=== PATIENT | male | born 1955 | race Caucasian/White ===

== ENCOUNTER 2022-03-09 16:23 | Observation (INO) | payer MEDICARE ==
[2022-03-09 16:31] VITALS: RESP 18
[2022-03-09 16:56] LABS: Basophils # (A) 0.1 k/uL (0-0.2); Basophils % (A) 1 %; Eosinophils # (A) 0.2 k/uL (0-0.7); Eosinophils % (A) 1 %; HCT 47.2 % (39.0-53.0); HGB 15.7 gm/dL (13.0-17.5); Lymphocytes # (A) 1.5 k/uL (1.0-4.8); Lymphocytes % (A) 14 %; MCH 31.9 pg (25.0-35.0); MCHC 33.3 g/dL (31.0-37.0); MCV 95.9 fL (80.0-100.0); Mean Platelet Volume 8.4; Monocytes # (A) 0.6 k/uL (0-1.0); Monocytes % (A) 6 %; Neutrophils # (A) 8.2 k/uL (1.3-7.7); Neutrophils % (A) 77 %; Platelet Count 316 k/uL (150-450); RBC 4.92 m/uL (4.30-5.90); RDW 12.6 % (11.5-15.5); WBC 10.8 k/uL (3.8-10.6)
[2022-03-09] MEDS ORDERED: methylPREDNISolone SOD SUCCI 125 MG/2 ML VIAL IV STA (17:00)
[2022-03-09] MEDS ORDERED: ALBUTEROL NEBULIZED 2.5 MG/3 ML INHALATION PRN (17:00)
[2022-03-09] MEDS ORDERED: IPRATROPIUM-ALBUTEROL 3 ML NEB INHALATION STA (17:00)
[2022-03-09] MEDS ORDERED: SODIUM CHLORIDE 0.9% 500 ML 500 ML IV ONE ×2 (17:04→17:42)
--- NOTE | 2022-03-09 17:06 | ED ---
General Adult HPI - General Chief complaint: Chest Pain Stated complaint: SOB/Chest Pressure Time Seen by Provider: 03/09/22 16:50 Source: patient, RN notes reviewed, old records reviewed Mode of arrival: ambulatory Limitations: no limitations - History of Present Illness Initial comments: 66 yo male presenting for evaluation of lightheadedness, dyspnea, and chest tightness. Prior to arrival the patient had then bending over, he felt some chest discomfort in associated lightheadedness. He became diaphoretic. This was with bending over and shortly after standing. He does have a history of CAD. He is a current smoker. His pain is currently resolved. He had previous stenting. He also reports some cough and increased dyspnea over the past se veral days. No vomiting. No abdominal pain. - Related Data Home Medications Medication Instructions Recorded Confirmed Levothyroxine Sodium [Synthroid] 200 mcg PO DAILY 03/09/15 03/09/22 lisinopriL [Zestril] 2.5 mg PO DAILY 03/09/15 03/09/22 Fenofibrate 160 mg PO HS 03/09/22 03/09/22 carvediloL [Coreg] 6.25 mg PO BID 03/09/22 03/09/22 metFORMIN HCL [Glucophage] 1,000 mg PO BID 03/09/22 03/09/22 Previous Rx's Medication Instructions Recorded Aspirin 325 mg PO DAILY #30 tab 03/10/15 Atorvastatin [Lipitor] 80 mg PO HS #30 tab 03/10/15 Allergies Allergy/AdvReac Type Severity Reaction Status Date / Time glipizide AdvReac Blurry Verified 03/09/22 18:01 vision Review of Systems ROS Statement: Those systems with pertinent positive or pertinent negative responses have been documented in the HPI. ROS Other: All systems not noted in ROS Statement are negative. Past Medical History Past Medical History: Diabetes Mellitus, Hyperlipidemia, Hypertension, Myocardial Infarction (VT), Osteoarthritis (OA), Thyroid Disorder Additional Past Medical History / Comment(s): STEMI THIS ADMISSION 03/08/15 History of Any Multi-Drug Resistant Organisms: None Reported Past Surgical History: Heart Catheterization With Stent, Tonsillectomy Additional Past Surgical History / Comment(s): 2 stents to LAD on 03/08/15. 1 stent to LAD for reocclusion on 11/25/15. Past Anesthesia/Blood Transfusion Reactions: No Reported Reaction Date of Last Stent Placement:: 11/25/15 Past Psychological History: No Psychological Hx Reported Smoking Status: Current every day smoker Past Alcohol Use History: None Reported Past Drug Use History: None Reported - Past Family History Father Family Medical History: CVA/TIA Mother History Unknown: Yes General Exam Limitations: no limitations General appearance: alert, in no apparent distress Head exam: Present: atraumatic, normocephalic Eye exam: Present: normal appearance, PERRL ENT exam: Present: mucous membranes dry Neck exam: Present: normal inspection. Absent: tenderness, meningismus Respiratory exam: Present: wheezes, decreased breath sounds. Absent: respiratory distress Cardiovascular Exam: Present: regular rate, normal rhythm GI/Abdominal exam: Present: soft. Absent: distended, tenderness, guarding Extremities exam: Present: normal inspection, normal capillary refill Neurological exam: Present: alert, oriented X3, CN II-XII intact. Absent: motor sensory deficit Psychiatric exam: Present: normal affect, normal mood Skin exam: Present: warm, dry, intact. Absent: cyanosis, diaphoretic Course Vital Signs 03/09/22 03/09/22 03/09/22 16:26 17:17 18:05 Temperature 98.6 F Pulse Rate 98 82 75 Respiratory 18 18 18 Rate Blood Pressure 160/104 137/93 149/88 O2 Sat by Pulse 96 97 97 Oximetry EKG Findings - EKG Comments: EKG Findings:: EKG: Sinus tachycardia with no ST segment elevation, rate of 101, WA interval 179, QRS duration 77, QTC 364 Medical Decision Making - Medical Decision Making 66-year-old male with an episode of near-syncope, chest pain. History of CAD. Patient without chest. The time my evaluation. His chest x-ray is clear. His laboratory testing reveals normal CBC, he has negative initial troponin. His blood sugar is significantly elevated at 580 with pseudohyponatremia 128. He was treated with IV insulin and IV fluids. I did discuss case with Dr. Merrill [facility] who does recommend the patient be a full admit. I did discuss the case with Dr. Sandra who will admit. - Lab Data Result diagrams: 03/09/22 16:37 03/09/22 16:37 Lab Results 03/09/22 03/09/22 03/09/22 Range/Units 16:37 16:37 16:37 WBC 10.8 H (3.8-10.6) k/uL RBC 4.92 (4.30-5.90) m/uL Hgb 15.7 (13.0-17.5) gm/dL Hct 47.2 (39.0-53.0) % MCV 95.9 (80.0-100.0) fL MCH 31.9 (25.0-35.0) pg MCHC 33.3 (31.0-37.0) g/dL RDW 12.6 (11.5-15.5) % Plt Count 316 (150-450) k/uL MPV 8.4 Neutrophils % 77 % Lymphocytes % 14 % Monocytes % 6 % Eosinophils % 1 % Basophils % 1 % Neutrophils # 8.2 H (1.3-7.7) k/uL Lymphocytes # 1.5 (1.0-4.8) k/uL Monocytes # 0.6 (0-1.0) k/uL Eosinophils # 0.2 (0-0.7) k/uL Basophils # 0.1 (0-0.2) k/uL PT 10.2 (9.0-12.0) sec INR 0.9 (<1.2) APTT 24.2 (22.0-30.0) sec Sodium 128 L (137-145) mmol/L Potassium 4.3 (3.5-5.1) mmol/L Chloride 98 (98-107) mmol/L Carbon Dioxide 18 L (22-30) mmol/L Anion Gap 12 mmol/L BUN 16 (9-20) mg/dL Creatinine 0.89 (0.66-1.25) mg/dL Est GFR (CKD-EPI)AfAm >90 (>60 ml/min/1.73 sqM) Est GFR (CKD-EPI)NonAf 89 (>60 ml/min/1.73 sqM) Glucose 580 H* (74-99) mg/dL Calcium 9.0 (8.4-10.2) mg/dL Magnesium 1.9 (1.6-2.3) mg/dL Total Bilirubin 0.8 (0.2-1.3) mg/dL AST 22 (17-59) U/L ALT 13 (4-49) U/L Alkaline Phosphatase 98 (38-126) U/L Troponin I (0.000-0.034) ng/mL Total Protein 7.4 (6.3-8.2) g/dL Albumin 4.5 (3.5-5.0) g/dL 03/09/22 Range/Units 16:37 WBC (3.8-10.6) k/uL RBC (4.30-5.90) m/uL Hgb (13.0-17.5) gm/dL Hct (39.0-53.0) % MCV (80.0-100.0) fL MCH (25.0-35.0) pg MCHC (31.0-37.0) g/dL RDW (11.5-15.5) % Plt Count (150-450) k/uL MPV Neutrophils % % Lymphocytes % % Monocytes % % Eosinophils % % Basophils % % Neutrophils # (1.3-7.7) k/uL Lymphocytes # (1.0-4.8) k/uL Monocytes # (0-1.0) k/uL Eosinophils # (0-0.7) k/uL Basophils # (0-0.2) k/uL PT (9.0-12.0) sec INR (<1.2) APTT (22.0-30.0) sec Sodium (137-145) mmol/L Potassium (3.5-5.1) mmol/L Chloride (98-107) mmol/L Carbon Dioxide (22-30) mmol/L Anion Gap mmol/L BUN (9-20) mg/dL Creatinine (0.66-1.25) mg/dL Est GFR (CKD-EPI)AfAm (>60 ml/min/1.73 sqM) Est GFR (CKD-EPI)NonAf (>60 ml/min/1.73 sqM) Glucose (74-99) mg/dL Calcium (8.4-10.2) mg/dL Magnesium (1.6-2.3) mg/dL Total Bilirubin (0.2-1.3) mg/dL AST (17-59) U/L ALT (4-49) U/L Alkaline Phosphatase (38-126) U/L Troponin I <0.012 (0.000-0.034) ng/mL Total Protein (6.3-8.2) g/dL Albumin (3.5-5.0) g/dL Disposition Clinical Impression: Chest pain, CAD (coronary artery disease), Hyperglycemia, Near syncope Disposition: ADMITTED IP TO THIS HOSP Condition: Stable Is patient prescribed a controlled substance at d/c from ED?: No Referrals: Ruby Richardson DO [Primary Care Provider] - 1-2 days Time of Disposition: 18:16
[2022-03-09 17:08] LABS: ALT 13 U/L (4-49); AST 22 U/L (17-59); African American GFR (CKD) >90 (>60 ml/min/1.73 sqM); Albumin 4.5 g/dL (3.5-5.0); Alkaline Phosphatase 98 U/L (38-126); Anion Gap 12 mmol/L; Blood Urea Nitrogen 16 mg/dL (9-20); Carbon Dioxide 18 mmol/L (22-30); Chloride 98 mmol/L (98-107); Glucose 580 mg/dL (74-99); Magnesium 1.9 mg/dL (1.6-2.3); Non-African American GFR(CKD) 89 (>60 ml/min/1.73 sqM); Potassium 4.3 mmol/L (3.5-5.1); Sodium 128 mmol/L (137-145); Total Bilirubin 0.8 mg/dL (0.2-1.3); Total Protein 7.4 g/dL (6.3-8.2)
[2022-03-09 17:11] LABS: INR 0.9 (<1.2); Partial Thromboplastin Time 24.2 sec (22.0-30.0); Prothrombin Time 10.2 sec (9.0-12.0)
[2022-03-09] MEDS ORDERED: INSULIN REGULAR 100 UNIT/ML VIAL (IV) IV ONE (17:42)
[2022-03-09] MEDS: SODIUM CHLORIDE 0.9% 1,000 ML IV SCH (18:05)
--- NOTE | 2022-03-09 18:07 | XR ---
EXAMINATION TYPE: XR chest 2V DATE OF EXAM: 03/09/2022 5:38 PM COMPARISON: Chest radiographs from 11/23/2015 TECHNIQUE: XR chest 2V Frontal and lateral views of the chest. CLINICAL INDICATION:Male, 66 years old with history of pain; FINDINGS: Lungs/Pleura: There is no evidence of pleural effusion, focal consolidation, or pneumothorax. Pulmonary vascularity: Unremarkable. Heart/mediastinum: Cardiomediastinal silhouette is unremarkable. Musculoskeletal: No acute osseous pathology. IMPRESSION: No acute cardiopulmonary disease/process.
[2022-03-09] MEDS ORDERED: ACETAMINOPHEN TAB 325 MG TAB PO PRN (18:12)
[2022-03-09] MEDS ORDERED: NALOXONE 0.4 MG/ML 1 ML VIAL IV PRN (18:12)
[2022-03-09 18:56] LABS: Glucose,Whole Blood 377 mg/dL (75-99)
[2022-03-09 23:05] LABS: Glucose,Whole Blood 332 mg/dL (75-99)
[2022-03-10 07:17] LABS: Glucose,Whole Blood 298 mg/dL (75-99)
[2022-03-10 08:06] VITALS: BP 134/72; PULSE 65; TEMP 98.6
[2022-03-10] MEDS ORDERED: REGADENOSON 0.4 MG/5 ML SYRINGE IV PRN (08:08)
[2022-03-10] MEDS ORDERED: CAFFEINE CITRATE 60 MG/3 ML VIAL IV PRN (08:08)
[2022-03-10] MEDS ORDERED: AMINOPHYLLINE 500 MG/20 ML VIAL IV PRN (08:08)
[2022-03-10 08:51] LABS: Basophils # (A) 0.01 X 10*3/uL (0.00-0.10); Basophils % (A) 0.1 %; Eosinophils # (A) 0 X 10*3/uL (0.04-0.35); Eosinophils % (A) 0 %; HCT 41.3 % (39.6-50.0); Immature Grans, Automated 0.5 %; Lymphocytes # (A) 0.93 X 10*3/uL (0.90-5.00); Lymphocytes % (A) 8.1 %; MCH 31.5 pg (27.0-32.0); MCHC 33.9 g/dL (32.0-37.0); MCV 92.8 fL (80.0-97.0); Monocytes # (A) 0.36 X 10*3/uL (0.20-1.00); Monocytes % (A) 3.1 %; NRBC Per 100 WBC 0 /100 WBCS (0.0-0.0); Neutrophils # (A) 10.08 X 10*3/uL (1.80-7.70); Neutrophils % (A) 88.2 %; Platelet Count 287 X 10*3/uL (140-440); RBC 4.45 X 10*6/uL (4.40-5.60); RDW 13.1 % (11.5-14.5); WBC 11.44 X 10*3/uL (4.50-10.00)
[2022-03-10 09:04] LABS: African American GFR (CKD) 102.8 (60.0-200.0); Albumin 4.2 g/dL (3.8-4.9); Albumin/Globulin Ratio 1.75 (1.60-3.17); BUN/Creat Ratio 18.89 Ratio (12.00-20.00); Calcium 8.7 mg/dL (8.7-10.3); Globulin 2.4 g/dL (1.6-3.3); Non-African American GFR(CKD) 88.7 (60.0-200.0); Potassium 4.3 mmol/L (3.5-5.5); Total Bilirubin 0.3 mg/dL (0.30-1.20); Total Protein 6.6 g/dL (6.2-8.2)
[2022-03-10] MEDS ORDERED: LEVOTHYROXINE 100 MCG TAB PO SCH (09:30)
[2022-03-10] MEDS ORDERED: metFORMIN 500 MG TAB PO SCH (09:30)
[2022-03-10] MEDS ORDERED: carvediloL 6.25 MG TAB PO SCH (09:30)
[2022-03-10 09:57] LABS: Glucose,Whole Blood 281 mg/dL (75-99)
[2022-03-10] MEDS: INSULIN ASPART (NovoLOG) 100 UNIT/ML VIAL SQ SCH ×2 (10:07→13:14)
--- NOTE | 2022-03-10 10:10 | P.CRDCN ---
History of Present Illness History of present illness: HISTORY OF PRESENTING ILLNESS This is a pleasant 66-year-old male past medical history significant for coronary artery disease status post PCI to the proximal LAD in 2014 in setting of STEMI and PCI proximal LAD 2016 in setting of NSTEMI, type 2 diabetes, dyslipidemia, hypertension, hypothyroidism, chronic nicotine dependence. he currently does not follow with a journeyman lineman, last seen by Dr. Hamm in 2015, he did follow up once with a journeyman lineman in [place] in 2019. We have been asked to see in consultation for chest pain. Patient presents emergency department with symptoms of chest discomfort that began yesterday. He states he was working out in the garage, he stood up, had symptoms of lightheadedness, diaphoresis and chest discomfort in the center of his chest. He also had associated lightheadedness and mild shortness of breath. His chest pain was nonexertional, nonradiating. He denies any palpitations, loss of consciousness or syncope. His symptoms have now resolved. no specific alleviating or aggravating factors. On admission patient also found to be hyperglycemic with blood sugar 580. Patient denies any recent cardiac workup. DIAGNOSTICS EKG reveals sinus tachycardia, heart rate 101, T wave inversion in lead V2, T wave flattening in lead aVL, nonspecific abnormalities. No acute ischemia noted. Prior EKG with similar findings. Last Cardiac Catheterization 2015 revealedmild disease in the RCA, short left main but normal, left circumflex angiographically normal. The proximal LAD seems to have mild disease and gives rise to diagonal branch, mid LAD is stented with a critical in-stent restenosis. patient underwent PCI to LAD Telemetry tracings indicate sinus mechanism Chest xray no acute cardiopulmonary process Laboratory reviewed, troponin negative 3, WBC 10.8, hemoglobin 15.7, platelets 316, sodium 136, potassium 4.3, BUN 16, serum creat 0.8 Current home medications includecarvedilol 6.25 mg twice a day, Synthroid, aspirin, lisinopril 2.5 mg daily, atorvastatin 80 mg nightly, metformin Most recent echocardiogram 06/2015 in the office revealed an EF of 55%, no significant wall motion abnormalities. REVIEW OF SYSTEMS At the time of my exam: CONSTITUTIONAL: Denies fever or chills. CARDIOVASCULAR: Denies chest pain, shortness of breath, orthopnea, PND or palpitations. RESPIRATORY: Denies cough. GASTROINTESTINAL: Denies abdominal pain, diarrhea, constipation, nausea or vomiting. MUSCULOSKELETAL: Denies myalgias. NEUROLOGIC: Denies numbness, tingling, headache or weakness. ENDOCRINE: Denies fatigue, weight change, polydipsia or polyurina. GENITOURINARY: Denies burning, hematuria or urgency with micturation. HEMATOLOGIC: Denies history of anemia or bleeding. PHYSICAL EXAMINATION Blood pressure 134/72, heart 65, afebrile, saturation 97% on room air CONSTITUTIONAL: No apparent distress. HEENT: Head is normocephalic. Pupils are equal, round. Sclerae anicteric. Mucous membranes of the mouth are moist. No JVD. No carotid bruit. CHEST EXAMINATION: Lungs are clear to auscultation. No chest wall tenderness is noted on palpation or with deep breathing. HEART EXAMINATION: Regular rate and rhythm. S1, S2 heard. No murmurs, gallops or rub. ABDOMEN: Soft, nontender. Positive bowel sounds. EXTREMITIES: 2+ peripheral pulses, no lower extremity edema and no calf tenderness. SKIN: warm, dry NEUROLOGIC EXAMINATION: Patient is awake, alert and oriented x3. ASSESSMENT chest pain, atypical, acute coronary syndrome has ruled out hyperglycemia Coronary artery disease status post PCI to the proximal LAD in 2014 in setting of STEMI and PCI proximal LAD 2016 in setting of NSTEMI Type 2 diabetes Dyslipidemia Hypertension Hypothyroidism Chronic nicotine dependence PLAN An acute coronary event has been ruled out with no EKG evidence of ischemia and negative cardiac enzymes. Obtain 2D echocardiogram and doppler study to assess cardiac structure and function. Perform Lexiscan stress test to assess for stress induced cardiac ischemia. If abnormal will consider coronary angiography. Continue aspirin, statin, carvedilol Increase lisinopril to 5mg daily Smoking cessation discussed and highly recommended. If Stress test is negative, ok to discharge from a cardiology perspective. Recommend close follow up outpatient. Thank you kindly for this consultation. Nurse practitioner note has been reviewed by physician. Signing provider agrees with the documented findings, assessment, and plan of care. Past Medical History Past Medical History: Diabetes Mellitus, Hyperlipidemia, Hypertension, Myocardial Infarction (CT), Osteoarthritis (OA), Thyroid Disorder Additional Past Medical History / Comment(s): STEMI THIS ADMISSION 03/08/15 Last Myocardial Infarction Date:: 2015 History of Any Multi-Drug Resistant Organisms: None Reported Past Surgical History: Heart Catheterization With Stent, Tonsillectomy Additional Past Surgical History / Comment(s): 2 stents to LAD on 03/08/15. 1 stent to LAD for reocclusion on 11/25/15. Past Anesthesia/Blood Transfusion Reactions: No Reported Reaction Date of Last Stent Placement:: 11/25/15 Past Psychological History: No Psychological Hx Reported Smoking Status: Current every day smoker Past Alcohol Use History: None Reported Past Drug Use History: None Reported - Past Family History Father Family Medical History: CVA/TIA Mother History Unknown: Yes Medications and Allergies Home Medications Medication Instructions Recorded Confirmed Type Levothyroxine Sodium [Synthroid] 200 mcg PO DAILY 03/09/15 03/09/22 History lisinopriL [Zestril] 2.5 mg PO DAILY 03/09/15 03/09/22 History Aspirin 325 mg PO DAILY #30 tab 03/10/15 03/09/22 Rx Atorvastatin [Lipitor] 80 mg PO HS #30 tab 03/10/15 03/09/22 Rx Fenofibrate 160 mg PO HS 03/09/22 03/09/22 History carvediloL [Coreg] 6.25 mg PO BID 03/09/22 03/09/22 History metFORMIN HCL [Glucophage] 1,000 mg PO BID 03/09/22 03/09/22 History Allergies Allergy/AdvReac Type Severity Reaction Status Date / Time glipizide AdvReac Blurry Verified 03/09/22 18:01 vision Physical Exam Vitals: Vital Signs Temp Pulse Pulse Resp BP BP Pulse Ox 03/10/22 07:13 98.6 F 65 18 134/72 97 03/10/22 00:30 98.1 F 84 18 154/94 98 03/09/22 22:53 78 18 158/92 98 03/09/22 19:03 79 18 115/60 96 03/09/22 18:21 66 03/09/22 18:15 66 03/09/22 18:05 75 18 149/88 97 03/09/22 17:17 82 18 137/93 97 03/09/22 16:26 98.6 F 98 18 160/104 96 Intake and Output 03/09/22 03/10/22 03/10/22 22:59 06:59 14:59 Other: Voiding Method Toilet # Voids 1 Weight 79.379 kg Results 03/10/22 06:56 03/10/22 06:56 Cardiac Enzymes 03/09/22 03/09/22 03/09/22 Range/Units 16:37 16:37 20:58 AST 22 (17-59) U/L Troponin I <0.012 <0.012 (0.000-0.034) ng/mL 03/10/22 Range/Units 00:47 AST (17-59) U/L Troponin I <0.012 (0.000-0.034) ng/mL Coagulation 03/09/22 Range/Units 16:37 PT 10.2 (9.0-12.0) sec APTT 24.2 (22.0-30.0) sec CBC 03/09/22 Range/Units 16:37 WBC 10.8 H (3.8-10.6) k/uL RBC 4.92 (4.30-5.90) m/uL Hgb 15.7 (13.0-17.5) gm/dL Hct 47.2 (39.0-53.0) % Plt Count 316 (150-450) k/uL Comprehensive Metabolic Panel 03/09/22 Range/Units 16:37 Sodium 128 L (137-145) mmol/L Potassium 4.3 (3.5-5.1) mmol/L Chloride 98 (98-107) mmol/L Carbon Dioxide 18 L (22-30) mmol/L BUN 16 (9-20) mg/dL Creatinine 0.89 (0.66-1.25) mg/dL Glucose 580 H* (74-99) mg/dL Calcium 9.0 (8.4-10.2) mg/dL AST 22 (17-59) U/L ALT 13 (4-49) U/L Alkaline Phosphatase 98 (38-126) U/L Total Protein 7.4 (6.3-8.2) g/dL Albumin 4.5 (3.5-5.0) g/dL Current Medications Generic Name Dose Route Start Last Admin Trade Name Freq PRN Reason Stop Dose Admin Acetaminophen 650 mg 03/09/22 18:12 Acetaminophen Tab 325 Mg Tab PO Q6HR PRN Mild Pain or Fever > 100.5 Albuterol Sulfate 2.5 mg 03/09/22 17:00 Albuterol Nebulized 2.5 Mg/3 Ml INHALATION RT-Q2H PRN Shortness Of Breath Or Wheezing Sodium Chloride 1,000 mls @ 75 mls/hr 03/09/22 17:45 03/09/22 18:05 Saline 0.9% IV 75 mls/hr .[id number] HENRI Administration Naloxone HCl 0.2 mg 03/09/22 18:12 Naloxone 0.4 Mg/Ml 1 Ml Vial IV Q2M PRN Opioid Reversal Intake and Output 03/09/22 03/10/22 03/10/22 22:59 06:59 14:59 Other: Voiding Method Toilet # Voids 1 Weight 79.379 kg 03/09/22 16:37 03/09/22 16:37
[2022-03-10] MEDS ORDERED: ASPIRIN 81 MG PO SCH (10:15)
[2022-03-10] MEDS ORDERED: lisinopriL 5 MG TAB PO SCH (10:15)
[2022-03-10 12:12] LABS: Glucose,Whole Blood 271 mg/dL (75-99)
--- NOTE | 2022-03-10 12:52 | NM ---
EXAMINATION TYPE: NM stress lexiscan cardiolite DATE OF EXAM: 03/10/2022 COMPARISON: NONE HISTORY: Chest TECHNIQUE: After the intravenous administration of 9.7 mCi Tc 99m Sestamibi - Cardiolite resting SPE CT images acquired 110 minutes post injection. The patient received 0.4mg Lexiscan, 25.4 mCi Tc 99m Sestamibi - Stress images obtained [address] injection FINDINGS: Review of stress and rest SPECT images demonstrates large areas of reduced uptake which appear matche d involving stress and rest images involving the anterior wall, septum, inferior wall and apex all gayle ggestive of remote infarct. Corresponding wall motion defect. Ejection fraction of 48% no definite st ress-induced reversibility seen. IMPRESSION: Large area of fixed defect involving the myocardium as discussed above suggestive of areas of remote infarction. No scintigraphic evidence for reversible ischemia.
[2022-03-10] MEDS: SODIUM CHLORIDE 0.9% 1,000 ML IV SCH (13:34)
--- NOTE | 2022-03-10 13:39 | P.HPIM ---
History of Present Illness H&P Date: 03/10/22 Chief Complaint: Chest discomfort This is a pleasant 66-year-old patient who follows Dr. Ruby guerrero. Chronic stable medical conditions include diabetes, hypertension, hyperlipidemia, osteoporosis, hypothyroid. Patient has known CAD with 2 stents to LAD and 2015 and one stent to LAD and for reocclusion in 2016. Patient is a smoker. Patient was working in the garage yesterday and when he got up he felt dizzy short of breath and some palpitations, chest discomfort. No radiation. Symptoms lasted for good 30 minutes. Finally decided to come in. Troponin was negative. 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 Had a negative cardiac stress test over 2 years ago. This morning no chest pain. Review of systems: GEN.: Tired EYES: None HEENT: None NECK: None RESPIRATORY: Occasionally short of breath with activity CARDIOVASCULAR: As above GASTROINTESTINAL: None GENITOURINARY: None MUSCULOSKELETAL: Some joint pains LYMPHATICS: None HEMATOLOGICAL: None PSYCHIATRY: None NEUROLOGICAL: None Past medical history to include: Diabetes, hypertension, hyperlipidemia, osteomyelitis, hypothyroid. CAD with stent in 1999 1515. Social history: Smokes a pack a day for many years. 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 . Family history: Stroke Physical examination: VITAL SIGNS: 98.6, 65, 18, 1:30/72, 97% room air GENERAL: BMI 26.6, declining but awake comfortable. EYES: Pupils equal. Conjunctiva normal. HEENT: External appearance of nose and ears normal, oral cavity grossly normal. NECK: JVD not raised; masses not palpable. HEART: First and second heart sounds are normal; no edema. LUNGS: Respiratory rate normal; decreased breath sounds. ABDOMEN: Soft, nontender, liver spleen not palpable, no masses palpable. PSYCH: Alert and oriented x3; mood and affect normal. MUSCULOSKELETAL:No Clubbing/cyanosis;muscles-grossly intact. Evidence of OA NEUROLOGICAL: Cranial nerves grossly intact; no facial asymmetry, power and sensation grossly intact. LYMPHATICS: No lymph nodes palpable in the axilla and neck INVESTIGATIONS, reviewed in the clinical context: EKG tracing personally reviewed by me-sinus rhythm. Nonspecific findings Chest x-ray film personally reviewed by me-no infiltrates White count 11.4 hemoglobin 14 platelets 287 potassium 4.3 creatinine 0.9 blood glucose 314 Troponin I less than 0.012 Assessment and plan: -Possible unstable angina in a patient with known CAD who continues to smoke Initial troponin negative. With the stress testing. -CAD with 3 stents to LAD in . Coreg 6.25 twice a day, aspirin -Diabetes mellitus type 2, on oral hypoglycemic Metformin thousand milligrams twice a day. Follow Accu-Cheks -Hyperlipidemia Lipitor 80 mg daily at bedtime -Essential hypertension Zestril 2.5 mg a day Coreg 6.25 mg twice a day -Hypothyroid Synthroid 200 g daily Serial cardiac enzymes. Resume home medications. Cardiology consulted. Pending nuclear Stress test. Care was discussed with the patient. Questions answered. Past Medical History Past Medical History: Diabetes Mellitus, Hyperlipidemia, Hypertension, Myocardia l Infarction ([place]), Osteoarthritis (OA), Thyroid Disorder Additional Past Medical History / Comment(s): STEMI THIS ADMISSION 03/08/15 Last Myocardial Infarction Date:: 2015 History of Any Multi-Drug Resistant Organisms: None Reported Past Surgical History: Heart Catheterization With Stent, Tonsillectomy Additional Past Surgical History / Comment(s): 2 stents to LAD on 03/08/15. 1 stent to LAD for reocclusion on 11/25/15. Past Anesthesia/Blood Transfusion Reactions: No Reported Reaction Date of Last Stent Placement:: 11/25/15 Past Psychological History: No Psychological Hx Reported Smoking Status: Current every day smoker Past Alcohol Use History: None Reported Past Drug Use History: None Reported - Past Family History Father Family Medical History: CVA/TIA Mother History Unknown: Yes Medications and Allergies Home Medications Medication Instructions Recorded Confirmed Type Levothyroxine Sodium [Synthroid] 200 mcg PO DAILY 03/09/15 03/09/22 History lisinopriL [Zestril] 2.5 mg PO DAILY 03/09/15 03/09/22 History Atorvastatin [Lipitor] 80 mg PO HS #30 tab 03/10/15 03/09/22 Rx Fenofibrate 160 mg PO HS 03/09/22 03/09/22 History carvediloL [Coreg] 6.25 mg PO BID 03/09/22 03/09/22 History metFORMIN HCL [Glucophage] 1,000 mg PO BID 03/09/22 03/09/22 History Albuterol Inhaler [Ventolin Hfa 1 puff INHALATION RT-QID PRN #8 gm 03/10/22 Rx Inhaler] Aspirin 81 mg PO DAILY 03/10/22 Rx Allergies Allergy/AdvReac Type Severity Reaction Status Date / Time glipizide AdvReac Blurry Verified 03/09/22 18:01 vision Physical Exam Vitals: Vital Signs Temp Pulse Pulse Resp BP BP Pulse Ox 03/10/22 07:13 98.6 F 65 18 134/72 97 03/10/22 00:30 98.1 F 84 18 154/94 98 03/09/22 22:53 78 18 158/92 98 03/09/22 19:03 79 18 115/60 96 03/09/22 18:21 66 03/09/22 18:15 66 03/09/22 18:05 75 18 149/88 97 03/09/22 17:17 82 18 137/93 97 03/09/22 16:26 98.6 F 98 18 160/104 96 Intake and Output 03/09/22 03/10/22 03/10/22 22:59 06:59 14:59 Other: Voiding Method Toilet # Voids 1 Weight 79.379 kg Results CBC & Chem 7: 03/10/22 06:56 03/10/22 06:56 Labs: Abnormal Lab Results - Last 24 Hours (Table) 03/09/22 03/09/22 03/09/22 Range/Units 16:37 16:37 18:54 WBC 10.8 H (3.8-10.6) k/uL Immature Gran # (0.00-0.04) X 10*3/uL Neutrophils # 8.2 H (1.3-7.7) k/uL Eosinophils # (0.04-0.35) X 10*3/uL Sodium 128 L (137-145) mmol/L Carbon Dioxide 18 L (22-30) mmol/L Glucose 580 H* (74-99) mg/dL POC Glucose (mg/dL) 377 H (75-99) mg/dL AST (14-35) U/L 03/09/22 03/10/22 03/10/22 Range/Units 22:59 06:56 06:56 WBC 11.44 H (3.8-10.6) k/uL Immature Gran # 0.06 H (0.00-0.04) X 10*3/uL Neutrophils # 10.08 H (1.3-7.7) k/uL Eosinophils # 0 L (0.04-0.35) X 10*3/uL Sodium (137-145) mmol/L Carbon Dioxide (22-30) mmol/L Glucose 314 H (74-99) mg/dL POC Glucose (mg/dL) 332 H (75-99) mg/dL AST 13 L (14-35) U/L 03/10/22 Range/Units 07:16 WBC (3.8-10.6) k/uL Immature Gran # (0.00-0.04) X 10*3/uL Neutrophils # (1.3-7.7) k/uL Eosinophils # (0.04-0.35) X 10*3/uL Sodium (137-145) mmol/L Carbon Dioxide (22-30) mmol/L Glucose (74-99) mg/dL POC Glucose (mg/dL) 298 H (75-99) mg/dL AST (14-35) U/L
--- NOTE | 2022-03-10 16:34 | P.DS ---
Providers Date of admission: 03/10/22 09:17 Expected date of discharge: 03/10/22 Attending physician: Vu Sandra Consults: 03/09/22 18:12 Consult Physician Routine Consulting Provider: Audelia Hernandez Consult Reason/Comments: CP Do you want consulting provider notified?: Yes Primary care physician: Ruby Guerrero [facility] Course: Chief Complaint: Chest discomfort This is a pleasant 66-year-old patient who follows Dr. Ruby guerrero. Chronic stable medical conditions include diabetes, hypertension, hyperlipidemia, osteoporosis, hypothyroid. Patient has known CAD with 2 stents to LAD and 2015 and one stent to LAD and for reocclusion in 2016. Patient is a smoker. Patient was working in the garage yesterday and when he got up he felt dizzy short of breath and some palpitations, chest discomfort. No radiation. Symptoms lasted for good 30 minutes. Finally decided to come in. Troponin was negative. Patient last saw his complaint analyst before the pandemic. Had a negative cardiac stress test over 2 years ago. This morning no chest pain. Patient is self underwent a Lexiscan nuclear stress test. Large fixed defect. Cleared by cardiology to go home. Patient declined nicotine patch. He'll follow-up with his complaint analyst. Past medical history to include: Diabetes, hypertension, hyperlipidemia, osteomyelitis, hypothyroid. CAD with s tent in 1999 1515. Social history: Smokes a pack a day for many years. 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 . Family history: Stroke Physical examination: VITAL SIGNS: 98.6, 65, 18, 134/72, 97% room air GENERAL: Comfortable EYES: Pupils equal. Conjunctiva normal. HEENT: External appearance of nose and ears normal, oral cavity grossly normal. NECK: JVD not raised; masses not palpable. HEART: First and second heart sounds are normal; no edema. LUNGS: Respiratory rate normal; decreased breath sounds. ABDOMEN: Soft, nontender, liver spleen not palpable, no masses palpable. PSYCH: Alert and oriented x3; mood and affect normal. MUSCULOSKELETAL:No Clubbing/cyanosis;muscles-grossly intact. Evidence of OA INVESTIGATIONS, reviewed in the clinical context: Lexiscan stress test: Large fixed defect. EKG tracing personally reviewed by me-sinus rhythm. Nonspecific findings Chest x-ray film personally reviewed by me-no infiltrates White count 11.4 hemoglobin 14 platelets 287 potassium 4.3 creatinine 0.9 blood glucose 314 Troponin I less than 0.012 Assessment and plan: -Possible angina in a patient with known CAD who continues to smoke Initial troponin negative. Nuclear stress test showed a fixed defect. -CAD with 3 stents to LAD in . Coreg 6.25 twice a day, aspirin -Diabetes mellitus type 2, on oral hypoglycemic Metformin thousand milligrams twice a day. Follow Accu-Cheks -Hyperlipidemia Lipitor 80 mg daily at bedtime -Essential hypertension Zestril 2.5 mg a day Coreg 6.25 mg twice a day -Hypothyroid Synthroid 200 g daily Disposition: Home Plan - Discharge Summary New Discharge Prescriptions: New Aspirin 81 mg PO DAILY Albuterol Inhaler [Ventolin Hfa Inhaler] 1 puff INHALATION RT-QID PRN #8 gm PRN Reason: Wheezing Continue Levothyroxine Sodium [Synthroid] 200 mcg PO DAILY lisinopriL [Zestril] 2.5 mg PO DAILY Atorvastatin [Lipitor] 80 mg PO HS #30 tab Fenofibrate 160 mg PO HS carvediloL [Coreg] 6.25 mg PO BID metFORMIN HCL [Glucophage] 1,000 mg PO BID Discontinued Aspirin 325 mg PO DAILY #30 tab Discharge Medication List Levothyroxine Sodium [Synthroid] 200 mcg PO DAILY 03/09/15 [History] lisinopriL [Zestril] 2.5 mg PO DAILY 03/09/15 [History] Atorvastatin [Lipitor] 80 mg PO HS #30 tab 03/10/15 [Rx] Fenofibrate 160 mg PO HS 03/09/22 [History] carvediloL [Coreg] 6.25 mg PO BID 03/09/22 [History] metFORMIN HCL [Glucophage] 1,000 mg PO BID 03/09/22 [History] Albuterol Inhaler [Ventolin Hfa Inhaler] 1 puff INHALATION RT-QID PRN #8 gm 03/10/22 [Rx] Aspirin 81 mg PO DAILY 03/10/22 [Rx] Follow up Appointment(s)/Referral(s): Gold Hamm MD [STAFF PHYSICIAN] - 03/22/22 4:15 pm Ruby Guerrero DO [Primary Care Provider] - 1-2 days Patient Instructions/Handouts: Chest Pain (DC), Syncope (DC), Diabetic Hyper glycemia (DC) Discharge Disposition: HOME SELF-CARE
--- NOTE | 2022-03-10 17:54 | CA ---
Transthoracic Echo Report Name: Wilbert Boswell Age: 66 Gender: M : 1955 Exam Date: 03/10/2022 12:36 Exam Location: [place] [facility] Ht (in): 68 Wt (lb): 175 Ordering Physician: Yamel Lomeli Attending/Referring Phys: Fire Extinguisher Charger Carlota Hayden RDCS Procedure CPT: Indications: LV function Cardiac Hx: Technical Quality: Fair Contrast 1: Total Dose (mL): Contrast 2: Total Dose (mL): MEASUREMENTS (Male / Female) Normal Values 2D ECHO LV Diastolic Diameter PLAX 4.3 cm 4.2 - 5.9 / 3.9 - 5.3 cm LV Systolic Diameter PLAX 2.7 cm IVS Diastolic Thickness 1.3 cm 0.6 - 1.0 / 0.6 - 0.9 cm LVPW Diastolic Thickness 1.1 cm 0.6 - 1.0 / 0.6 - 0.9 cm LV Relative Wall Thickness 0.6 RV Internal Dim ED PLAX 3.4 cm LA Volume 54.0 cm??? 18 - 58 / 22 - 52 cm??? M-MODE Aortic Root Diameter MM 2.9 cm LA Systolic Diameter MM 3.8 cm LA Ao Ratio MM 1.3 AV Cusp Separation MM 2.1 cm DOPPLER AV Peak Velocity 122.5 cm/s AV Peak Gradient 6.0 mmHg AI Peak Velocity 395.5 cm/s AI Peak Gradient 62.6 mmHg AI Pressure Half Time 713.2 ms LVOT Peak Velocity 88.8 cm/s LVOT Peak Gradient 3.2 mmHg MV Area PHT 2.7 cm??? Mitral E Point Velocity 62.1 cm/s Mitral A Point Velocity 65.1 cm/s Mitral E to A Ratio 1.0 MV Deceleration Time 284.7 ms MV E' Velocity 6.5 cm/s Mitral E to MV E' Ratio 9.6 TR Peak Velocity 187.0 cm/s TR Peak Gradient 14.0 mmHg Right Ventricular Systolic Press 19.0 mmHg FINDINGS Left Ventricle Left ventricular cavity size normal. Mildly increased left ventricular wall thickness. Apical septal hypokinesis, Inferior apical wall hypokinesis. Left ventricular ejection fraction is estimated at 45 %. Right Ventricle Mild right ventricular dilatation. Right ventricular systolic pressure within normal limits. Right Atrium Normal right atrial size. Left Atrium Normal left atrial size. No evidence for an atrial septal defect. Mitral Valve Structurally normal mitral valve. Mild mitral regurgitation. Aortic Valve Trileaflet aortic valve. Trace to mild aortic regurgitation. Tricuspid Valve Structurally normal tricuspid valve. Mild tricuspid regurgitation. Pulmonic Valve Trace pulmonic regurgitation. Pericardium No pericardial effusion. Aorta Normal size aortic root and proximal ascending aorta. CONCLUSIONS Mildly impaired LV function with EF around 45% Please see above for further details Previewed by: Dr. Gold Hamm MD (Electronically Signed) Final Date: 10 Mar 2022 17:53
--- NOTE | 2022-03-10 18:16 | CA ---
Lexiscan Nuclear Stress Test Report Name: Wilbert Boswell Exam Date: 03/10/2022 11:00 Exam Location: [place] Stress Ht (in): 68 Wt (lb): 175 BSA: 1.93 Ordering Phys: Yamel Lomeli Referring Phys: JORGE,, Technologist: GUILLERMO,, Age: 66 Gender: M : 1955 Procedure CPT: Indications: Reflex order-Stress test ICD-10 Codes: Patient History: ROXANNE, DM, CHOLERTEROL, PRVIOUS DE, STENTS, SMOKER Medications: SEE LIST Meds past 24 hrs: Pretest Chest Pain: STRESS TEST Lexiscan Protocol Exercise Duration (min:sec): 01:[address] Depressions (mm): Angina Score: Chong Score: Resting HR (bpm): 62 Peak HR (bpm): 100 Resting BP (mmHg): 147 / 89 Peak BP (mmHg): 130 / 73 MPHR: 154 Target HR: 131 % MPHR: 65 METS: 1.0 Total Dose: Peak Dose: Atropine: Double Product: 96105 BP Response: Stress Termination: Completion of Infusion Stress Symptoms: NO SYMPTOMS Stress Summary: ECG ANALYSIS Resting ECG: Stress ECG: CONCLUSIONS Nondiagnostic. Echocardiogram stress testing response to Lexiscan Please follow up on the Cardiolite portion Dr. Gold Hamm MD (Electronically Signed) Final Date: 10 Mar 2022 18:16
[2022-03-10] MEDS ORDERED: FENOFIBRATE 160 MG TAB PO SCH (21:00)
[2022-03-10] MEDS ORDERED: ATORVASTATIN 80 MG TAB PO SCH (21:00)
== END 2022-03-10 15:25 | disposition home or self-care (01) ==
LOC: EC 16:23 → 6NMEDSUR 18:12 → INTOOBSV 03-10 09:17 → OBSVTOIN 03-10 09:17 → UNDODISIN 03-10 15:25
PROVIDERS: ADMIT Hospitalist; ATTEND Hospitalist
DX: R07.89 Other chest pain (principal); E11.65 Type 2 diabetes mellitus with hyperglycemia; I25.10 Atherosclerotic heart disease of native coronary artery without angina pectoris; R55 Syncope and collapse; R00.2 Palpitations; R61 Generalized hyperhidrosis; R42 Dizziness and giddiness; I08.3 Combined rheumatic disorders of mitral, aortic and tricuspid valves; M81.0 Age-related osteoporosis without current pathological fracture; I10 Essential (primary) hypertension; I25.2 Old myocardial infarction; E03.9 Hypothyroidism, unspecified; E78.5 Hyperlipidemia, unspecified; M19.90 Unspecified osteoarthritis, unspecified site; F17.210 Nicotine dependence, cigarettes, uncomplicated; Z71.6 Tobacco abuse counseling; Z79.82 Long term (current) use of aspirin; Z79.84 Long term (current) use of oral hypoglycemic drugs; Z79.890 Hormone replacement therapy; Z79.899 Other long term (current) drug therapy; Z88.8 Allergy status to other drugs, medicaments and biological substances; Z95.5 Presence of coronary angioplasty implant and graft; Z98.890 Other specified postprocedural states; Z82.3 Family history of stroke
CPT/HCPCS: 96361; 96374; 99285; 36415; 94640; 93005; 93017; 93306; 80053 ×2; 83735; 84484 ×2; 85025 ×2; 85610; 85730; 71046; 78452; G0378 ×2; A9500; J2930; J2785; 96375

== ENCOUNTER 2023-01-06 22:15 | Emergency (ER) | payer MEDICARE ==
[2023-01-06 22:31] VITALS: TEMP 98.8
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
[2023-01-06 23:16] LABS: Basophils # (A) 0.1 k/uL (0-0.2); Basophils % (A) 0 %; Eosinophils # (A) 0.1 k/uL (0-0.7); Eosinophils % (A) 1 %; HCT 48.4 % (39.0-53.0); HGB 16.4 gm/dL (13.0-17.5); Lymphocytes # (A) 1.5 k/uL (1.0-4.8); Lymphocytes % (A) 12 %; MCH 31.2 pg (25.0-35.0); MCHC 33.9 g/dL (31.0-37.0); MCV 91.9 fL (80.0-100.0); Mean Platelet Volume 8.2; Monocytes # (A) 0.6 k/uL (0-1.0); Monocytes % (A) 5 %; Neutrophils # (A) 9.8 k/uL (1.3-7.7); Neutrophils % (A) 80 %; Platelet Count 313 k/uL (150-450); RBC 5.27 m/uL (4.30-5.90); RDW 12.7 % (11.5-15.5); WBC 12.2 k/uL (3.8-10.6)
[2023-01-06 23:28] LABS: African American GFR (CKD) >90 (>60 ml/min/1.73 sqM); Anion Gap 10 mmol/L; Blood Urea Nitrogen 15 mg/dL (9-20); Calcium 9.3 mg/dL (8.4-10.2); Carbon Dioxide 20 mmol/L (22-30); Chloride 103 mmol/L (98-107); Glucose 270 mg/dL (74-99); Non-African American GFR(CKD) >90 (>60 ml/min/1.73 sqM); Potassium 4.2 mmol/L (3.5-5.1); Sodium 133 mmol/L (137-145)
[2023-01-07] MEDS ORDERED: INSULIN ASPART (NovoLOG) 100 UNIT/ML VIAL SQ ONE (00:09)
[2023-01-07] MEDS ORDERED: HYDROcodone/APAP 5-325MG 1 EACH TAB PO STA (00:13)
[2023-01-07] MEDS ORDERED: ALPRAZolam 0.25 MG TAB PO STA (00:13)
[2023-01-07 00:41] LABS: Glucose,Whole Blood 171 mg/dL (70-110)
[2023-01-07 01:00] VITALS: BP 151/95; PULSE 97; RESP 16
== END 2023-01-07 00:50 | disposition home or self-care (01) ==
LOC: EC 22:15
DX: F41.9 Anxiety disorder, unspecified (principal); E11.9 Type 2 diabetes mellitus without complications; I10 Essential (primary) hypertension; I25.2 Old myocardial infarction; M19.90 Unspecified osteoarthritis, unspecified site; E07.9 Disorder of thyroid, unspecified; F17.200 Nicotine dependence, unspecified, uncomplicated; Z88.8 Allergy status to other drugs, medicaments and biological substances; Z79.890 Hormone replacement therapy; Z79.899 Other long term (current) drug therapy
CPT/HCPCS: 36415; 80048; 85025; 93005; 99284

== ENCOUNTER 2023-01-27 18:26 | Inpatient (IN) | payer MEDICARE ==
[2023-01-27 19:40] LABS: Basophils # (A) 0.1 k/uL (0-0.2); Basophils % (A) 0 %; Eosinophils # (A) 0.1 k/uL (0-0.7); Eosinophils % (A) 1 %; HCT 47.4 % (39.0-53.0); HGB 16.8 gm/dL (13.0-17.5); Lymphocytes # (A) 1.6 k/uL (1.0-4.8); Lymphocytes % (A) 15 %; MCH 31.8 pg (25.0-35.0); MCHC 35.4 g/dL (31.0-37.0); MCV 89.9 fL (80.0-100.0); Mean Platelet Volume 9.7; Monocytes # (A) 0.5 k/uL (0-1.0); Monocytes % (A) 5 %; Neutrophils # (A) 8.2 k/uL (1.3-7.7); Neutrophils % (A) 77 %; Platelet Count 369 k/uL (150-450); RBC 5.27 m/uL (4.30-5.90); RDW 13.3 % (11.5-15.5); WBC 10.6 k/uL (3.8-10.6)
--- NOTE | 2023-01-27 19:53 | ED ---
General Adult HPI - General Chief complaint: Dizziness Stated complaint: Jaw Pain,Dizziness Time Seen by Provider: 01/27/23 18:47 Source: patient Mode of arrival: ambulatory Limitations: no limitations - History of Present Illness Initial comments: This patient is 67-year-old man presenting with a number of symptoms and have come and gone over the past 3 or so days. Patient had at times noticed some blurry vision with his left eye. The patient states the most concerning symptom was that yesterday he was having difficulty using his right arm. He states he attempted to reach a remote control but was not able to grasp it. He states that he fumbled with it and that it seemed his right hand wasn't following commands. The symptoms have all resolved. The patient states he feels back at his baseline now. There was no headache. -: days(s) Location: eyes, right, upper extremity Severity scale (1-10): 0 Consistency: intermittent, now resolved Improves with: none Worsens with: none Associated Symptoms: denies other symptoms Treatments Prior to Arrival: none - Related Data Home Medications Medication Instructions Recorded Confirmed Levothyroxine Sodium [Synthroid] 200 mcg PO W/LUNCH 03/09/15 01/27/23 Aspirin EC [Ecotrin] 325 mg PO PC-SUPPER 01/27/23 01/27/23 Dapagliflozin Propanediol [Farxiga] 10 mg PO PC-SUPPER 01/27/23 01/27/23 Diclofenac Sodium [Voltaren] 75 mg PO BID 01/27/23 01/27/23 Levothyroxine Sodium [Synthroid] 25 mcg PO W/LUNCH 01/27/23 01/27/23 Semaglutide [Ozempic] 0.25 mg SQ PATRICK 01/27/23 01/27/23 lisinopriL [Zestril] 40 mg PO PC-SUPPER 01/27/23 01/27/23 metFORMIN HCL [Glucophage] 500 mg PO PC-SUPPER 01/27/23 01/27/23 Previous Rx's Medication Instructions Recorded Albuterol Inhaler [Ventolin Hfa 1 puff INHALATION RT-QID PRN #8 gm 03/10/22 Inhaler] Atorvastatin [Lipitor] 80 mg PO DAILY #90 tab 01/30/23 Clopidogrel [Plavix] 75 mg PO DAILY #30 tab 01/30/23 Allergies Allergy/AdvReac Type Severity Reaction Status Date / Time glipizide AdvReac Blurry Verified 01/29/23 14:01 vision Review of Systems ROS Statement: Those systems with pertinent positive or pertinent negative responses have been documented in the HPI. ROS Other: All systems not noted in ROS Statement are negative. Constitutional: Denies: fever, chills, weakness Eyes: Reports: as per HPI, vision change. Denies: eye pain Respiratory: Denies: cough, dyspnea Cardiovascular: Denies: chest pain, palpitations, edema, syncope Gastrointestinal: Denies: abdominal pain, nausea, vomiting, melena, hematochezia Genitourinary: Denies: dysuria, hematuria Musculoskeletal: Denies: back pain Skin: Denies: rash Neurological: Denies: headache, weakness, numbness, paresthesias, confusion, vertigo Past Medical History Past Medical History: Diabetes Mellitus, Hyperlipidemia, Hypertension, Myocard ial Infarction (VT), Osteoarthritis (OA), Thyroid Disorder Additional Past Medical History / Comment(s): STEMI THIS ADMISSION 03/08/15 Last Myocardial Infarction Date:: 2015 History of Any Multi-Drug Resistant Organisms: None Reported Past Surgical History: Heart Catheterization With Stent, Tonsillectomy Additional Past Surgical History / Comment(s): 2 stents to LAD on 03/08/15. 1 stent to LAD for reocclusion on 11/25/15. Past Anesthesia/Blood Transfusion Reactions: No Reported Reaction Date of Last Stent Placement:: 11/25/15 Past Psychological History: No Psychological Hx Reported Smoking Status: Current every day smoker Past Alcohol Use History: None Reported Past Drug Use History: None Reported - Past Family History Father Family Medical History: CVA/TIA Mother History Unknown: Yes General Exam Limitations: no limitations General appearance: alert, in no apparent distress Head exam: Present: atraumatic, normocephalic Eye exam: Present: normal appearance, PERRL, EOMI. Absent: scleral icterus, conjunctival injection, nystagmus ENT exam: Present: normal oropharynx Neck exam: Present: normal inspection, full ROM Respiratory exam: Present: normal lung sounds bilaterally. Absent: respiratory distress, wheezes, rales, rhonchi, stridor Cardiovascular Exam: Present: regular rate, normal rhythm, normal heart sounds. Absent: systolic murmur, diastolic murmur, rubs, gallop GI/Abdominal exam: Present: soft. Absent: distended, tenderness, guarding, rebound, rigid, mass Extremities exam: Present: normal inspection, normal capillary refill. Absent: pedal edema, calf tenderness Back exam: Present: normal inspection. Absent: CVA tenderness (R), CVA tenderness (L) Neurological exam: Present: alert, oriented X3, CN II-XII intact. Absent: motor sensory deficit Skin exam: Present: warm, dry, intact, normal color. Absent: rash Course Vital Signs 01/27/23 01/27/23 18:32 22:12 Temperature 98.6 F Pulse Rate 105 H 67 Respiratory 20 16 Rate Blood Pressure 144/83 118/79 O2 Sat by Pulse 99 94 L Oximetry EKG Findings - EKG Comments: EKG Findings:: Possible old anteroseptal VT, based on Q waves in V2 through V5 - EKG Results: EKG: interpreted by BOB, sinus rhythm (Rate 82 bpm) - Blocks, Hewitt, Hypertrophy, ST Abn: AV and intraventricular conduction: left anterior fascicular block Medical Decision Making - Medical Decision Making This patient is 67-year-old man presenting with waxing and waning neurologic symptoms going back approximately 3 days. Patient states that baseline currently. The workup does reveal what appears to be critical stenosis patient left internal carotid artery. Patient's case discussed with admitting group, also discussed with vascular surgery and they request carotid duplex Dopplers be added. Patient will be admitted for further evaluation and treatment. The patient had chest x-ray which I interpreted as not showing any acute infiltrate, pneumothorax, or congestive heart failure. Was pt. sent in by a medical professional or institution (, PA, MECHANIC HELPER, urgent c are, hospital, or long term...) When possible be specific @ -[No] Did you speak to anyone other than the patient for history (EMS, parent, family, police, friend...)? What history was obtained from this source @ -[No] Did you review nursing and triage notes (agree or disagree)? Why? @ -[I reviewed and agree with nursing and triage notes] Were old charts reviewed (outside hosp., previous admission, EMS record, old EKG, old radiological studies, urgent care reports/EKG's, long term records)? Report findings @ -[old charts were reviewed] Differential Diagnosis (chest pain, altered mental status, abdominal pain women, abdominal pain men, vaginal bleeding, weakness, fever, dyspnea, syncope, headache, dizziness, GI bleed, back pain, seizure, CVA, palpatations, mental health, musculoskeletal)? @ -[Differential CVA Ischemic stroke, hemorrhagic stroke, brain tumor, atypical migraine, Wernicke's encephalopathy, seizure, multiple sclerosis, meningitis, encephalitis, hypoglycemia, Guillain-Calles, electrolytes disturbance, myasthenia gravis.... This is not meant to be an all-inclusive list EKG interpreted by me (3pts min.). @ -[As above] X-rays interpreted by me (1pt min.). @ -[As above] CT interpreted by me (1pt min.). @ -[None done] U/S interpreted by me (1pt. min.). @ -[None done] What testing was considered but not performed or refused? (CT, X-rays, U/S, labs)? Why? @ -[None] What meds were considered but not given or refused? Why? @ -[None] Did you discuss the management of the patient with other professionals (professionals i.e. , PA, MECHANIC HELPER, lab, RT, psych nurse, social work nurse, gasoline power shovel operator, teacher, ict help desk officer, egg caser)? Give summary @ -Case is discussed with admitting physician and with vascular surgery on- call, . Was smoking cessation discussed for >3mins.? @ -[Yes patient is counseled to stop smoking Was critical care preformed (if so, how long)? @ -[Yes, 30 minutes Were there social determinants of health that impacted care today? How? (Homelessness, low income, unemployed, alcoholism, drug addiction, transportation, low edu. Level, literacy, decrease access to med. care, penitentiary, rehab)? @ -[No] Was there de-escalation of care discussed even if they declined (Discuss DNR or withdrawal of care, Hospice)? DNR status @ -[No] What co-morbidities impacted this encounter? (DM, HTN, Smoking, COPD, CAD, Cancer, CVA, ARF, Chemo, Hep., AIDS, mental health diagnosis, sleep apnea, morbid obesity)? @ -[None] Was patient admitted / discharged? Hospital course, mention meds given and route, prescriptions, significant lab abnormalities, going to OR and other pertinent info. @ -[Patient is admitted to have vascular surgical consultation, neurology consultation, and further treatment for his condition Undiagnosed new problem with uncertain prognosis? @ -[No] Drug Therapy requiring intensive monitoring for toxicity (Heparin, Nitro, I nsulin, Cardizem)? @ -[No] Were any procedures done? @ -[No] Diagnosis/symptom? @ -[1. Acute TIA 2. Critical stenosis of internal carotid artery Acute, or Chronic, or Acute on Chronic? @ -[default] Uncomplicated (without systemic symptoms) or Complicated (systemic symptoms)? @ -[Conjugated Side effects of treatment? @ -[No] Exacerbation, Progression, or Severe Exacerbation? @ -[No] Poses a threat to life or bodily function? How? (Chest pain, USA, VT, pneumonia, PE, COPD, DKA, ARF, appy, cholecystitis, CVA, Diverticulitis, Homicidal, Suicidal, threat to staff... and all critical care pts) @ -[Yes, there is risk of complete occlusion resulting in stroke or - Lab Data Result diagrams: 01/30/23 02:20 01/30/23 02:20 Lab Results 01/27/23 01/27/23 01/27/23 Range/Units 19:25 19:25 19:25 WBC 10.6 (3.8-10.6) k/uL RBC 5.27 (4.30-5.90) m/uL Hgb 16.8 (13.0-17.5) gm/dL Hct 47.4 (39.0-53.0) % MCV 89.9 (80.0-100.0) fL MCH 31.8 (25.0-35.0) pg MCHC 35.4 (31.0-37.0) g/dL RDW 13.3 (11.5-15.5) % Plt Count 369 (150-450) k/uL MPV 9.7 Neutrophils % 77 % Lymphocytes % 15 % Monocytes % 5 % Eosinophils % 1 % Basophils % 0 % Neutrophils # 8.2 H (1.3-7.7) k/uL Lymphocytes # 1.6 (1.0-4.8) k/uL Monocytes # 0.5 (0-1.0) k/uL Eosinophils # 0.1 (0-0.7) k/uL Basophils # 0.1 (0-0.2) k/uL PT 9.7 (9.0-12.0) sec INR 0.9 (<1.2) APTT 24.4 (22.0-30.0) sec Sodium 135 L (137-145) mmol/L Potassium 5.0 (3.5-5.1) mmol/L Chloride 100 (98-107) mmol/L Carbon Dioxide 19 L (22-30) mmol/L Anion Gap 16 mmol/L BUN 31 H (9-20) mg/dL Creatinine 1.19 (0.66-1.25) mg/dL Est GFR (CKD-EPI)AfAm 73 (>60 ml/min/1.73 sqM) Est GFR (CKD-EPI)NonAf 63 (>60 ml/min/1.73 sqM) Glucose 257 H (74-99) mg/dL Estimated Ave Glu mg/dL Hemoglobin A1c (0.0-6.0) % Calcium 9.5 (8.4-10.2) mg/dL Total Bilirubin 0.6 (0.2-1.3) mg/dL AST 25 (17-59) U/L ALT 18 (4-49) U/L Alkaline Phosphatase 83 (38-126) U/L Creatine Kinase (55-170) U/L Troponin I (0.000-0.034) ng/mL Total Protein 7.4 (6.3-8.2) g/dL Albumin 4.4 (3.5-5.0) g/dL Urine Color Urine Appearance (Clear) Urine pH (5.0-8.0) Ur Specific [place] (1.001-1.035) Urine Protein (Negative) Urine Glucose (UA) (Negative) Urine Ketones (Negative) Urine Blood (Negative) Urine Nitrite (Negative) Urine Bilirubin (Negative) Urine Urobilinogen (<2.0) mg/dL Ur Leukocyte Esterase (Negative) 01/27/23 01/27/23 01/27/23 Range/Units 19:25 19:25 19:25 WBC (3.8-10.6) k/uL RBC (4.30-5.90) m/uL Hgb (13.0-17.5) gm/dL Hct (39.0-53.0) % MCV (80.0-100.0) fL MCH (25.0-35.0) pg MCHC (31.0-37.0) g/dL RDW (11.5-15.5) % Plt Count (150-450) k/uL MPV Neutrophils % % Lymphocytes % % Monocytes % % Eosinophils % % Basophils % % Neutrophils # (1.3-7.7) k/uL Lymphocytes # (1.0-4.8) k/uL Monocytes # (0-1.0) k/uL Eosinophils # (0-0.7) k/uL Basophils # (0-0.2) k/uL PT (9.0-12.0) sec INR (<1.2) APTT (22.0-30.0) sec Sodium (137-145) mmol/L Potassium (3.5-5.1) mmol/L Chloride (98-107) mmol/L Carbon Dioxide (22-30) mmol/L Anion Gap mmol/L BUN (9-20) mg/dL Creatinine (0.66-1.25) mg/dL Est GFR (CKD-EPI)AfAm (>60 ml/min/1.73 sqM) Est GFR (CKD-EPI)NonAf (>60 ml/min/1.73 sqM) Glucose (74-99) mg/dL Estimated Ave Glu mg/dL 234 Hemoglobin A1c 9.8 H (0.0-6.0) % Calcium (8.4-10.2) mg/dL Total Bilirubin (0.2-1.3) mg/dL AST (17-59) U/L ALT (4-49) U/L Alkaline Phosphatase (38-126) U/L Creatine Kinase 51 L (55-170) U/L Troponin I <0.012 (0.000-0.034) ng/mL Total Protein (6.3-8.2) g/dL Albumin (3.5-5.0) g/dL Urine Color Urine Appearance (Clear) Urine pH (5.0-8.0) Ur Specific [place] (1.001-1.035) Urine Protein (Negative) Urine Glucose (UA) (Negative) Urine Ketones (Negative) Urine Blood (Negative) Urine Nitrite (Negative) Urine Bilirubin (Negative) Urine Urobilinogen (<2.0) mg/dL Ur Leukocyte Esterase (Negative) 01/27/23 Range/Units 20:48 WBC (3.8-10.6) k/uL RBC (4.30-5.90) m/uL Hgb (13.0-17.5) gm/dL Hct (39.0-53.0) % MCV (80.0-100.0) fL MCH (25.0-35.0) pg MCHC (31.0-37.0) g/dL RDW (11.5-15.5) % Plt Count (150-450) k/uL MPV Neutrophils % % Lymphocytes % % Monocytes % % Eosinophils % % Basophils % % Neutrophils # (1.3-7.7) k/uL Lymphocytes # (1.0-4.8) k/uL Monocytes # (0-1.0) k/uL Eosinophils # (0-0.7) k/uL Basophils # (0-0.2) k/uL PT (9.0-12.0) sec INR (<1.2) APTT (22.0-30.0) sec Sodium (137-145) mmol/L Potassium (3.5-5.1) mmol/L Chloride (98-107) mmol/L Carbon Dioxide (22-30) mmol/L Anion Gap mmol/L BUN (9-20) mg/dL Creatinine (0.66-1.25) mg/dL Est GFR (CKD-EPI)AfAm (>60 ml/min/1.73 sqM) Est GFR (CKD-EPI)NonAf (>60 ml/min/1.73 sqM) Glucose (74-99) mg/dL Estimated Ave Glu mg/dL Hemoglobin A1c (0.0-6.0) % Calcium (8.4-10.2) mg/dL Total Bilirubin (0.2-1.3) mg/dL AST (17-59) U/L ALT (4-49) U/L Alkaline Phosphatase (38-126) U/L Creatine Kinase (55-170) U/L Troponin I (0.000-0.034) ng/mL Total Protein (6.3-8.2) g/dL Albumin (3.5-5.0) g/dL Urine Color Light Yellow Urine Appearance Clear (Clear) Urine pH 6.0 (5.0-8.0) Ur Specific [place] 1.035 (1.001-1.035) Urine Protein Negative (Negative) Urine Glucose (UA) 4+ H (Negative) Urine Ketones Negative (Negative) Urine Blood Negative (Negative) Urine Nitrite Negative (Negative) Urine Bilirubin Negative (Negative) Urine Urobilinogen <2.0 (<2.0) mg/dL Ur Leukocyte Esterase Negative (Negative) Critical Care Time Critical Care Time: Yes (30 minutes) Disposition Clinical Impression: TIA (transient ischemic attack), Hyperglycemia, Carotid stenosis, left Disposition: ADMITTED IP TO THIS HOSP Condition: Fair Is patient prescribed a controlled substance at d/c from ED?: No
--- NOTE | 2023-01-27 20:07 | XR ---
EXAMINATION TYPE: XR chest 2V DATE OF EXAM: 01/27/2023 COMPARISON: 03/09/2022 TECHNIQUE: PA and lateral views submitted. HISTORY: Altered mental status FINDINGS: The lungs are clear and there is no pneumothorax, pleural effusion, or focal pneumonia. Heart size normal and no overt failure. Osseous structures demonstrate hypertrophic and degenerative changes of the spine. Hyperinflation the lungs correlate for COPD. IMPRESSION: 1. No acute process. COPD.
[2023-01-27 20:08] LABS: Albumin 4.4 g/dL (3.5-5.0); Calcium 9.5 mg/dL (8.4-10.2); Total Bilirubin 0.6 mg/dL (0.2-1.3); Total Protein 7.4 g/dL (6.3-8.2)
[2023-01-27 20:30] LABS: INR 0.9 (<1.2); Partial Thromboplastin Time 24.4 sec (22.0-30.0); Prothrombin Time 9.7 sec (9.0-12.0)
--- NOTE | 2023-01-27 20:46 | CT ---
EXAMINATION TYPE: CT brain wo con for TPA DATE OF EXAM: 01/27/2023 COMPARISON: None HISTORY: ams, dizziness CT DLP: 1236.2 mGycm Automated exposure control for dose reduction was used. FINDINGS: Mild to moderate generalized degenerative change with no evidence of acute hemorrhage or mass effect. No midline shift shift. Low density within the left basal ganglia compatible with remote infarct. Orbits are symmetric. Calvarium is intact. Sinuses are clear. Changes of chronic left mastoiditis. Cr aniocervical junction maintained. Sella turcica has a normal appearance. IMPRESSION: NO ACUTE HEMORRHAGE OR MASS EFFECT.
--- NOTE | 2023-01-27 20:58 | CT ---
EXAMINATION TYPE: CT angio head neck DATE OF EXAM: 01/27/2023 HISTORY: ams, dizziness COMPARISON: 01/27/2023 CT DLP: 501 mGycm. Automated Exposure Control for Dose Reduction was Utilized. TECHNIQUE: CTA scan of the head and neck is performed with IV Contrast, patient injected with 65cc m L of Isovue 370, axial images are obtained, coronal and sagittal reformatted images are reviewed. 3D reconstructed images are created on an independent workstation and reviewed. FINDINGS: Diffuse emphysematous changes involving the lung apices. The right carotid bifurcation demonstrates mild atherosclerotic plaque with no significant stenosis. The left carotid bifurcation demonstrates a critical stenosis or psoriasis segmental occlusion. This should be correlated clinically. Left vertebral artery dominance. The common origin of the left common carotid and brachiocephalic art eries. Intracranially there appears to be any significant asymmetric appearance of the carotid arteries with a diminutive caliber of the carotid artery within the cavernous segment of the ICA which appears malik rowed. Bilateral MCA segments appear to be patent. LAURA appear to be patent. Vertebral artery is basilar syst em is patent but diminutive in size which can be associated with vertebral basilar insufficiency. Dim inutive bilateral posterior cerebral arteries are grossly patent. With the right DIRECTOR OF [employer]MENTAL SERVICES originating from the anterior circulation. No sizable aneurysm or vascular malformation. IMPRESSION: 1. Short segmental critical stenosis or occlusion of the proximal left ICA correlate clinically. 2. There is a diminutive caliber of the cavernous segment of the left ICA which does demonstrate cont rast enhancement but is noticeably reduced in caliber relative to the right. 3. No diagnostic evidence of anterior, posterior or middle cerebral artery occlusion or aneurysm. 4. Diminutive basilar artery can be associated with vertebrobasilar insufficiency. NASCET criteria was used in interpretation of this exam?
[2023-01-27] MEDS ORDERED: NALOXONE 0.4 MG/ML 1 ML VIAL IV PRN (21:15)
[2023-01-27] MEDS: SODIUM CHLORIDE 0.9% 1,000 ML IV SCH (21:26)
[2023-01-27 21:48] LABS: Appearance,Urine Clear (Clear); Bilirubin,Urine Negative (Negative); Blood,Urine Negative (Negative); Color,Urine Light Yellow; Glucose,Urine (UA) 4+ (Negative); Ketones,Urine Negative (Negative); Leukocyte Esterase,Urine Negative (Negative); Nitrite,Urine Negative (Negative); Protein,Urine Negative (Negative); Specific Gravity,Urine 1.035 (1.001-1.035); Urobilinogen,Urine <2.0 mg/dL (<2.0)
[2023-01-27] MEDS ORDERED: DEXTROSE 50% SYRINGE 50 ML IVP PRN ×2 (22:09)
[2023-01-27] MEDS ORDERED: INSULIN REGULAR 100 UNIT/ML VIAL (IV) SQ STA (22:10)
[2023-01-27] MEDS ORDERED: ALBUTEROL NEBULIZED 2.5 MG/3 ML INHALATION PRN (22:11)
--- NOTE | 2023-01-27 22:18 | US ---
EXAMINATION TYPE: US carotid duplex BILAT DATE OF EXAM: 01/27/2023 COMPARISON: NONE CLINICAL HISTORY: carotid stenosis. TIA, left carotid stenosis TECHNIQUE: Carotid duplex ultrasound examination. Indirect Doppler criteria was utilized. FINDINGS: EXAM MEASUREMENTS: RIGHT: Peak Systolic Velocity (PSV) cm/sec ----- Right CCA: 102 ----- Right ICA: 122 ----- Right ECA: 104 ICA/CCA ratio: 1.2 RIGHT: End Diastole cm/sec ----- Right CCA: 30.0 ----- Right ICA: 45.4 ----- Right ECA: 14.7 LEFT: Peak Systolic Velocity (PSV) cm/sec ----- Left CCA: 66.8 ----- Left ICA: 512 ----- Left ECA: 94.8 ICA/CCA ratio: 7.7 LEFT: End Diastole cm/sec ----- Left CCA: 12.3 ----- Left ICA: 246 ----- Left ECA: 17.5 VERTEBRALS (direction of flow): Right Vertebral: Antegrade Left Vertebral: Antegrade Is severe plaque in the left. Rhythm: Normal LABORATORY COORDINATOR NOTES: Severe plaque left bifurcation. Elevated velocities left ICA IMPRESSION: Severe left-sided plaque with findings suggestive of a severe right-sided and 70% stenosis proximal l eft ICA. Report called to the patient's nurse at 10:10 PM 01/27/2023 Criteria for Assigning % of Stenosis / Diameter reduction (Estimation based on the indirect measurements of the internal carotid artery velocities (ICA PSV). 1. Normal (no stenosis)=ICA PSV < 125 cm/s: ratio < 2.0: ICA EDV<40 cm/s. 2. Less than 50% stenosis=ICA PSV < 125 cm/s: ratio < 2.0: ICA EDV<40 cm/s. 3. 50 to 69% stenosis=ICA PSV of 125 to 230 cm/s: ration 2.0 ? 4.0: ICA EDV 40-100 cm/s. 4. Greater than 70% stenosis to near occlusion= ICA PSV > 230 cm/s: ratio > 4.0: ICA EDV > 100 cm/s. 5. Near occlusion= ICA PSV velocities may be low or undetectable: variable ratio and ICA EDV. 6. Total occlusion=unable to detect flow.
[2023-01-28 06:14] LABS: Glucose,Whole Blood 122 mg/dL (70-110)
[2023-01-28] MEDS: INSULIN ASPART (NovoLOG) 100 UNIT/ML VIAL SQ SCH ×4 (06:19→20:37)
[2023-01-28] MEDS: LEVOTHYROXINE 100 MCG TAB PO SCH (06:21)
[2023-01-28] MEDS: LEVOTHYROXINE 25 MCG TAB PO SCH (06:21)
[2023-01-28] MEDS ORDERED: NON FORMULARY DRUG (Semaglutide [Ozempic] 0.25 MG/0.2 ML Each) SQ SCH (09:00)
[2023-01-28] MEDS ORDERED: ACETAMINOPHEN TAB 325 MG TAB PO PRN (09:30)
--- NOTE | 2023-01-28 10:34 | P.GSCN ---
History of Present Illness Consult date: 01/28/23 Reason for Consult: carotid stenosis, CVA History of present illness: 67-year-old man presented to the ER secondary to blurry vision, moments of blackness on and off for the last 3 days. He has never had issues like this prior and also noticed right hand and arm weakness. He states he attempted to reach a remote control but was not able to grasp it. He states that he fumbled with it and that it seemed his right hand wasn't following commands. The symptoms have all resolved and he feels back to normal. He denies any headaches, speech issues, fevers, chills, chest pain or shortness of breath. Review of Systems All systems: negative (what is mentioned in the PMH or HPI) Past Medical History Past Medical History: Diabetes Mellitus, Hyperlipidemia, Hypertension, Myocardial Infarction (PR), Osteoarthritis (OA), Thyroid Disorder Additional Past Medical History / Comment(s): STEMI THIS ADMISSION 03/08/15 Last Myocardial Infarction Date:: 2015 History of Any Multi-Drug Resistant Organisms: None Reported Past Surgical History: Heart Catheterization With Stent, Tonsillectomy Additional Past Surgical History / Comment(s): 2 stents to LAD on 03/08/15. 1 stent to LAD for reocclusion on 11/25/15. Past Anesthesia/Blood Transfusion Reactions: No Reported Reaction Date of Last Stent Placement:: 11/25/15 Past Psychological History: No Psychological Hx Reported Smoking Status: Current every day smoker Past Alcohol Use History: None Reported Past Drug Use History: None Reported - Past Family History Father Family Medical History: CVA/TIA Mother History Unknown: Yes Medications and Allergies Home Medications Medication Instructions Recorded Confirmed Type Levothyroxine Sodium [Synthroid] 200 mcg PO W/LUNCH 03/09/15 01/27/23 History Albuterol Inhaler [Ventolin Hfa 1 puff INHALATION RT-QID PRN #8 gm 03/10/22 01/27/23 Rx Inhaler] Aspirin EC [Ecotrin] 325 mg PO PC-SUPPER 01/27/23 01/27/23 History Dapagliflozin Propanediol [Farxiga] 10 mg PO PC-SUPPER 01/27/23 01/27/23 History Diclofenac Sodium [Voltaren] 75 mg PO BID 01/27/23 01/27/23 History Levothyroxine Sodium [Synthroid] 25 mcg PO W/LUNCH 01/27/23 01/27/23 History Naproxen [Naprosyn] 500 mg PO BID 01/27/23 01/27/23 History Semaglutide [Ozempic] 0.25 mg SQ PATRICK 01/27/23 01/27/23 History lisinopriL [Zestril] 40 mg PO PC-SUPPER 01/27/23 01/27/23 History metFORMIN HCL [Glucophage] 500 mg PO PC-SUPPER 01/27/23 01/27/23 History Allergies Allergy/AdvReac Type Severity Reaction Status Date / Time glipizide AdvReac Blurry Verified 01/27/23 21:21 vision Surgical - Exam Vital Signs Temp Pulse Resp BP Pulse Ox 98.6 F 105 H 20 144/83 99 01/27/23 18:32 01/27/23 18:32 01/27/23 18:32 01/27/23 18:32 01/27/23 18:32 palpable DP and PT pulses bilaterally palpable radial pulse bilaterally - General well developed, well nourished, no distress - Eyes PERRL, normal ocular movement - ENT normal pinna, normal nares - Neck no masses, no no bruits, trachea midline - Respiratory normal expansion - Cardiovascular Rhythm: regular - Abdomen Abdomen: soft, non tender - Integumentary no rash, no growths - Neurologic tongue midline no facial droop strength equal bilaterally normal coordination, normal sensation - Psychiatric oriented to time, oriented to person, oriented to place, speech is normal Results - Labs 01/27/23 19:25 01/27/23 19:25 Abnormal Lab Results - Last 24 Hours (Table) 01/27/23 01/27/23 01/27/23 Range/Units 19:25 19:25 19:25 Neutrophils # 8.2 H (1.3-7.7) k/uL Sodium 135 L (137-145) mmol/L Carbon Dioxide 19 L (22-30) mmol/L BUN 31 H (9-20) mg/dL Glucose 257 H (74-99) mg/dL POC Glucose (mg/dL) (70-110) mg/dL Creatine Kinase 51 L (55-170) U/L Urine Glucose (UA) (Negative) 01/27/23 01/28/23 Range/Units 20:48 06:13 Neutrophils # (1.3-7.7) k/uL Sodium (137-145) mmol/L Carbon Dioxide (22-30) mmol/L BUN (9-20) mg/dL Glucose (74-99) mg/dL POC Glucose (mg/dL) 122 H (70-110) mg/dL Creatine Kinase (55-170) U/L Urine Glucose (UA) 4+ H (Negative) Diabetes panel 01/27/23 Range/Units 19:25 Sodium 135 L (137-145) mmol/L Potassium 5.0 (3.5-5.1) mmol/L Chloride 100 (98-107) mmol/L Carbon Dioxide 19 L (22-30) mmol/L BUN 31 H (9-20) mg/dL Creatinine 1.19 (0.66-1.25) mg/dL Glucose 257 H (74-99) mg/dL Calcium 9.5 (8.4-10.2) mg/dL AST 25 (17-59) U/L ALT 18 (4-49) U/L Alkaline Phosphatase 83 (38-126) U/L Total Protein 7.4 (6.3-8.2) g/dL Albumin 4.4 (3.5-5.0) g/dL Calcium panel 01/27/23 Range/Units 19:25 Calcium 9.5 (8.4-10.2) mg/dL Albumin 4.4 (3.5-5.0) g/dL Pituitary panel 01/27/23 Range/Units 19:25 Sodium 135 L (137-145) mmol/L Potassium 5.0 (3.5-5.1) mmol/L Chloride 100 (98-107) mmol/L Carbon Dioxide 19 L (22-30) mmol/L BUN 31 H (9-20) mg/dL Creatinine 1.19 (0.66-1.25) mg/dL Glucose 257 H (74-99) mg/dL Calcium 9.5 (8.4-10.2) mg/dL Adrenal panel 01/27/23 Range/Units 19:25 Sodium 135 L (137-145) mmol/L Potassium 5.0 (3.5-5.1) mmol/L Chloride 100 (98-107) mmol/L Carbon Dioxide 19 L (22-30) mmol/L BUN 31 H (9-20) mg/dL Creatinine 1.19 (0.66-1.25) mg/dL Glucose 257 H (74-99) mg/dL Calcium 9.5 (8.4-10.2) mg/dL Total Bilirubin 0.6 (0.2-1.3) mg/dL AST 25 (17-59) U/L ALT 18 (4-49) U/L Alkaline Phosphatase 83 (38-126) U/L Total Protein 7.4 (6.3-8.2) g/dL Albumin 4.4 (3.5-5.0) g/dL - Imaging Additional studies: CT brain and neck reviewed- severe left ICA stenosis with subtotal occlusion noted. Carotid Doppler- severe left ICA stenosis Assessment and Plan Assessment: Symptomatic left internal carotid artery stenosis Left TIA with eye blindness and right upper extremity weakness Tobacco abuse Plan: Reviewed CTA and carotid Doppler independently which demonstrates severe occlusive disease of the left ICA. Due to his symptoms of recurrent vision changes and right sided weakness he will require surgical intervention during this hospitalization. Discussed with the patient options and recommend carotid endarterectomy and not stenting due to the severity of calcific disease. Neurology is consulted and we are awaiting recommendations. He will need medical clearance and hopefully we will schedule his left CEA either tomorrow or Sunday. Thank you for the consultation.
[2023-01-28 11:37] LABS: Glucose,Whole Blood 193 mg/dL (70-110)
[2023-01-28] MEDS: CLOPIDOGREL 75 MG TAB PO SCH (11:42)
[2023-01-28] MEDS: SODIUM CHLORIDE 0.9% 1,000 ML IV SCH (11:43)
--- NOTE | 2023-01-28 13:45 | P.HPIM ---
History of Present Illness H&P Date: 01/28/23 Chief Complaint: Vision impairment left eye paresthesia * 67-year-old gentleman with past medical history significant for diabetes mellitus, history of coronary artery disease presented to the emergency department with left eye blurred vision and right upper extremity numbness. Patient states his symptom onset was 72 hours prior to presentation. Patient also complained of right hand and arm weakness. Patient said he was trying to reach his remote control but was not able to grasp and fumbled * Her time of presentation in ER patient had a CT brain and CT angios head and neck obtained * CT head was negative for acute CVA however CTA NECK did show significant carotid stenosis with critical stenosis of proximal left ICA * Workup initiated in ER included a CBC which was essentially normal, comprehensive metabolic panel was obtained which showed A1c of 9.8 sodium of 135 creatinine within normal limits * denied associated fever, chills, chest pain, nausea, vomiting, diarrhea Review of Systems REVIEW OF SYSTEMS: Positive for paresthesia, vision impairment, right upper extremity weakness CONSTITUTIONAL: No fever, no malaise, no fatigue. HEENT: No recent visual problems or hearing problems. Denied any sore throat. CARDIOVASCULAR: No chest pain, orthopnea, PND, no palpitations, no syncope. PULMONARY: No shortness of breath, no cough, no hemoptysis. GASTROINTESTINAL: No diarrhea, no nausea, no vomiting, no abdominal pain. NEUROLOGICAL: No headaches, no weakness, no numbness. HEMATOLOGICAL: Denies any bleeding or petechiae. GENITOURINARY: Denies any burning micturition, frequency, or urgency. MUSCULOSKELETAL/RHEUMATOLOGICAL: Denies any joint pain, swelling, or any muscle pain. ENDOCRINE: Denies any polyuria or polydipsia. The rest of the 14-point review of systems is negative. Past Medical History Past Medical History: Diabetes Mellitus, Hyperlipidemia, Hypertension, Myocardial Infarction (CA), Osteoarthritis (OA), Thyroid Disorder Additional Past Medical History / Comment(s): STEMI THIS ADMISSION 03/08/15 Last Myocardial Infarction Date:: 2015 History of Any Multi-Drug Resistant Organisms: None Reported Past Surgical History: Heart Catheterization With Stent, Tonsillectomy Additional Past Surgical History / Comment(s): 2 stents to LAD on 03/08/15. 1 stent to LAD for reocclusion on 11/25/15. Past Anesthesia/Blood Transfusion Reactions: No Reported Reaction Date of Last Stent Placement:: 11/25/15 Past Psychological History: No Psychological Hx Reported Smoking Status: Current every day smoker Past Alcohol Use History: None Reported Past Drug Use History: None Reported - Past Family History Father Family Medical History: CVA/TIA Mother History Unknown: Yes Medications and Allergies Home Medications Medication Instructions Recorded Confirmed Type Levothyroxine Sodium [Synthroid] 200 mcg PO W/LUNCH 03/09/15 01/27/23 History Albuterol Inhaler [Ventolin Hfa 1 puff INHALATION RT-QID PRN #8 gm 03/10/22 01/27/23 Rx Inhaler] Aspirin EC [Ecotrin] 325 mg PO PC-SUPPER 01/27/23 01/27/23 History Dapagliflozin Propanediol [Farxiga] 10 mg PO PC-SUPPER 01/27/23 01/27/23 History Diclofenac Sodium [Voltaren] 75 mg PO BID 01/27/23 01/27/23 History Levothyroxine Sodium [Synthroid] 25 mcg PO W/LUNCH 01/27/23 01/27/23 History Naproxen [Naprosyn] 500 mg PO BID 01/27/23 01/27/23 History Semaglutide [Ozempic] 0.25 mg SQ PATRICK 01/27/23 01/27/23 History lisinopriL [Zestril] 40 mg PO PC-SUPPER 01/27/23 01/27/23 History metFORMIN HCL [Glucophage] 500 mg PO PC-SUPPER 01/27/23 01/27/23 History Allergies Allergy/AdvReac Type Severity Reaction Status Date / Time glipizide AdvReac Blurry Verified 01/27/23 21:21 vision Physical Exam Vitals: Vital Signs Temp Pulse Pulse Resp BP BP Pulse Ox 01/28/23 11:46 97.8 F 74 16 121/77 97 01/28/23 08:46 60 01/28/23 08:37 97 01/28/23 08:35 54 L 01/28/23 08:19 61 18 121/89 98 01/28/23 03:43 98.2 F 102 H 18 121/71 99 01/27/23 23:41 97.9 F 82 17 119/69 98 01/27/23 22:49 98.1 F 98 17 114/72 98 01/27/23 22:12 67 16 118/79 94 L 01/27/23 18:32 98.6 F 105 H 20 144/83 99 Intake and Output 01/27/23 01/28/23 01/28/23 22:59 06:59 14:59 Intake Total 240 Balance 240 Intake: Oral 240 Other: Voiding Method Toilet Toilet Weight 73.936 kg PHYSICAL EXAMINATION: GENERAL: The patient is alert and oriented x3, not in any acute distress. Well developed, well nourished. HEENT: Pupils are round and equally reacting to light. EOMI. No scleral icterus. No conjunctival pallor. Normocephalic, atraumatic. No pharyngeal erythema. No thyromegaly. CARDIOVASCULAR: S1 and S2 present. No murmurs, rubs, or gallops. PULMONARY: Chest is clear to auscultation, no wheezing or crackles. ABDOMEN: Soft, nontender, nondistended, normoactive bowel sounds. No palpable organomegaly. MUSCULOSKELETAL: No joint swelling or deformity. EXTREMITIES: No cyanosis, clubbing, or pedal edema. NEUROLOGICAL: Patient alert and oriented 4, cranial nerves intact no deficit in motor strength is 5 out of 5 bilateral upper and lower extremity SKIN: No rashes. Results CBC & Chem 7: 01/27/23 19:25 01/27/23 19:25 Labs: Abnormal Lab Results - Last 24 Hours (Table) 01/27/23 01/27/23 01/27/23 Range/Units 19:25 19:25 19:25 Neutrophils # 8.2 H (1.3-7.7) k/uL Sodium 135 L (137-145) mmol/L Carbon Dioxide 19 L (22-30) mmol/L BUN 31 H (9-20) mg/dL Glucose 257 H (74-99) mg/dL POC Glucose (mg/dL) (70-110) mg/dL Hemoglobin A1c (0.0-6.0) % Creatine Kinase 51 L (55-170) U/L Urine Glucose (UA) (Negative) 01/27/23 01/27/23 01/28/23 Range/Units 19:25 20:48 06:13 Neutrophils # (1.3-7.7) k/uL Sodium (137-145) mmol/L Carbon Dioxide (22-30) mmol/L BUN (9-20) mg/dL Glucose (74-99) mg/dL POC Glucose (mg/dL) 122 H (70-110) mg/dL Hemoglobin A1c 9.8 H (0.0-6.0) % Creatine Kinase (55-170) U/L Urine Glucose (UA) 4+ H (Negative) 01/28/23 Range/Units 11:35 Neutrophils # (1.3-7.7) k/uL Sodium (137-145) mmol/L Carbon Dioxide (22-30) mmol/L BUN (9-20) mg/dL Glucose (74-99) mg/dL POC Glucose (mg/dL) 193 H (70-110) mg/dL Hemoglobin A1c (0.0-6.0) % Creatine Kinase (55-170) U/L Urine Glucose (UA) (Negative) Thrombosis Risk Factor Assmnt - Choose All That Apply Any of the Below Risk Factors Present?: No Other Risk Factors: Yes Each Risk Factor Represents 2 Points: Age 61-74 years Other congenital or acquired thrombophilia - If yes, enter type in comment: No Thrombosis Risk Factor Assessment Total Risk Factor Score: 2 Thrombosis Risk Factor Assessment Level: Low Risk Assessment and Plan Assessment: Assessment and plan * Left eye vision impairment right arm paresthesias rule out CVA * Left internal carotid artery stenosis severe * Diabetes mellitus type 2 with poor control * CORONARY artery disease history of PCI * Hypothyroidism * Consultation obtained from vascular surgery, neurology * Continue patient on aspirin, Plavix, Lipitor * CT head CT angios head and neck reviewed * MRI brain ordered * Physical therapy, occupational therapy, she therapy evaluation * Continue patient on Synthyroid * For diabetes mellitus continue correctional insulin and metformin, Ozempic on hold * Continue neuro checks every 4 hours * SCD for DVT prophylaxis * CODE STATUS is full code Time with Patient: Greater than 30
[2023-01-28 16:18] LABS: Glucose,Whole Blood 188 mg/dL (70-110)
[2023-01-28] MEDS: metFORMIN 500 MG TAB PO SCH (16:35)
[2023-01-28] MEDS: ASPIRIN 325 MG TAB PO SCH (16:35)
[2023-01-28] MEDS: DAPAGLIFLOZIN PROPANEDIOL 10 MG TABLET PO SCH (16:35)
[2023-01-28] MEDS: lisinopriL 20 MG TAB PO SCH (16:35)
[2023-01-28] MEDS: ATORVASTATIN 40 MG TAB PO SCH (16:35)
[2023-01-28 20:08] LABS: Glucose,Whole Blood 173 mg/dL (70-110)
[2023-01-28] MEDS ORDERED: CLOPIDOGREL 75 MG TAB PO STA (20:13)
--- NOTE | 2023-01-28 20:21 | P.CNNES ---
History of Present Illness Consult date: 01/28/23 Requesting physician: Ton Ferraro Reason for Consult: TIA/or CVA History of Present Illness: Patient is a 67-year-old right-handed male with history of hypertension, diabetes, tobacco use came to the hospital yesterday at 6:26 PM for recurrent TIAs. Patient states that his symptoms started on Sunday for 03/10/2023, with his left eye kept on going blurred vision, off and on. On or Sunday he had an episode in which she had difficulty grabbing things with his right hand. It took 3 attempts to grab remote control. The symptoms lasted for about 10-15 minutes. There was no slurred speech, facial droop, problem with the leg weakness, balance or difficulty speaking. He did notice some left temporal headache little bit and numbness of the left facial region. Due to the symptoms he came to the hospital. Vital signs arrival blood pressure 144/83, pulse rate 105, temperature 98.6. Blood test shows normal CBC, PT/PTT, sodium 135 potassium 5.0, BUN 31, creatinine 1.19. Hemoglobin A1c 9.8. Hepatic panel is normal, CK normal 51, troponin negative, UA negative. CT head showed no acute hemorrhage or mass effect. CTA of head and neck reveals short segmental critical stenosis or occlusion of the proximal left ICA, correlate clinically. There is a diminutive caliber of the cavernous segment of the left ICA which does demonstrate contrast enhancement but does not noticeably reduced in caliber related to the right. Diminutive basilar artery can be associated with vertebrobasilar insufficiency. No diagnostic evidence of anterior, posterior or middle cerebral artery occlusion or aneurysm. Chest x- ray revealed no acute process, COPD. EKG shows sinus rhythm. Patient has been started on aspirin 325 mg, Lipitor 40 mg and Plavix 75 mg daily. Patient has history of diabetes since 1991, which is not well controlled. He has hypertension. He has smoked 1 pack per day since age 18. He drinks beer occasionally. Home medications include aspirin 81 mg, Ozempic, Farxiga, metformin, less Doppler 40 mg, levothyroxine and albuterol. At present he has no symptoms. He says that about an hour ago he had transient blurred vision. The symptoms are coming and going. Review of Systems Weight loss from diabetes medication Constitutional: Reports weight loss, Denies chills, Denies fever Eyes: left blurred vision (Intermittent), denies pain, denies loss of peripheral vision, denies loss of vision Ears: bilateral: decreased hearing, deny: earache Ears, nose, mouth and throat: Denies headache, Denies sore throat Cardiovascular: Denies chest pain, Denies shortness of breath Respiratory: Reports cough, Reports cough with sputum, Denies excessive sputum Gastrointestinal: Denies abdominal pain, Denies diarrhea, Denies nausea, Denies vomiting Musculoskeletal: Reports low back pain, Denies myalgias Integumentary: Denies pruritus, Denies rash Neurological: Reports as per HPI Psychiatric: Denies anxiety, Denies depression Endocrine: Denies fatigue, Denies weight change Past Medical History Past Medical History: Diabetes Mellitus, Hyperlipidemia, Hypertension, Myocardial Infarction ([place]), Osteoarthritis (OA), Thyroid Disorder Additional Past Medical History / Comment(s): STEMI THIS ADMISSION 03/08/15 Last Myocardial Infarction Date:: 2015 History of Any Multi-Drug Resistant Organisms: None Reported Past Surgical History: Heart Catheterization With Stent, Tonsillectomy Additional Past Surgical History / Comment(s): 2 stents to LAD on 03/08/15. 1 stent to LAD for reocclusion on 11/25/15. Past Anesthesia/Blood Transfusion Reactions: No Reported Reaction Date of Last Stent Placement:: 11/25/15 Past Psychological History: No Psychological Hx Reported Smoking Status: Current every day smoker Past Alcohol Use History: None Reported Past Drug Use History: None Reported - Past Family History Father Family Medical History: CVA/TIA Mother History Unknown: Yes Medications and Allergies Home Medications Medication Instructions Recorded Confirmed Type Levothyroxine Sodium [Synthroid] 200 mcg PO W/LUNCH 03/09/15 01/27/23 History Albuterol Inhaler [Ventolin Hfa 1 puff INHALATION RT-QID PRN #8 gm 03/10/22 01/27/23 Rx Inhaler] Aspirin EC [Ecotrin] 325 mg PO PC-SUPPER 01/27/23 01/27/23 History Dapagliflozin Propanediol [Farxiga] 10 mg PO PC-SUPPER 01/27/23 01/27/23 History Diclofenac Sodium [Voltaren] 75 mg PO BID 01/27/23 01/27/23 History Levothyroxine Sodium [Synthroid] 25 mcg PO W/LUNCH 01/27/23 01/27/23 History Naproxen [Naprosyn] 500 mg PO BID 01/27/23 01/27/23 History Semaglutide [Ozempic] 0.25 mg SQ PATRICK 01/27/23 01/27/23 History lisinopriL [Zestril] 40 mg PO PC-SUPPER 01/27/23 01/27/23 History metFORMIN HCL [Glucophage] 500 mg PO PC-SUPPER 01/27/23 01/27/23 History Allergies Allergy/AdvReac Type Severity Reaction Status Date / Time glipizide AdvReac Blurry Verified 01/27/23 21:21 vision Physical Examination - Vital Signs Vital Signs: Vital Signs Temp Pulse Pulse Resp BP BP Pulse Ox 01/28/23 16:00 98.5 F 78 16 135/78 97 01/28/23 11:46 97.8 F 74 16 121/77 97 01/28/23 08:46 60 01/28/23 08:37 97 01/28/23 08:35 54 L 01/28/23 08:19 61 18 121/89 98 01/28/23 03:43 98.2 F 102 H 18 121/71 99 01/27/23 23:41 97.9 F 82 17 119/69 98 01/27/23 22:49 98.1 F 98 17 114/72 98 01/27/23 22:12 67 16 118/79 94 L 01/27/23 18:32 98.6 F 105 H 20 144/83 99 Intake and Output 01/28/23 01/28/23 01/28/23 06:59 14:59 22:59 Intake Total 780 Balance 780 Intake: Oral 780 Other: Voiding Method Toilet Toilet # Voids 2 Patient is an elderly male, in no acute distress. Patient is alert awake oriented to time place and person. Speech and language functions are normal. Patient can name and repeat very well. No aphasia or dysarthria. Attention, concentration and fund of knowledge is adequate. On cranial nerve examination, pupils are equal, round and reacting to light, visual garcia are full on confrontation, with no neglect on double simultaneous stimulation. Detailed testing of left eye was also normal. Extraocular muscles are intact with no nystagmus. Face is symmetric, tongue protrudes to the midline. Palatal elevation and sensation normal, hearing is decreased moderately for finger rubbing and shoulder shrug normal, facial sensation normal. On muscle strength testing, there is mild right pronation, but no clear drift and the strength is normal in arms and legs distally and proximally. Deep tendon reflexes are (right/left) biceps 1/trace, brachioradialis 1+/trace, knee-/1, plantars are downgoing bilaterally. Sensory to touch is equal with no neglect on double simultaneous stimulation. Cerebellar function showed no ataxia for [id number] testing. No dysdiadochokinesia. No ataxia for [id number] testing on either side. Tone and bulk of muscles normal. Gait deferred.. On general examination, there is no carotid bruit or murmur, S1-S2 audible. Chest is clear on consultation. Abdomen is soft nontender. No organomegaly, bowel sounds present. Peripheral pulses are present. No edema. Results - Laboratory Findings CBC and BMP: 01/27/23 19:25 01/27/23 19:25 Abnormal Lab Findings: Abnormal Labs 01/27/23 01/27/23 01/27/23 19:25 19:25 19:25 Neutrophils # 8.2 H Sodium 135 L Carbon Dioxide 19 L BUN 31 H Glucose 257 H POC Glucose (mg/dL) Hemoglobin A1c Creatine Kinase 51 L Urine Glucose (UA) 01/27/23 01/27/23 01/28/23 19:25 20:48 06:13 Neutrophils # Sodium Carbon Dioxide BUN Glucose POC Glucose (mg/dL) 122 H Hemoglobin A1c 9.8 H Creatine Kinase Urine Glucose (UA) 4+ H 01/28/23 01/28/23 11:35 16:16 Neutrophils # Sodium Carbon Dioxide BUN Glucose POC Glucose (mg/dL) 193 H 188 H Hemoglobin A1c Creatine Kinase Urine Glucose (UA) Assessment and Plan Assessment: * Recurrent TIA with blurred vision of the left eye, and one episode of right hand weakness that lasted for 10-15 minutes. Likely due to symptomatic left ICA stenosis. * Bilateral ICA stenosis, left worse (symptomatic) with short segment critical stenosis or occlusion of the proximal left ICA. * Hypertension * Hyperlipidemia * Diabetes * Tobacco use Plan: * MRI of the brain without contrast, evaluate for acute CVA * 2-D echo with bubble study to rule out PFO * CTA head and neck showed: short segmental critical stenosis or occlusion of the proximal left ICA, correlate clinically. There is a diminutive caliber of the cavernous segment of the left ICA which does demonstrate contrast enhancement but does not noticeably reduced in caliber related to the right. Diminutive basilar artery can be associated with vertebrobasilar insufficiency. No diagnostic evidence of anterior, posterior or middle cerebral artery occlusion or aneurysm. * Carotid Doppler, revealed severe left-sided block with findings suggestive of severe right sided and 70% stenosis proximal left ICA. Antegrade flow in both vertebral arteries. * Vascular surgery on board. Agree with revascularization surgery (CEA) in this admission. * Patient is having recurrent blurred vision left eye. Patient has severe stenosis left ICA. Patient has received Plavix 75 mg daily. Because of ongoing recurrent symptoms, we will give loading dose of Plavix 225 mg 1 dose. Maintain on DAP. Patient was taking aspirin 325 mg daily at home prior to arrival. * Fasting a.m. lipid panel * Hemoglobin A1c 9.8. Recommend optimize control of diabetes to target A1c < 7.0 * Permissive hypertension for next 24-48 hours * Pepcid for gastric ulcer prophylaxis. * Close neuro checks as per protocol. * Telemetry monitoring rule out any arrhythmia * DVT prophylaxis: Heparin 5000 units subcu every 12 hours * Recommend complete tobacco cessation. * Dr. Russell Cruz will resume neurology service in the morning. Thank you for the consult.
[2023-01-28] MEDS: HEPARIN SODIUM,PORCINE/PF 5,000 UNIT/0.5 ML SYRINGE SQ SCH (20:36)
[2023-01-28] MEDS: FAMOTIDINE 20 MG TAB PO SCH (20:37)
[2023-01-29] MEDS: SODIUM CHLORIDE 0.9% 1,000 ML IV SCH ×2 (04:58→13:27)
[2023-01-29 05:47] LABS: Glucose,Whole Blood 128 mg/dL (70-110)
[2023-01-29] MEDS: INSULIN ASPART (NovoLOG) 100 UNIT/ML VIAL SQ SCH ×4 (06:01→23:57)
[2023-01-29] MEDS: LEVOTHYROXINE 25 MCG TAB PO SCH (06:17)
[2023-01-29] MEDS: LEVOTHYROXINE 100 MCG TAB PO SCH (06:17)
[2023-01-29 07:06] LABS: HCT 43.5 % (39.0-53.0); HGB 14.9 gm/dL (13.0-17.5); MCH 31.5 pg (25.0-35.0); MCHC 34.4 g/dL (31.0-37.0); MCV 91.6 fL (80.0-100.0); Mean Platelet Volume 8.2; Platelet Count 299 k/uL (150-450); RBC 4.75 m/uL (4.30-5.90); RDW 13.3 % (11.5-15.5); WBC 7.8 k/uL (3.8-10.6)
[2023-01-29 07:32] LABS: Calcium 8.7 mg/dL (8.4-10.2); Potassium 5.2 mmol/L (3.5-5.1)
[2023-01-29] MEDS: CLOPIDOGREL 75 MG TAB PO SCH (07:53)
[2023-01-29] MEDS: FAMOTIDINE 20 MG TAB PO SCH ×2 (07:53→22:44)
[2023-01-29] MEDS: HEPARIN SODIUM,PORCINE/PF 5,000 UNIT/0.5 ML SYRINGE SQ SCH ×2 (07:53→23:56)
[2023-01-29] MEDS: ATORVASTATIN 40 MG TAB PO SCH (07:53)
[2023-01-29 11:22] LABS: Chol/HDL Ratio 11.41 Ratio
[2023-01-29 11:32] LABS: Glucose,Whole Blood 259 mg/dL (70-110)
--- NOTE | 2023-01-29 11:34 | P.PN ---
Subjective Progress Note Date: 01/29/23 Principal diagnosis: TIA, left ICA stenosis Patient is seen and examined today as a follow-up for TIA with high-grade left ICA stenosis. Patient is to undergo echocardiogram and MRI this morning. He denies any new focal deficits. States that he gets intermittent blurred vision of the left eye. No further right sided weakness. Objective - Vital Signs Vital signs: Vital Signs Temp 97.6 F 01/29/23 08:00 Pulse 63 01/29/23 08:00 Resp 18 01/29/23 08:00 BP 114/63 01/29/23 08:00 Pulse Ox 94 L 01/29/23 08:30 FiO2 Intake & Output 01/28/23 01/29/23 01/29/23 18:59 06:59 18:59 Intake Total 1020 600 Output Total 400 Balance 1020 -400 600 Intake: Oral 1020 600 Output: Urine 400 Other: Voiding Method Toilet Toilet Toilet # Voids 2 1 - Exam General appearance: The patient is alert, oriented, appears in no acute distress. HET: Head is normocephalic and atraumatic. Pupils are equal and reactive. Neck: Supple. Heart: Regular. Lungs: Equal expansion, normal respiratory effort. Abdomen: Soft, nontender, nondistended. Extremities: Normal skin color and turgor. Neurological: No focal deficits. Speech is fluent, tongue protrudes midline. Bilateral upper and lower extremity strength and tone normal. - Labs CBC & Chem 7: 01/29/23 06:32 01/29/23 14:18 Labs: Abnormal Lab Results - Last 24 Hours (Table) 01/28/23 01/28/23 01/28/23 Range/Units 11:35 16:16 20:07 Potassium (3.5-5.1) mmol/L Chloride (98-107) mmol/L Glucose (74-99) mg/dL POC Glucose (mg/dL) 193 H 188 H 173 H (70-110) mg/dL Triglycerides (0.00-149.00) mg/dL Cholesterol (0.00-200.00) mg/dL HDL Cholesterol (40.00-60.00) mg/dL 01/29/23 01/29/23 Range/Units 05:45 06:32 Potassium 5.2 H (3.5-5.1) mmol/L Chloride 109 H (98-107) mmol/L Glucose 112 H (74-99) mg/dL POC Glucose (mg/dL) 128 H (70-110) mg/dL Triglycerides 612.00 H (0.00-149.00) mg/dL Cholesterol 308.00 H (0.00-200.00) mg/dL HDL Cholesterol 27.00 L (40.00-60.00) mg/dL Assessment and Plan Assessment: 1. Symptomatic left internal carotid artery stenosis 2. Left TIA with IV minus and right upper extremity weakness 3. Tobacco abuse Plan: CTA and carotid Doppler independently reviewed demonstrating severe occlusive disease of the left ICA Recommend surgical intervention during this hospitalization, tentative plan for left carotid endarterectomy this afternoon if cleared by neurology Plan discussed with Dr. Cruz, MRI with acute ischemic stroke. Neurology cleared patient for vascular surgery to proceed with left carotid endarterectomy. Thank you for this consultation, we will continue to follow. The impression and plan of care has been dictated as directed. I performed a history and examination of this patient, discussed the same with the dictator. I agree with the dictator's note ,documented as a scribe. Any additional findings or plans will be noted.
--- NOTE | 2023-01-29 12:35 | P.PN ---
Subjective Progress Note Date: 01/29/23 I am seeing the patient for the first time during this admission. Please refer to Dr. Kingsley's note for further details. According to patient he presented that because of right upper extremity weakness and he said he had difficulty lifting the remote control as well as he felt some vision issues on the left eye and some numbness over the left face. He states that he is on aspirin at home. He does smoke a pack to a pack and a quarter daily. Denies any illicit drug use. He feels his symptoms has improved compared to initial presentation. Objective - Vital Signs Vital signs: Vital Signs Temp 97.6 F 01/29/23 08:00 Pulse 63 01/29/23 08:00 Resp 18 01/29/23 08:00 BP 114/63 01/29/23 08:00 Pulse Ox 94 L 01/29/23 08:30 FiO2 Intake & Output 01/28/23 01/29/23 01/29/23 18:59 06:59 18:59 Intake Total 1020 600 Output Total 400 Balance 1020 -400 600 Intake: Oral 1020 600 Output: Urine 400 Other: Voiding Method Toilet Toilet Toilet # Voids 2 1 - Exam GENERAL: The patient is lying in bed and is not in acute distress. NEUROLOGICAL: Higher mental function: The patient is awake, alert, oriented to self, place and time. Patient is following commands. No aphasia and no neglect. Cranial nerves: The pupils are round, equal and reactive to light. Visual garcia are full to confrontation throughout. Extraocular movement is intact no nystagmus is noted. Facial sensation is normal to touch throughout. The facial strength is normal throughout. Tongue is midline and moved [id number] without any difficulty. No dysarthria is noted. Shoulder shrug is normal bilaterally. Motor: The strength is 5 over 5 throughout. Normal tone and bulk. Cerebellum: Normal finger to nose bilaterally. Sensation: Sensation is normal to touch throughout. SOME OF THE WORK-UP DURING THIS HOSPITAL VISIT CONSISTED OF: Lipid panel: TG 612, cholest 308, LDL 178 HbA1C: 9.8 CTA head and neck showed: short segmental critical stenosis or occlusion of the proximal left ICA, correlate clinically. There is a diminutive caliber of the cavernous segment of the left ICA which does demonstrate contrast enhancement but does not noticeably reduced in caliber related to the right. Diminutive basilar artery can be associated with vertebrobasilar insufficiency. No diagnostic evidence of anterior, posterior or middle cerebral artery occlusion or aneurysm. Carotid Doppler, revealed severe left-sided block with findings suggestive of severe right sided and 70% stenosis proximal left ICA. Antegrade flow in both vertebral arteries. - Labs CBC & Chem 7: 01/29/23 06:32 01/29/23 06:32 Labs: Abnormal Lab Results - Last 24 Hours (Table) 01/28/23 01/28/23 01/29/23 Range/Units 16:16 20:07 05:45 Potassium (3.5-5.1) mmol/L Chloride (98-107) mmol/L Glucose (74-99) mg/dL POC Glucose (mg/dL) 188 H 173 H 128 H (70-110) mg/dL Triglycerides (0.00-149.00) mg/dL Cholesterol (0.00-200.00) mg/dL LDL Cholesterol Direct (0.00-129.00) mg/dL HDL Cholesterol (40.00-60.00) mg/dL 01/29/23 01/29/23 Range/Units 06:32 11:31 Potassium 5.2 H (3.5-5.1) mmol/L Chloride 109 H (98-107) mmol/L Glucose 112 H (74-99) mg/dL POC Glucose (mg/dL) 259 H (70-110) mg/dL Triglycerides 612.00 H (0.00-149.00) mg/dL Cholesterol 308.00 H (0.00-200.00) mg/dL LDL Cholesterol Direct 178.00 H (0.00-129.00) mg/dL HDL Cholesterol 27.00 L (40.00-60.00) mg/dL Assessment and Plan Assessment: * Recurrent TIA with blurred vision of the left eye, and one episode of right hand weakness that lasted for 10-15 minutes. Likely due to symptomatic left ICA stenosis. * Bilateral ICA stenosis, left worse (symptomatic) with short segment critical stenosis or occlusion of the proximal left ICA. * Hypertension * Hyperlipidemia * Diabetes * Tobacco use Plan: * MRI of the brain without contrast is pending. * 2-D echo with bubble study to rule out PFO * Vascular surgery on board. Agree with revascularization surgery (CEA) in this admission. I spoke with vascular team and in agreement of pursuing intervention and likely will be done today. * Patient was taking aspirin 325 mg daily which is continue and Plavix 75mg daily (new). Lipitor 40mg is started during this admission and I went up to 80mg daily which help stablize plaque. * Recommend optimize control of diabetes to target A1c < 7.0 * Permissive hypertension for next 24 hours * Pepcid for gastric ulcer prophylaxis. * Close neuro checks as per protocol. * Telemetry monitoring rule out any arrhythmia * DVT prophylaxis: Heparin 5000 units subcu every 12 hours * Recommend complete tobacco cessation. Counseled for 3 minutes. The plan is discussed with patient and his nurse. Time with Patient: Less than 30
[2023-01-29 13:25] VITALS: BMI 24.0
[2023-01-29] MEDS ORDERED: LACTATED RINGERS 1,000 ML IV ONE ×2 (14:13→19:05)
[2023-01-29 14:15] LABS: Glucose,Whole Blood 165 mg/dL (70-110)
--- NOTE | 2023-01-29 14:20 | MR ---
EXAMINATION TYPE: MR brain wo con DATE OF EXAM: 01/29/2023 COMPARISON: 01/27/2023 CT HISTORY: Neuro deficit CONTRAST: Performed utilizing 0 mL intravenous Gadavist gadolinium contrast. TECHNIQUE: Multiplanar, multiecho imaging on a 3.0 Irma magnet is performed through the brain. Stud y is performed within 24 hours of arrival to the hospital. The craniovertebral junction is normal. The pituitary is normal. Diffusion-weighted imaging is performed. There is a punctate hyperintensity within the mid left cent rum semiovale. Series 303 image 184. There is a punctate hyperintensity within the periventricular wh ite matter adjacent to the occipital horn left lateral ventricle. Series 303 image 152. There may be a punctate hyperintensity within the left occipital lobe. Series 303 image 128. Findings could be com patible with acute ischemic changes. On inversion recovery weighted sequences appear to be hyperintensities within the areas of suspected acute ischemic change. Some additional milder uptake is within periventricular white matter diffusely . Ventricles and sulci are appropriate for the patient age. Note is made of fluid within the left mastoid air cells. Correlate for left mastoiditis. IMPRESSIONS: 1. 2-3 small areas of hyperintensity on diffusion can be compatible small focal acute ischemic areas. Consider other etiologies including acute multiple sclerosis plaques, vasculitis or migraine headach es.
--- NOTE | 2023-01-29 14:46 | CA ---
Transthoracic Echo Report Name: Wilbert Boswell Age: 67 Gender: M : 1955 Exam Date: 01/29/2023 10:06 Exam Location: [facility] Echo Ht (in): 69 Wt (lb): 164 Ordering Physician: Yunier Kingsley MD Attending/Referring Phys: Data Collection Interviewer Bakari Aly RDCS Procedure CPT: Indications: recurrent TIA Cardiac Hx: COPD Technical Quality: Fair Contrast 1: Agitated Saline Total Dose (mL): Contrast 2: Total Dose (mL): MEASUREMENTS (Male / Female) Normal Values 2D ECHO LV Diastolic Diameter PLAX 4.6 cm 4.2 - 5.9 / 3.9 - 5.3 cm LV Systolic Diameter PLAX 3.4 cm LV Fractional Shortening PLAX 25.3 % IVS Diastolic Thickness 1.2 cm 0.6 - 1.0 / 0.6 - 0.9 cm IVS Systolic Thickness 1.7 cm LVPW Diastolic Thickness 0.9 cm 0.6 - 1.0 / 0.6 - 0.9 cm LVPW Systolic Thickness 1.4 cm LV Relative Wall Thickness 0.5 RV Internal Dim ED PLAX 3.5 cm LVOT Diameter 2.0 cm LA Systolic Diameter LX 3.4 cm 3.0 - 4.0 / 2.7 - 3.8 cm LV Diastolic Volume MOD BP 118.9 cm??? 67 - 155 / 56 - 104 cm??? LV Systolic Volume MOD BP 70.4 cm??? 22 - 58 / 19 - 49 cm??? LV Ejection Fraction MOD BP 40.8 % >= 55 % LV Stroke Volume MOD BP 48.6 cm??? LV Diastolic Volume MOD 4C 120.1 cm??? LV Systolic Volume MOD 4C 69.9 cm??? LV Ejection Fraction MOD 4C 41.8 % LV Stroke Volume MOD 4C 50.2 cm??? LV Diastolic Length 4C 8.5 cm LV Systolic Length 4C 7.7 cm LV Diastolic Volume MOD 2C 116.7 cm??? LV Systolic Volume MOD 2C 71.4 cm??? LV Ejection Fraction MOD 2C 38.8 % LV Stroke Volume MOD 2C 45.3 cm??? LV Diastolic Length 2C 8.6 cm LV Systolic Length 2C 7.6 cm Ascending Aorta Diameter 2.7 cm M-MODE Aortic Root Diameter MM 3.7 cm LA Systolic Diameter MM 2.5 cm LA Ao Ratio MM 0.7 MV E Point Septal Separation 1.3 cm AV Cusp Separation MM 2.2 cm DOPPLER AV Peak Velocity 100.1 cm/s AV Peak Gradient 4.0 mmHg AI Peak Velocity 400.3 cm/s AI Peak Gradient 64.1 mmHg AI Deceleration Stark 176.9 cm/s??? AI Pressure Half Time 656.1 ms MV Peak Velocity 93.9 cm/s MV Peak Gradient 3.5 mmHg MV Mean Velocity 52.5 cm/s MV Mean Gradient 1.3 mmHg MV Velocity Time Integral 29.1 cm MR Peak Velocity 437.6 cm/s MR Peak Gradient 76.6 mmHg MR Mean Velocity 367.7 cm/s MR Mean Gradient 57.9 mmHg MR Velocity Time Integral 149.3 cm Mitral E Point Velocity 79.6 cm/s Mitral A Point Velocity 16.2 cm/s Mitral E to A Ratio 4.9 MV Deceleration Time 233.1 ms MV E' Velocity 9.7 cm/s Mitral E to MV E' Ratio 8.2 TR Peak Velocity 164.6 cm/s TR Peak Gradient 10.8 mmHg Right Ventricular Systolic Press 18.8 mmHg FINDINGS Left Ventricle Left ventricular ejection fraction is estimated at 45-50 %. Borderline left ventricular hypertrophy. Grade 2 diastolic dysfunction. Normal systolic function. Right Ventricle Mild right ventricular dilatation. RVSP- 19 mm Hg. Right Atrium Normal right atrial size. Left Atrium Borderline atrila dilation Mitral Valve Mitral valve thickened. [id number]-[id number] mitral regurgitation. Aortic Valve Trileaflet aortic valve. Acke-wl-lqjrydvc aortic regurgitation. Tricuspid Valve Mild tricuspid regurgitation. Pulmonic Valve Pulmonic valve not well visualized. Pericardium Normal pericardium. No pericardial effusion. Aorta Mild aortic dilatation at the level of the sinuses of valsalva (root). CONCLUSIONS Mildly reduced left ventricular systolic function distal septal and apical hypokinesis Left ventricle ejection fraction 45-50% Previewed by: Dr. Matteo Sellers MD (Electronically Signed) Final Date: 29 January 2023 14:46
[2023-01-29] MEDS ORDERED: ONDANSETRON 4 MG/2 ML VIAL ONE (14:49)
[2023-01-29] MEDS ORDERED: DEXAMETHASONE SOD PHOSPHATE 4 MG/ML 1 ML VIAL IVP ONE (14:56)
[2023-01-29] MEDS ORDERED: ONDANSETRON 4 MG/2 ML VIAL IVP ONE (14:56)
[2023-01-29] MEDS ORDERED: MIDAZOLAM 2 MG/2 ML VIAL IVP ONE (15:31)
--- NOTE | 2023-01-29 16:26 | P.ANPRN ---
Procedure Note - Anesthesia - Nerve Block Performed Left Superficial Cervical Plexus Block Single Time Out Performed: Yes Date of Procedure: 01/29/23 Procedure Start Time: 15:47 Procedure Stop Time: 15:54 Location of Patient: PreOp Indication: Acute Post-Operative Pain, Requested by Surgeon Sedation Type: Sedate with meaningful contact maintained Preparation: Sterile Prep Position: Sitting Catheter: None Needle Types: Facet Needle Gauge: 21 Ultrasound used to visualize needle placement: Yes Ultrasound used to observe medication spread: Yes Injectate: 0.5% Ropivacaine (see comment for volume) (30 ml + decadron 4 mg) Blood Aspirated: No Pain Paresthesia on Injection Noted: No Resistance on Injection: Normal Image Stored and Saved: Yes Events: Uneventful and Well Tolerated - Invasive Line Right Arterial Line Time Out Performed: Yes Date of Procedure: 01/29/23 Time of Procedure: 15:31 Location of Patient: PreOp Preparation: Sterile Prep, Sterile Dressing Arterial Line Location: Radial Ultrasound Used: Yes Purpose - Visualization and Identification of Vasculature: Yes Needle Guage: 20 Image Stored and Saved: Yes Narrative: Seldinger technique under u/s guidance
[2023-01-29] MEDS ORDERED: HYDROmorphone (PF) 1 MG/ML ONE (18:17)
[2023-01-29] MEDS ORDERED: GLYCOPYRROLATE 0.2 MG/ML 2 ML VIAL ONE (18:17)
[2023-01-29] MEDS ORDERED: NEOSTIGMINE 1 MG/ML 10 ML VIAL ONE (18:17)
[2023-01-29] MEDS ORDERED: PROPOFOL 10 MG/ML 20 ML VIAL IV ONE (18:17)
[2023-01-29] MEDS ORDERED: fentaNYL (PF) 50 MCG/ML 2 ML AMP ONE (18:17)
[2023-01-29] MEDS ORDERED: SUCCINYLCHOLINE CHLORIDE 200 MG/10 ML VIAL IV ONE (18:17)
[2023-01-29] MEDS ORDERED: ROCURONIUM 10 MG/ML (5 ML VIAL) IV ONE (18:17)
[2023-01-29] MEDS ORDERED: LIDOCAINE 2% INJ 20 MG/ML (2 ML VIAL) ONE (18:17)
[2023-01-29] MEDS ORDERED: PHENYLEPHRINE-0.9% NACL SYG 1,000 MCG/10 ML SYRINGE ONE (18:17)
[2023-01-29] MEDS ORDERED: MIDAZOLAM 2 MG/2 ML VIAL ONE (18:17)
[2023-01-29] MEDS ORDERED: HEPARIN SODIUM,PORCINE 10,000 UNIT/ML 1 ML VIAL ONE (18:17)
[2023-01-29] MEDS ORDERED: LIDOCAINE 1% INJ 10MG/ML (20 ML MDV) SQ ONE (18:54)
[2023-01-29] MEDS ORDERED: HEPARIN SODIUM (1,000 UNIT/ML) 2,000 UNIT in SODIUM CHLORIDE 0.9% 1,000 ML IRRIGATION ONE (19:03)
[2023-01-29] MEDS ORDERED: ceFAZolin 2,000 MG in SODIUM CHLORIDE 0.9% 1,000 ML IRRIGATION ONE (19:04)
[2023-01-29] MEDS ORDERED: THROMBIN (BOVINE) 5,000 UNIT VIAL TOPICAL ONE (19:12)
[2023-01-29] MEDS ORDERED: GELATIN SPONGE,ABSORB (LARGE) 1 EACH SPONGE TOPICAL ONE (19:13)
--- NOTE | 2023-01-29 20:27 | PN ---
PROGRESS NOTE DATE OF SERVICE: 01/29/2023 CHIEF COMPLAINT: TIA. HISTORY OF PRESENT ILLNESS: This gentleman is doing well. He is not having any trouble with the vision now. He may be going for carotid endarterectomy today. PHYSICAL EXAMINATION: CHEST: Clear. CARDIAC: Normal. ABDOMEN: Soft, nontender. IMPRESSION: Left carotid occlusive disease with TIA. PLAN: Possible surgery today. MMODL / IJN: [id number] /
[2023-01-29] MEDS ORDERED: MAG HYDROX/AL HYDROX/SIMETH 30 ML CUP PO PRN (21:05)
[2023-01-29] MEDS ORDERED: BENZOCAINE/MENTHOL LOZENG 1 EACH LOZENGE MUCOUS MEM PRN (21:05)
[2023-01-29] MEDS ORDERED: TRIMETHOBENZAMIDE 100 MG/ML 2 ML VIAL IM PRN (21:05)
[2023-01-29] MEDS ORDERED: MORPHINE SULFATE 4 MG/ML SYRINGE IV PRN (21:05)
--- NOTE | 2023-01-29 21:05 | P.OP ---
Description of Procedure: Date of Procedure: 01/29/2023 Preoperative Diagnosis: Symptomatic left Internal carotid artery stenosis greater than 90%, crescendo TIAs Postoperative Diagnosis: Same Procedure(s) Performed: Left carotid endarterectomy with patch angioplasty Anesthesia: KEN Surgeon: Ton Schultz Estimated Blood Loss (ml): 50 IV Fluids, Urine Output: See anesthesia record Pathology: Left carotid plaque Condition: stable Disposition: PACU Indications for Procedure: 67-year-old gentleman presented to the hospital secondary to left-sided blindness and right-sided weakness over the last 4 days. He has had multiple episodes of vision changes and on Sunday developed right upper extremity weakness that resolved. He underwent CTA and carotid Doppler which demonstrated severe left internal carotid artery stenosis greater than 90%. After discussion with the patient and clearance from medicine and neurology he presents to the operating room for left carotid endarterectomy and patch angioplasty. Description of Procedure: After written informed consent was obtained the patient all risks benefits and competitions were described the patient is brought to the operative suite and laid in a supine position. The area of the neck was prepped and draped in usual sterile fashion after appropriate anesthetic was performed per the anesthesiolo gist. A timeout was performed in normal fashion antibiotics were administered prior to incision. An oblique incision was then created just anterior to the sternocleidomastoid musculature with a 10 blade scalpel and dissection was carried down to the carotid sheath. The carotid sheath was then entered after facial vein was located and suture ligated in normal fashion. The common carotid, internal carotid, external carotid and superior thyroid arteries were located and dissected free in a meticulous fashion circumferentially and controlled with vessel loops. Attention was then placed to locating the vagus nerve as well as hypoglossal nerve which were both spared. Once controlled patient was administered heparin and followed with ACTs for appropriate heparinization. Once ACT was above 200 the proximal and distal aspects of the dissection were then controlled with vascular clamps. Arteriotomy was then created with 11 blade scalpel and extended with Quiñonez Akers scissors. Cerebral oximetry was utilized and after clamp was placed there was no change in the cerebral oximetry and therefore no shunt was required and endarterectomy was then performed with a Woden and elevator. The plaque was then feathered at the distal aspect and the internal carotid artery and removed. The area was copiously irrigated with heparinized saline and all free debris was removed. A 7-0 Prolene suture was then placed to tack the distal aspect of the dissection at the internal carotid artery. A 0.8 x 8 cm bovine pericardial patch was then chosen and patch angioplasty was performed with 6-0 Prolene suture in a running fashion. Prior to last sutures being placed the inflow was released flushing any free debris out of the patch. This was reclamped and the internal carotid artery was released revealing good brisk flow and was once again reclamped. The external carotid and superior thyroid artery were then released followed by the common carotid artery to allow any free debris to be flushed into the external system. Final sutures were placed and secured. Internal carotid artery control was then released. Good pulsatile flow was noted through the patch and a Doppler was utilized demonstrating good brisk flow into the internal, external carotid arteries without any signs of obstruction. Hemostasis was then assured with Gelfoam and thrombin. A 10-Mexican GUILLERMO drain was then placed in normal fashion and secured with 3-0 nylon suture. The incision was then closed in a multilayer fashion after hemostasis was assured. The skin was then cleansed and dressings were placed. Patient tolerated the procedure well and was following commands and moving all extremities. Patient was then sent to PACU for recovery.
[2023-01-29] MEDS ORDERED: SODIUM CHLORIDE 0.9% 1,000 ML IV SCH (21:15)
[2023-01-29 21:46] LABS: Glucose,Whole Blood 251 mg/dL (70-110)
[2023-01-29] MEDS ORDERED: INSULIN ASPART (NovoLOG) 100 UNIT/ML VIAL SQ ONE (21:50)
[2023-01-29] MEDS: DAPAGLIFLOZIN PROPANEDIOL 10 MG TABLET PO SCH (22:41)
[2023-01-29] MEDS: metFORMIN 500 MG TAB PO SCH (22:41)
[2023-01-29] MEDS: ASPIRIN 325 MG TAB PO SCH (22:41)
[2023-01-29] MEDS: lisinopriL 20 MG TAB PO SCH (22:41)
[2023-01-29 23:17] LABS: Basophils % (A) 0 %; Eosinophils # (A) 0.2 k/uL (0-0.7); Eosinophils % (A) 1 %; HCT 43.1 % (39.0-53.0); HGB 14.4 gm/dL (13.0-17.5); Lymphocytes # (A) 0.5 k/uL (1.0-4.8); Lymphocytes % (A) 3 %; MCH 31.1 pg (25.0-35.0); MCHC 33.3 g/dL (31.0-37.0); MCV 93.2 fL (80.0-100.0); Mean Platelet Volume 8.2; Monocytes # (A) 0.2 k/uL (0-1.0); Monocytes % (A) 1 %; Neutrophils % (A) 95 %; Platelet Count 320 k/uL (150-450); RBC 4.62 m/uL (4.30-5.90); RDW 12.8 % (11.5-15.5); WBC 17.9 k/uL (3.8-10.6)
[2023-01-29 23:28] LABS: African American GFR (CKD) >90 (>60 ml/min/1.73 sqM); Anion Gap 11 mmol/L; Blood Urea Nitrogen 20 mg/dL (9-20); Calcium 8.5 mg/dL (8.4-10.2); Carbon Dioxide 18 mmol/L (22-30); Chloride 108 mmol/L (98-107); Glucose 278 mg/dL (74-99); Non-African American GFR(CKD) 81 (>60 ml/min/1.73 sqM); Potassium 5.1 mmol/L (3.5-5.1); Sodium 137 mmol/L (137-145)
[2023-01-30 02:36] LABS: Basophils % (A) 0 %; Eosinophils # (A) 0.1 k/uL (0-0.7); Eosinophils % (A) 1 %; HCT 42.6 % (39.0-53.0); HGB 14.3 gm/dL (13.0-17.5); Lymphocytes # (A) 0.5 k/uL (1.0-4.8); Lymphocytes % (A) 4 %; MCH 30.9 pg (25.0-35.0); MCHC 33.5 g/dL (31.0-37.0); MCV 92.1 fL (80.0-100.0); Mean Platelet Volume 8.1; Monocytes # (A) 0.4 k/uL (0-1.0); Monocytes % (A) 2 %; Neutrophils % (A) 93 %; Platelet Count 297 k/uL (150-450); RBC 4.62 m/uL (4.30-5.90); RDW 12.6 % (11.5-15.5)
[2023-01-30 02:53] LABS: ALT 18 U/L (4-49); AST 26 U/L (17-59); African American GFR (CKD) >90 (>60 ml/min/1.73 sqM); Albumin 3.7 g/dL (3.5-5.0); Alkaline Phosphatase 67 U/L (38-126); Anion Gap 5 mmol/L; Blood Urea Nitrogen 21 mg/dL (9-20); Calcium 8.7 mg/dL (8.4-10.2); Carbon Dioxide 20 mmol/L (22-30); Chloride 111 mmol/L (98-107); Glucose 201 mg/dL (74-99); Non-African American GFR(CKD) 86 (>60 ml/min/1.73 sqM); Potassium 5.2 mmol/L (3.5-5.1); Sodium 136 mmol/L (137-145); Total Bilirubin 0.4 mg/dL (0.2-1.3); Total Protein 6.3 g/dL (6.3-8.2)
[2023-01-30] MEDS: SODIUM CHLORIDE 0.9% 1,000 ML IV SCH (03:39)
[2023-01-30 05:58] LABS: Glucose,Whole Blood 163 mg/dL (70-110)
[2023-01-30] MEDS: LEVOTHYROXINE 100 MCG TAB PO SCH (06:32)
[2023-01-30] MEDS: LEVOTHYROXINE 25 MCG TAB PO SCH (06:32)
[2023-01-30] MEDS: INSULIN ASPART (NovoLOG) 100 UNIT/ML VIAL SQ SCH ×2 (06:33→13:14)
[2023-01-30] MEDS: CLOPIDOGREL 75 MG TAB PO SCH (08:13)
[2023-01-30] MEDS: FAMOTIDINE 20 MG TAB PO SCH (08:13)
[2023-01-30] MEDS: HEPARIN SODIUM,PORCINE/PF 5,000 UNIT/0.5 ML SYRINGE SQ SCH (08:14)
[2023-01-30] MEDS ORDERED: ATORVASTATIN 80 MG TAB PO SCH (09:00)
--- NOTE | 2023-01-30 09:39 | P.PN ---
Subjective Progress Note Date: 01/30/23 Principal diagnosis: TIA, left ICA stenosis Patient seen and examined today as a follow-up. He is postop day #1 for left carotid endarterectomy with patch angioplasty. Patient has a GUILLERMO drain in place. He denies any pain. Downing catheter still in place, he has not been up and ambulating yet. He was transferred from ICU to [facility]. He denies any focal deficits. Objective - Vital Signs Vital signs: Vital Signs Temp 96.6 F L 01/30/23 07:49 Pulse 60 01/30/23 07:49 Resp 16 01/30/23 07:49 BP 111/61 01/30/23 07:49 Pulse Ox 92 L 01/30/23 08:21 FiO2 Intake & Output 01/29/23 01/30/23 01/30/23 18:59 06:59 18:59 Intake Total 1650 1252 240 Output Total 300 2595 Balance 1350 -1343 240 Weight 73.936 kg Intake: IV 1050 1252 Sodium Chloride 0.9% 1, 300 000 ml @ 75 mls/hr IV . [id number] [facility] Rx#:[id number] ceFAZolin 2 gm In Sodium 50 Chloride 0.9% 50 ml @ 100 mls/hr IVPB Q8HR [facility] Rx# :[id number] Oral 600 240 Output: Drainage 20 Left Anterior Neck 20 Urine 300 2525 Estimated Blood Loss 50 Other: Voiding Method Toilet Indwelling Catheter # Voids 1 ABP, PAP, CO, CI - Last Documented Arterial Blood Pressure 92/68 - Exam General appearance: The patient is alert, oriented, appears in no acute distress. HET: Head is normocephalic and atraumatic. Pupils are equal and reactive. Neck: Supple. Left side of neck with dressing clean dry and intact, GUILLERMO drain with approximately 10 mL of serosanguineous drainage. No swelling, bruising, or hematoma noted. Heart: Regular. Lungs: Equal expansion, normal respiratory effort. Abdomen: Soft, nontender, nondistended. Extremities: Normal skin color and turgor. Neurological: No focal deficits. Speech is fluent, tongue protrudes midline. Bilateral upper and lower extremity strength and tone normal. - Labs CBC & Chem 7: 01/30/23 02:20 01/30/23 02:20 Labs: Abnormal Lab Results - Last 24 Hours (Table) 01/29/23 01/29/23 01/29/23 Range/Units 06:32 11:31 14:13 WBC (3.8-10.6) k/uL Neutrophils # (1.3-7.7) k/uL Lymphocytes # (1.0-4.8) k/uL APTT (22.0-30.0) sec Sodium (137-145) mmol/L Potassium 5.2 H (3.5-5.1) mmol/L Chloride 109 H (98-107) mmol/L Carbon Dioxide (22-30) mmol/L BUN (9-20) mg/dL Glucose 112 H (74-99) mg/dL POC Glucose (mg/dL) 259 H 165 H (70-110) mg/dL Triglycerides 612.00 H (0.00-149.00) mg/dL Cholesterol 308.00 H (0.00-200.00) mg/dL LDL Cholesterol Direct 178.00 H (0.00-129.00) mg/dL HDL Cholesterol 27.00 L (40.00-60.00) mg/dL 01/29/23 01/29/23 01/29/23 Range/Units 21:45 22:58 22:58 WBC 17.9 H (3.8-10.6) k/uL Neutrophils # 17.0 H (1.3-7.7) k/uL Lymphocytes # 0.5 L (1.0-4.8) k/uL APTT (22.0-30.0) sec Sodium (137-145) mmol/L Potassium (3.5-5.1) mmol/L Chloride 108 H (98-107) mmol/L Carbon Dioxide 18 L (22-30) mmol/L BUN (9-20) mg/dL Glucose 278 H (74-99) mg/dL POC Glucose (mg/dL) 251 H (70-110) mg/dL Triglycerides (0.00-149.00) mg/dL Cholesterol (0.00-200.00) mg/dL LDL Cholesterol Direct (0.00-129.00) mg/dL HDL Cholesterol (40.00-60.00) mg/dL 01/30/23 01/30/23 01/30/23 Range/Units 02:20 02:20 02:20 WBC 15.0 H (3.8-10.6) k/uL Neutrophils # 14.0 H (1.3-7.7) k/uL Lymphocytes # 0.5 L (1.0-4.8) k/uL APTT 18.2 L (22.0-30.0) sec Sodium 136 L (137-145) mmol/L Potassium 5.2 H (3.5-5.1) mmol/L Chloride 111 H (98-107) mmol/L Carbon Dioxide 20 L (22-30) mmol/L BUN 21 H (9-20) mg/dL Glucose 201 H (74-99) mg/dL POC Glucose (mg/dL) (70-110) mg/dL Triglycerides (0.00-149.00) mg/dL Cholesterol (0.00-200.00) mg/dL LDL Cholesterol Direct (0.00-129.00) mg/dL HDL Cholesterol (40.00-60.00) mg/dL 01/30/23 Range/Units 05:57 WBC (3.8-10.6) k/uL Neutrophils # (1.3-7.7) k/uL Lymphocytes # (1.0-4.8) k/uL APTT (22.0-30.0) sec Sodium (137-145) mmol/L Potassium (3.5-5.1) mmol/L Chloride (98-107) mmol/L Carbon Dioxide (22-30) mmol/L BUN (9-20) mg/dL Glucose (74-99) mg/dL POC Glucose (mg/dL) 163 H (70-110) mg/dL Triglycerides (0.00-149.00) mg/dL Cholesterol (0.00-200.00) mg/dL LDL Cholesterol Direct (0.00-129.00) mg/dL HDL Cholesterol (40.00-60.00) mg/dL Assessment and Plan Assessment: 1. Symptomatic left internal carotid artery stenosis status post left carotid endarterectomy with patch angioplasty 2. Left TIA with IV minus and right upper extremity weakness 3. Tobacco abuse Plan: 1. Discontinue Downing catheter 2. Encourage ambulation 3. Continue aspirin, Plavix, and statin 4. Smoking cessation 5. GUILLERMO drain discontinued 6. If patient is able to void, he is cleared from vascular surgery for discharge 7. Continue with recommendations from neurology Thank you for this consultation. The impression and plan of care has been dictated as directed. I performed a history and examination of this patient, discussed the same with the dictator. I agree with the dictator's note ,documented as a scribe. Any additional findings or plans will be noted.
[2023-01-30 11:31] LABS: Glucose,Whole Blood 193 mg/dL (70-110)
[2023-01-30 11:32] VITALS: TEMP 97.9
[2023-01-30 13:14] VITALS: BP 119/69; PULSE 64; RESP 18
--- NOTE | 2023-01-30 13:24 | P.PN ---
Subjective Progress Note Date: 01/30/23 The patient is seen at bedside and he feels drastically better today compared to initial presentation. Yesterday the patient had left carotid endaretectomy. Again denies of any focal deficits. Objective - Vital Signs Vital signs: Vital Signs Temp 97.9 F 01/30/23 11:29 Pulse 64 01/30/23 12:00 Resp 18 01/30/23 12:00 BP 119/69 01/30/23 12:00 Pulse Ox 95 01/30/23 12:00 FiO2 Intake & Output 01/29/23 01/30/23 01/30/23 18:59 06:59 18:59 Intake Total 1650 1252 240 Output Total 300 2595 727 Balance 1350 -1343 -487 Weight 73.936 kg Intake: IV 1050 1252 Sodium Chloride 0.9% 1, 300 000 ml @ 75 mls/hr IV . [id number] HENRI Rx#:[id number] ceFAZolin 2 gm In Sodium 50 Chloride 0.9% 50 ml @ 100 mls/hr IVPB Q8HR HENRI Rx# :[id number] Oral 600 240 Output: Drainage 20 2 Left Anterior Neck 20 2 Urine 300 2525 725 Estimated Blood Loss 50 Other: Voiding Method Toilet Indwelling Catheter Indwelling Catheter # Voids 1 1 ABP, PAP, CO, CI - Last Documented Arterial Blood Pressure 92/68 - Exam GENERAL: The patient is lying in bed and is not in acute distress. HENT: Scar over the left neck (post-surgical). NEUROLOGICAL: Higher mental function: The patient is awake, alert, oriented to self, place and time. Patient is following commands. No aphasia and no neglect. Cranial nerves: The pupils are round, equal and reactive to light. Visual garcia are full to confrontation throughout. Extraocular movement is intact no nystagmus is noted. Facial sensation is normal to touch throughout. The facial strength is normal throughout. Tongue is midline and moved [id number] wi thout any difficulty. No dysarthria is noted. Shoulder shrug is normal bilaterally. Motor: The strength is 5 over 5 throughout. Normal tone and bulk. Cerebellum: Normal finger to nose bilaterally. Sensation: Sensation is normal to touch throughout. SOME OF THE WORK-UP DURING THIS HOSPITAL VISIT CONSISTED OF: Lipid panel: TG 612, cholest 308, LDL 178 HbA1C: 9.8 CTA head and neck showed: short segmental critical stenosis or occlusion of the proximal left ICA, correlate clinically. There is a diminutive caliber of the cavernous segment of the left ICA which does demonstrate contrast enhancement but does not noticeably reduced in caliber related to the right. Diminutive basilar artery can be associated with vertebrobasilar insufficiency. No diagnostic evidence of anterior, posterior or middle cerebral artery occlusion or aneurysm. Carotid Doppler, revealed severe left-sided block with findings suggestive of severe right sided and 70% stenosis proximal left ICA. Antegrade flow in both vertebral arteries. - Labs CBC & Chem 7: 01/30/23 02:20 01/30/23 02:20 Labs: Abnormal Lab Results - Last 24 Hours (Table) 01/29/23 01/29/23 01/29/23 Range/Units 14:13 21:45 22:58 WBC 17.9 H (3.8-10.6) k/uL Neutrophils # 17.0 H (1.3-7.7) k/uL Lymphocytes # 0.5 L (1.0-4.8) k/uL APTT (22.0-30.0) sec Sodium (137-145) mmol/L Potassium (3.5-5.1) mmol/L Chloride (98-107) mmol/L Carbon Dioxide (22-30) mmol/L BUN (9-20) mg/dL Glucose (74-99) mg/dL POC Glucose (mg/dL) 165 H 251 H (70-110) mg/dL 01/29/23 01/30/23 01/30/23 Range/Units 22:58 02:20 02:20 WBC 15.0 H (3.8-10.6) k/uL Neutrophils # 14.0 H (1.3-7.7) k/uL Lymphocytes # 0.5 L (1.0-4.8) k/uL APTT 18.2 L (22.0-30.0) sec Sodium (137-145) mmol/L Potassium (3.5-5.1) mmol/L Chloride 108 H (98-107) mmol/L Carbon Dioxide 18 L (22-30) mmol/L BUN (9-20) mg/dL Glucose 278 H (74-99) mg/dL POC Glucose (mg/dL) (70-110) mg/dL 01/30/23 01/30/23 01/30/23 Range/Units 02:20 05:57 11:30 WBC (3.8-10.6) k/uL Neutrophils # (1.3-7.7) k/uL Lymphocytes # (1.0-4.8) k/uL APTT (22.0-30.0) sec Sodium 136 L (137-145) mmol/L Potassium 5.2 H (3.5-5.1) mmol/L Chloride 111 H (98-107) mmol/L Carbon Dioxide 20 L (22-30) mmol/L BUN 21 H (9-20) mg/dL Glucose 201 H (74-99) mg/dL POC Glucose (mg/dL) 163 H 193 H (70-110) mg/dL Assessment and Plan Assessment: * Recurrent TIA with blurred vision of the left eye, and one episode of right hand weakness that lasted for 10-15 minutes. Likely due to symptomatic left ICA stenosis. * Bilateral ICA stenosis, left worse (symptomatic) with short segment critical stenosis or occlusion of the proximal left ICA s/p left carotid endaretectomy POD#1 * Hypertension * Hyperlipidemia * Diabetes * Tobacco use Plan: * MRI of the brain without contrast: 2-3 small areas of hyper intensity on diffusion can be compatible small focal acute ischemic area. Consider other etiologies including acute multiple sclerosis, vascular or migraine headache. I personally reviewed the MRI and I feel it's due to the stroke * 2-D echo with bubble study to rule out PFO: It is reported as mild reduced left ventricular systolic function distal septal and apical hypokinesis. Ejection fraction of 45-50%. Borderline atrial dilation. * Vascular surgery on board. * Patient was taking aspirin 325 mg daily which is continue and Plavix 75mg daily (new). Patient to be on dual antiplatelets for 21 days and after 21 days then discontinue aspirin from a neurologic perspective but continue Plavix indefinitely. Lipitor 40mg is started during this admission and I went up to 80mg daily which help stablize plaque. Down the line patient can get repeated image of the neck and if he has no further plaque or significant stenosis can go down to Lipitor 40 mg daily. Recommend repeat image within 2 months. * Recommend optimize control of diabetes to target A1c < 7.0 * Pepcid for gastric ulcer prophylaxis. * Close neuro checks as per protocol. * Telemetry monitoring rule out any arrhythmia * DVT prophylaxis: Heparin 5000 units subcu every 12 hours * Recommend complete tobacco cessation. Counseled for 3 minutes. * Recommend the patient to follow-up with neurology team as an outpatient within 1-2 weeks. The plan is discussed with patient. There is no further neurological workup. Time with Patient: Less than 30
--- NOTE | 2023-01-30 22:56 | DS ---
DISCHARGE SUMMARY CHIEF COMPLAINT: Left-sided TIA. HISTORY OF PRESENT ILLNESS AND PHYSICAL EXAMINATION: Details of this man's history and physical can be found in the initial workup. LABORATORY STUDIES: While he was in the hospital, he had laboratory studies, details of which can be found in the laboratory section of his chart. COURSE IN THE HOSPITAL: After admission, he was placed on bedrest, started on intravenous fluids, and seen by Vascular Surgery. He was found to have a tight narrowing in the left carotid. He was prepared for surgery and taken to the operating room for left carotid endarterectomy, from which he recovered very nicely. He had no followup problems with pain, neurologic deficits, change in vision, etc. He was doing well. It was felt that he could be discharged on the , and he will go home on his usual activity, diet, and medication as well as his followup medications and Vascular Surgery. He will be seen in several days. Toward the end of his hospitalization, his blood sugars were quite high, and these may have to be addressed. FINAL DIAGNOSES: 1. Left-sided transient ischemic attack. 2. Left-sided carotid occlusive disease. 3. Atherosclerotic cardiovascular disease. 4. Hypertension. 5. Chronic obstructive pulmonary disease. 6. Type 2 diabetes. OPERATIONS: Left carotid endarterectomy. CONSULTATIONS: 1. Vascular Surgery. 2. Neurology. CONDITION: He is improved. MMODL / IJN: [id number] /
== END 2023-01-30 15:37 | disposition home or self-care (01) | DRG 27 ==
LOC: EC 18:26 → 3SCARD 21:15 → 2SICU 01-29 14:24 → 3SCARD 01-30 03:39
PROVIDERS: ADMIT Hospitalist; ATTEND Family Medicine
PROC: 03UL3KZ Supplement Left Internal Carotid Artery with Nonautologous Tissue Substitute, Percutaneous Approach (ICD-10-PCS; 2023-01-29)
PROC: 3E0T3BZ Introduction of Anesthetic Agent into Peripheral Nerves and Plexi, Percutaneous Approach (ICD-10-PCS; 2023-01-29)
PROC: 03CL3ZZ Extirpation of Matter from Left Internal Carotid Artery, Percutaneous Approach (ICD-10-PCS; principal; 2023-01-29 13:45)
DX: I65.23 Occlusion and stenosis of bilateral carotid arteries (principal); E03.9 Hypothyroidism, unspecified; I10 Essential (primary) hypertension; J44.9 Chronic obstructive pulmonary disease, unspecified; E11.65 Type 2 diabetes mellitus with hyperglycemia; E78.5 Hyperlipidemia, unspecified; F17.210 Nicotine dependence, cigarettes, uncomplicated; I25.10 Atherosclerotic heart disease of native coronary artery without angina pectoris; I44.4 Left anterior fascicular block; H53.8 Other visual disturbances; R20.2 Paresthesia of skin; H54.62 Unqualified visual loss, left eye, normal vision right eye; R53.1 Weakness; Z28.311 Partially vaccinated for COVID-19; I25.2 Old myocardial infarction; Z95.5 Presence of coronary angioplasty implant and graft; Z88.8 Allergy status to other drugs, medicaments and biological substances; Z79.84 Long term (current) use of oral hypoglycemic drugs; Z79.85 Long-term (current) use of injectable non-insulin antidiabetic drugs; Z79.890 Hormone replacement therapy; Z79.1 Long term (current) use of non-steroidal anti-inflammatories (NSAID); Z79.82 Long term (current) use of aspirin; Z82.3 Family history of stroke
CPT/HCPCS: 36415; 70450; 70496; 70498; 70551; 71046; 80048; 80053; 80061; 81003; 82550; 83036; 83721; 84132; 84484; 85025; 85027; 85610; 85730; 86850; 86900; 86901; 88304; 88311; 93005; 93306; 93880; 94640; 94760; 96360; 99291

== ENCOUNTER 2023-02-12 13:18 | Emergency (ER) | payer MEDICARE ==
[2023-02-12 13:27] VITALS: TEMP 97.6
[2023-02-12 13:53] LABS: Glucose,Whole Blood 346 mg/dL (70-110)
[2023-02-12 13:53] LABS: Glucose,Whole Blood 344 mg/dL (70-110)
[2023-02-12] MEDS ORDERED: SODIUM CHLORIDE 0.9% 1,000 ML IV STA (13:56)
--- NOTE | 2023-02-12 14:00 | ED ---
Neuro HPI - General Chief Complaint: Neuro Symptoms/Deficit Stated Complaint: stroke symptoms had a stroke week ago Time Seen by Provider: 02/12/23 13:29 Source: patient, RN notes reviewed Mode of arrival: wheelchair Limitations: no limitations - History of Present Illness Is the patient presenting with stroke symptoms?: Yes -: minutes(s) Initial Comments: This is a 67-year-old male recent CVA. Recent hospital admission for CVA seen by neurology. Patient has no recent brain surgery, no recent blood thinners. Patient presents for left-sided weakness not feeling well severe dizziness difficulty to walk and ataxia. A she was very scared during history of present illness, shaking mumbling and slurring his speech, looks very anxious admits to anxiety Location: speech, left face History of same: Yes Place: home Severity: moderate Quality: weak, tingling Improves With: none Worsens With: none Context: sudden onset Associated Symptoms: confusion, nausea/vomiting, other (Ataxia) Treatments Prior to Arrival: none - Related Data Home Medications: Home Medications Medication Instructions Recorded Confirmed Levothyroxine Sodium [Synthroid] 200 mcg PO W/LUNCH 03/09/15 01/27/23 Aspirin EC [Ecotrin] 325 mg PO PC-SUPPER 01/27/23 01/27/23 Dapagliflozin Propanediol [Farxiga] 10 mg PO PC-SUPPER 01/27/23 01/27/23 Diclofenac Sodium [Voltaren] 75 mg PO BID 01/27/23 01/27/23 Levothyroxine Sodium [Synthroid] 25 mcg PO W/LUNCH 01/27/23 01/27/23 Semaglutide [Ozempic] 0.25 mg SQ PATRICK 01/27/23 01/27/23 lisinopriL [Zestril] 40 mg PO PC-SUPPER 01/27/23 01/27/23 metFORMIN HCL [Glucophage] 500 mg PO PC-SUPPER 01/27/23 01/27/23 Previous Rx's Medication Instructions Recorded Albuterol Inhaler [Ventolin Hfa 1 puff INHALATION RT-QID PRN #8 gm 03/10/22 Inhaler] Atorvastatin [Lipitor] 80 mg PO DAILY #90 tab 01/30/23 Clopidogrel [Plavix] 75 mg PO DAILY #30 tab 01/30/23 Allergies/Adverse Reactions: Allergies Allergy/AdvReac Type Severity Reaction Status Date / Time glipizide AdvReac Blurry Verified 02/12/23 13:27 vision Review of Systems ROS Statement: Those systems with pertinent positive or pertinent negative responses have been documented in the HPI. ROS Other: All systems not noted in ROS Statement are negative. General Exam Limitations: no limitations General appearance: alert, in no apparent distress Head exam: Present: atraumatic, normocephalic, normal inspection Eye exam: Present: normal appearance, PERRL, EOMI. Absent: scleral icterus, conjunctival injection, periorbital swelling ENT exam: Present: normal exam, mucous membranes moist Neck exam: Present: normal inspection. Absent: tenderness, meningismus, lymphadenopathy Respiratory exam: Present: normal lung sounds bilaterally. Absent: respiratory distress, wheezes, rales, rhonchi, stridor Cardiovascular Exam: Present: regular rate, normal rhythm, normal heart sounds. Absent: systolic murmur, diastolic murmur, rubs, gallop, clicks GI/Abdominal exam: Present: soft, normal bowel sounds. Absent: distended, tenderness, guarding, rebound, rigid Extremities exam: Present: normal inspection, full ROM, normal capillary refill. Absent: tenderness, pedal edema, joint swelling, calf tenderness Back exam: Present: normal inspection Neurological exam: Present: alert, oriented X3, CN II-XII intact Psychiatric exam: Present: normal affect, normal mood Skin exam: Present: warm, dry, intact, normal color. Absent: rash Stroke [facility] - Lab Data Result diagrams: 02/12/23 14:01 02/12/23 14:01 Lab Results 02/12/23 02/12/23 02/12/23 Range/Units 13:36 13:44 14:01 WBC 11.2 H (3.8-10.6) k/uL RBC 4.99 (4.30-5.90) m/uL Hgb 15.7 (13.0-17.5) gm/dL Hct 47.1 (39.0-53.0) % MCV 94.4 (80.0-100.0) fL MCH 31.5 (25.0-35.0) pg MCHC 33.4 (31.0-37.0) g/dL RDW 12.8 (11.5-15.5) % Plt Count 352 (150-450) k/uL MPV 8.3 Neutrophils % 81 % Lymphocytes % 12 % Monocytes % 5 % Eosinophils % 1 % Basophils % 0 % Neutrophils # 9.1 H (1.3-7.7) k/uL Lymphocytes # 1.3 (1.0-4.8) k/uL Monocytes # 0.5 (0-1.0) k/uL Eosinophils # 0.2 (0-0.7) k/uL Basophils # 0.0 (0-0.2) k/uL PT (9.0-12.0) sec INR (<1.2) APTT (22.0-30.0) sec Sodium (137-145) mmol/L Potassium (3.5-5.1) mmol/L Chloride (98-107) mmol/L Carbon Dioxide (22-30) mmol/L Anion Gap mmol/L BUN (9-20) mg/dL Creatinine (0.66-1.25) mg/dL Est GFR (CKD-EPI)AfAm (>60 ml/min/1.73 sqM) Est GFR (CKD-EPI)NonAf (>60 ml/min/1.73 sqM) Glucose (74-99) mg/dL POC Glucose (mg/dL) 346 H 344 H (70-110) mg/dL POC Glu [employer] Michelle Franklin Kara Plasma Lactic Acid Leif (0.7-2.0) mmol/L Calcium (8.4-10.2) mg/dL Phosphorus (2.5-4.5) mg/dL Magnesium (1.6-2.3) mg/dL Total Bilirubin (0.2-1.3) mg/dL AST (17-59) U/L ALT (4-49) U/L Alkaline Phosphatase (38-126) U/L Troponin I (0.000-0.034) ng/mL Total Protein (6.3-8.2) g/dL Albumin (3.5-5.0) g/dL 02/12/23 02/12/23 02/12/23 Range/Units 14:01 14:01 14:01 WBC (3.8-10.6) k/uL RBC (4.30-5.90) m/uL Hgb (13.0-17.5) gm/dL Hct (39.0-53.0) % MCV (80.0-100.0) fL MCH (25.0-35.0) pg MCHC (31.0-37.0) g/dL RDW (11.5-15.5) % Plt Count (150-450) k/uL MPV Neutrophils % % Lymphocytes % % Monocytes % % Eosinophils % % Basophils % % Neutrophils # (1.3-7.7) k/uL Lymphocytes # (1.0-4.8) k/uL Monocytes # (0-1.0) k/uL Eosinophils # (0-0.7) k/uL Basophils # (0-0.2) k/uL PT 9.5 (9.0-12.0) sec INR 0.9 (<1.2) APTT 23.7 (22.0-30.0) sec Sodium 136 L (137-145) mmol/L Potassium 5.7 H (3.5-5.1) mmol/L Chloride 102 (98-107) mmol/L Carbon Dioxide 20 L (22-30) mmol/L Anion Gap 14 mmol/L BUN 29 H (9-20) mg/dL Creatinine 1.18 (0.66-1.25) mg/dL Est GFR (CKD-EPI)AfAm 73 (>60 ml/min/1.73 sqM) Est GFR (CKD-EPI)NonAf 64 (>60 ml/min/1.73 sqM) Glucose 339 H (74-99) mg/dL POC Glucose (mg/dL) (70-110) mg/dL POC Glu Pre Sales Architect ID Plasma Lactic Acid Leif 1.6 (0.7-2.0) mmol/L Calcium 9.6 (8.4-10.2) mg/dL Phosphorus 4.0 (2.5-4.5) mg/dL Magnesium 2.4 H (1.6-2.3) mg/dL Total Bilirubin 0.8 (0.2-1.3) mg/dL AST 20 (17-59) U/L ALT 14 (4-49) U/L Alkaline Phosphatase 128 H (38-126) U/L Troponin I (0.000-0.034) ng/mL Total Protein 7.6 (6.3-8.2) g/dL Albumin 4.5 (3.5-5.0) g/dL 02/12/23 Range/Units 14:01 WBC (3.8-10.6) k/uL RBC (4.30-5.90) m/uL Hgb (13.0-17.5) gm/dL Hct (39.0-53.0) % MCV (80.0-100.0) fL MCH (25.0-35.0) pg MCHC (31.0-37.0) g/dL RDW (11.5-15.5) % Plt Count (150-450) k/uL MPV Neutrophils % % Lymphocytes % % Monocytes % % Eosinophils % % Basophils % % Neutrophils # (1.3-7.7) k/uL Lymphocytes # (1.0-4.8) k/uL Monocytes # (0-1.0) k/uL Eosinophils # (0-0.7) k/uL Basophils # (0-0.2) k/uL PT (9.0-12.0) sec INR (<1.2) APTT (22.0-30.0) sec Sodium (137-145) mmol/L Potassium (3.5-5.1) mmol/L Chloride (98-107) mmol/L Carbon Dioxide (22-30) mmol/L Anion Gap mmol/L BUN (9-20) mg/dL Creatinine (0.66-1.25) mg/dL Est GFR (CKD-EPI)AfAm (>60 ml/min/1.73 sqM) Est GFR (CKD-EPI)NonAf (>60 ml/min/1.73 sqM) Glucose (74-99) mg/dL POC Glucose (mg/dL) (70-110) mg/dL POC Glu Pre Sales Architect ID Plasma Lactic Acid Leif (0.7-2.0) mmol/L Calcium (8.4-10.2) mg/dL Phosphorus (2.5-4.5) mg/dL Magnesium (1.6-2.3) mg/dL Total Bilirubin (0.2-1.3) mg/dL AST (17-59) U/L ALT (4-49) U/L Alkaline Phosphatase (38-126) U/L Troponin I <0.012 (0.000-0.034) ng/mL Total Protein (6.3-8.2) g/dL Albumin (3.5-5.0) g/dL - NIH Stroke Scale 1a. Level of Consciousness: (1) not alert, arousable 1b. LOC Questions: (0) answers correctly 1c. LOC Commands: (0) performs tasks correctly 2. Best Gaze: (0) normal 3. Visual: (0) no visual loss 4. Facial Palsy: (1) minor paralysis 5a. Motor Arm Left: (0) no drift 5b. Motor Arm Right: (0) no drift 6a. Motor Leg Left: (0) no drift 6b. Motor Leg Right: (0) no drift 7. Limb Ataxia: (1) present 1 limb 9. Best Language: (1) mild/moderate aphasia 10. Dysarthria: (1) mild/moderate dysarthria - Thrombolytic Inclusion/Exclusion Thrombolytic Inclusion Criteria: Symptom Onset < 4.5 h - Core Measures Measure Exclusions: not indicated (Patient does have CT positive for brain bleed) - Medical Decision Making 67 male DF for positive subarachnoid hemorrhage will be transferred for inpatient neuro intervention evaluation, neuro ICU - Radiology Data Radiology results: report reviewed (CT brain CT had neck do show critical stenosis left eye subarachnoid hemorrhage frontal), image reviewed - EKG Data -: EKG Interpreted by Me Past Medical History Past Medical History: Diabetes Mellitus, Hyperlipidemia, Hypertension, Myocardial Infarction ([place]), Osteoarthritis (OA), Thyroid Disorder Additional Past Medical History / Comment(s): STEMI THIS ADMISSION 03/08/15 Last Myocardial Infarction Date:: 2015 History of Any Multi-Drug Resistant Organisms: None Reported Past Surgical History: Heart Catheterization With Stent, Tonsillectomy Additional Past Surgical History / Comment(s): 2 stents to LAD on 03/08/15. 1 stent to LAD for reocclusion on 11/25/15. Past Anesthesia/Blood Transfusion Reactions: No Reported Reaction Date of Last Stent Placement:: 11/25/15 Past Psychological History: No Psychological Hx Reported Smoking Status: Current every day smoker Past Alcohol Use History: None Reported Past Drug Use History: None Reported - Past Family History Father Family Medical History: CVA/TIA Mother History Unknown: Yes Course Vital Signs 02/12/23 02/12/23 02/12/23 13:25 13:50 14:00 Temperature 97.6 F Pulse Rate 86 73 75 Respiratory 18 18 Rate Blood Pressure 125/86 126/84 O2 Sat by Pulse 97 97 97 Oximetry 02/12/23 02/12/23 02/12/23 14:15 14:30 14:45 Temperature Pulse Rate 65 64 61 Respiratory 18 18 18 Rate Blood Pressure 123/78 127/77 119/71 O2 Sat by Pulse 95 96 98 Oximetry 02/12/23 02/12/23 02/12/23 15:00 15:15 15:30 Temperature Pulse Rate 66 61 58 L Respiratory 18 18 18 Rate Blood Pressure 146/90 141/124 152/118 O2 Sat by Pulse 99 99 99 Oximetry 02/12/23 02/12/23 15:45 16:00 Temperature Pulse Rate 58 L 60 Respiratory 18 18 Rate Blood Pressure 140/85 151/85 O2 Sat by Pulse 99 98 Oximetry - Reevaluation(s) Reevaluation #1: 02/12/23 16:08 Medical records reviewed 02/12/23 16:08 Code stroke was paged on initial patient evaluation patient arrival patient did walk in the emergency department Reevaluation #2: 02/12/23 16:08 Patient has no change in symptoms here in the ER Reevaluation #3: 02/12/23 16:09 Spoke with patient regarding findings here in the emergency room questions are answered Patient does agree to transfer to outside facility Reevaluation #4: 02/12/23 16:11 Was pt. sent in by a medical professional or institution? @ -no Did you speak to anyone other than the patient for history? @ -brianna Did you review nursing and triage notes? @ garee] Were old charts reviewed? @ -prior inpatient hospitilization Differential Diagnosis? @ -neuro deficit, ams EKG interpreted by me (3pts min.)? @ -yes X-rays interpreted by me (1pt min.)? @ -no CT interpreted by me (1pt min.)? @ -no U/S interpreted by me (1pt. min.)? @ -no What testing was considered but not performed? (CT, X-rays, U/S, labs)? Why? @ -MRI What meds were considered but not given? Why? @ -no Did you discuss the management of the patient with other professionals? @ -oncall Interventional Neurology Did you reconcile home meds? @ -no Was smoking cessation discussed for >3mins.? @ -yes Was critical care preformed (if so, how long)? @ -yes Were there social determinants of health that impacted care today? How? (Homelessness, low income, unemployed, alcoholism, drug addiction, tra nsportation, low edu. Level, literacy, decrease access to med. care, fdc, rehab)? @ -no Was there de-escalation of care discussed even if they declined? (Discuss DNR or withdrawal of care, Hospice)? @ -no What co-morbidities impacted this encounter? (DM, HTN, Smoking, COPD, CAD, Cancer, CVA, Hep., AIDS, mental health diagnosis, sleep apnea, morbid obesity)? @ -DM, HTN, Smoking Was patient admitted / discharged? @ -transfer Undiagnosed new problem with uncertain prognosis? @ -no Drug Therapy requiring intensive monitoring for toxicity (Heparin, Nitro, Insulin, Cardizem)? @ -no Were any procedures done? @ -no Diagnosis/symptom? @ -diagnosis Acute, or Chronic, or Acute on Chronic? @ -chronic Uncomplicated (without systemic symptoms) or Complicated (systemic symptoms)? @ -complicated Side effects of treatment? @ -none Exacerbation, Progression, or Severe Exacerbation] @ -severe Poses a threat to life or bodily function? @ -yes Reevaluation #5: 02/12/23 16:19 Differential Altered Mental Status: Hypoglycemia, DKA, hypercapnia, ETOH, overdose, CO poisoning, trauma, myxedema coma, HTN encephalopathy, infection, encephalitis, psychosis, intercranial hemorrhage, hepatic encephalopathy, meningitis, CVA, this is not meant to be an all-inclusive list - Consultations Consultation #1: [place] with transferring emergency department, [facility] to do except transfer Consultation #2: Again spoke with on-call neuro intervention needed U recommended transfer for inpatient neurology ICU Critical Care Time Critical Care Time: Yes Total Critical Care Time: 31 Disposition Clinical Impression: Cerebrovascular accident (CVA), Subarachnoid hemorrhage Disposition: OTHER INSTITUTION NOT DEFINED Condition: Fair Is patient prescribed a controlled substance at d/c from ED?: No Referrals: Gio Colon MD [Primary Care Provider] - 1-2 days Time of Disposition: 14:30 - Out of Hospital Transfer - Req. Specs Out of Hospital Transfer - Requested Specifics: Other Emergency Center ([facility])
[2023-02-12 14:09] LABS: Basophils % (A) 0 %; Eosinophils # (A) 0.2 k/uL (0-0.7); Eosinophils % (A) 1 %; HCT 47.1 % (39.0-53.0); HGB 15.7 gm/dL (13.0-17.5); Lymphocytes # (A) 1.3 k/uL (1.0-4.8); Lymphocytes % (A) 12 %; MCH 31.5 pg (25.0-35.0); MCHC 33.4 g/dL (31.0-37.0); MCV 94.4 fL (80.0-100.0); Mean Platelet Volume 8.3; Monocytes # (A) 0.5 k/uL (0-1.0); Monocytes % (A) 5 %; Neutrophils # (A) 9.1 k/uL (1.3-7.7); Neutrophils % (A) 81 %; Platelet Count 352 k/uL (150-450); RBC 4.99 m/uL (4.30-5.90); RDW 12.8 % (11.5-15.5); WBC 11.2 k/uL (3.8-10.6)
[2023-02-12 14:16] LABS: INR 0.9 (<1.2); Partial Thromboplastin Time 23.7 sec (22.0-30.0); Prothrombin Time 9.5 sec (9.0-12.0)
--- NOTE | 2023-02-12 14:27 | CT ---
EXAMINATION TYPE: CT brain wo con CT DLP: 1103.6 mGycm, Automated exposure control for dose reduction was used. DATE OF EXAM: 02/12/2023 2:15 PM COMPARISON: 01/27/2023, MRI 01/29/2023 CLINICAL INDICATION:Male, 67 years old with history of weakness, CODE STROKE TECHNIQUE: Brain: Axial CT images of the brain were obtained with coronal and sagittal reformats created and rev iewed. Contrast used: None. Oral contrast used: None. FINDINGS: Brain: Extra-axial spaces: There is high density curvilinear probable blood products within the left frontal lobe. Not present on prior on 01/27/2023. Ventricular system: Within normal limits Cerebral parenchyma: No acute intraparenchymal hemorrhage or mass effect. The diaz-white junction is well differentiated. Cerebellum: Unremarkable. Mass effect: No evidence of midline shift. Intracranial vasculature: unremarkable Soft tissues: Normal. Calvarium/osseous structures: No depressed skull fracture. Paranasal sinuses and mastoid air cells: Mild scattered paranasal sinus disease. Visualized orbits: Orbital contents are intact. IMPRESSION: Subarachnoid hemorrhage within the left frontal lobe. New from 01/29/2023 and 01/27/2023. Findings communicated to Dr. Caesar Jarquin DO on 02/12/2023 2:[address] Dany Lerner.
[2023-02-12 14:29] LABS: Albumin 4.5 g/dL (3.5-5.0); Calcium 9.6 mg/dL (8.4-10.2); Magnesium 2.4 mg/dL (1.6-2.3); Potassium 5.7 mmol/L (3.5-5.1); Total Bilirubin 0.8 mg/dL (0.2-1.3); Total Protein 7.6 g/dL (6.3-8.2)
--- NOTE | 2023-02-12 14:49 | CT ---
EXAMINATION TYPE: CT angio head neck CT DLP: 452.9 mGycm, Automated exposure control for dose reduction was used. DATE OF EXAM: 02/12/2023 2:30 PM COMPARISON: CT head same day.. CLINICAL INDICATION:Male, 67 years old with history of, confusion, unsteady gait, Lt sided weakness TECHNIQUE: Axially acquired helical CT angiogram of the head and neck was obtained with contrast. Axi al images are supplemented with 3D reconstructions which [facility] NASCET criteria used. Contrast used:65 mL of Isovue 370 with IV Contrast, Oral contrast used: None. FINDINGS: CTA HEAD: Acute left subarachnoid hemorrhage remains present. No evidence of mass effect, or midline shift. The ventricles, sulci, and cisterns are unremarkable. The visualized portions of the internal carotid arteries, middle cerebral arteries, anterior cerebral arteries, and posterior cerebral arteries are patent. The basilar and vertebral arteries are patent. Dominant left vertebral artery. CTA NECK: Right Carotid System: The common carotid artery and external carotid artery are patent. The carotid bifurcation demonstrate s no evidence of hemodynamically significant stenosis. The remaining portions of the internal carotid artery demonstrate normal size without significant narrowing. Left Carotid System: The common carotid artery and external carotid artery are patent. The carotid bifurcation demonstrate s no evidence of hemodynamically significant stenosis. The internal carotid demonstrates soft plaque within the petrous portion/cavernous portion with at least 50% stenosis. This is similar prior. Vertebral arteries are patent without evidence hemodynamically significant stenosis. There is a three-vessel aortic arch. The origins of the great vessels are patent. No evidence of hemo dynamically significant stenosis. Upper thorax: Paraseptal and centrilobular emphysema changes seen within the lung apices. Right upper lung calcified granuloma IMPRESSION: 1. Left internal carotid petrous portion noncalcified plaque with at least 50% stenosis. This is sim ilar to prior on 01/27/2023. 2. No evidence of dissection of the cervical internal carotid arteries or vertebral arteries or any evidence of significant stenosis at the carotid bifurcations. 3. No evidence of intracranial high-grade stenosis or intracranial aneurysm. 4. Moderate emphysema changes.
[2023-02-12 16:37] VITALS: BP 144/84; PULSE 59; RESP 16
== END 2023-02-12 18:01 | disposition other institution (70) ==
LOC: EC 13:18
DX: I63.9 Cerebral infarction, unspecified (principal); I60.9 Nontraumatic subarachnoid hemorrhage, unspecified; E11.9 Type 2 diabetes mellitus without complications; E78.5 Hyperlipidemia, unspecified; I10 Essential (primary) hypertension; I25.2 Old myocardial infarction; M19.90 Unspecified osteoarthritis, unspecified site; E07.9 Disorder of thyroid, unspecified; F17.200 Nicotine dependence, unspecified, uncomplicated; Z88.8 Allergy status to other drugs, medicaments and biological substances; Z79.890 Hormone replacement therapy; Z79.84 Long term (current) use of oral hypoglycemic drugs; Z79.82 Long term (current) use of aspirin; Z79.899 Other long term (current) drug therapy
CPT/HCPCS: 36415; 93005; 80053; 83605; 83735; 84100; 84484; 85025; 85610; 85730; 70496; 70450; 70498; 99291; 96360; Q9967

== ENCOUNTER 2023-02-27 01:08 | Emergency (ER) | payer MEDICARE ==
[2023-02-27 01:15] VITALS: TEMP 97.6
--- NOTE | 2023-02-27 01:44 | ED ---
General Adult HPI - General Chief complaint: Urogenital Stated complaint: Blood in Urine Time Seen by Provider: 02/27/23 01:27 Source: patient Limitations: no limitations - History of Present Illness Initial comments: 67-year-old male with past medical history significant for diabetes, hypertension, hyper lipedema and nicotine dependence presents to the emergency department with painless hematuria that started approximately midnight. Patient reports that he passed 2 large clots in his urine. He denies any fever, chills, chest pain, palpitations, shortness of breath, flank pain, dysuria or melena, hematochezia. Denies anticoagulant use. Denies trauma or injury. Denies ever having this before. He reports that he does smoke tobacco. - Related Data Home Medications Medication Instructions Recorded Confirmed Levothyroxine Sodium [Synthroid] 200 mcg PO AC-SUPPER 03/09/15 03/06/23 Aspirin EC [Ecotrin] 325 mg PO PC-SUPPER 01/27/23 03/06/23 Dapagliflozin Propanediol [Farxiga] 10 mg PO PC-SUPPER 01/27/23 03/06/23 Semaglutide [Ozempic] 0.5 mg SQ MO 01/27/23 03/06/23 lisinopriL [Zestril] 40 mg PO PC-SUPPER 01/27/23 03/06/23 metFORMIN HCL [Glucophage] 500 mg PO PC-SUPPER 01/27/23 03/06/23 Atorvastatin [Lipitor] 80 mg PO PC-SUPPER 03/06/23 03/06/23 Naproxen [Naprosyn] 500 mg PO BID 03/06/23 03/06/23 carvediloL [Coreg] 6.25 mg PO DAILY 03/06/23 03/06/23 Previous Rx's Medication Instructions Recorded Albuterol Inhaler [Ventolin Hfa 1 puff INHALATION RT-QID PRN #8 gm 03/10/22 Inhaler] Allergies Allergy/AdvReac Type Severity Reaction Status Date / Time glipizide AdvReac Blurry Verified 03/06/23 17:23 vision Review of Systems ROS Statement: Those systems with pertinent positive or pertinent negative responses have been documented in the HPI. ROS Other: All systems not noted in ROS Statement are negative. Past Medical History Past Medical History: Diabetes Mellitus, Hyperlipidemia, Hypertension, Myocardial Infarction (VT), Osteoarthritis (OA), Thyroid Disorder Additional Past Medical History / Comment(s): STEMI THIS ADMISSION 03/08/15 Last Myocardial Infarction Date:: 2015 History of Any Multi-Drug Resistant Organisms: None Reported Past Surgical History: Heart Catheterization With Stent, Tonsillectomy Additional Past Surgical History / Comment(s): 2 stents to LAD on 03/08/15. 1 stent to LAD for reocclusion on 11/25/15. Past Anesthesia/Blood Transfusion Reactions: No Reported Reaction Date of Last Stent Placement:: 11/25/15 Past Psychological History: No Psychological Hx Reported Smoking Status: Current every day smoker Past Alcohol Use History: None Reported Past Drug Use History: None Reported - Past Family History Father Family Medical History: CVA/TIA Mother History Unknown: Yes General Exam - General Exam Comments Initial Comments: General: Alert, in no acute distress Head: atraumatic normocephalic. Eyes PERRL, EOMI intact, mucous membranes moist Respiratory: Lungs clear to auscultation bilaterally Cardiovascular: Heart rate regular rate and rhythm Abdominal: Soft without guarding or rebound Extremities: Normal inspection with full range of motion and normal capillary refill Neuroogic: alert and oriented 3, CN II-XII intact, able to ambulate with steady gait Skin: warm dry and intact with normal color Limitations: no limitations Course Vital Signs 02/27/23 02/27/23 01:10 03:38 Temperature 97.6 F Pulse Rate 79 70 Respiratory 18 16 Rate Blood Pressure 143/92 125/86 O2 Sat by Pulse 98 Oximetry Medical Decision Making - Medical Decision Making Was pt. sent in by a medical professional or institution (IJEOMA Lara, TELECOMMUNICATION ENGINEER, urgent care, hospital, or intermediate...) When possible be specific @ -[No] Did you speak to anyone other than the patient for history (EMS, parent, family, police, friend...)? What history was obtained from this source @ -[No] Did you review nursing and triage notes (agree or disagree)? Why? @ -[I reviewed and agree with nursing and triage notes] Were old charts reviewed (outside hosp., previous admission, EMS record, old EKG , old radiological studies, urgent care reports/EKG's, intermediate records)? Report findings @ -[No old charts were reviewed] Differential Diagnosis (chest pain, altered mental status, abdominal pain women, abdominal pain men, vaginal bleeding, weakness, fever, dyspnea, syncope, headache, dizziness, GI bleed, back pain, seizure, CVA, palpatations, mental hea lth, musculoskeletal)? @ -[not applicable] EKG interpreted by me (3pts min.). @ -[As above] X-rays interpreted by me (1pt min.). @ -[None done] CT interpreted by me (1pt min.). @ -[None done] U/S interpreted by me (1pt. min.). @ -[None done] What testing was considered but not performed or refused? (CT, X-rays, U/S, labs)? Why? @ -[None] What meds were considered but not given or refused? Why? @ -[None] Did you discuss the management of the patient with other professionals (professionals i.e. , PA, TELECOMMUNICATION ENGINEER, lab, RT, psych nurse, director social service, environmental studies program director, teacher, commissioned defence force officer, registered nurse hh case manager)? Give summary @ -[No] Was smoking cessation discussed for >3mins.? @ -[No] Was critical care preformed (if so, how long)? @ -[No] Were there social determinants of health that impacted care today? How? (Homelessness, low income, unemployed, alcoholism, drug addiction, transportation, low edu. Level, literacy, decrease access to med. care, custodial, rehab)? @ -[No] Was there de-escalation of care discussed even if they declined (Discuss DNR or withdrawal of care, Hospice)? DNR status @ -[No] What co-morbidities impacted this encounter? (DM, HTN, Smoking, COPD, CAD, Cancer, CVA, ARF, Chemo, Hep., AIDS, mental health diagnosis, sleep apnea, morbid obesity)? @ -[None] Was patient admitted / discharged? Hospital course, mention meds given and route, prescriptions, significant lab abnormalities, going to OR and other pertinent info. @ - -Discharged. This is a 67-year-old male who presents to the emergency department with painless hematuria, Patient had a thorough history and physical exam performed while in the ED. Physical exam reveals heart rate regular rate and rhythm, lungs clear to auscultation bilaterally abdomen is soft and nontender.. Patient had lab work and imaging performed on the ED which revealed: The urinalysis reveals large amount of blood with greater than 182 RBCs. I discussed the results in detail with the patient verbalized understanding and all questions were addressed. He was encouraged to follow up with his PCP in 1-2 days. Return precautions were discussed at length. Patient discharged in stable condition. Case discussed with Dr. Ferraro Horace who agrees with plan of care Undiagnosed new problem with uncertain prognosis? @ -[No] Drug Therapy requiring intensive monitoring for toxicity (Heparin, Nitro, Insulin, Cardizem)? @ -[No] Were any procedures done? @ -[No] Diagnosis/symptom? @ -[default] Acute, or Chronic, or Acute on Chronic? @ -Acute Uncomplicated (without systemic symptoms) or Complicated (systemic symptoms)? @ -Uncomplicated Side effects of treatment? @ -[No] Exacerbation, Progression, or Severe Exacerbation? @ -[No] Poses a threat to life or bodily function? How? (Chest pain, USA, VT, pneumonia, PE, COPD, DKA, ARF, appy, cholecystitis, CVA, Diverticulitis, Homicidal, Suicidal, threat to staff... and all critical care pts) @ -Likelihood - Lab Data Lab Results 02/27/23 Range/Units 01:35 Urine Color Light Yellow Urine Appearance Clear (Clear) Urine pH 6.0 (5.0-8.0) Ur Specific [place] 1.027 (1.001-1.035) Urine Protein Negative (Negative) Urine Glucose (UA) 4+ H (Negative) Urine Ketones Negative (Negative) Urine Blood Large H (Negative) Urine Nitrite Negative (Negative) Urine Bilirubin Negative (Negative) Urine Urobilinogen <2.0 (<2.0) mg/dL Ur Leukocyte Esterase Negative (Negative) Urine RBC >182 H (0-5) /hpf Urine WBC 5 (0-5) /hpf Urine Mucus Rare H (None) /hpf Disposition Clinical Impression: Hematuria Disposition: HOME SELF-CARE Condition: Stable Instructions (If sedation given, give patient instructions): Hematuria (ED) Additional Instructions: These follow-up with urologist sometimes this week Is patient prescribed a controlled substance at d/c from ED?: No Referrals: Gio Colon MD [Primary Care Provider] - 1-2 days Virgil Kumar MD [STAFF PHYSICIAN] - 1-2 days Time of Disposition: 02:15
[2023-02-27 03:26] LABS: Appearance,Urine Clear (Clear); Bilirubin,Urine Negative (Negative); Blood,Urine Large (Negative); Color,Urine Light Yellow; Glucose,Urine (UA) 4+ (Negative); Ketones,Urine Negative (Negative); Leukocyte Esterase,Urine Negative (Negative); Mucus,Urine Rare /hpf; Nitrite,Urine Negative (Negative); Protein,Urine Negative (Negative); RBC,Urine >182 /hpf (0-5); Specific Gravity,Urine 1.027 (1.001-1.035); Urobilinogen,Urine <2.0 mg/dL (<2.0); WBC,Urine 5 /hpf (0-5)
[2023-02-27 03:39] VITALS: BP 125/86; PULSE 70; RESP 16
== END 2023-02-27 03:39 | disposition home or self-care (01) ==
LOC: EC 01:08
DX: R31.9 Hematuria, unspecified (principal); E11.9 Type 2 diabetes mellitus without complications; E78.5 Hyperlipidemia, unspecified; I10 Essential (primary) hypertension; I25.2 Old myocardial infarction; M19.90 Unspecified osteoarthritis, unspecified site; E07.9 Disorder of thyroid, unspecified; F17.200 Nicotine dependence, unspecified, uncomplicated; Z88.8 Allergy status to other drugs, medicaments and biological substances; Z79.890 Hormone replacement therapy; Z79.84 Long term (current) use of oral hypoglycemic drugs; Z79.82 Long term (current) use of aspirin; Z79.899 Other long term (current) drug therapy
CPT/HCPCS: 81001; 99283

== ENCOUNTER → 2023-03-05 | Outpatient (CLI) | payer MEDICARE | END | disposition home or self-care (01) | LOC: RADCTMAIN 13:44 | PROVIDERS: ATTEND Surgery | DX: G45.9 Transient cerebral ischemic attack, unspecified (principal) | CPT/HCPCS: 82565; 84520 ==

== ENCOUNTER 2023-03-06 15:42 | Emergency (ER) | payer MEDICARE ==
[2023-03-06 15:54] VITALS: RESP 18
--- NOTE | 2023-03-06 16:12 | ED ---
Weakness HPI - General Chief complaint: Weakness Stated complaint: Weakness, Hypotension Time Seen by Provider: 03/06/23 15:46 Source: EMS Mode of arrival: EMS Limitations: no limitations - History of Present Illness Initial comments: This patient is a 72-year-old man who is here for a number symptoms that are been going on for probably 3-4 hours. Patient states she was doing some things around the home today and he noticed that he was feeling lightheaded and generally weak. He states that he took his blood pressure at home and it was low, he states that it was in the 90s over 70s, contrary to the triage note which states that the blood pressure was 70. He was not having chest pain or dyspnea. No diaphoresis, nausea or vomiting. Patient does relate that 2 nights ago he had some diarrhea but that seemed to resolve. I denies feeling like he is having a stroke. There was no focal element to the weakness. MD Complaint: generalized weakness -: hour(s) Location: generalized Quality: constant Improves with: rest Worsens with: exertion - Related Data Home Medications Medication Instructions Recorded Confirmed Levothyroxine Sodium [Synthroid] 200 mcg PO AC-SUPPER 03/09/15 03/06/23 Aspirin EC [Ecotrin] 325 mg PO PC-SUPPER 01/27/23 03/06/23 Dapagliflozin Propanediol [Farxiga] 10 mg PO PC-SUPPER 01/27/23 03/06/23 Semaglutide [Ozempic] 0.5 mg SQ MO 01/27/23 03/06/23 lisinopriL [Zestril] 40 mg PO PC-SUPPER 01/27/23 03/06/23 metFORMIN HCL [Glucophage] 500 mg PO PC-SUPPER 01/27/23 03/06/23 Atorvastatin [Lipitor] 80 mg PO PC-SUPPER 03/06/23 03/06/23 Naproxen [Naprosyn] 500 mg PO BID 03/06/23 03/06/23 carvediloL [Coreg] 6.25 mg PO DAILY 03/06/23 03/06/23 Previous Rx's Medication Instructions Recorded Albuterol Inhaler [Ventolin Hfa 1 puff INHALATION RT-QID PRN #8 gm 03/10/22 Inhaler] Allergies Allergy/AdvReac Type Severity Reaction Status Date / Time glipizide AdvReac Blurry Verified 03/06/23 17:23 vision Review of Systems ROS Statement: Those systems with pertinent positive or pertinent negative responses have been documented in the HPI. ROS Other: All systems not noted in ROS Statement are negative. Constitutional: Reports: weakness. Denies: fever, chills Eyes: Denies: vision change Respiratory: Denies: cough, dyspnea, wheezes Cardiovascular: Reports: as per HPI, syncope (Near-syncopal symptoms). Denies: chest pain, palpitations, dyspnea on exertion, orthopnea, edema Gastrointestinal: Reports: as per HPI, diarrhea. Denies: abdominal pain, n ausea, vomiting Genitourinary: Reports: frequency. Denies: dysuria, hematuria Musculoskeletal: Denies: back pain Skin: Denies: rash Neurological: Denies: headache, weakness, numbness, confusion Past Medical History Past Medical History: CVA/TIA, Diabetes Mellitus, Hyperlipidemia, Hypertension, Myocardial Infarction ([place]), Osteoarthritis (OA), Thyroid Disorder Additional Past Medical History / Comment(s): STEMI THIS ADMISSION 03/08/15 Last Myocardial Infarction Date:: 2015 History of Any Multi-Drug Resistant Organisms: None Reported Past Surgical History: Heart Catheterization With Stent, Tonsillectomy Additional Past Surgical History / Comment(s): 2 stents to LAD on 03/08/15. 1 stent to LAD for reocclusion on 11/25/15. Past Anesthesia/Blood Transfusion Reactions: No Reported Reaction Date of Last Stent Placement:: 11/25/15 Past Psychological History: No Psychological Hx Reported Smoking Status: Current every day smoker Past Alcohol Use History: None Reported Past Drug Use History: None Reported - Past Family History Father Family Medical History: CVA/TIA Mother History Unknown: Yes General Exam Limitations: no limitations General appearance: alert, in no apparent distress Head exam: Present: atraumatic, normocephalic Eye exam: Present: normal appearance. Absent: scleral icterus, conjunctival injection Neck exam: Present: normal inspection Respiratory exam: Present: normal lung sounds bilaterally. Absent: respiratory distress, wheezes, rales, rhonchi, stridor, accessory muscle use Cardiovascular Exam: Present: regular rate, normal rhythm, normal heart sounds. Absent: systolic murmur, diastolic murmur, rubs, gallop GI/Abdominal exam: Present: soft. Absent: distended, tenderness, guarding, rebound, rigid, mass Extremities exam: Present: normal inspection, normal capillary refill. Absent: pedal edema, calf tenderness Back exam: Present: normal inspection. Absent: CVA tenderness (R), CVA tenderness (L) Neurological exam: Present: alert, oriented X3, CN II-XII intact. Absent: motor sensory deficit Skin exam: Present: warm, dry, intact, normal color. Absent: rash Course Vital Signs 03/06/23 03/06/23 15:48 18:40 Pulse Rate 50 L 63 Respiratory 18 18 Rate Blood Pressure 128/93 117/75 O2 Sat by Pulse 98 96 Oximetry EKG Findings - EKG Results: EKG: interpreted by BOB, sinus rhythm (Rate 60 bpm), normal ST/T - Blocks, [place], Hypertrophy, ST Abn: AV and intraventricular conduction: left anterior fascicular block Medical Decision Making - Medical Decision Making Patient is 67-year-old man here for evaluation of a constellation of symptoms and found to have some degree of dehydration as well as hyperglycemia. The patient is feeling better following treatment and would like to go home. We discussed appropriate further care and follow-up as well as return parameters. The patient had chest x-ray which I interpreted as being negative for acute infiltrate, congestive heart failure, pneumothorax. Was pt. sent in by a medical professional or institution (IJEOMA Lara, WAGE AND SALARY ADMINISTRATOR, urgent care, hospital, or usp...) When possible be specific @ -[No] Did you speak to anyone other than the patient for history (EMS, parent, family, police, friend...)? What history was obtained from this source @ -[No] Did you review nursing and triage notes (agree or disagree)? Why? @ -[I reviewed and agree with nursing and triage notes] Were old charts reviewed (outside hosp., previous admission, EMS record, old EKG, old radiological studies, urgent care reports/EKG's, usp records)? Report findings @ -[No old charts were reviewed] Differential Diagnosis (chest pain, altered mental status, abdominal pain women, abdominal pain men, vaginal bleeding, weakness, fever, dyspnea, syncope, headache, dizziness, GI bleed, back pain, seizure, CVA, palpatations, mental health, musculoskeletal)? @ -[Differential Weakness: Hypoglycemia, shock, sepsis, hyponatremia, anemia, infection, DE, ETOH, adverse medicine reaction, overdose, stroke, this is not meant to be an all-inclusive list. EKG interpreted by me (3pts min.). @ -[As above] X-rays interpreted by me (1pt min.). @ -[As above CT interpreted by me (1pt min.). @ -[None done] U/S interpreted by me (1pt. min.). @ -[None done] What testing was considered but not performed or refused? (CT, X-rays, U/S, labs)? Why? @ -[None] What meds were considered but not given or refused? Why? @ -[None] Did you discuss the management of the patient with other professionals (professionals i.e. , PA, WAGE AND SALARY ADMINISTRATOR, lab, RT, psych nurse, social media marketing manager, associate financial representative, teacher, animal control officer, immigration case manager)? Give summary @ -[No] Was smoking cessation discussed for >3mins.? @ -[No] Was critical care preformed (if so, how long)? @ -[No] Were there social determinants of health that impacted care today? How? (Homelessness, low income, unemployed, alcoholism, drug addiction, transportation, low edu. Level, literacy, decrease access to med. care, correction, rehab)? @ -[No] Was there de-escalation of care discussed even if they declined (Discuss DNR or withdrawal of care, Hospice)? DNR status @ -[No] What co-morbidities impacted this encounter? (DM, HTN, Smoking, COPD, CAD, Cancer, CVA, ARF, Chemo, Hep., AIDS, mental health diagnosis, sleep apnea, morbid obesity)? @ -[None] Was patient admitted / discharged? Hospital course, mention meds given and route, prescriptions, significant lab abnormalities, going to OR and other pertinent info. @ -[hospital course] Undiagnosed new problem with uncertain prognosis? @ -[No] Drug Therapy requiring intensive monitoring for toxicity (Heparin, Nitro, Insulin, Cardizem)? @ -[No] Were any procedures done? @ -[No] Diagnosis/symptom? @ -[Acute dehydration Hyperglycemia Acute, or Chronic, or Acute on Chronic? @ -[Acute Uncomplicated (without systemic symptoms) or Complicated (systemic symptoms)? @ -[Uncomplicated Side effects of treatment? @ -[No] Exacerbation, Progression, or Severe Exacerbation? @ -[No] Poses a threat to life or bodily function? How? (Chest pain, USA, DE, pneumonia, PE, COPD, DKA, ARF, appy, cholecystitis, CVA, Diverticulitis, Homicidal, Suicidal, threat to staff... and all critical care pts) @ -[No] - Lab Data Result diagrams: 03/06/23 16:45 03/06/23 16:45 Lab Results 03/06/23 03/06/23 03/06/23 Range/Units 16:45 16:45 16:45 WBC 10.3 (3.8-10.6) k/uL RBC 4.61 (4.30-5.90) m/uL Hgb 14.4 (13.0-17.5) gm/dL Hct 42.8 (39.0-53.0) % MCV 92.9 (80.0-100.0) fL MCH 31.2 (25.0-35.0) pg MCHC 33.6 (31.0-37.0) g/dL RDW 13.0 (11.5-15.5) % Plt Count 325 (150-450) k/uL MPV 8.5 Neutrophils % 72 % Lymphocytes % 18 % Monocytes % 6 % Eosinophils % 2 % Basophils % 1 % Neutrophils # 7.4 (1.3-7.7) k/uL Lymphocytes # 1.9 (1.0-4.8) k/uL Monocytes # 0.6 (0-1.0) k/uL Eosinophils # 0.2 (0-0.7) k/uL Basophils # 0.1 (0-0.2) k/uL PT 9.6 (9.0-12.0) sec INR 0.9 (<1.2) APTT 23.1 (22.0-30.0) sec Sodium (137-145) mmol/L Potassium (3.5-5.1) mmol/L Chloride (98-107) mmol/L Carbon Dioxide (22-30) mmol/L Anion Gap mmol/L BUN (9-20) mg/dL Creatinine (0.66-1.25) mg/dL Est GFR (CKD-EPI)AfAm (>60 ml/min/1.73 sqM) Est GFR (CKD-EPI)NonAf (>60 ml/min/1.73 sqM) Glucose (74-99) mg/dL Calcium (8.4-10.2) mg/dL Magnesium (1.6-2.3) mg/dL Total Bilirubin (0.2-1.3) mg/dL AST (17-59) U/L ALT (4-49) U/L Alkaline Phosphatase (38-126) U/L Troponin I (0.000-0.034) ng/mL Total Protein (6.3-8.2) g/dL Albumin (3.5-5.0) g/dL Urine Color Light Yellow Urine Appearance Clear (Clear) Urine pH 5.0 (5.0-8.0) Ur Specific [place] 1.025 (1.001-1.035) Urine Protein Negative (Negative) Urine Glucose (UA) 4+ H (Negative) Urine Ketones Negative (Negative) Urine Blood Negative (Negative) Urine Nitrite Negative (Negative) Urine Bilirubin Negative (Negative) Urine Urobilinogen <2.0 (<2.0) mg/dL Ur Leukocyte Esterase Negative (Negative) Serum Alcohol mg/dL 03/06/23 03/06/23 Range/Units 16:45 16:45 WBC (3.8-10.6) k/uL RBC (4.30-5.90) m/uL Hgb (13.0-17.5) gm/dL Hct (39.0-53.0) % MCV (80.0-100.0) fL MCH (25.0-35.0) pg MCHC (31.0-37.0) g/dL RDW (11.5-15.5) % Plt Count (150-450) k/uL MPV Neutrophils % % Lymphocytes % % Monocytes % % Eosinophils % % Basophils % % Neutrophils # (1.3-7.7) k/uL Lymphocytes # (1.0-4.8) k/uL Monocytes # (0-1.0) k/uL Eosinophils # (0-0.7) k/uL Basophils # (0-0.2) k/uL PT (9.0-12.0) sec INR (<1.2) APTT (22.0-30.0) sec Sodium 137 (137-145) mmol/L Potassium 5.0 (3.5-5.1) mmol/L Chloride 105 (98-107) mmol/L Carbon Dioxide 19 L (22-30) mmol/L Anion Gap 13 mmol/L BUN 34 H (9-20) mg/dL Creatinine 1.50 H (0.66-1.25) mg/dL Est GFR (CKD-EPI)AfAm 55 (>60 ml/min/1.73 sqM) Est GFR (CKD-EPI)NonAf 48 (>60 ml/min/1.73 sqM) Glucose 221 H (74-99) mg/dL Calcium 8.9 (8.4-10.2) mg/dL Magnesium 2.5 H (1.6-2.3) mg/dL Total Bilirubin 0.4 (0.2-1.3) mg/dL AST 20 (17-59) U/L ALT 14 (4-49) U/L Alkaline Phosphatase 95 (38-126) U/L Troponin I <0.012 (0.000-0.034) ng/mL Total Protein 6.9 (6.3-8.2) g/dL Albumin 4.1 (3.5-5.0) g/dL Urine Color Urine Appearance (Clear) Urine pH (5.0-8.0) Ur Specific [place] (1.001-1.035) Urine Protein (Negative) Urine Glucose (UA) (Negative) Urine Ketones (Negative) Urine Blood (Negative) Urine Nitrite (Negative) Urine Bilirubin (Negative) Urine Urobilinogen (<2.0) mg/dL Ur Leukocyte Esterase (Negative) Serum Alcohol <10 mg/dL Disposition Clinical Impression: Hyperglycemia, Dehydration Disposition: HOME SELF-CARE Condition: Good Instructions (If sedation given, give patient instructions): Dehydration (ED), Diabetic Hyperglycemia (ED) Is patient prescribed a controlled substance at d/c from ED?: No Referrals: Gio Colon MD [Primary Care Provider] - 1-2 days
[2023-03-06] MEDS ORDERED: SODIUM CHLORIDE 0.9% 500 ML 500 ML IV STA (16:23)
--- NOTE | 2023-03-06 16:47 | XR ---
EXAMINATION TYPE: XR chest 2V DATE OF EXAM: 03/06/2023 COMPARISON: Chest x-ray January 27, 2023 HISTORY: Syncope and weakness. TECHNIQUE: Frontal and lateral views of the chest are obtained. FINDINGS: There is no suspicious focal air space opacity, pleural effusion, or pneumothorax seen. T he cardiac silhouette size is stable and within normal limits. The osseous structures are intact. IMPRESSION: No acute cardiopulmonary process. No significant change from prior.
[2023-03-06 17:13] LABS: Basophils # (A) 0.1 k/uL (0-0.2); Basophils % (A) 1 %; Eosinophils # (A) 0.2 k/uL (0-0.7); Eosinophils % (A) 2 %; HCT 42.8 % (39.0-53.0); HGB 14.4 gm/dL (13.0-17.5); Lymphocytes # (A) 1.9 k/uL (1.0-4.8); Lymphocytes % (A) 18 %; MCH 31.2 pg (25.0-35.0); MCHC 33.6 g/dL (31.0-37.0); MCV 92.9 fL (80.0-100.0); Mean Platelet Volume 8.5; Monocytes # (A) 0.6 k/uL (0-1.0); Monocytes % (A) 6 %; Neutrophils # (A) 7.4 k/uL (1.3-7.7); Neutrophils % (A) 72 %; Platelet Count 325 k/uL (150-450); RBC 4.61 m/uL (4.30-5.90); WBC 10.3 k/uL (3.8-10.6)
[2023-03-06 17:21] LABS: INR 0.9 (<1.2); Partial Thromboplastin Time 23.1 sec (22.0-30.0); Prothrombin Time 9.6 sec (9.0-12.0)
[2023-03-06 17:25] LABS: ALT 14 U/L (4-49); AST 20 U/L (17-59); African American GFR (CKD) 55 (>60 ml/min/1.73 sqM); Albumin 4.1 g/dL (3.5-5.0); Alcohol <10 mg/dL; Alkaline Phosphatase 95 U/L (38-126); Anion Gap 13 mmol/L; Blood Urea Nitrogen 34 mg/dL (9-20); Calcium 8.9 mg/dL (8.4-10.2); Carbon Dioxide 19 mmol/L (22-30); Chloride 105 mmol/L (98-107); Glucose 221 mg/dL (74-99); Magnesium 2.5 mg/dL (1.6-2.3); Non-African American GFR(CKD) 48 (>60 ml/min/1.73 sqM); Sodium 137 mmol/L (137-145); Total Bilirubin 0.4 mg/dL (0.2-1.3); Total Protein 6.9 g/dL (6.3-8.2)
[2023-03-06 17:51] LABS: Appearance,Urine Clear (Clear); Bilirubin,Urine Negative (Negative); Blood,Urine Negative (Negative); Color,Urine Light Yellow; Glucose,Urine (UA) 4+ (Negative); Ketones,Urine Negative (Negative); Leukocyte Esterase,Urine Negative (Negative); Nitrite,Urine Negative (Negative); Protein,Urine Negative (Negative); Specific Gravity,Urine 1.025 (1.001-1.035); Urobilinogen,Urine <2.0 mg/dL (<2.0)
[2023-03-06] MEDS ORDERED: INSULIN REGULAR 100 UNIT/ML VIAL (IV) IV STA (18:04)
[2023-03-06] MEDS ORDERED: SODIUM CHLORIDE 0.9% 1,000 ML IV ONE (18:04)
[2023-03-06 19:09] VITALS: BP 117/75; PULSE 63
== END 2023-03-06 19:34 | disposition home or self-care (01) ==
LOC: EC 15:42
DX: E11.65 Type 2 diabetes mellitus with hyperglycemia (principal); E86.0 Dehydration; E78.5 Hyperlipidemia, unspecified; I10 Essential (primary) hypertension; I25.2 Old myocardial infarction; M19.90 Unspecified osteoarthritis, unspecified site; E07.9 Disorder of thyroid, unspecified; Z86.73 Personal history of transient ischemic attack (TIA), and cerebral infarction without residual deficits; F17.200 Nicotine dependence, unspecified, uncomplicated; Z88.8 Allergy status to other drugs, medicaments and biological substances; Z79.890 Hormone replacement therapy; Z79.82 Long term (current) use of aspirin; Z79.84 Long term (current) use of oral hypoglycemic drugs; Z79.899 Other long term (current) drug therapy
CPT/HCPCS: 51798; 36415; 93005; 80053; 83735; 84484; 85025; 85610; 85730; 81003; 71046; 99285; 96360; G0480; 80320

== ENCOUNTER → 2023-03-14 | Outpatient (CLI) | payer MEDICARE ==
[~2023-03-14] MED LIST: SODIUM CHLORIDE 0.9% 1,000 ML IV ONE; SODIUM CHLORIDE 0.9% 500 ML 500 ML in EMPTY BAG 1 BAG IV PRN
[2023-03-14 14:00] VITALS: BP 129/82; PULSE 54; RESP 16; TEMP 97.5
--- NOTE | 2023-03-15 08:08 | CT ---
EXAMINATION TYPE: CT brain wo/w con DATE OF EXAM: 03/14/2023 COMPARISON: 02/12/2023 HISTORY: hx of [address] DLP: 2128.70mGycm CONTRAST: CT scan of the head is performed without and with IV Contrast, patient injected with 90 mL of Isovue 300. Unenhanced followed by contrast enhanced CT of the brain is submitted for evaluation. The ventricles are midline. There is no evidence for intracranial hemorrhage or extra-axial collection. No mass e ffects are identified. Visualized bony calvarium is intact. Previously noted small subarachnoid hem orrhage left frontal lesion has resolved. Contrast is administered and no enhancing lesions are detec jennifer. No pathologic enhancement is identified. If symptoms persist consider MRI. IMPRESSION: Previously noted small subarachnoid hemorrhage left frontal lesion has resolved.
== END ==
LOC: PROCWHC3 12:17
PROVIDERS: ATTEND Surgery
DX: G45.9 Transient cerebral ischemic attack, unspecified (principal)
CPT/HCPCS: 82565; 84520; 70470; 96360; 36415; Q9967

== ENCOUNTER 2023-05-18 16:02 | Observation (INO) | payer MEDICARE ==
[2023-05-18] MEDS ORDERED: SODIUM CHLORIDE 0.9% 500 ML 500 ML IV STA (16:36)
--- NOTE | 2023-05-18 16:55 | ED ---
Neuro HPI - General Chief Complaint: Neuro Symptoms/Deficit Stated Complaint: R arm weakness and confusion Time Seen by Provider: 05/18/23 16:09 Source: patient Mode of arrival: ambulatory Limitations: no limitations - History of Present Illness Is the patient presenting with stroke symptoms?: No Last Known Well Date: 05/18/23 Last Known Well Time: 14:00 -: hour(s) Initial Comments: Wilbert is a 67-year-old gentleman who presents the ER today for evaluation of an episode of right arm numbness tingling and weakness with associated tunnel vision. Patient reports he has a history of TIA and stroke in the past. He subsequently had a carotid endarterectomy and a week later experienced a spontaneous subarachnoid hemorrhage. 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 He also felt like his vision was becoming tunnel vision and mild been slightly blurred. He states he had a focus very carefully to drive home. He got home and then decided to come to the ER however symptoms resolved prior to arrival. He reports the symptoms lasted for approximately 1 hour prior to resolution. - Related Data Home Medications: Home Medications Medication Instructions Recorded Confirmed Levothyroxine Sodium [Synthroid] 200 mcg PO PC-SUPPER 03/09/15 05/18/23 Aspirin EC [Ecotrin] 325 mg PO PC-SUPPER 01/27/23 05/18/23 Dapagliflozin Propanediol [Farxiga] 10 mg PO PC-SUPPER 01/27/23 05/18/23 Semaglutide [Ozempic] 0.5 mg SQ PATRICK 01/27/23 05/18/23 lisinopriL [Zestril] 40 mg PO PC-SUPPER 01/27/23 05/18/23 metFORMIN HCL [Glucophage] 500 mg PO PC-SUPPER 01/27/23 05/18/23 Atorvastatin [Lipitor] 80 mg PO PC-SUPPER 03/06/23 05/18/23 Naproxen [Naprosyn] 500 mg PO PC-BID 03/06/23 05/18/23 carvediloL [Coreg] 6.25 mg PO PC-SUPPER 03/06/23 05/18/23 Clopidogrel [Plavix] 75 mg PO PC-SUPPER 05/18/23 05/18/23 Previous Rx's Medication Instructions Recorded Albuterol Inhaler [Ventolin Hfa 1 puff INHALATION RT-QID PRN #8 gm 03/10/22 Inhaler] Allergies/Adverse Reactions: Allergies Allergy/AdvReac Type Severity Reaction Status Date / Time glipizide AdvReac Blurry Verified 05/18/23 18:58 vision Review of Systems ROS Statement: Those systems with pertinent positive or pertinent negative responses have been documented in the HPI. ROS Other: All systems not noted in ROS Statement are negative. General Exam Limitations: no limitations Stroke MDM - Lab Data Result diagrams: 05/18/23 16:48 05/18/23 16:48 Lab Results 05/18/23 05/18/23 05/18/23 Range/Units 16:48 16:48 16:48 WBC 10.1 (3.8-10.6) k/uL RBC 4.57 (4.30-5.90) m/uL Hgb 14.4 (13.0-17.5) gm/dL Hct 42.8 (39.0-53.0) % MCV 93.6 (80.0-100.0) fL MCH 31.5 (25.0-35.0) pg MCHC 33.6 (31.0-37.0) g/dL RDW 13.2 (11.5-15.5) % Plt Count 287 (150-450) k/uL MPV 8.6 Neutrophils % 73 % Lymphocytes % 18 % Monocytes % 6 % Eosinophils % 2 % Basophils % 1 % Neutrophils # 7.4 (1.3-7.7) k/uL Lymphocytes # 1.8 (1.0-4.8) k/uL Monocytes # 0.6 (0-1.0) k/uL Eosinophils # 0.2 (0-0.7) k/uL Basophils # 0.1 (0-0.2) k/uL PT 9.9 (9.0-12.0) sec INR 0.9 (<1.2) APTT 23.7 (22.0-30.0) sec Sodium 137 (137-145) mmol/L Potassium 4.6 (3.5-5.1) mmol/L Chloride 105 (98-107) mmol/L Carbon Dioxide 20 L (22-30) mmol/L Anion Gap 12 mmol/L BUN 33 H (9-20) mg/dL Creatinine 1.27 H (0.66-1.25) mg/dL Est GFR (CKD-EPI)AfAm 67 (>60 ml/min/1.73 sqM) Est GFR (CKD-EPI)NonAf 58 (>60 ml/min/1.73 sqM) Glucose 256 H (74-99) mg/dL Calcium 9.3 (8.4-10.2) mg/dL Total Bilirubin 0.7 (0.2-1.3) mg/dL AST 21 (17-59) U/L ALT 14 (4-49) U/L Alkaline Phosphatase 93 (38-126) U/L Creatine Kinase 56 (55-170) U/L Troponin I (0.000-0.034) ng/mL Total Protein 7.2 (6.3-8.2) g/dL Albumin 4.2 (3.5-5.0) g/dL 05/18/23 Range/Units 16:48 WBC (3.8-10.6) k/uL RBC (4.30-5.90) m/uL Hgb (13.0-17.5) gm/dL Hct (39.0-53.0) % MCV (80.0-100.0) fL MCH (25.0-35.0) pg MCHC (31.0-37.0) g/dL RDW (11.5-15.5) % Plt Count (150-450) k/uL MPV Neutrophils % % Lymphocytes % % Monocytes % % Eosinophils % % Basophils % % Neutrophils # (1.3-7.7) k/uL Lymphocytes # (1.0-4.8) k/uL Monocytes # (0-1.0) k/uL Eosinophils # (0-0.7) k/uL Basophils # (0-0.2) k/uL PT (9.0-12.0) sec INR (<1.2) APTT (22.0-30.0) sec Sodium (137-145) mmol/L Potassium (3.5-5.1) mmol/L Chloride (98-107) mmol/L Carbon Dioxide (22-30) mmol/L Anion Gap mmol/L BUN (9-20) mg/dL Creatinine (0.66-1.25) mg/dL Est GFR (CKD-EPI)AfAm (>60 ml/min/1.73 sqM) Est GFR (CKD-EPI)NonAf (>60 ml/min/1.73 sqM) Glucose (74-99) mg/dL Calcium (8.4-10.2) mg/dL Total Bilirubin (0.2-1.3) mg/dL AST (17-59) U/L ALT (4-49) U/L Alkaline Phosphatase (38-126) U/L Creatine Kinase (55-170) U/L Troponin I <0.012 (0.000-0.034) ng/mL Total Protein (6.3-8.2) g/dL Albumin (3.5-5.0) g/dL - NIH Stroke Scale 1a. Level of Consciousness: (0) alert 1b. LOC Questions: (0) answers correctly 1c. LOC Commands: (0) performs tasks correctly 2. Best Gaze: (0) normal 3. Visual: (0) no visual loss 4. Facial Palsy: (0) normal symmetrical movement 5a. Motor Arm Left: (0) no drift 5b. Motor Arm Right: (0) no drift 6a. Motor Leg Left: (0) no drift 6b. Motor Leg Right: (0) no drift 7. Limb Ataxia: (0) absent 8. Sensory: (0) normal 9. Best Language: (0) no aphasia 10. Dysarthria: (0) normal 11. Extinction/Inattention: (0) no abnormality - Thrombolytic Inclusion/Exclusion Thrombolytic Contraindications: NIH 0 - Medical Decision Making Patient was seen and evaluated, he had a 1 hour episode of weakness in the right arm and vision changes, resolved now - no code stroke due to resolution of symptoms Labs and head CT ordered Labs at baseline, Head CT with no acute findings - no bleed Results discussed with Neurologist Dr Kingsley who recommend admit, continue medical management Patient agreeable to admission, [facility] Hospitalist group aware Was pt. sent in by a medical professional or institution (, PA, BONUS CLERK, urgent care, hospital, or intermediate...) When possible be specific @ -[No] Did you speak to anyone other than the patient for history (EMS, parent, family, police, friend...)? What history was obtained from this source @ -[No] Did you review nursing and triage notes (agree or disagree)? Why? @ -[I reviewed and agree with nursing and triage notes] Were old charts reviewed (outside hosp., previous admission, EMS record, old EKG, old radiological studies, urgent care reports/EKG's, intermediate records)? Report findings @ -Previous admissions, previous head CTs were reviewed Differential Diagnosis (chest pain, altered mental status, abdominal pain women, abdominal pain men, vaginal bleeding, weakness, fever, dyspnea, syncope, headache, dizziness, GI bleed, back pain, seizure, CVA, palpatations, mental hea lth, musculoskeletal)? @ Differential Headache: Migraine, tension, cluster, carbon monoxide, central venous thrombosis, pension karma temporal arteritis, acute closure glaucoma, intercranial hemorrhage, mastoiditis, sinusitis, head injury, this is not meant to be an all-inclusive list. EKG interpreted by me (3pts min.). @ -EKG interpreted by me, EKG was obtained as per the stroke workup EKG obtained at 1645 rate is 75 rhythm is sinus with PVC, no acute ST elevations or depressions diffuse Q waves are noted no evidence of acute ischemia or infarction. X-rays interpreted by me (1pt min.). @ -[None done] CT interpreted by me (1pt min.). @ -No obvious mass or bleed U/S interpreted by me (1pt. min.). @ -[None done] What testing was considered but not performed or refused? (CT, X-rays, U/S, labs)? Why? @ -MRI can be completed and patient What meds were considered but not given or refused? Why? @ -[None] Did you discuss the management of the patient with other professionals (professionals i.e. DrRashad, PA, BONUS CLERK, lab, RT, psych nurse, social media marketing analyst, heater installer, teacher, investment officer, bilingual case manager)? Give summary @ -Discussed with neurologist Was smoking cessation discussed for >3mins.? @ -YES Was critical care preformed (if so, how long)? @ -[No] Were there social determinants of health that impacted care today? How? (Homelessness, low income, unemployed, alcoholism, drug addiction, transportation, low edu. Level, literacy, decrease access to med. care, senior care, rehab)? @ -[No] Was there de-escalation of care discussed even if they declined (Discuss DNR or withdrawal of care, Hospice)? DNR status @ -[No] What co-morbidities impacted this encounter? (DM, HTN, Smoking, COPD, CAD, Cancer, CVA, ARF, Chemo, Hep., AIDS, mental health diagnosis, sleep apnea, morbid obesity)? @ -Smoking, CVA Was patient admitted / discharged? Hospital course, mention meds given and route, prescriptions, significant lab abnormalities, going to OR and other pertinent info. @ -Admit Undiagnosed new problem with uncertain prognosis? @ -[No] Drug Therapy requiring intensive monitoring for toxicity (Heparin, Nitro, Insulin, Cardizem)? @ -[No] Were any procedures done? @ -[No] Diagnosis/symptom? @ -TIA Acute, or Chronic, or Acute on Chronic? @ -Acute Uncomplicated (without systemic symptoms) or Complicated (systemic symptoms)? @ -[default] Side effects of treatment? @ -[No] Exacerbation, Progression, or Severe Exacerbation? @ -[No] Poses a threat to life or bodily function? How? (Chest pain, [place], [place], pneumonia, PE, COPD, DKA, ARF, appy, cholecystitis, CVA, Diverticulitis, Homicidal, Suicidal, threat to staff... and all critical care pts) @ -Yes Past Medical History Past Medical History: CVA/TIA, Diabetes Mellitus, Hyperlipidemia, Hypertension, Myocardial Infarction ([place]), Osteoarthritis (OA), Thyroid Disorder Additional Past Medical History / Comment(s): STEMI THIS ADMISSION 03/08/15 Last Myocardial Infarction Date:: 2015 History of Any Multi-Drug Resistant Organisms: None Reported Past Surgical History: Heart Catheterization With Stent, Tonsillectomy Additional Past Surgical History / Comment(s): 2 stents to LAD on 03/08/15. 1 stent to LAD for reocclusion on 11/25/15. Past Anesthesia/Blood Transfusion Reactions: No Reported Reaction Date of Last Stent Placement:: 11/25/15 Past Psychological History: No Psychological Hx Reported Smoking Status: Current every day smoker Past Alcohol Use History: None Reported Past Drug Use History: None Reported - Past Family History Father Family Medical History: CVA/TIA Mother History Unknown: Yes Course Vital Signs 05/18/23 05/18/23 16:05 18:14 Temperature 98 F Pulse Rate 88 64 Respiratory 20 18 Rate Blood Pressure 148/85 112/68 O2 Sat by Pulse 99 98 Oximetry Disposition Clinical Impression: TIA (transient ischemic attack) Disposition: ADMITTED IP TO THIS HOSP Condition: Serious Is patient prescribed a controlled substance at d/c from ED?: No
[2023-05-18 16:59] LABS: Basophils # (A) 0.1 k/uL (0-0.2); Basophils % (A) 1 %; Eosinophils # (A) 0.2 k/uL (0-0.7); Eosinophils % (A) 2 %; HCT 42.8 % (39.0-53.0); HGB 14.4 gm/dL (13.0-17.5); Lymphocytes # (A) 1.8 k/uL (1.0-4.8); Lymphocytes % (A) 18 %; MCH 31.5 pg (25.0-35.0); MCHC 33.6 g/dL (31.0-37.0); MCV 93.6 fL (80.0-100.0); Mean Platelet Volume 8.6; Monocytes # (A) 0.6 k/uL (0-1.0); Monocytes % (A) 6 %; Neutrophils # (A) 7.4 k/uL (1.3-7.7); Neutrophils % (A) 73 %; Platelet Count 287 k/uL (150-450); RBC 4.57 m/uL (4.30-5.90); RDW 13.2 % (11.5-15.5); WBC 10.1 k/uL (3.8-10.6)
[2023-05-18 17:07] LABS: INR 0.9 (<1.2); Prothrombin Time 9.9 sec (9.0-12.0)
[2023-05-18 17:08] LABS: Partial Thromboplastin Time 23.7 sec (22.0-30.0)
[2023-05-18 17:09] LABS: ALT 14 U/L (4-49); AST 21 U/L (17-59); African American GFR (CKD) 67 (>60 ml/min/1.73 sqM); Albumin 4.2 g/dL (3.5-5.0); Alkaline Phosphatase 93 U/L (38-126); Anion Gap 12 mmol/L; Blood Urea Nitrogen 33 mg/dL (9-20); Calcium 9.3 mg/dL (8.4-10.2); Carbon Dioxide 20 mmol/L (22-30); Chloride 105 mmol/L (98-107); Creatine Kinase 56 U/L (55-170); Glucose 256 mg/dL (74-99); Non-African American GFR(CKD) 58 (>60 ml/min/1.73 sqM); Potassium 4.6 mmol/L (3.5-5.1); Sodium 137 mmol/L (137-145); Total Bilirubin 0.7 mg/dL (0.2-1.3); Total Protein 7.2 g/dL (6.3-8.2)
--- NOTE | 2023-05-18 17:15 | XR ---
EXAMINATION TYPE: XR chest 2V DATE OF EXAM: 05/18/2023 5:03 PM COMPARISON: Chest radiographs from 03/06/2023 TECHNIQUE: XR chest 2V Frontal and lateral views of the chest. CLINICAL INDICATION:Male, 67 years old with history of altered mental status; FINDINGS: Lungs/Pleura: There is flattening of the diaphragm with increased lucency of the lungs. No evidence o f pneumothorax, pleural effusion or focal consolidation. Pulmonary vascularity: Unremarkable. Heart/mediastinum: Cardiomediastinal silhouette is unremarkable. Musculoskeletal: No acute osseous pathology. IMPRESSION: 1. No acute cardiopulmonary disease process. 2. COPD changes.
--- NOTE | 2023-05-18 17:18 | CT ---
EXAMINATION TYPE: CT brain wo con CT DLP: 1139.4 mGycm, Automated exposure control for dose reduction was used. DATE OF EXAM: 05/18/2023 5:05 PM COMPARISON: 03/14/2023. CLINICAL INDICATION:Male, 67 years old with history of Neuro deficit, acute, stroke suspected, Rt beavers d weakness. Hx stroke. TECHNIQUE: Brain: Axial CT images of the brain were obtained with coronal and sagittal reformats created and rev iewed. Contrast used: None. Oral contrast used: None. FINDINGS: Brain: Extra-axial spaces: No abnormal extra-axial fluid collections. Ventricular system: Dilatation in proportion to cerebral atrophy. Cerebral parenchyma: Femoral left basal ganglia lacunar injury. Similar to 03/14/2023. Cerebral atroph y. No acute intraparenchymal hemorrhage or mass effect. The diaz-white junction is well differentiat ed. Scattered hypoattenuating areas are seen within the white matter. Cerebellum: Unremarkable. Mass effect: No evidence of midline shift. Intracranial vasculature: Atherosclerotic calcifications of the intracranial vessels. Soft tissues: Normal. Calvarium/osseous structures: No depressed skull fracture. Paranasal sinuses and mastoid air cells: Mild scattered paranasal sinus disease. Visualized orbits: Orbital contents are intact. IMPRESSION: 1. No acute intracranial process. 2. Nonspecific white matter changes, likely secondary to chronic small vessel ischemic disease.
[2023-05-18] MEDS ORDERED: ASPIRIN 325 MG TAB PO STA (18:25)
[2023-05-18] MEDS ORDERED: ALBUTEROL NEBULIZED 2.5 MG/3 ML INHALATION PRN (20:06)
[2023-05-18] MEDS ORDERED: DEXTROSE 50% SYRINGE 50 ML IVP PRN ×2 (20:07)
[2023-05-18] MEDS ORDERED: DAPAGLIFLOZIN PROPANEDIOL 10 MG TABLET PO SCH (20:15)
[2023-05-18] MEDS ORDERED: LEVOTHYROXINE 100 MCG TAB PO SCH (20:15)
[2023-05-18] MEDS ORDERED: carvediloL 6.25 MG TAB PO SCH (20:15)
[2023-05-18] MEDS ORDERED: ATORVASTATIN 80 MG TAB PO SCH (20:15)
[2023-05-18] MEDS ORDERED: CLOPIDOGREL 75 MG TAB PO SCH (20:15)
[2023-05-18 20:38] LABS: Glucose,Whole Blood 237 mg/dL (70-110)
[2023-05-18] MEDS: INSULIN ASPART (NovoLOG) 100 UNIT/ML VIAL SQ SCH (20:55)
--- NOTE | 2023-05-18 22:26 | CT ---
EXAMINATION TYPE: CT angio head neck CT DLP: 342.7 mGycm, Automated exposure control for dose reduction was used. DATE OF EXAM: 05/18/2023 9:47 PM COMPARISON: CT brain 05/10/2023. CLINICAL INDICATION:Male, 67 years old with history of CVA left; PHH, h/o left side TIA TECHNIQUE: Axially acquired helical CT angiogram of the head and neck was obtained with contrast. Axi al images are supplemented with 3D reconstructions which were post-processed at an independent workst [facility]count [facility]. NASCET criteria used. Contrast used:65 mL of Isovue 370 with IV Contrast, Oral contrast used: None. FINDINGS: CTA HEAD: No evidence of acute intracranial hemorrhage, mass effect, or midline shift. The ventricles, sulci, a nd cisterns are unremarkable. The visualized portions of the internal carotid arteries, middle cerebral arteries, anterior cerebral arteries, and posterior cerebral arteries are patent. The petrous portion of the left internal carot id artery demonstrate greater than 75% stenosis series 9 image 20 just as it leaves the petrous porti on. There is at least 50% stenosis on the right lung the distal petrous portion of the internal carot id artery. The basilar and vertebral arteries are patent. CTA NECK: Right Carotid System: The common carotid artery and external carotid artery are patent. The carotid bifurcation demonstrate s no evidence of hemodynamically significant stenosis. The remaining portions of the internal carotid artery demonstrate normal size without significant narrowing. Left Carotid System: The common carotid artery and external carotid artery are patent. The carotid bifurcation demonstrate s no evidence of hemodynamically significant stenosis. The remaining portions of the internal carotid artery demonstrate normal size without significant narrowing. Vertebral arteries are patent without evidence hemodynamically significant stenosis. There is a three-vessel aortic arch. The origins of the great vessels are patent. No evidence of hemo dynamically significant stenosis. Upper thorax: Paraseptal emphysema changes along with centrilobular emphysema changes are seen throug hout the lung apices IMPRESSION: 1. Greater than 75% stenosis of the left internal carotid artery distal petrous portion. There is na rrowing to a lesser degree on the right of at least 50%. 2. No evidence of dissection of the cervical internal carotid arteries or vertebral arteries or any evidence of significant stenosis at the carotid bifurcations. 3. No evidence of intracranial aneurysm. 4. Moderate emphysema changes of the lungs.
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
[2023-05-19 06:00] LABS: Glucose,Whole Blood 165 mg/dL (70-110)
[2023-05-19] MEDS: INSULIN ASPART (NovoLOG) 100 UNIT/ML VIAL SQ SCH ×2 (06:34→12:19)
[2023-05-19] MEDS ORDERED: ASPIRIN 325 MG TAB PO SCH (09:00)
[2023-05-19] MEDS ORDERED: TICAGRELOR 90 MG TAB PO SCH (10:00)
[2023-05-19 10:18] LABS: Blood Urea Nitrogen 28.7 mg/dL (9.0-27.0); Calcium 8.9 mg/dL (8.7-10.3); Carbon Dioxide 22.5 mmol/L (21.6-31.8); Chloride 107 mmol/L (96-109); Chol/HDL Ratio 5.92 Ratio; Glucose 146 mg/dL (70-110); LDL Cholesterol,Calculated 86.1 mg/dL (0.0-131.0); Potassium 5.2 mmol/L (3.5-5.5); Sodium 139 mmol/L (135-145)
[2023-05-19 12:01] LABS: Glucose,Whole Blood 267 mg/dL (70-110)
--- NOTE | 2023-05-19 12:58 | PN ---
PROGRESS NOTE DATE OF SERVICE: 05/19/2023 SUBJECTIVE: This is a 67-year-old gentleman admitted with weakness in the right upper extremity and TIA. He is being evaluated by Neurology. MRI has been ordered. No chest pain. No palpitations. No fever. PHYSICAL EXAMINATION: VITAL SIGNS: Pulse is 79, blood pressure 97/60, respirations 15. HEENT: Conjunctivae normal. CARDIOVASCULAR: S1, S2. ABDOMEN: Soft. NERVOUS SYSTEM: No focal deficit. LABORATORY DATA: Labs are reviewed. Triglycerides 251. Brain CT angio noted 75% stenosis of the left ICA. ASSESSMENT: 1. Acute transient ischemic attack with right-sided weakness. 2. Left internal carotid artery stenosis, 75%. 3. Diabetes mellitus, type 2. 4. Multiple medical issues. RECOMMENDATIONS AND DISCUSSION: This is a 67-year-old gentleman, who presented with multiple complex medical issues. We will monitor the patient closely. Recommend Neurology consultation, possible MRI. I would also recommend a Vascular consultation. Prognosis guarded. Further recommendations to follow. See orders for details. MMODL / IJN: [id number] /
--- NOTE | 2023-05-19 13:59 | P.CNNES ---
History of Present Illness Consult date: 05/19/23 Reason for Consult: TIA History of Present Illness: The patient is a 67-year-old male who is seen in neurologic consultation on May 19, 2023, via teleneurology. History is obtained from the patient as well as the chart. The patient reports that he had sudden onset of right arm weakness, occurring yesterday. He says the weakness started at 3:30 PM. He is reports that he has had 2 previous strokes, both of them affecting his right side. The patient states that the weakness involved his right arm but not his leg. There are no symptoms in his face. The patient had no difficulty with speech or swallowing. He did report a "tunnel" vision of source. The patient denies headache and left sided symptoms. The patient says that his right arm weakness began at 3:30 PM and resolved that about 8 PM. The patient has reportedly had a left carotid endarterectomy. He denies missing any of his doses of aspirin or Plavix. Past Medical History Past Medical History: CVA/TIA, Diabetes Mellitus, Hyperlipidemia, Hypertension, Myocardial Infarction ([place]), Osteoarthritis (OA), Thyroid Disorder Additional Past Medical History / Comment(s): STEMI 03/08/15 Last Myocardial Infarction Date:: 2015 History of Any Multi-Drug Resistant Organisms: None Reported Past Surgical History: Heart Catheterization With Stent, Tonsillectomy Additional Past Surgical History / Comment(s): 2 stents to LAD on 03/08/15. 1 stent to LAD for reocclusion on 11/25/15. Past Anesthesia/Blood Transfusion Reactions: No Reported Reaction Date of Last Stent Placement:: 11/25/15 Past Psychological History: No Psychological Hx Reported Smoking Status: Current every day smoker Past Alcohol Use History: Rare Past Drug Use History: None Reported - Past Family History Father Family Medical History: CVA/TIA Mother History Unknown: Yes Medications and Allergies Home Medications Medication Instructions Recorded Confirmed Type Levothyroxine Sodium [Synthroid] 200 mcg PO PC-SUPPER 03/09/15 05/18/23 History Albuterol Inhaler [Ventolin Hfa 1 puff INHALATION RT-QID PRN #8 gm 03/10/22 05/18/23 Rx Inhaler] Aspirin EC [Ecotrin] 325 mg PO PC-SUPPER 01/27/23 05/18/23 History Dapagliflozin Propanediol [Farxiga] 10 mg PO PC-SUPPER 01/27/23 05/18/23 History Semaglutide [Ozempic] 0.5 mg SQ PATRICK 01/27/23 05/18/23 History lisinopriL [Zestril] 40 mg PO PC-SUPPER 01/27/23 05/18/23 History metFORMIN HCL [Glucophage] 500 mg PO PC-SUPPER 01/27/23 05/18/23 History Atorvastatin [Lipitor] 80 mg PO PC-SUPPER 03/06/23 05/18/23 History Naproxen [Naprosyn] 500 mg PO PC-BID 03/06/23 05/18/23 History carvediloL [Coreg] 6.25 mg PO PC-SUPPER 03/06/23 05/18/23 History Clopidogrel [Plavix] 75 mg PO PC-SUPPER 05/18/23 05/18/23 History Allergies Allergy/AdvReac Type Severity Reaction Status Date / Time glipizide AdvReac Blurry Verified 05/18/23 18:58 vision Physical Examination - Vital Signs Vital Signs: Vital Signs Temp Pulse Pulse Resp BP BP Pulse Ox 05/19/23 07:32 68 05/19/23 07:22 66 97 05/19/23 07:00 97.6 F 79 15 97/62 98 05/19/23 02:15 98.2 F 80 13 94/58 97 05/18/23 21:05 98.1 F 53 L 16 145/76 98 05/18/23 19:36 131/71 05/18/23 19:32 64 18 97 05/18/23 18:14 64 18 112/68 98 05/18/23 16:05 98 F 88 20 148/85 99 Intake and Output 05/18/23 05/19/23 05/19/23 22:59 06:59 14:59 Intake Total 118 Balance 118 Intake: Oral 118 Other: Voiding Method Toilet # Voids 1 Weight 77.111 kg Gen.: The patient is reclining in the bed. He is well-nourished, well-developed and in no acute distress. HEENT: Head is atraumatic, normocephalic. Fundus not visualized. There is no scleral icterus. Mucous membranes are moist. Neck: Supple with a left carotid bruit Heart: Regular rate and rhythm Lungs: Essentially clear to auscultation Extremities: Without edema Neurological examination Mental status: The patient is awake, alert and oriented 3. His speech is clear. There is no dysarthria or aphasia Cranial nerves: Pupils are equal at 3 mm and reactive. Visual garcia are full to confrontation. Extraocular movements are intact. There is no nystagmus. Facial sensation is intact. Visual facial asymmetry. Hearing is grossly inta ct. Uvula and palate are midline. Shoulder shrug is symmetric. Tongue protrudes midline. Motor: Strength is 5/5 throughout. Coordination: Finger to nose, rapid alternating movements and [id number] testing is intact. Sensation: Intact to to light touch throughout. There is no extinction with do uble simultaneous stimulation. Deep tendon reflexes: 2+/4+ throughout. Plantar responses are flexor bilaterally. Gait: Not assessed Results - Laboratory Findings CBC and BMP: 05/18/23 16:48 05/19/23 05:16 Abnormal Lab Findings: Abnormal Labs 05/18/23 05/18/23 05/19/23 16:48 20:37 05:16 Carbon Dioxide 20 L BUN 33 H Creatinine 1.27 H Est GFR (CKD-EPI) BUN/Creatinine Ratio Glucose 256 H POC Glucose (mg/dL) 237 H Hemoglobin A1c 9.0 H Triglycerides VLDL Cholesterol, Calc HDL Cholesterol 05/19/23 05/19/23 05/19/23 05:16 05:59 11:59 Carbon Dioxide BUN 28.7 H Creatinine Est GFR (CKD-EPI) 55 L BUN/Creatinine Ratio 20.50 H Glucose 146 H POC Glucose (mg/dL) 165 H 267 H Hemoglobin A1c Triglycerides 251.00 H VLDL Cholesterol, Calc 50.20 H HDL Cholesterol 27.70 L Assessment and Plan Assessment: 1. Transient ischemic attack involving the left middle cerebral artery territory. 2. Left ICA stenosis at 70% 3. History of stroke on aspirin and Plavix 4. History of hypertension 5. History of hyperlipidemia Plan: 1. MRI of the brain has been ordered 2. Because this TIA occurred while the patient was taking aspirin and Plavix, we will consider him a Plavix failure. Plavix will be discontinued and the patient will be started on Brlinta. Aspirin dosing will be lowered to 81 mg 3. The patient does not require 2-D echocardiogram at this time, his most recent one was done in January of this year 4. Continue high-dose statin 5. Stroke orders including lipid panel, hemoglobin A1c, TSH, PT, OT and speech therapy evaluations Thank you for allowing us to participate in the care of this patient Time with Patient: Greater than 30 (59 minutes were spent in caring for this pa tient today including, obtaining a history, examining the patient, reviewing imaging, chart documentation, labs, placing orders and creating this note)
[2023-05-19 14:49] VITALS: BMI 24.3
[2023-05-19 15:14] VITALS: BP 95/56; PULSE 67; RESP 16; TEMP 97.9
[2023-05-20] MEDS ORDERED: ASPIRIN 81 MG PO SCH (09:00)
[2023-05-20] MEDS ORDERED: PATIENT'S OWN (Semaglutide [Ozempic] 0.25 MG/0.2 ML Each) SQ SCH (09:00)
--- NOTE | 2023-05-24 20:43 | DS ---
DISCHARGE SUMMARY CHIEF COMPLAINT: Chest pain. HISTORY OF PRESENT ILLNESS AND PHYSICAL EXAMINATION: Details of this man's history and physical can be found in the initial workup. LABORATORY STUDIES: While he was in the hospital, he had laboratory studies, details of which can be found in the laboratory section of his chart. COURSE IN THE HOSPITAL: After admission, he was placed on bedrest, started on intravenous fluids, then had serial EKGs and enzymes. After he was fully evaluated, it was felt that he can be discharged and that he will go home on , and will be followed up as an outpatient. FINAL DIAGNOSIS: Chest pain, noncardiac. OPERATIONS: None. CONSULTATIONS: None. CONDITION: Improved. MMODL / IJN: [id number] /
== END 2023-05-19 15:47 | disposition left against medical advice (07) ==
LOC: EC 16:02 → 6NMEDSUR 18:25
PROVIDERS: ADMIT Hospitalist; ATTEND Hospitalist
DX: I65.22 Occlusion and stenosis of left carotid artery (principal); E11.9 Type 2 diabetes mellitus without complications; I10 Essential (primary) hypertension; E78.5 Hyperlipidemia, unspecified; E07.9 Disorder of thyroid, unspecified; H53.489 Generalized contraction of visual field, unspecified eye; I25.2 Old myocardial infarction; M19.90 Unspecified osteoarthritis, unspecified site; F17.200 Nicotine dependence, unspecified, uncomplicated; J43.9 Emphysema, unspecified; Z53.29 Procedure and treatment not carried out because of patient's decision for other reasons; Z71.6 Tobacco abuse counseling; Z79.82 Long term (current) use of aspirin; Z79.84 Long term (current) use of oral hypoglycemic drugs; Z79.02 Long term (current) use of antithrombotics/antiplatelets; Z79.1 Long term (current) use of non-steroidal anti-inflammatories (NSAID); Z79.890 Hormone replacement therapy; Z79.899 Other long term (current) drug therapy; Z88.8 Allergy status to other drugs, medicaments and biological substances; Z86.73 Personal history of transient ischemic attack (TIA), and cerebral infarction without residual deficits; Z95.5 Presence of coronary angioplasty implant and graft; Z98.890 Other specified postprocedural states; Z82.3 Family history of stroke
CPT/HCPCS: 99285; 36415; 94640; 94760; 93005; 97161; 80061; 80053; 80048; 82550; 84484; 85025; 85610; 85730; 83036; 71046; 70496; 70450; 70498; G0378 ×2; Q9967

== ENCOUNTER → 2023-08-14 | Outpatient (CLI) | payer MEDICARE ==
[2023-08-14 11:38] LABS: African American GFR (CKD) 73 (>60 ml/min/1.73 sqM); Blood Urea Nitrogen 35 mg/dL (9-20); Non-African American GFR(CKD) 63 (>60 ml/min/1.73 sqM)
--- NOTE | 2023-08-14 13:51 | CT ---
EXAMINATION TYPE: CT angio head neck CT DLP: 1380.60 mGycm, Automated exposure control for dose reduction was used. DATE OF EXAM: 08/14/2023 12:20 PM COMPARISON: 05/18/2023 CLINICAL INDICATION:Male, 67 years old with history of Z86.73 PRSNL HX OF TIA (TIA), AND CEREB INFRC W/O; PHH, stenosis of left carotid artery hx of multiple strokes TECHNIQUE: Axially acquired helical CT angiogram of the head and neck was obtained with contrast. Axi al images are supplemented with 3D reconstructions [facility] NASCET criteria used. Contrast used:65 mL of Isovue 370 with IV Contrast, Oral contrast used: None. FINDINGS: CTA HEAD: No evidence of acute intracranial hemorrhage, mass effect, or midline shift. The ventricles, sulci, a nd cisterns are unremarkable. The visualized portions of the internal carotid arteries, middle cerebral arteries, anterior cerebral arteries, and posterior cerebral arteries are patent. Similar findings. The petrous portion of the l eft internal carotid artery demonstrate greater than 75% stenosis just as it leaves the petrous porti on. There is at least 50% stenosis on the right lung the distal petrous portion of the internal carot id artery. The basilar and vertebral arteries are patent. CTA NECK: Right Carotid System: The common carotid artery and external carotid artery are patent. The carotid bifurcation demonstrate s no evidence of hemodynamically significant stenosis. The remaining portions of the internal carotid artery demonstrate normal size without significant narrowing. Left Carotid System: The common carotid artery and external carotid artery are patent. The carotid bifurcation demonstrate s no evidence of hemodynamically significant stenosis. The remaining portions of the internal carotid artery demonstrate normal size without significant narrowing. Vertebral arteries are patent without evidence hemodynamically significant stenosis. There is a three-vessel aortic arch. The origins of the great vessels are patent. No evidence of hemo dynamically significant stenosis. Upper thorax: Paraseptal emphysema changes along with centrilobular emphysema changes are seen throug hout the lung apices IMPRESSION: 1. Similar greater than 75% stenosis of the left internal carotid artery distal petrous portion. The re is narrowing to a lesser degree on the right of at least 50%. 2. No evidence of dissection of the cervical internal carotid arteries or vertebral arteries or any evidence of significant stenosis at the carotid bifurcations. 3. No evidence of intracranial aneurysm. 4. Moderate emphysema changes of the lungs.
== END | disposition home or self-care (01) ==
LOC: RADCTMAIN 10:45
PROVIDERS: ATTEND Psychiatry & Neurology Neurology
DX: I63.9 Cerebral infarction, unspecified (principal); J43.2 Centrilobular emphysema; I65.22 Occlusion and stenosis of left carotid artery; Z86.73 Personal history of transient ischemic attack (TIA), and cerebral infarction without residual deficits
CPT/HCPCS: 82565; 84520; 70496; 70498; 36415; Q9967

== ENCOUNTER 2023-09-07 00:01 | Emergency (ER) | payer MEDICARE ==
[2023-09-07 00:16] VITALS: RESP 18; TEMP 98
[2023-09-07] MEDS ORDERED: HYDROmorphone 1 MG/ML 1 ML SYRINGE IVP STA (00:39)
--- NOTE | 2023-09-07 00:41 | ED ---
General Adult HPI - General Chief complaint: Urogenital Stated complaint: Post op complications Time Seen by Provider: 09/07/23 00:20 Source: patient Mode of arrival: wheelchair Limitations: no limitations - History of Present Illness Initial comments: 67-year-old male with a history significant for transurethral resection of bladder tumor performed on 09/06/[address] Kumar presenting to the ED with dark red blood in his Downing bag and lower abdominal pain that intermittently becomes worse in nature. Patient states he is concerned as he was was told it was normal to have blood-tinged urine however notes that the urine in his bag is dark red. Associated nausea. Denies fever or chills. No chest pain or shortness of breath. - Related Data Home Medications Medication Instructions Recorded Confirmed Levothyroxine Sodium [Synthroid] 200 mcg PO PC-SUPPER 03/09/15 05/18/23 Aspirin EC [Ecotrin] 325 mg PO PC-SUPPER 01/27/23 05/18/23 Dapagliflozin Propanediol [Farxiga] 10 mg PO PC-SUPPER 01/27/23 05/18/23 Semaglutide [Ozempic] 0.5 mg SQ PATRICK 01/27/23 05/18/23 lisinopriL [Zestril] 40 mg PO PC-SUPPER 01/27/23 05/18/23 metFORMIN HCL [Glucophage] 500 mg PO PC-SUPPER 01/27/23 05/18/23 Atorvastatin [Lipitor] 80 mg PO PC-SUPPER 03/06/23 05/18/23 Naproxen [Naprosyn] 500 mg PO PC-BID 03/06/23 05/18/23 carvediloL [Coreg] 6.25 mg PO PC-SUPPER 03/06/23 05/18/23 Clopidogrel [Plavix] 75 mg PO PC-SUPPER 05/18/23 05/18/23 Previous Rx's Medication Instructions Recorded Albuterol Inhaler [Ventolin Hfa 1 puff INHALATION RT-QID PRN #8 gm 03/10/22 Inhaler] Allergies Allergy/AdvReac Type Severity Reaction Status Date / Time glipizide AdvReac Blurry Verified 09/07/23 00:07 vision Review of Systems ROS Statement: Those systems with pertinent positive or pertinent negative responses have been documented in the HPI. ROS Other: All systems not noted in ROS Statement are negative. Past Medical History Past Medical History: CVA/TIA, Diabetes Mellitus, Hyperlipidemia, Hypertension, Myocardial Infarction ([place]), Osteoarthritis (OA), Thyroid Disorder Additional Past Medical History / Comment(s): STEMI 03/08/15 Last Myocardial Infarction Date:: 2015 History of Any Multi-Drug Resistant Organisms: None Reported Past Surgical History: Heart Catheterization With Stent, Tonsillectomy Additional Past Surgical History / Comment(s): 2 stents to LAD on 03/08/15. 1 stent to LAD for reocclusion on 11/25/15. tumor removed from bladder Past Anesthesia/Blood Transfusion Reactions: No Reported Reaction Date of Last Stent Placement:: 11/25/15 Past Psychological History: No Psychological Hx Reported Smoking Status: Current every day smoker Past Alcohol Use History: Rare Past Drug Use History: None Reported - Past Family History Father Family Medical History: CVA/TIA Mother History Unknown: Yes General Exam Limitations: no limitations General appearance: alert, in no apparent distress Eye exam: Present: normal appearance ENT exam: Present: mucous membranes moist Respiratory exam: Present: normal lung sounds bilaterally Cardiovascular Exam: Present: regular rate, normal rhythm GI/Abdominal exam: Present: soft (Suprapubic tenderness to palpation.) Neurological exam: Present: alert, oriented X3 Skin exam: Present: warm, dry Course Vital Signs 09/07/23 00:05 Temperature 98 F Pulse Rate 60 Respiratory 18 Rate Blood Pressure 179/101 O2 Sat by Pulse 99 Oximetry Medical Decision Making - Medical Decision Making Was pt. sent in by a medical professional or institution (, PA, [employer], urgent care, hospital, or [place] health care facility...) When possible be specific @ -No Did you speak to anyone other than the patient for history (EMS, parent, family, police, friend...)? What history was obtained from this source @ -No Did you review nursing and triage notes (agree or disagree)? Why? @ -I reviewed and agree with nursing and triage notes Were old charts reviewed (outside hosp., previous admission, EMS record, old EKG, old radiological studies, urgent care reports/EKG's, [place] health care facility records)? Report findings @ -No old charts were reviewed Differential Diagnosis (chest pain, altered mental status, abdominal pain women, abdominal pain men, vaginal bleeding, weakness, fever, dyspnea, syncope, headache, dizziness, GI bleed, back pain, seizure, CVA, palpatations, mental health, musculoskeletal)? @ -Urinary tract infection, pyelonephritis, surgical complication. This not meant to be an all-inclusive list. EKG interpreted by me (3pts min.). @ -As above X-rays interpreted by me (1pt min.). @ -None done CT interpreted by me (1pt min.). @ -None done U/S interpreted by me (1pt. min.). @ -Ultrasound interpreted by me shows a contracted bladder. Study limited secondary to contracted bladder. What testing was considered but not performed or refused? (CT, X-rays, U/S, labs)? Why? @ -None What meds were considered but not given or refused? Why? @ -None Did you discuss the management of the patient with other professionals (professionals i.e. , PA, [employer], lab, RT, psych nurse, social director, elementary tutor, teacher, hazard mitigation officer, dependency case manager)? Give summary @ -No Was smoking cessation discussed for >3mins.? @ -No Was critical care preformed (if so, how long)? @ -No Were there social determinants of health that impacted care today? How? (Homelessness, low income, unemployed, alcoholism, drug addiction, transportation, low edu. Level, literacy, decrease access to med. care, snf, rehab)? @ -No Was there de-escalation of care discussed even if they declined (Discuss DNR or withdrawal of care, Hospice)? DNR status @ -No What co-morbidities impacted this encounter? (DM, HTN, Smoking, COPD, CAD, Cancer, CVA, ARF, Chemo, Hep., AIDS, mental health diagnosis, sleep apnea, morbid obesity)? @ -None Was patient admitted / discharged? Hospital course, mention meds given and route, prescriptions, significant lab abnormalities, going to OR and other pertinent info. @ -Discharge 67 year old patient. presenting status post transurethral resection of bladder tumor today with concerns due to suprapubic pain and blood in the urine. Labs did show an elevated white blood cell count at 19.2 neutrophils 16.7, BUN elevated at 37, creatinine elevated at 1.6 to. Urine does show large amounts of RBCs and blood. Case was discussed with Dr. [place], who states that patient is stable for discharge and outpatient follow-up. Discharged home in stable condition. Provided dose of Keflex here in the ED. Patient are the provided prescription for Keflex from his leg just. Discussed return precautions with patient who verbalizes agreement. Undiagnosed new problem with uncertain prognosis? @ -No Drug Therapy requiring intensive monitoring for toxicity (Heparin, Nitro, Insulin, Cardizem)? @ -No Were any procedures done? @ -No Diagnosis/symptom? @ -Hematuria, s/p transurethral resection of bladder tumor Acute, or Chronic, or Acute on Chronic? @ -Acute Uncomplicated (without systemic symptoms) or Complicated (systemic symptoms)? @ -Uncomplicated Side effects of treatment? @ -No Exacerbation, Progression, or Severe Exacerbation? @ -No Poses a threat to life or bodily function? How? (Chest pain, [place], [place], pneumonia, PE, COPD, DKA, ARF, appy, cholecystitis, CVA, Diverticulitis, Homicidal, Suicidal, threat to staff... and all critical care pts) @ -No - Lab Data Result diagrams: 09/07/23 00:53 09/07/23 00:53 Lab Results 09/07/23 09/07/23 09/07/23 Range/Units 00:53 00:53 00:53 WBC 19.2 H (3.8-10.6) k/uL RBC 4.67 (4.30-5.90) m/uL Hgb 14.5 (13.0-17.5) gm/dL Hct 43.0 (39.0-53.0) % MCV 92.1 (80.0-100.0) fL MCH 31.1 (25.0-35.0) pg MCHC 33.7 (31.0-37.0) g/dL RDW 13.0 (11.5-15.5) % Plt Count 345 (150-450) k/uL MPV 9.1 Neutrophils % 87 % Lymphocytes % 6 % Monocytes % 5 % Eosinophils % 1 % Basophils % 0 % Neutrophils # 16.7 H (1.3-7.7) k/uL Lymphocytes # 1.2 (1.0-4.8) k/uL Monocytes # 0.9 (0-1.0) k/uL Eosinophils # 0.1 (0-0.7) k/uL Basophils # 0.1 (0-0.2) k/uL Sodium 136 L (137-145) mmol/L Potassium 4.9 (3.5-5.1) mmol/L Chloride 100 (98-107) mmol/L Carbon Dioxide 21 L (22-30) mmol/L Anion Gap 15 mmol/L BUN 37 H (9-20) mg/dL Creatinine 1.62 H (0.66-1.25) mg/dL Est GFR (CKD-EPI)AfAm 50 (>60 ml/min/1.73 sqM) Est GFR (CKD-EPI)NonAf 43 (>60 ml/min/1.73 sqM) Glucose 266 H (74-99) mg/dL Calcium 9.9 (8.4-10.2) mg/dL Total Bilirubin 0.5 (0.2-1.3) mg/dL AST 18 (17-59) U/L ALT 11 (4-49) U/L Alkaline Phosphatase 105 (38-126) U/L Total Protein 7.4 (6.3-8.2) g/dL Albumin 4.5 (3.5-5.0) g/dL Urine Color Red Urine Appearance Cloudy (Clear) Urine pH 5.5 (5.0-8.0) Ur Specific [place] 1.021 (1.001-1.035) Urine Protein 2+ H (Negative) Urine Glucose (UA) 4+ H (Negative) Urine Ketones Trace H (Negative) Urine Blood Large H (Negative) Urine Nitrite Negative (Negative) Urine Bilirubin Negative (Negative) Urine Urobilinogen <2.0 (<2.0) mg/dL Ur Leukocyte Esterase Moderate H (Negative) Urine RBC >182 H (0-5) /hpf Urine WBC 63 H (0-5) /hpf Ur Squamous Epith Cells 2 (0-4) /hpf Urine Bacteria Occasional H (None) /hpf Hyaline Casts 53 H (0-2) /lpf Urine Mucus Rare H (None) /hpf Disposition Clinical Impression: Hematuria Disposition: HOME SELF-CARE Condition: Good Additional Instructions: Please return to the Emergency Department if symptoms worsen or any other concerns. Please follow-up with your urologist. Is patient prescribed a controlled substance at d/c from ED?: No Referrals: Gio Colon MD [Primary Care Provider] - 1-2 days Time of Disposition: 05:10
[2023-09-07 01:23] LABS: Basophils # (A) 0.1 k/uL (0-0.2); Basophils % (A) 0 %; Eosinophils # (A) 0.1 k/uL (0-0.7); Eosinophils % (A) 1 %; HGB 14.5 gm/dL (13.0-17.5); Lymphocytes # (A) 1.2 k/uL (1.0-4.8); Lymphocytes % (A) 6 %; MCH 31.1 pg (25.0-35.0); MCHC 33.7 g/dL (31.0-37.0); MCV 92.1 fL (80.0-100.0); Mean Platelet Volume 9.1; Monocytes # (A) 0.9 k/uL (0-1.0); Monocytes % (A) 5 %; Neutrophils # (A) 16.7 k/uL (1.3-7.7); Neutrophils % (A) 87 %; Platelet Count 345 k/uL (150-450); RBC 4.67 m/uL (4.30-5.90); WBC 19.2 k/uL (3.8-10.6)
[2023-09-07 01:35] LABS: ALT 11 U/L (4-49); AST 18 U/L (17-59); African American GFR (CKD) 50 (>60 ml/min/1.73 sqM); Albumin 4.5 g/dL (3.5-5.0); Alkaline Phosphatase 105 U/L (38-126); Anion Gap 15 mmol/L; Blood Urea Nitrogen 37 mg/dL (9-20); Calcium 9.9 mg/dL (8.4-10.2); Carbon Dioxide 21 mmol/L (22-30); Chloride 100 mmol/L (98-107); Non-African American GFR(CKD) 43 (>60 ml/min/1.73 sqM); Potassium 4.9 mmol/L (3.5-5.1); Sodium 136 mmol/L (137-145); Total Bilirubin 0.5 mg/dL (0.2-1.3); Total Protein 7.4 g/dL (6.3-8.2)
[2023-09-07 01:36] LABS: Glucose 266 mg/dL (74-99)
[2023-09-07] MEDS ORDERED: ONDANSETRON 4 MG/2 ML VIAL IVP STA (01:45)
[2023-09-07 02:41] LABS: Appearance,Urine Cloudy (Clear); Bacteria,Urine Occasional /hpf; Bilirubin,Urine Negative (Negative); Blood,Urine Large (Negative); Color,Urine Red; Glucose,Urine (UA) 4+ (Negative); Hyaline Casts,Urine 53 /lpf (0-2); Ketones,Urine Trace (Negative); Leukocyte Esterase,Urine Moderate (Negative); Mucus,Urine Rare /hpf; Nitrite,Urine Negative (Negative); PH, Urine 5.5 (5.0-8.0); Protein,Urine 2+ (Negative); RBC,Urine >182 /hpf (0-5); Specific Gravity,Urine 1.021 (1.001-1.035); Squamous Epithelial Cell,Urine 2 /hpf (0-4); Urobilinogen,Urine <2.0 mg/dL (<2.0); WBC,Urine 63 /hpf (0-5)
[2023-09-07] MEDS ORDERED: ACET/COD 300 MG/30 MG STARTER PACK 6 TAB BTL PO STA (05:04)
[2023-09-07] MEDS ORDERED: ONDANSETRON 4 MG ODT STARTER PACK 2 TAB BTL PO STA (05:04)
[2023-09-07] MEDS ORDERED: CEPHALEXIN 500 MG CAP PO STA (05:04)
[2023-09-07 06:06] VITALS: BP 111/68; PULSE 62
--- NOTE | 2023-09-07 06:50 | US ---
EXAM: US Pelvis Transabdominal, Limited CLINICAL HISTORY: s/p TURBT 09/06/23. Bleeding and pain TECHNIQUE: Real-time limited transabdominal pelvic ultrasound with image documentation. COMPARISON: No relevant prior studies available. FINDINGS: A Downing catheter is in the bladder. The bladder is completely decompressed. There may be bladder wall thickening with the bladder wall measuring up to 10 mm. IMPRESSION: Downing catheter in the bladder with very little urine. Appearance of bladder wall thickening.
== END 2023-09-07 06:21 | disposition home or self-care (01) ==
LOC: EC 00:01
DX: R31.9 Hematuria, unspecified (principal); E11.9 Type 2 diabetes mellitus without complications; E78.5 Hyperlipidemia, unspecified; I10 Essential (primary) hypertension; I25.2 Old myocardial infarction; M19.90 Unspecified osteoarthritis, unspecified site; E07.9 Disorder of thyroid, unspecified; Z86.73 Personal history of transient ischemic attack (TIA), and cerebral infarction without residual deficits; F17.200 Nicotine dependence, unspecified, uncomplicated; Z88.8 Allergy status to other drugs, medicaments and biological substances; Z79.890 Hormone replacement therapy; Z79.82 Long term (current) use of aspirin; Z79.84 Long term (current) use of oral hypoglycemic drugs; Z79.01 Long term (current) use of anticoagulants; Z79.899 Other long term (current) drug therapy
CPT/HCPCS: 36415; 80053; 85025; 81001; 76857; 99284; 96374; 96375; J2405; J1170; S0119

== ENCOUNTER 2024-07-10 13:53 | Inpatient (IN) | payer MEDICARE ==
[2024-07-10] MEDS ORDERED: HEPARIN SODIUM 1,000 UN/ML (10ML VL) IV PRN (14:19)
[2024-07-10] MEDS ORDERED: NITROGLYCERIN SL TABS 0.4 MG TAB SUBLINGUAL PRN (14:33)
[2024-07-10] MEDS: ATORVASTATIN 80 MG TAB PO SCH (14:51)
[2024-07-10 15:02] LABS: Basophils # (A) 0.1 k/uL (0-0.2); Basophils % (A) 1 %; Eosinophils # (A) 0.3 k/uL (0-0.7); Eosinophils % (A) 2 %; HCT 44.2 % (39.0-53.0); HGB 14.5 gm/dL (13.0-17.5); Lymphocytes # (A) 1.9 k/uL (1.0-4.8); Lymphocytes % (A) 16 %; MCH 30.3 pg (25.0-35.0); MCHC 32.8 g/dL (31.0-37.0); MCV 92.6 fL (80.0-100.0); Mean Platelet Volume 8.2; Monocytes # (A) 0.8 k/uL (0-1.0); Monocytes % (A) 6 %; Neutrophils # (A) 8.7 k/uL (1.3-7.7); Neutrophils % (A) 74 %; Platelet Count 334 k/uL (150-450); RBC 4.78 m/uL (4.30-5.90); RDW 13.5 % (11.5-15.5); WBC 11.9 k/uL (3.8-10.6)
[2024-07-10] MEDS: HEPARIN SODIUM 1,000 UN/ML (10ML VL) IV ONE (15:13)
[2024-07-10] MEDS: HEPARIN SOD,PORK IN 0.45% NACL 25,000 UNIT in 0.45% NACL 1 250ML.BAG IV SCH (15:14)
[2024-07-10 15:16] LABS: INR 0.9 (<1.2); Partial Thromboplastin Time 23.3 sec (22.0-30.0); Prothrombin Time 10.4 sec (10.0-12.5)
[2024-07-10 15:18] LABS: ALT 10 U/L (4-49); AST 73 U/L (17-59); African American GFR (CKD) 86 (>60 ml/min/1.73 sqM); Albumin 3.8 g/dL (3.5-5.0); Alkaline Phosphatase 86 U/L (38-126); Anion Gap 9 mmol/L; Blood Urea Nitrogen 24 mg/dL (9-20); Calcium 9.1 mg/dL (8.4-10.2); Carbon Dioxide 22 mmol/L (22-30); Chloride 106 mmol/L (98-107); Glucose 129 mg/dL (74-99); Magnesium 2.1 mg/dL (1.6-2.3); Non-African American GFR(CKD) 75 (>60 ml/min/1.73 sqM); Potassium 4.9 mmol/L (3.5-5.1); Sodium 137 mmol/L (137-145); Total Bilirubin 0.6 mg/dL (0.2-1.3); Total Protein 6.5 g/dL (6.3-8.2)
--- NOTE | 2024-07-10 15:37 | ED ---
General Adult HPI - General Chief complaint: Chest Pain Stated complaint: cardiac Time Seen by Provider: 07/10/24 14:01 Source: patient, EMS, RN notes reviewed, old records reviewed Mode of arrival: EMS Limitations: no limitations - History of Present Illness Initial comments: 68 yo male presenting from outside hospital with non-ST segment elevated OR. Patient had experienced chest pain yesterday evening with bilateral shoulder pain. He has a prior history of CAD with previous stenting approximately 10 years ago. Patient denies current chest pain at the time my evaluation. Additionally the patient was worked up for CVA receiving CT angiography as well as CT and CT perfusion this was due to some left arm numbness and possibility of left facial numbness. There was no reported weakness. Patient denies any symptoms currently. Patient is asymptomatic at the time my evaluation. - Related Data Home Medications Medication Instructions Recorded Confirmed Levothyroxine Sodium [Synthroid] 200 mcg PO HS 03/09/15 07/10/24 Aspirin EC [Ecotrin] 325 mg PO HS 01/27/23 07/10/24 Dapagliflozin Propanediol [Farxiga] 10 mg PO HS 01/27/23 07/10/24 Semaglutide [Ozempic] 0.25 mg SQ SA 01/27/23 07/10/24 lisinopriL [Zestril] 40 mg PO HS 01/27/23 07/10/24 Atorvastatin [Lipitor] 80 mg PO HS 03/06/23 07/10/24 carvediloL [Coreg] 6.25 mg PO HS 03/06/23 07/10/24 Insulin Glargine,Hum.rec.anlog 16 units SQ HS 07/10/24 07/10/24 [Lantus Solostar Pen] metFORMIN HCL 1,000 mg PO BID 07/10/24 07/10/24 Allergies Allergy/AdvReac Type Severity Reaction Status Date / Time glipizide AdvReac Blurry Verified 07/10/24 15:07 vision Review of Systems ROS Statement: Those systems with pertinent positive or pertinent negative responses have been documented in the HPI. ROS Other: All systems not noted in ROS Statement are negative. Past Medical History Past Medical History: CVA/TIA, Diabetes Mellitus, Hyperlipidemia, Hypertension, Myocardial Infarction (OR), Osteoarthritis (OA), Thyroid Disorder Additional Past Medical History / Comment(s): STEMI 03/08/15 Last Myocardial Infarction Date:: 2015 History of Any Multi-Drug Resistant Organisms: None Reported Past Surgical History: Heart Catheterization With Stent, Tonsillectomy Additional Past Surgical History / Comment(s): 2 stents to LAD on 03/08/15. 1 stent to LAD for reocclusion on 11/25/15. tumor removed from bladder Past Anesthesia/Blood Transfusion Reactions: No Reported Reaction Date of Last Stent Placement:: 11/25/15 Past Psychological History: No Psychological Hx Reported Smoking Status: Current every day smoker Past Alcohol Use History: Rare Past Drug Use History: None Reported - Past Family History Father Family Medical History: CVA/TIA Mother History Unknown: Yes General Exam Limitations: no limitations General appearance: alert, in no apparent distress Head exam: Present: atraumatic, normocephalic Eye exam: Present: normal appearance, PERRL ENT exam: Present: normal exam Neck exam: Present: normal inspection. Absent: tenderness, meningismus Respiratory exam: Present: normal lung sounds bilaterally. Absent: respiratory distress Cardiovascular Exam: Present: regular rate, normal rhythm GI/Abdominal exam: Present: soft. Absent: distended, tenderness, guarding Extremities exam: Present: normal inspection, normal capillary refill Neurological exam: Present: alert, oriented X3, CN II-XII intact. Absent: motor sensory deficit Psychiatric exam: Present: normal affect, normal mood Skin exam: Present: warm, dry, intact Course Vital Signs 07/10/24 07/10/24 14:09 14:14 Temperature 97.9 F Pulse Rate 66 Pulse Rate [ 67 Pulse Oximetery ] Respiratory 16 Rate Blood Pressure 142/89 O2 Sat by Pulse 98 Oximetry Medical Decision Making - Medical Decision Making Was pt. sent in by a medical professional or institution (, PA, THEOLOGY TEACHER, urgent care, hospital, or correction...) When possible be specific @Transfer from [facility] for cardiology consultation for non-ST segment elevated OR Did you speak to anyone other than the patient for history (EMS, parent, family, police, friend...)? What history was obtained from this source @ -No Did you review nursing and triage notes (agree or disagree)? Why? @ -I reviewed and agree with nursing and triage notes Were old charts reviewed (outside hosp., previous admission, EMS record, old EKG, old radiological studies, urgent care reports/EKG's, correction records)? Report findings @ -No old charts were reviewed Differential Chest Pain: Stable Angina, Unstable Angina, STEMI, NSTEMI Aortic Dissection, Pneumothorax, Musculoskeletal, Esophageal Spasm GERD, Cholecystitis, Pancreatitis, Zoster, this is not meant to be an all-inclusive list. EKG interpreted by me (3pts min.). @ -Sinus bradycardia right ventricular conduction delay, wide-complex rate of 55, FL interval 107, QRS duration 119, QTc [address] segment elevation X-rays interpreted by me (1pt min.). @ -None done CT interpreted by me (1pt min.). @ -None done U/S interpreted by me (1pt. min.). @ -None done What testing was considered but not performed or refused? (CT, X-rays, U/S, labs)? Why? @ -None What meds were considered but not given or refused? Why? @ -None Did you discuss the management of the patient with other professionals (professionals i.e. , PA, THEOLOGY TEACHER, lab, RT, psych nurse, social insurance adviser, kaiako kura kaupapa maori, te acher, facility security officer, sample case porter)? Give summary @ -Dr. Jung and Dr. Colon Was smoking cessation discussed for >3mins.? @ -No Was critical care preformed (if so, how long)? @ -[Yes, 35 minutes Were there social determinants of health that impacted care today? How? (Homelessness, low income, unemployed, alcoholism, drug addiction, transportation, low edu. Level, literacy, decrease access to med. care, assisted, rehab)? @ -No Was there de-escalation of care discussed even if they declined (Discuss DNR or withdrawal of care, Hospice)? DNR status @ -No What co-morbidities impacted this encounter? (DM, HTN, Smoking, COPD, CAD, Cancer, CVA, ARF, Chemo, Hep., AIDS, mental health diagnosis, sleep apnea, morbid obesity)? @ -Coronary artery disease Was patient admitted / discharged? Hospital course, mention meds given and route, prescriptions, significant lab abnormalities, going to OR and other pertinent info. @ -[68-year-old male transfer from outside hospital for non-ST segment elevated OR. Patient does have significant EKG change compared to [facility] as well as EMS transport. He denies current chest pain. He is placed on heparin upon arrival. He had been given aspirin prior to transfer. Repeat laboratory studies are obtained and do show significantly elevated troponin at 11. Cardiology was contacted regarding patient's presentation and admission. Patient admitted to Dr. Colon who is aware. Undiagnosed new problem with uncertain prognosis? @ -No Drug Therapy requiring intensive monitoring for toxicity (Heparin, Nitro, Insulin, Cardizem)? @ -No Were any procedures done? @ -No Diagnosis/symptom? @NSTEMI Acute, or Chronic, or Acute on Chronic? @ -Acute Uncomplicated (without systemic symptoms) or Complicated (systemic symptoms)? @ -Default Side effects of treatment? @ -No Exacerbation, Progression, or Severe Exacerbation? @ -No Poses a threat to life or bodily function? How? (Chest pain, USA, OR, pneumonia, PE, COPD, DKA, ARF, appy, cholecystitis, CVA, Diverticulitis, Homicidal, Suicidal, threat to staff... and all critical care pts) @ -[Yes, ACS - Lab Data Result diagrams: 07/10/24 14:48 07/10/24 14:48 Critical Care Time Critical Care Time: Yes Total Critical Care Time: 35 Disposition Clinical Impression: Acute non-ST elevation myocardial infarction (NSTEMI) Disposition: ADMITTED IP TO THIS HOSP Condition: Serious Is patient prescribed a controlled substance at d/c from ED?: No Time of Disposition: 16:01
[2024-07-10] MEDS: SODIUM CHLORIDE 0.9% 1,000 ML IV ONE ×2 (16:38)
--- NOTE | 2024-07-10 16:44 | P.CRDCN ---
History of Present Illness Consult date: 07/10/24 History of present illness: HISTORY OF PRESENTING ILLNESS 68-year-old male with PMH of CAD status post PCI to proximal LAD in 2014 in the setting of STEMI, PCI to proximal LAD in 2016 in setting of NSTEMI, type 2 diabetes dyslipidemia hypertension hypothyroidism, chronic smoker. He continues to smoke 1 pack/day. This time patient presented to the hospital with symptoms of substernal chest pressure that started last night. He reports that this pressure gets worse with activity and gets better with rest and sublingual nitroglycerin. He also reports having difficulty in breathing since morning. He also had some diaphoresis when he had his symptoms of substernal chest pressure last night. Patient On admission his ECG shows sinus tachycardia with Q waves in anteroseptal leads and inferior leads suggestive of old IA. On serial ECG in the ER it was noted that patient was going into dynamic wide- complex QRS with right bundle morphology with underlying rhythm being sinus. I was notified because of his dynamic ECG changes and elevated troponin of 11.6. On my evaluation, I performed a repeat ECG which showed sinus rhythm with Q waves in anteroseptal leads with concerns of 0.[address] elevations in 1 and aVL. Patient was also complaining of substernal chest heaviness 4/10 in intensity at the time of evaluation. Bedside echocardiogram in the ER shows an EF of 45% with anteroseptal and anteroapical hypokinesia. Other labs sodium 135, potassium 4.9, BUN 24, creatinine 1.03, hemoglobin 14.5. Social history: Patient smokes 1 pack/day. He reports occasional alcohol use. He reports occasional marijuana use REVIEW OF SYSTEMS 14 point review of system is negative except what is mentioned above in HPI. PHYSICAL EXAMINATION Vital signs reviewed. Head: Normocephalic. Eyes: Sclerae nonicteric. Neck: Brisk carotid upstroke, no jugular venous distention. Lungs: Clear to auscultation. Heart: Regular rate and rhythm, S1-S2, no murmur or rub. Abdomen: Soft nontender, positive bowel sounds. Extremities: No edema, intact distal pulses. Neuro: Alert, oritented, no focal deficits. Detailed neuro exam was not performed. ASSESSMENT NSTEMI, with elevated troponins, substernal chest pressure Prior history of CAD with PCI to proximal LAD 2014 (STEMI), proximal LAD 2016 (NSTEMI) Essential hypertension Type 2 diabetes Dyslipidemia Tobacco smoker PLAN Obtain updated echocardiogram Continue aspirin, IV heparin drip Plan for cardiac catheterization. Verbal consent was obtained to the patient and schedule steps were explained including the risk of stroke and IA and . Patient reports understanding and would like to proceed. Patient is still smoking. I have highly recommended him not to smoke any further Ashwin Jung MD, [facility], [facility]I Thank you for allowing [facility] to participate in this patient's care. Feel free to reach out in case of any followup questions. Past Medical History Past Medical History: CVA/TIA, Diabetes Mellitus, Hyperlipidemia, Hypertension, Myocardial Infarction (IA), Osteoarthritis (OA), Thyroid Disorder Additional Past Medical History / Comment(s): STEMI 03/08/15 Last Myocardial Infarction Date:: 2015 History of Any Multi-Drug Resistant Organisms: None Reported Past Surgical History: Heart Catheterization With Stent, Tonsillectomy Additional Past Surgical History / Comment(s): 2 stents to LAD on 03/08/15. 1 s tent to LAD for reocclusion on 11/25/15. tumor removed from bladder Past Anesthesia/Blood Transfusion Reactions: No Reported Reaction Date of Last Stent Placement:: 11/25/15 Past Psychological History: No Psychological Hx Reported Smoking Status: Current every day smoker Past Alcohol Use History: Rare Past Drug Use History: None Reported - Past Family History Father Family Medical History: CVA/TIA Mother History Unknown: Yes Medications and Allergies Home Medications Medication Instructions Recorded Confirmed Type Levothyroxine Sodium [Synthroid] 200 mcg PO HS 03/09/15 07/10/24 History Aspirin EC [Ecotrin] 325 mg PO HS 01/27/23 07/10/24 History Dapagliflozin Propanediol [Farxiga] 10 mg PO HS 01/27/23 07/10/24 History Semaglutide [Ozempic] 0.25 mg SQ SA 01/27/23 07/10/24 History lisinopriL [Zestril] 40 mg PO HS 01/27/23 07/10/24 History Atorvastatin [Lipitor] 80 mg PO HS 03/06/23 07/10/24 History carvediloL [Coreg] 6.25 mg PO HS 03/06/23 07/10/24 History Insulin Glargine,Hum.rec.anlog 16 units SQ HS 07/10/24 07/10/24 History [Lantus Solostar Pen] metFORMIN HCL 1,000 mg PO BID 07/10/24 07/10/24 History Allergies Allergy/AdvReac Type Severity Reaction Status Date / Time glipizide AdvReac Blurry Verified 07/10/24 15:07 vision Physical Exam Vitals: Vital Signs Temp Pulse Pulse Resp BP Pulse Ox 07/10/24 14:14 67 07/10/24 14:09 97.9 F 66 16 142/89 98 Intake and Output 07/10/24 07/10/24 07/10/24 06:59 14:59 22:59 Other: Weight 77.111 kg Results 07/10/24 14:48 07/10/24 14:48 Cardiac Enzymes 07/10/24 07/10/24 07/10/24 Range/Units 14:48 14:48 14:51 AST 73 H (17-59) U/L Troponin I 11.400 H* 11.600 H* (0.000-0.034) ng/mL Coagulation 07/10/24 Range/Units 14:48 PT 10.4 (10.0-12.5) sec APTT 23.3 (22.0-30.0) sec CBC 07/10/24 Range/Units 14:48 WBC 11.9 H (3.8-10.6) k/uL RBC 4.78 (4.30-5.90) m/uL Hgb 14.5 (13.0-17.5) gm/dL Hct 44.2 (39.0-53.0) % Plt Count 334 (150-450) k/uL Comprehensive Metabolic Panel 07/10/24 Range/Units 14:48 Sodium 137 (137-145) mmol/L Potassium 4.9 (3.5-5.1) mmol/L Chloride 106 (98-107) mmol/L Carbon Dioxide 22 (22-30) mmol/L BUN 24 H (9-20) mg/dL Creatinine 1.03 (0.66-1.25) mg/dL Glucose 129 H (74-99) mg/dL Calcium 9.1 (8.4-10.2) mg/dL AST 73 H (17-59) U/L ALT 10 (4-49) U/L Alkaline Phosphatase 86 (38-126) U/L Total Protein 6.5 (6.3-8.2) g/dL Albumin 3.8 (3.5-5.0) g/dL Current Medications Generic Name Dose Route Start Last Admin Trade Name Freq PRN Reason Stop Dose Admin Aspirin 325 mg 07/11/24 09:00 Aspirin 325 Mg Tab PO DAILY [facility] Atorvastatin Calcium 80 mg 07/10/24 14:45 07/10/24 14:51 Atorvastatin 80 Mg Tab PO 80 mg DAILY HENRI Administration Heparin Sodium (Porcine) 0 unit 07/10/24 14:19 Heparin Sodium 1,000 Un/Ml (10ml Vl) IV PER PROTOCOL PRN Low PTT Protocol Heparin Sodium/Sodium Chloride 250 mls @ 9.253 mls/hr 07/10/24 14:30 07/10/24 15:14 25,000 unit/ Sodium Chloride IV 12 units/kg/hr .Q24H HENRI 9.253 mls/hr Administration Protocol 12 UNITS/KG/HR Nitroglycerin 0.4 mg 07/10/24 14:33 Nitroglycerin Sl Tabs 0.4 Mg Tab SUBLINGUAL Q5M PRN Chest Pain Intake and Output 07/10/24 07/10/24 07/10/24 06:59 14:59 22:59 Other: Weight 77.111 kg Patient Weight 07/11/24 06:59 Weight 77.111 kg 07/10/24 14:48 07/10/24 14:48
[2024-07-10] MEDS: MIDAZOLAM 2 MG/2 ML VIAL IVP ONE (17:27)
[2024-07-10] MEDS: HEPARIN SODIUM,PORCINE 10,000 UNIT in SODIUM CHLORIDE 0.9% 1,000 ML IRRIGATION ONE (17:29)
[2024-07-10] MEDS: LIDOCAINE 1% INJ 10MG/ML (20 ML MDV) SQ ONE (17:29)
[2024-07-10] MEDS: HEPARIN SODIUM,PORCINE (1 ML) 2,500 UNIT in SODIUM CHLORIDE 0.9% 250 ML IRRIGATION ONE (17:29)
[2024-07-10] MEDS: VERAPAMIL SYRINGE (5 MG/10 ML) INTRAARTER ONE (17:31)
[2024-07-10] MEDS ORDERED: RX INFO: IV CONTRAST WAS GIVEN 1 EACH MISC MISCELLANE PRN (17:56)
[2024-07-10] MEDS: IOPAMIDOL-370 100ML BTL INJ ONE (17:57)
--- NOTE | 2024-07-10 18:03 | P.PCN ---
Date of Procedure: 07/10/24 Operative Findings: CARDIAC CATHETERIZATION PERFORMING PHYSICIAN: Gold Hamm MD, RPVI PROCEDURE PERFORMED: 1. Selective right and left coronary angiogram 2. Left heart catheterization 3. Ultrasound-guided access of the right radial artery INDICATION: Acute coronary syndrome COMPLICATION: None APPROACH: Right radial artery LEVEL OF SEDATION: Moderate with a sedation length of 30 minutes PROCEDURE DESCRIPTION: After obtaining an informed consent, the patient was brought to cardiac chemical laboratory scientist. Local anesthesia was performed using lidocaine subcutaneously. The right radial artery was cannulated using Seldinger technique, the guidewire passed easily, following that we advanced a 5-Venezuelan sheath dilator assembly, the wire and dilator were removed and sheath was flushed. Following that, 2 mg of verapamil was given. Selective right and left coronary angiogram using a 6-Venezuelan JR4 and JL 3.5 catheters. Following that we did left heart catheterization using 6-Venezuelan pigtail catheter. The procedure was completed there was no complication. SELECTIVE CORONARY ANGIOGRAM: The right coronary artery: The RCA is chronically occluded in the midportion and today was not well- opacified but was opacified on prior heart catheterization. The RCA filled by contralateral collateral. Left main: Extremely short and almost nonexistent The left circumflex: Large-caliber vessel and codominant vessel. The proximal left circumflex has intermediate disease disease only and gives rise into an obtuse marginal branch which is small caliber vessel appears to be occluded and second obtuse marginal branch which appears to have mild disease only. The PDA branch of the circumflex has a tight focal lesion The left anterior descending artery: Large caliber vessel. The LAD is stented in the mid portion. The LAD has diffusely diseased up to about 70 to 80%. Of the LAD gives rise into a medium size diagonal branch which has also severe disease in the proximal portion reach the ostium. HEMODYNAMICS: LVEDP was about 12 mmHg with no significant gradient across aortic valve CONCLUSION: 1. Severe triple-vessel coronary artery disease with diffuse disease involving the LAD 2. Normal left-sided filling pressure POSTPROCEDURE MANAGEMENT: Obtain a surgical opinion regarding an evaluation for CABG
[2024-07-10 19:55] LABS: Glucose,Whole Blood 162 mg/dL (70-110)
[2024-07-10] MEDS: SODIUM CHLORIDE 0.9% 1,000 ML IV SCH (20:08)
[2024-07-11 05:52] LABS: Glucose,Whole Blood 162 mg/dL (70-110)
[2024-07-11] MEDS ORDERED: DEXTROSE 50% SYRINGE 50 ML IVP PRN ×2 (07:11)
[2024-07-11 08:06] LABS: Basophils # (A) 0.1 k/uL (0-0.2); Basophils % (A) 1 %; Eosinophils # (A) 0.2 k/uL (0-0.7); Eosinophils % (A) 2 %; HGB 13.4 gm/dL (13.0-17.5); Lymphocytes # (A) 1.8 k/uL (1.0-4.8); Lymphocytes % (A) 18 %; MCH 31.3 pg (25.0-35.0); MCHC 33.6 g/dL (31.0-37.0); MCV 93.2 fL (80.0-100.0); Mean Platelet Volume 7.8; Monocytes # (A) 0.8 k/uL (0-1.0); Monocytes % (A) 8 %; Neutrophils % (A) 71 %; Platelet Count 282 k/uL (150-450); RBC 4.29 m/uL (4.30-5.90); RDW 13.5 % (11.5-15.5); WBC 9.9 k/uL (3.8-10.6)
[2024-07-11] MEDS: INSULIN ASPART (NovoLOG) 100 UNIT/ML VIAL SQ SCH (08:07)
[2024-07-11] MEDS: ASPIRIN 325 MG TAB PO SCH (08:10)
[2024-07-11 08:42] LABS: INR 0.9 (<1.2); Prothrombin Time 9.9 sec (10.0-12.5)
--- NOTE | 2024-07-11 08:48 | P.GSCN ---
History of Present Illness Consult date: 07/11/24 Reason for Consult: Triple-vessel coronary artery disease, non-STEMI this admission Requesting physician: Gold Hamm History of present illness: This is a 68-year-old gentleman who follows outpatient with Dr. Colon for primary care and Dr. Hamm for cardiology. He has a previous medical history of coronary artery disease with previous STEMI in 2014 and 2 stents to the LAD at that time along with non-STEMI in 2015 with 1 stent to the LAD at that time, hypertension, hyperlipidemia, hypothyroid, diabetes mellitus, multiple TIAs, CVA in 2022 with subsequent left carotid endarterectomy, and chronic current tobacco dependence. This gentleman presented yesterday to [facility] primarily for left-sided facial numbness along with left arm numbness. Code stroke was called, CT of the head and CTA demonstrated no bleed and no evidence of stroke. In addition at that time he also complained of chest heaviness. Troponin was elevated and the patient was transported to [facility] for cardiology evaluation. EKG demonstrated Q waves in the anterolateral septal and inferior leads. Bedside echo completed in the ER per Dr. Jung's documentation demonstrated EF 45%, anteroseptal and anterior apical hypokinesia. Troponins elevated from 11.4 up to 17.8 and he was taken to the [facility] yesterday demonstrating severe triple-vessel coronary artery disease with diffuse disease involving LAD. Due to these findings consultation was placed to cardiothoracic surgery for revascularization recommendations. Past Medical History Past Medical History: CVA/TIA, Diabetes Mellitus, Hyperlipidemia, Hypertension, Myocardial Infarction (CO), Osteoarthritis (OA), Thyroid Disorder Additional Past Medical History / Comment(s): STEMI 03/08/15 Last Myocardial Infarction Date:: 2014 History of Any Multi-Drug Resistant Organisms: None Reported Past Surgical History: Heart Catheterization With Stent, Tonsillectomy Additional Past Surgical History / Comment(s): 2 stents to LAD on 03/08/15. 1 stent to LAD for reocclusion on 11/25/15. tumor removed from bladder. Carotid surgery Past Anesthesia/Blood Transfusion Reactions: No Reported Reaction Date of Last Stent Placement:: 11/25/15 Past Psychological History: No Psychological Hx Reported Smoking Status: Current every day smoker Past Alcohol Use History: Rare Past Drug Use History: None Reported - Past Family History Father Family Medical History: CVA/TIA Mother History Unknown: Yes Medications and Allergies Home Medications Medication Instructions Recorded Confirmed Type Levothyroxine Sodium [Synthroid] 200 mcg PO HS 03/09/15 07/10/24 History Aspirin EC [Ecotrin] 325 mg PO HS 01/27/23 07/10/24 History Dapagliflozin Propanediol [Farxiga] 10 mg PO HS 01/27/23 07/10/24 History Semaglutide [Ozempic] 0.25 mg SQ SA 01/27/23 07/10/24 History lisinopriL [Zestril] 40 mg PO HS 01/27/23 07/10/24 History Atorvastatin [Lipitor] 80 mg PO HS 03/06/23 07/10/24 History carvediloL [Coreg] 6.25 mg PO HS 03/06/23 07/10/24 History Insulin Glargine,Hum.rec.anlog 16 units SQ HS 07/10/24 07/10/24 History [Lantus Solostar Pen] metFORMIN HCL 1,000 mg PO BID 07/10/24 07/10/24 History Allergies Allergy/AdvReac Type Severity Reaction Status Date / Time glipizide AdvReac Blurry Verified 07/10/24 15:07 vision Surgical - Exam Vital Signs Temp Pulse Resp BP Pulse Ox 97.9 F 66 16 142/89 98 07/10/24 14:07/10/24 14:07/10/24 14:07/10/24 14:07/10/24 14:09 CONSTITUTIONAL: Awake and alert, appears comfortable, cooperative, well- developed, well-nourished, no pain, no acute distress EYES: Pupils equal, round, reactive to light, normal ocular movement ENT: Moist mucous membranes without oral lesions present NECK: No masses, no bruits, trachea midline RESPIRATORY: Lungs sounds diminished bilaterally. Respirations even, nonlabored. Currently on room air with oxygen saturation 95%. Strong cough. No chest wall deformities. No clubbing or cyanosis present CARDIOVASCULAR: S1, S2 present. Regular rate and rhythm, sinus bradycardia on telemetry. Palpable peripheral pulses bilaterally. No edema present. No calf pain or tenderness noted. No significant lower extremity varicosities noted GASTROINTESTINAL: Abdomen soft, nontender, nondistended without masses or organomegaly noted. There is no rebound or guarding present. Active bowel sounds present 4 quadrants. GENITOURINARY: Deferred INTEGUMENTARY: Skin is warm and dry with evidence of good perfusion. Right radial artery heart cath site with T band in place NEUROLOGIC: Cranial nerves II through XII intact, normal coordination, no obvious motor or sensory deficits, speech is normal MUSKULOSKELETAL: Able to move all extremities, strength equal bilaterally, normal posture PSYCHIATRIC: Alert and oriented to person place and time, appropriate affect, intact judgment and insight CLINICAL FRAILTY SCORE 3 Results - Labs 07/11/24 07:27 07/10/24 14:48 Abnormal Lab Results - Last 24 Hours (Table) 07/10/24 07/10/24 07/10/24 Range/Units 14:48 14:48 14:48 WBC 11.9 H (3.8-10.6) k/uL Neutrophils # 8.7 H (1.3-7.7) k/uL BUN 24 H (9-20) mg/dL Glucose 129 H (74-99) mg/dL POC Glucose (mg/dL) (70-110) mg/dL AST 73 H (17-59) U/L Troponin I 11.400 H* (0.000-0.034) ng/mL 07/10/24 07/10/24 07/10/24 Range/Units 14:51 19:40 19:53 WBC (3.8-10.6) k/uL Neutrophils # (1.3-7.7) k/uL BUN (9-20) mg/dL Glucose (74-99) mg/dL POC Glucose (mg/dL) 162 H (70-110) mg/dL AST (17-59) U/L Troponin I 11.600 H* 17.800 H* (0.000-0.034) ng/mL 07/11/24 Range/Units 05:47 WBC (3.8-10.6) k/uL Neutrophils # (1.3-7.7) k/uL BUN (9-20) mg/dL Glucose (74-99) mg/dL POC Glucose (mg/dL) 162 H (70-110) mg/dL AST (17-59) U/L Troponin I (0.000-0.034) ng/mL Diabetes panel 07/10/24 Range/Units 14:48 Sodium 137 (137-145) mmol/L Potassium 4.9 (3.5-5.1) mmol/L Chloride 106 (98-107) mmol/L Carbon Dioxide 22 (22-30) mmol/L BUN 24 H (9-20) mg/dL Creatinine 1.03 (0.66-1.25) mg/dL Glucose 129 H (74-99) mg/dL Calcium 9.1 (8.4-10.2) mg/dL AST 73 H (17-59) U/L ALT 10 (4-49) U/L Alkaline Phosphatase 86 (38-126) U/L Total Protein 6.5 (6.3-8.2) g/dL Albumin 3.8 (3.5-5.0) g/dL Calcium panel 07/10/24 Range/Units 14:48 Calcium 9.1 (8.4-10.2) mg/dL Albumin 3.8 (3.5-5.0) g/dL Pituitary panel 07/10/24 Range/Units 14:48 Sodium 137 (137-145) mmol/L Potassium 4.9 (3.5-5.1) mmol/L Chloride 106 (98-107) mmol/L Carbon Dioxide 22 (22-30) mmol/L BUN 24 H (9-20) mg/dL Creatinine 1.03 (0.66-1.25) mg/dL Glucose 129 H (74-99) mg/dL Calcium 9.1 (8.4-10.2) mg/dL Adrenal panel 07/10/24 Range/Units 14:48 Sodium 137 (137-145) mmol/L Potassium 4.9 (3.5-5.1) mmol/L Chloride 106 (98-107) mmol/L Carbon Dioxide 22 (22-30) mmol/L BUN 24 H (9-20) mg/dL Creatinine 1.03 (0.66-1.25) mg/dL Glucose 129 H (74-99) mg/dL Calcium 9.1 (8.4-10.2) mg/dL Total Bilirubin 0.6 (0.2-1.3) mg/dL AST 73 H (17-59) U/L ALT 10 (4-49) U/L Alkaline Phosphatase 86 (38-126) U/L Total Protein 6.5 (6.3-8.2) g/dL Albumin 3.8 (3.5-5.0) g/dL - Imaging Additional studies: Heart catheterization films reviewed with Dr. Araya Assessment and Plan Assessment: Coronary artery disease with previous STEMI in 2014 and 2 stents to the LAD at that time along with non-STEMI in 2016 with 1 stent to the LAD at that time, non-STEMI this admission Chest pressure secondary to above Left facial numbness and left arm numbness, no stroke evident on CT at [facility] History of hypertension Hyperlipidemia Hypothyroid Diabetes mellitus Multiple TIAs CVA in 2022 with subsequent left carotid endarterectomy Chronic current tobacco dependence, 1 pack/day since 1969 Plan: The patient was seen and examined laying in bed this morning on the cardiac stepdown unit. Chart/diagnostics reviewed. The case was discussed with Dr. Hamm and Dr. Araya, Dr. Araya did review patient's heart catheterization f ilky. The usual perioperative course was discussed in detail with the patient, risks and benefits reviewed, all questions were answered. Recommend continuing maximal medical therapy with aspirin, statin, beta-katerina. Patient was counseled regarding smoking cessation. Await discussion between Dr. Araya and Dr. aHmm regarding surgical revascularization versus percutaneous intervention. More recommendations to follow. Thank you Dr. Hamm for this consult. I have personally seen and examined the patient, performed the documentation and the assessment and plan as written. Number of minutes spent on the visit: 30. CODY Kinsey
--- NOTE | 2024-07-11 09:45 | CA ---
Transthoracic Echo Report Name: Wilbert Boswell Age: 68 Gender: M : 1955 Exam Date: 07/11/2024 08:20 Exam Location: [facility] Ht (in): 68 Wt (lb): 170 Ordering Physician: Dany Rene MD Attending/Referring Phys: [id number], Edgard Panel Builder Mercy Monge RDCS Procedure CPT: Indications: nstemi Cardiac Hx: stents Technical Quality: Good Contrast 1: Total Dose (mL): Contrast 2: Total Dose (mL): MEASUREMENTS (Male / Female) Normal Values 2D ECHO LV Diastolic Diameter PLAX 4.6 cm 4.2 - 5.9 / 3.9 - 5.3 cm LV Systolic Diameter PLAX 2.8 cm IVS Diastolic Thickness 1.3 cm 0.6 - 1.0 / 0.6 - 0.9 cm LVPW Diastolic Thickness 1.3 cm 0.6 - 1.0 / 0.6 - 0.9 cm LV Relative Wall Thickness 0.6 RV Internal Dim ED PLAX 3.1 cm LA Systolic Diameter LX 3.5 cm 3.0 - 4.0 / 2.7 - 3.8 cm LV Diastolic Volume MOD BP 102.0 cm??? 67 - 155 / 56 - 104 cm??? LV Systolic Volume MOD BP 47.5 cm??? 22 - 58 / 19 - 49 cm??? LV Ejection Fraction MOD BP 53.4 % >= 55 % LV Cardiac Index MOD BP 1604.8 cm???/min???m??? LV Diastolic Volume MOD 4C 106.6 cm??? LV Systolic Volume MOD 4C 47.2 cm??? LV Ejection Fraction MOD 4C 55.7 % LV Cardiac Index MOD 4C 1748.6 cm???/min???m??? LV Diastolic Length 4C 8.0 cm LV Systolic Length 4C 7.4 cm LV Diastolic Volume MOD 2C 95.3 cm??? LV Systolic Volume MOD 2C 46.9 cm??? LV Ejection Fraction MOD 2C 50.8 % LV Cardiac Index MOD 2C 1424.5 cm???/min???m??? LV Diastolic Length 2C 8.2 cm LV Systolic Length 2C 7.1 cm M-MODE Aortic Root Diameter MM 3.5 cm LA Systolic Diameter MM 1.9 cm LA Ao Ratio MM 0.6 DOPPLER AV Peak Velocity 135.5 cm/s AV Peak Gradient 7.3 mmHg AI Peak Velocity 416.7 cm/s AI Peak Gradient 69.5 mmHg AI Pressure Half Time 586.2 ms Mitral E Point Velocity 87.7 cm/s Mitral A Point Velocity 84.7 cm/s Mitral E to A Ratio 1.0 MV Deceleration Time 182.7 ms MV E' Velocity 8.7 cm/s Mitral E to MV E' Ratio 10.1 TR Peak Velocity 267.1 cm/s TR Peak Gradient 28.5 mmHg Right Ventricular Systolic Press 38.5 mmHg FINDINGS Left Ventricle Left ventricular ejection fraction is estimated at 50-55 %. Left ventricular cavity size normal. Mild concentric left ventricular hypertrophy. Apical septal wall hypokinesis, basel inferior wall hypokinesis. Mildly decreased left ventricular ejection fraction. Right Ventricle Normal right ventricular size and function. Mild pulmonary hypertension. Right Atrium Normal right atrial size. No right atrial thrombus or mass seen. Left Atrium Normal left atrial size. No left atrial thrombus or mass present. Mitral Valve Structurally normal mitral valve. Mild mitral regurgitation. Aortic Valve Trileaflet aortic valve. Aortic valve sclerosis. Mild aortic regurgitation. Tricuspid Valve Structurally normal tricuspid valve. Mild tricuspid regurgitation. Pulmonic Valve Structurally normal pulmonic valve. No pulmonic regurgitation. Pericardium No pericardial or pleural effusion. Aorta Normal size aortic root and proximal ascending aorta. CONCLUSIONS Diagnosis: Acute myocardial infarction Mildly reduced LV systolic function with anterior apical and septal akinesis Previewed by: Dr. Matteo Sellers MD (Electronically Signed) Final Date: 11 July 2024 09:45
[2024-07-11 11:13] LABS: T4, Free (Free Thyroxine) 1.48 ng/dL (0.78-2.19)
[2024-07-11 11:45] LABS: Glucose,Whole Blood 216 mg/dL (70-110)
--- NOTE | 2024-07-11 13:30 | P.PN ---
Subjective HISTORY OF PRESENT ILLNESS: This is a 68-year-old male who underwent cardiac catheterization yesterday with Dr. Hamm revealing severe triple-vessel coronary artery disease with diffuse disease involving the LAD. Consult was placed to CT surgery for possible CABG. patient examined this morning at bedside. Patient currently denies chest pain or pressure. He denies shortness of breath. Vital signs are stable. PHYSICAL EXAM: VITAL SIGNS: Reviewed. GENERAL: Well-developed in no acute distress. NECK: Supple. No JVD or thyromegaly LUNGS: Respirations even and unlabored. Lungs essentially clear to auscultation bilaterally. HEART: Regular rate and rhythm. S1 and S2 heard. EXTREMITIES: Normal range of motion. No clubbing or cyanosis. Peripheral pulses intact. No lower extremity edema ASSESSMENT: Non-STEMI status post cardiac catheterization severe triple-vessel coronary artery disease with diffuse disease involving the LAD Coronary artery disease with previous PCI to proximal LAD in 2015 and proximal LAD in 2016 Hypertension Hyperlipidemia Diabetes History of CVA/TIA Nicotine dependence PLAN: 2D echo has been ordered Continue current cardiac medications No beta katerina at this time due to soft BP and borderline bradycardia CT surgery consulted. Await further evaluation Smoking cessation recommended. Patient to be referred to [place] quit line upon discharge. Further recommendations pending patient course Nurse practitioner note has been reviewed by physician. Signing provider agrees with the documented findings, assessment, and plan of care documented by SOFT TOP INSTALLER as a scribe. Objective - Vital Signs Vital signs: Vital Signs Temp 98.1 F 07/11/24 08:00 Pulse 62 07/11/24 08:00 Resp 16 07/11/24 08:00 BP 117/67 07/11/24 08:00 Pulse Ox 95 07/11/24 08:00 FiO2 Intake & Output 07/10/24 07/11/24 07/11/24 18:59 06:59 18:59 Intake Total 160 365 Balance 160 365 Weight 77.111 kg 76.6 kg Intake: IV 160 Oral 365 Other: Voiding Method Toilet # Voids 1 - Labs CBC & Chem 7: 07/11/24 07:27 07/10/24 14:48 Labs: Abnormal Lab Results - Last 24 Hours (Table) 07/10/24 07/10/24 07/10/24 Range/Units 14:48 14:48 14:48 WBC 11.9 H (3.8-10.6) k/uL RBC (4.30-5.90) m/uL Neutrophils # 8.7 H (1.3-7.7) k/uL BUN 24 H (9-20) mg/dL Glucose 129 H (74-99) mg/dL POC Glucose (mg/dL) (70-110) mg/dL AST 73 H (17-59) U/L Troponin I 11.400 H* (0.000-0.034) ng/mL 07/10/24 07/10/24 07/10/24 Range/Units 14:51 19:40 19:53 WBC (3.8-10.6) k/uL RBC (4.30-5.90) m/uL Neutrophils # (1.3-7.7) k/uL BUN (9-20) mg/dL Glucose (74-99) mg/dL POC Glucose (mg/dL) 162 H (70-110) mg/dL AST (17-59) U/L Troponin I 11.600 H* 17.800 H* (0.000-0.034) ng/mL 07/11/24 07/11/24 Range/Units 05:47 07:27 WBC (3.8-10.6) k/uL RBC 4.29 L (4.30-5.90) m/uL Neutrophils # (1.3-7.7) k/uL BUN (9-20) mg/dL Glucose (74-99) mg/dL POC Glucose (mg/dL) 162 H (70-110) mg/dL AST (17-59) U/L Troponin I (0.000-0.034) ng/mL
[2024-07-11 15:19] LABS: Hepatitis A Antibody IgM Nonreactive (Nonreactive); Hepatitis B Core IgM Nonreactive (Nonreactive); Hepatitis B Surface Antigen Nonreactive (Nonreactive); Hepatitis C IgG Antibody Nonreactive (Nonreactive)
[2024-07-11 15:51] LABS: Chol/HDL Ratio 5.34 Ratio; LDL Cholesterol,Calculated 66.2 mg/dL (0.0-131.0)
[2024-07-11 16:06] LABS: Glucose,Whole Blood 246 mg/dL (70-110)
[2024-07-11] MEDS: carvediloL 3.125 MG TAB PO SCH (16:49)
--- NOTE | 2024-07-11 16:58 | US ---
EXAMINATION TYPE: Pre-Operative Non-Invasive Evaluation of the hand for Potential Radial Artery Destineesuze , Measurements only DATE OF EXAM: 07/11/2024 4:29 PM CLINICAL INDICATION: Male, 68 years old with history of measurements only; pre open heart SIDE PERFORMED: Right TECHNIQUE: Radial artery is measured utilizing real time linear array sonography. Dominant hand: Right Duplex Findings: Radial Artery: Color flow seen Measurements in mm, transverse view: Left Radial: Proximal: 3.9 x 3.3 mm Mid: 3.1 x 3.0 mm Distal: 3.0 x 3.4 mm IMPRESSION: 1. Left Radial artery measurements listed above. 2. Performing surgeon to determine viability as conduit. [facility], , 07/11/2024 4:55 PM
--- NOTE | 2024-07-11 17:07 | US ---
EXAMINATION TYPE: US vein mapping BILAT DATE OF EXAM: 07/11/2024 4:29 PM COMPARISON: NONE CLINICAL INDICATION: Male, 68 years old with history of preop cardiac surgery; pre open heart SIDE PERFORMED: Bilateral TECHNIQUE: Lower extremity saphenous vein is examined and measured utilizing real time linear array sonography. DUPLEX FINDINGS: Greater Saphenous: Color flow seen Measurements in mm: Right Greater Saphenous: Groin: 5.9 x 6.2 mm High Thigh: 3.3 x 4.1 mm Mid Thigh: 2.8 x 3.5 mm Above Knee: 3.2 x 3.8 mm Knee: 2.8 x 3.1 mm Below Knee: 2.7 x 3.5 mm Mid Calf: 2.5 x 3.4 mm At Ankle: 2.5 x 2.9 mm Left Greater Saphenous: Groin: 6.8 x 6.6 mm High Thigh: 4.3 x 5.2 mm Mid Thigh: 3.8 x 5.6 mm Above Knee: 3.2 x 3.4 mm Knee: 3.3 x 3.6 mm Below Knee: 2.3 x 2.0 mm Mid Calf: 2.0 x 2.7 mm At Ankle: 2.2 x 2.1 mm IMPRESSION: 1. Bilateral GSV measurements listed above. 2. Performing surgeon to determine viability as conduit. [facility], , 07/11/2024 5:04 PM
--- NOTE | 2024-07-11 17:08 | US ---
EXAMINATION TYPE: US arterial LE single level DATE OF EXAM: 07/11/2024 4:30 PM CLINICAL INDICATION: Male, 68 years old with history of Ankle Brachial Index (DANITZA); pre open heart History of: Smoker: n Hypertension: n Diabetic: y Hyperlipidemia: n TIA/CVA: n Previous Vascular Surgery: n CAD: n WA: y Vascular Ulcers: n Claudication: n Gangrene: n Doppler Waveforms: Right: Multiphasic Left: Multiphasic Right Brachial Pressure: 148 Left Brachial Pressure: 140 Ankle-Brachial Indices: Right: 1.0 Left: 0.8 (Vessel hardening > 1.4; Normal 0.9 - 1.4, Moderate 0.7 - 0.9, Severe 0.5-0.7) Waveforms appear to be biphasic. Predominantly monophasic waveforms within the left dorsalis pedis ar aashish. IMPRESSION: 1. Severe narrowing within the left dorsalis pedis artery. Moderate narrowing may be within the left posterior tibial artery. 2. Right lower extremity vasculature appears patent [facility], , 07/11/2024 5:06 PM
[2024-07-11 20:18] LABS: Glucose,Whole Blood 217 mg/dL (70-110)
[2024-07-11] MEDS: INSULIN DETEMIR (LEVEMIR) 100 UNIT/ML SYR SQ SCH (20:58)
[2024-07-11] MEDS: lisinopriL 20 MG TAB PO SCH (20:58)
[2024-07-11] MEDS: LEVOTHYROXINE 100 MCG TAB PO SCH (20:58)
[2024-07-11] MEDS: DAPAGLIFLOZIN PROPANEDIOL 10 MG TABLET PO SCH (20:58)
[2024-07-11] MEDS ORDERED: NON FORMULARY DRUG (Aspirin Ec 325 MG Tab) PO SCH (21:00)
[2024-07-11] MEDS ORDERED: carvediloL 6.25 MG TAB PO SCH (21:00)
[2024-07-11] MEDS: ACETAMINOPHEN TAB 325 MG TAB PO PRN (21:06)
[2024-07-12 06:06] LABS: Glucose,Whole Blood 134 mg/dL (70-110)
--- NOTE | 2024-07-12 07:46 | P.PN ---
Subjective Progress Note Date: 07/12/24 Principal diagnosis: Coronary artery disease, non-STEMI this admission, left facial numbness and left arm numbness, no stroke evident on CT at [facility]. History of CAD with previous STEMI in 2014 and 2 stents to the LAD at that time along with non-STEMI in 2015 with 1 stent to the LAD at that time, hypertension, hyperlipidemia, hypothyroid, diabetes mellitus, multiple TIAs, CVA in 2022 with subsequent left carotid endarterectomy, chronic current tobacco dependence Patient was seen and examined this morning laying in bed on the cardiac stepdown unit in no acute distress. Denies any chest pain or shortness of breath. States he has been ambulatory without difficulty. Discussion took place between Dr. Araya and Dr. Jung, our plan is for off-pump coronary artery bypass surgery, timing to be determined by cardiology. This was discussed with the patient and he is in agreement. No other new concerns. Objective - Vital Signs Vital signs: Vital Signs Temp 98.0 F 07/11/24 19:35 Pulse 56 L 07/12/24 04:00 Resp 18 07/12/24 04:00 BP 100/56 07/12/24 04:00 Pulse Ox 96 07/12/24 04:00 FiO2 Intake & Output 07/11/24 07/12/24 07/12/24 18:59 06:59 18:59 Intake Total 841 Balance 841 Weight 75.9 kg Intake: Oral 841 Other: Voiding Method Toilet - Exam CONSTITUTIONAL: Appears comfortable, cooperative, no acute distress RESPIRATORY: Lungs sounds diminished bilaterally. Respirations even, nonlabo red. Currently on room air with oxygen saturation 96%. Able to achieve 1500 mL on incentive spirometry. Strong cough. CARDIOVASCULAR: S1, S2 present. Regular rate and rhythm, sinus rhythm on te lemetry. Palpable peripheral pulses bilaterally. No edema present. No calf pain or tenderness noted GASTROINTESTINAL: Abdomen soft, nontender, nondistended. Active bowel sounds present 4 quadrants. Tolerating diet GENITOURINARY: Continues to void INTEGUMENTARY: Skin is warm and dry with evidence of good perfusion NEUROLOGIC: Cranial nerves II through XII intact MUSKULOSKELETAL: Able to move all extremities, strength equal bilaterally, gait normal PSYCHIATRIC: Alert and oriented to person place and time, appropriate affect, intact judgment and insight - Allied health notes Allied health notes reviewed: nursing - Labs CBC & Chem 7: 07/11/24 07:27 07/10/24 14:48 Labs: Abnormal Lab Results - Last 24 Hours (Table) 07/11/24 07/11/24 07/11/24 Range/Units 07:27 07:27 07:27 RBC 4.29 L (4.30-5.90) m/uL PT 9.9 L (10.0-12.5) sec POC Glucose (mg/dL) (70-110) mg/dL Hemoglobin A1c (<=6.0) % Triglycerides 242.00 H (0.00-149.00) mg/dL VLDL Cholesterol, Calc 48.40 H (5.00-40.00) mg/dL HDL Cholesterol 26.40 L (40.00-60.00) mg/dL TSH 0.382 L (0.465-4.680) mIU/L 07/11/24 07/11/24 07/11/24 Range/Units 07:27 11:44 16:05 RBC (4.30-5.90) m/uL PT (10.0-12.5) sec POC Glucose (mg/dL) 216 H 246 H (70-110) mg/dL Hemoglobin A1c 9.8 H (<=6.0) % Triglycerides (0.00-149.00) mg/dL VLDL Cholesterol, Calc (5.00-40.00) mg/dL HDL Cholesterol (40.00-60.00) mg/dL TSH (0.465-4.680) mIU/L 07/11/24 07/12/24 Range/Units 20:17 06:05 RBC (4.30-5.90) m/uL PT (10.0-12.5) sec POC Glucose (mg/dL) 217 H 134 H (70-110) mg/dL Hemoglobin A1c (<=6.0) % Triglycerides (0.00-149.00) mg/dL VLDL Cholesterol, Calc (5.00-40.00) mg/dL HDL Cholesterol (40.00-60.00) mg/dL TSH (0.465-4.680) mIU/L Assessment and Plan Assessment: Coronary artery disease with previous STEMI in 2014 and 2 stents to the LAD at that time along with non-STEMI in 2016 with 1 stent to the LAD at that time, non-STEMI this admission Chest pressure secondary to above Left facial numbness and left arm numbness, no stroke evident on CT at [facility] History of hypertension Hyperlipidemia, treated, cholesterol 141, LDL 66, triglyceride 242 Hypothyroid, TSH 0.382, FT4 1.48 Diabetes mellitus, uncontrolled hyperglycemia, preoperative hemoglobin A1c 9.8% Multiple TIAs CVA in 2022 with subsequent left carotid endarterectomy Chronic current tobacco dependence, 1 pack/day since 1969 Mild COPD, preoperative FEV1 67% of predicted Plan: Continue to maximize medical therapy with aspirin, statin, beta-katerina Encourage incentive spirometry use Increase activity as tolerated Our plan is for off-pump coronary artery bypass surgery, timing to be determined Will obtain CT of the chest without contrast to evaluate aorta STS risk score calculated and discussed with the patient Will complete 5 m walk test Smoking cessation counseling and education provided Patient needs better blood sugar control Medical management of other comorbidities per internal medicine, cardiology Pulmonology consulted for clearance Our recommendations to follow
[2024-07-12 07:52] LABS: Basophils # (A) 0.1 k/uL (0-0.2); Basophils % (A) 1 %; Eosinophils # (A) 0.3 k/uL (0-0.7); Eosinophils % (A) 3 %; HCT 41.5 % (39.0-53.0); HGB 13.7 gm/dL (13.0-17.5); Lymphocytes # (A) 1.8 k/uL (1.0-4.8); Lymphocytes % (A) 19 %; MCH 30.8 pg (25.0-35.0); MCHC 33.1 g/dL (31.0-37.0); MCV 92.9 fL (80.0-100.0); Mean Platelet Volume 8.4; Monocytes # (A) 0.7 k/uL (0-1.0); Monocytes % (A) 7 %; Neutrophils # (A) 6.6 k/uL (1.3-7.7); Neutrophils % (A) 69 %; Platelet Count 281 k/uL (150-450); RBC 4.46 m/uL (4.30-5.90); RDW 13.9 % (11.5-15.5); WBC 9.6 k/uL (3.8-10.6)
[2024-07-12 08:04] LABS: ALT 11 U/L (4-49); AST 38 U/L (17-59); African American GFR (CKD) 79 (>60 ml/min/1.73 sqM); Albumin 3.6 g/dL (3.5-5.0); Alkaline Phosphatase 66 U/L (38-126); Anion Gap 6 mmol/L; Blood Urea Nitrogen 29 mg/dL (9-20); Carbon Dioxide 22 mmol/L (22-30); Chloride 109 mmol/L (98-107); Glucose 142 mg/dL (74-99); Non-African American GFR(CKD) 69 (>60 ml/min/1.73 sqM); Potassium 5.2 mmol/L (3.5-5.1); Sodium 137 mmol/L (137-145); Total Bilirubin 0.6 mg/dL (0.2-1.3); Total Protein 6.2 g/dL (6.3-8.2)
[2024-07-12] MEDS: Semaglutide [Ozempic] 0.25 MG/0.2 ML Each SQ SCH (08:34)
[2024-07-12] MEDS: ASPIRIN 81 MG PO SCH (08:34)
--- NOTE | 2024-07-12 09:24 | CT ---
EXAMINATION TYPE: CT chest wo con DATE OF EXAM: 07/12/2024 COMPARISON: None HISTORY: eval aorta for cardiac sx CT DLP: 309.3 mGycm, Automated exposure control for dose reduction was used. CONTRAST: Performed injected with 0 mL of Isovue 300. TECHNIQUE: Axial images were obtained at 5 mm thick sections. Reconstructed images are reviewed on [employer] computer in the coronal plane. FINDINGS: Portion of the thyroid visualized is normal. No suspicious lung nodules or focal infiltrates are present. Emphysematous changes are in the lung ap ices. No enlarged mediastinal or hilar adenopathy is evident. Appears to be a 3 vessel arch. Minimal calcifications are present in the aorta and great vessels. Priyank cending thoracic aorta level of the main pulmonary artery measures 4.0 cm. The main pulmonary artery at the bifurcation is 2.5 cm. Coronary artery calcification is present. Descending thoracic aorta tap ers to its visualized course. Limited CT sections are obtained through the upper abdomen. Abdomen is essentially unremarkable. IMPRESSION: 1. Minimal calcification within the aorta. 2. Ascending thoracic aorta measures 1.0 cm. 3. COPD [facility], , 07/12/2024 9:22 AM
--- NOTE | 2024-07-12 10:19 | HP ---
HISTORY AND PHYSICAL CHIEF COMPLAINT: Chest pain. HISTORY OF PRESENT ILLNESS: This is another admission for this 68-year-old white male with advanced atherosclerosis and cardiovascular disease. He has a long-standing history of coronary artery disease and has had several stents. He is also type 2 diabetic. He came to the emergency room with chest pain which was atypical and he was admitted. REVIEW OF SYSTEMS: He has had no syncope, neurologic problems, nausea, vomiting, etc. He was diaphoretic and short of breath. Past medical history, family history, personal and social histories reveal that he is allergic to Repatha. MEDICATIONS: He is on Farxiga, carvedilol, lisinopril, metformin, Lantus, , atorvastatin. He does have COPD. He continues to smoke. PHYSICAL EXAMINATION: VITAL SIGNS: Normal. HEAD, EARS, EYES, NOSE, MOUTH AND THROAT: Normal. CHEST: Clear. CARDIAC: Demonstrates sinus rhythm. ABDOMEN: Soft, nontender. EXTREMITIES: Normal. NEUROLOGICAL: He is intact. DIAGNOSES: He is admitted to the hospital with diagnoses, 1. Acute coronary syndrome. 2. Coronary artery disease. 3. Atherosclerotic cardiovascular disease. 4. Hypertension. 5. Type 2 insulin dependent diabetes mellitus. PLAN: 1. Bedrest. 2. IV fluids. 3. Serial EKGs and enzymes. 4. Cardiology consult. MMCHERYLL / SOFIAN: [id number] /
--- NOTE | 2024-07-12 10:22 | P.CNPUL ---
History of Present Illness Consult date: 07/12/24 Requesting physician: Gio Colon Chief complaint: Triple-vessel coronary disease. History of present illness: Pulmonary consult dated July 12, 2024. 68-year-old male presented from an outside hospital, with non-ST segment elevation myocardial infarction. The patient was having chest discomfort/chest pain. It apparently radiated to his bilateral shoulder areas. The patient does have a prior history of CAD, with previous stenting, 10 years prior. In addition, the patient has COPD, and ongoing tobacco use. Currently, I am asked to see the patient in room 384. He is on room air. No IV fluids. He had a cardiac catheterization done on July 10. It showed three-vessel coronary disease. The patient is a current everyday smoker. The patient does not know whether or not he is going to have his surgery while he is an inpatient, or, be sent home, and brought back. His medical history includes CVA, diabetes, hyperlipidemia, previous myocardial infarction, osteoarthritis, and hypothyroidi sm. As mentioned he is a current everyday smoker. The patient had stents to his LAD, in 2014, and 2015. The patient had a STEMI, in 2014. White count is 9.6, with a normal hemoglobin, hematocrit, platelet count. Sodium 137, potassium 5.2, chlorides 109, CO2 22, BUN 29, creatinine 1.10. Glucose was 142. CT scan of the chest shows minimal calcification within the aorta, and changes of COPD. Review of Systems REVIEW OF SYSTEMS: CONSTITUTIONAL: [Negative.] NEUROLOGIC: [ Negative.] HEENT: [ Negative.] CARDIAC: Chest pain. PULMONARY: Shortness of breath. GI: [Negative.] : [Negative.] RHEUMATOLOGIC: [ Negative.] IMMUNOLOGIC: [ Negative.] ENDOCRINE: [Negative. ] DERMATOLOGIC: [Negative.] Past Medical History Past Medical History: CVA/TIA, Diabetes Mellitus, Hyperlipidemia, Hypertension, Myocardial Infarction ([place]), Osteoarthritis ([place]), Thyroid Disorder Additional Past Medical History / Comment(s): STEMI 03/08/15 Last Myocardial Infarction Date:: 2014 History of Any Multi-Drug Resistant Organisms: None Reported Past Surgical History: Heart Catheterization With Stent, Tonsillectomy Additional Past Surgical History / Comment(s): 2 stents to LAD on 03/08/15. 1 stent to LAD for reocclusion on 11/25/15. tumor removed from bladder. Carotid surgery Past Anesthesia/Blood Transfusion Reactions: No Reported Reaction Date of Last Stent Placement:: 11/25/15 Past Psychological History: No Psychological Hx Reported Smoking Status: Current every day smoker Past Alcohol Use History: Rare Past Drug Use History: None Reported - Past Family History Father Family Medical History: CVA/TIA Mother History Unknown: Yes Medications and Allergies Home Medications Medication Instructions Recorded Confirmed Type Levothyroxine Sodium [Synthroid] 200 mcg PO HS 03/09/15 07/10/24 History Aspirin EC [Ecotrin] 325 mg PO HS 01/27/23 07/10/24 History Dapagliflozin Propanediol [Farxiga] 10 mg PO HS 01/27/23 07/10/24 History Semaglutide [Ozempic] 0.25 mg SQ SA 01/27/23 07/10/24 History lisinopriL [Zestril] 40 mg PO HS 01/27/23 07/10/24 History Atorvastatin [Lipitor] 80 mg PO HS 03/06/23 07/10/24 History carvediloL [Coreg] 6.25 mg PO HS 03/06/23 07/10/24 History Insulin Glargine,Hum.rec.anlog 16 units SQ HS 07/10/24 07/10/24 History [Lantus Solostar Pen] metFORMIN HCL 1,000 mg PO BID 07/10/24 07/10/24 History Allergies Allergy/AdvReac Type Severity Reaction Status Date / Time glipizide AdvReac Blurry Verified 07/10/24 15:07 vision Physical Exam Osteopathic Statement: *. No significant issues noted on an osteopathic structural exam other than those noted in the History and Physical/Consult. Vitals: Vital Signs Temp Pulse Resp BP Pulse Ox 07/12/24 08:25 96 07/12/24 04:00 56 L 18 100/56 96 07/11/24 23:40 66 18 118/57 92 L 07/11/24 19:35 98.0 F 64 18 146/77 92 L 07/11/24 16:00 98.1 F 67 18 115/70 97 Intake and Output 07/11/24 07/12/24 07/12/24 22:59 06:59 14:59 Intake Total 236 180 Balance 236 180 Intake: Oral 236 180 Other: Voiding Method Toilet Toilet # Voids 1 Weight 75.9 kg No acute distress, oriented 3. Currently on room air. Saturation is 96%. HEENT examination is grossly unremarkable. Mucous membranes are moist. No oral lesions. Neck supple. Full range of motion. No adenopathy thyromegaly or neck vein distention. Cardiovascular examination reveals regular rhythm rate. S1-S2 normal. No S3 or S4. No discernible murmur noted. Lungs reveal minimal scattered rhonchi. No wheezes or crackles. Breath sounds equal bilaterally. Abdomen soft bowel sounds are heard. No masses or tenderness. Extremities are intact. No cyanosis clubbing or edema. Skin is without rash or lesion. Neurologic examination is brief but nonfocal. Results - Laboratory Findings CBC and BMP: 07/12/24 07:20 07/12/24 07:20 PT/INR, D-dimer PT 9.9 sec (10.0-12.5) L 07/11/24 07:27 INR 0.9 (<1.2) 07/11/24 07:27 Abnormal lab findings: Abnormal Labs 07/10/24 07/10/24 07/10/24 14:48 14:48 14:48 WBC 11.9 H RBC Neutrophils # 8.7 H PT Potassium Chloride BUN 24 H Glucose 129 H POC Glucose (mg/dL) Hemoglobin A1c AST 73 H Troponin I 11.400 H* Total Protein Triglycerides VLDL Cholesterol, Calc HDL Cholesterol TSH 07/10/24 07/10/24 07/10/24 14:51 19:40 19:53 WBC RBC Neutrophils # PT Potassium Chloride BUN Glucose POC Glucose (mg/dL) 162 H Hemoglobin A1c AST Troponin I 11.600 H* 17.800 H* Total Protein Triglycerides VLDL Cholesterol, Calc HDL Cholesterol TSH 07/11/24 07/11/24 07/11/24 05:47 07:27 07:27 WBC RBC 4.29 L Neutrophils # PT 9.9 L Potassium Chloride BUN Glucose POC Glucose (mg/dL) 162 H Hemoglobin A1c AST Troponin I Total Protein Triglycerides VLDL Cholesterol, Calc HDL Cholesterol TSH 07/11/24 07/11/24 07/11/24 07:27 07:27 11:44 WBC RBC Neutrophils # PT Potassium Chloride BUN Glucose POC Glucose (mg/dL) 216 H Hemoglobin A1c 9.8 H AST Troponin I Total Protein Triglycerides 242.00 H VLDL Cholesterol, Calc 48.40 H HDL Cholesterol 26.40 L TSH 0.382 L 07/11/24 07/11/24 07/12/24 16:05 20:17 06:05 WBC RBC Neutrophils # PT Potassium Chloride BUN Glucose POC Glucose (mg/dL) 246 H 217 H 134 H Hemoglobin A1c AST Troponin I Total Protein Triglycerides VLDL Cholesterol, Calc HDL Cholesterol TSH 07/12/24 07:20 WBC RBC Neutrophils # PT Potassium 5.2 H Chloride 109 H BUN 29 H Glucose 142 H POC Glucose (mg/dL) Hemoglobin A1c AST Troponin I Total Protein 6.2 L Triglycerides VLDL Cholesterol, Calc HDL Cholesterol TSH - Diagnostic Findings Chest x-ray: image reviewed CT scan - chest: image reviewed Assessment and Plan Assessment: Acute non-ST segment elevation myocardial infarction. S/P cardiac catheterization, July 10, showing severe three-vessel disease. COPD, with ongoing tobacco use. History of ST segment elevation myocardial infarction, February 2015, with prior LAD stent placement, 2014 and 2015. Prior history of myocardial infarction. History of diabetes mellitus. History of hypertension. History of hyperlipidemia. History of CVA. Current everyday tobacco use. Plan: Plan dated July 12, 2024. The patient is seen today in room 384. He is on room air. No IV fluids. He h ad a cardiac catheterization performed on July 10. This showed severe triple-vessel disease. Cardiothoracic surgery was asked to consult on this patient. It is not clear whether or not the patient will stay here, and have surgery done early next week, or be discharged home, and brought back at a later time. He is counseled about the importance of smoking cessation. He will need spirometry. Additional recommendations and suggestions are forthcoming. Time with Patient: Greater than 30
--- NOTE | 2024-07-12 10:34 | PN ---
PROGRESS NOTE DATE OF SERVICE: 07/11/2024 CHIEF COMPLAINT: Acute coronary syndrome and NSTEMI. HISTORY OF PRESENT ILLNESS: This gentleman is comfortable at this time. He is to talk to surgery and it looks as though he will be going for a CABG. PHYSICAL EXAMINATION: VITAL SIGNS: Normal. CHEST: Clear. CARDIAC: Normal. ABDOMEN: Soft, nontender. IMPRESSION: 1. Acute non ST elevation myocardial infarction. 2. Triple-vessel coronary artery disease. 3. Atherosclerotic cardiovascular disease. PLAN: He is considering coronary artery bypass grafting, which will be done this week. MMODL / IJN: [id number] /
[2024-07-12 11:31] LABS: Glucose,Whole Blood 216 mg/dL (70-110)
[2024-07-12 12:00] VITALS: BMI 25.4
--- NOTE | 2024-07-12 12:51 | P.PN ---
Subjective Progress Note Date: 07/12/24 This is Evaristo Chino NP, I'm dictating on behalf of Dr. Sellers's H&P and A&P. Patient was interviewed and examined. Patient is a pleasant 68-year-old male who presented to the hospital with a non- STEMI. Patient had underwent cardiac catheterization which found severe triple- vessel disease. This morning the patient reports that he is feeling okay. He is denying chest pain and shortness of breath today. Vital signs are stable. CT surgery and cardiology have discussed the patient's case, determined that the patient does likely need coronary artery bypass grafting. We feel this should be sooner rather than later. GENERAL: Well-appearing, well-nourished and in no acute distress. NECK: Supple without JVD or thyromegaly. LUNGS: Breath sounds clear to auscultation bilaterally. Respiration equal and unlabored. No wheezes, rales or rhonchi. HEART: Regular rate and rhythm without murmurs, rubs or gallops. S1 and S2 heard. EXTREMITIES: Normal range of motion, no edema. No clubbing or cyanosis. Peripheral pulses intact and strong. VITALS: Temp 97.6, pulse 64, respirations 18, blood pressure 95/55, O2 saturation 94% on room air TELEMETRY: Normal sinus rhythm LABS: White count 9.6, hemoglobin 13.7, platelets 281, sodium 137, potassium 5.2, BUN 29, creatinine 1.1, calcium 9, triglycerides 242, cholesterol 141, LDL 66.2, HDL 26.4, TSH 0.382, free T4 1.48 IMPRESSION: 1. Non-ST elevated NH status post cath noting severe triple-vessel coronary artery disease, diffuse disease involving the LAD 2. Hypertension 3. Hyperlipidemia 4. Diabetes 5. History of CVA/TIA PLAN: Continue maximize medical therapy. Continue to monitor patient. Final decision for timing of CABG after CT surgery and cardiology discussion on Sunday. Due to patient's significant disease we feel he needs to have bypass grafting soon. Further recommendations based on patient's clinical course. Objective - Vital Signs Vital signs: Vital Signs Temp 97.6 F 07/12/24 08:00 Pulse 64 07/12/24 08:00 Resp 18 07/12/24 08:00 BP 95/55 07/12/24 08:00 Pulse Ox 96 07/12/24 08:25 FiO2 Intake & Output 07/11/24 07/12/24 07/12/24 18:59 06:59 18:59 Intake Total 841 180 Balance 841 180 Weight 75.9 kg 75.9 kg Intake: Oral 841 180 Other: Voiding Method Toilet Toilet # Voids 1 - Labs CBC & Chem 7: 07/12/24 07:20 07/12/24 07:20 Labs: Abnormal Lab Results - Last 24 Hours (Table) 07/11/24 07/11/24 07/11/24 Range/Units 07:27 16:05 20:17 Potassium (3.5-5.1) mmol/L Chloride (98-107) mmol/L BUN (9-20) mg/dL Glucose (74-99) mg/dL POC Glucose (mg/dL) 246 H 217 H (70-110) mg/dL Total Protein (6.3-8.2) g/dL Triglycerides 242.00 H (0.00-149.00) mg/dL VLDL Cholesterol, Calc 48.40 H (5.00-40.00) mg/dL HDL Cholesterol 26.40 L (40.00-60.00) mg/dL 07/12/24 07/12/24 07/12/24 Range/Units 06:05 07:20 11:29 Potassium 5.2 H (3.5-5.1) mmol/L Chloride 109 H (98-107) mmol/L BUN 29 H (9-20) mg/dL Glucose 142 H (74-99) mg/dL POC Glucose (mg/dL) 134 H 216 H (70-110) mg/dL Total Protein 6.2 L (6.3-8.2) g/dL Triglycerides (0.00-149.00) mg/dL VLDL Cholesterol, Calc (5.00-40.00) mg/dL HDL Cholesterol (40.00-60.00) mg/dL
[2024-07-12 16:22] LABS: Glucose,Whole Blood 247 mg/dL (70-110)
[2024-07-12 20:10] LABS: Glucose,Whole Blood 245 mg/dL (70-110)
[2024-07-12] MEDS: ATORVASTATIN 80 MG TAB PO SCH (20:35)
[2024-07-13 06:11] LABS: Glucose,Whole Blood 167 mg/dL (70-110)
[2024-07-13] MEDS: MUPIROCIN 2% OINT 22 GM TUBE NASAL SCH (08:36)
--- NOTE | 2024-07-13 09:40 | P.PN ---
Subjective Progress Note Date: 07/13/24 Principal diagnosis: Coronary artery disease, non-STEMI this admission, left facial numbness and left arm numbness, no stroke evident on CT at [facility]. History of CAD with previous STEMI in 2014 and 2 stents to the LAD at that time along with non-STEMI in 2015 with 1 stent to the LAD at that time, hypertension, hyperlipidemia, hypothyroid, diabetes mellitus, multiple TIAs, CVA in 2022 with subsequent left carotid endarterectomy, chronic current tobacco dependence Patient was seen and examined this morning laying in bed on the cardiac stepdown unit in no acute distress. Denies any chest pain or shortness of breath. States he has been ambulatory without difficulty. Discussion took place between Dr. Araya and Dr. Jung, our plan is for off-pump coronary artery bypass surgery, timing to be determined by cardiology. This was discussed with the patient and he is in agreement. No other new concerns. Objective - Vital Signs Vital signs: Vital Signs Temp 97.8 F 07/13/24 03:55 Pulse 59 L 07/13/24 03:55 Resp 18 07/13/24 03:55 BP 116/57 07/13/24 03:55 Pulse Ox 94 L 07/13/24 03:55 FiO2 Intake & Output 07/12/24 07/13/24 07/13/24 18:59 06:59 18:59 Intake Total 540 540 201 Balance 540 540 201 Weight 75.9 kg 76 kg Intake: Oral 540 540 201 Other: Voiding Method Toilet Toilet # Voids 1 2 # Bowel Movements 1 - Exam CONSTITUTIONAL: Appears comfortable, cooperative, no acute distress RESPIRATORY: Lungs sounds diminished bilaterally. Respirations even, nonlabored. Currently on room air with oxygen saturation 94%. Able to achieve 1500 mL on incentive spirometry. Strong cough. CARDIOVASCULAR: S1, S2 present. Regular rate and rhythm, sinus rhythm on telemetry. Palpable peripheral pulses bilaterally. No edema present. No calf pain or tenderness noted GASTROINTESTINAL: Abdomen soft, nontender, nondistended. Active bowel sounds present 4 quadrants. Tolerating diet GENITOURINARY: Continues to void INTEGUMENTARY: Skin is warm and dry with evidence of good perfusion NEUROLOGIC: Cranial nerves II through XII intact MUSKULOSKELETAL: Able to move all extremities, strength equal bilaterally, gait normal PSYCHIATRIC: Alert and oriented to person place and time, appropriate affect, intact judgment and insight - Labs CBC & Chem 7: 07/12/24 07:20 07/12/24 07:20 Labs: Abnormal Lab Results - Last 24 Hours (Table) 07/12/24 07/12/24 07/12/24 Range/Units 11:29 16:21 20:08 POC Glucose (mg/dL) 216 H 247 H 245 H (70-110) mg/dL 07/13/24 Range/Units 06:10 POC Glucose (mg/dL) 167 H (70-110) mg/dL Assessment and Plan Assessment: Coronary artery disease with previous STEMI in 2014 and 2 stents to the LAD at that time along with non-STEMI in 2015 with 1 stent to the LAD at that time, non-STEMI this admission Chest pressure secondary to above Left facial numbness and left arm numbness, no stroke evident on CT at [facility] History of hypertension Hyperlipidemia, treated, cholesterol 141, LDL 66, triglyceride 242 Hypothyroid, TSH 0.382, FT4 1.48 Diabetes mellitus, uncontrolled hyperglycemia, preoperative hemoglobin A1c 9.8% Multiple TIAs CVA in 2022 with subsequent left carotid endarterectomy Chronic current tobacco dependence, 1 pack/day since 1969 Mild COPD, preoperative FEV1 67% of predicted Plan: Continue to maximize medical therapy with aspirin, statin, beta-katerina Encourage incentive spirometry use Increase activity as tolerated Our plan is for off-pump coronary artery bypass surgery, timing to be determined Smoking cessation counseling and education provided Patient needs better blood sugar control Medical management of other comorbidities per internal medicine, cardiology More recommendations to follow
[2024-07-13 11:54] LABS: Glucose,Whole Blood 199 mg/dL (70-110)
--- NOTE | 2024-07-13 11:57 | P.PN ---
Subjective Progress Note Date: 07/13/24 Principal diagnosis: Coronary artery disease. Pulmonary consult dated July 12, 2024. 68-year-old male presented from an outside hospital, with non-ST segment elevation myocardial infarction. The patient was having chest discomfort/chest pain. It apparently radiated to his bilateral shoulder areas. The patient does have a prior history of CAD, with previous stenting, 10 years prior. In addition, the patient has COPD, and ongoing tobacco use. Currently, I am asked to see the patient in room 384. He is on room air. No IV fluids. He had a cardiac catheterization done on July 10. It showed three-vessel coronary disease. The patient is a current everyday smoker. The patient does not know whether or not he is going to have his surgery while he is an inpatient, or, be sent home, and brought back. His medical history includes CVA, diabetes, hyperlipidemia, previous myocardial infarction, osteoarthritis, and hypothyroidism. As mentioned he is a current everyday smoker. The patient had stents to his LAD, in 2014, and 2015. The patient had a STEMI, in 2014. White count is 9.6, with a normal hemoglobin, hematocrit, platelet count. Sodium 137, potassium 5.2, chlorides 109, CO2 22, BUN 29, creatinine 1.10. Glucose was 142. CT scan of the chest shows minimal calcification within the aorta, and changes of COPD. Progress note dated July 13, 2024. 68-year-old male seen today in room 384. The patient had a non-ST segment elevation myocardial infarction, and was brought here for cardiac catheterization. It revealed severe three-vessel coronary disease. The patient is a current everyday smoker. Cardiology and cardiothoracic surgery planning went to do surgery on this patient. No decision has been made as yet. He does have a history of CVA, diabetes mellitus, hyperlipidemia, previous [place], osteoarthritis, and hypothyroidism. Current labs only include a glucose of 199. Objective - Vital Signs Vital signs: Vital Signs Temp 98.1 F 07/13/24 08:00 Pulse 57 L 07/13/24 08:00 Resp 18 07/13/24 08:00 BP 109/61 07/13/24 08:00 Pulse Ox 98 07/13/24 08:00 FiO2 Intake & Output 07/12/24 07/13/24 07/13/24 18:59 06:59 18:59 Intake Total 540 540 201 Balance 540 540 201 Weight 75.9 kg 76 kg Intake: Oral 540 540 201 Other: Voiding Method Toilet Toilet Toilet # Voids 1 2 # Bowel Movements 1 - Exam No acute distress, oriented 3. Currently on room air. Saturation is 98 %. HEENT examination is grossly unremarkable. Mucous membranes are moist. No oral lesions. Neck supple. Full range of motion. No adenopathy thyromegaly or neck vein distention. Cardiovascular examination reveals regular rhythm rate. S1-S2 normal. No S3 or S4. No discernible murmur noted. Heart rate 57 bpm. Lungs reveal minimal scattered rhonchi. No wheezes or crackles. Breath sounds equal bilaterally. Abdomen soft bowel sounds are heard. No masses or tenderness. Extremities are intact. No cyanosis clubbing or edema. Skin is without rash or lesion. Neurologic examination is brief but nonfocal. - Labs CBC & Chem 7: 07/12/24 07:20 07/12/24 07:20 Labs: Abnormal Lab Results - Last 24 Hours (Table) 07/12/24 07/12/24 07/13/24 Range/Units 16:21 20:08 06:10 POC Glucose (mg/dL) 247 H 245 H 167 H (70-110) mg/dL Assessment and Plan Assessment: Acute non-ST segment elevation myocardial infarction. S/P cardiac catheterization, July 10, showing severe three-vessel disease. COPD, with ongoing tobacco use. History of ST segment elevation myocardial infarction, February 2015, with prior LAD stent placement, 2014 and 2015. Prior history of myocardial infarction. History of diabetes mellitus. History of hypertension. History of hyperlipidemia. History of CVA. Current everyday tobacco use. Plan: Plan dated July 12, 2024. The patient is seen today in room 384. He is on room air. No IV fluids. He had a cardiac catheterization performed on July 10. This showed severe triple-vessel disease. Cardiothoracic surgery was asked to consult on this patient. It is not clear whether or not the patient will stay here, and have surgery done early next week, or be discharged home, and brought back at a later time. He is counseled about the importance of smoking cessation. He will need spirometry. Additional recommendations and suggestions are forthcoming. Plan dated July 13, 2024. No decision has yet been made about when this patient will have surgery. Labs, x-rays, medications are reviewed. We will continue to follow. The patient's room air saturations are excellent. He denies any difficulty with breathing. He was smoking up until the time he came into the hospital. Time with Patient: Greater than 30
--- NOTE | 2024-07-13 13:07 | P.PN ---
Subjective Progress Note Date: 07/13/24 The patient is a 68-year-old male who presented to the hospital with acute onset of chest discomfort and diagnosed with non-STEMI. Cardiac catheterization revealed severe triple-vessel disease, where he will need to undergo coronary bypass surgery. The patient remains on a heparin drip and will do so until his upcoming surgery, likely planned within the next week. Patient interviewed and examined resting comfortably in bed. No current chest pain or chest pressure. No difficulty breathing. He has been up ambulating around his room without complications. GENERAL: Well-appearing, well-nourished and in no acute distress. NECK: Supple without JVD or thyromegaly. LUNGS: Breath sounds clear to auscultation bilaterally. Respiration equal and unlabored. No wheezes, rales or rhonchi. HEART: Regular rate and rhythm without murmurs, rubs or gallops. S1 and S2 heard. EXTREMITIES: Normal range of motion, no edema. No clubbing or cyanosis. Peripheral pulses intact and strong. TELEMETRY: Sinus rhythm overnight IMPRESSION: Non-ST elevated ME status post cath noting severe triple-vessel coronary artery disease, diffuse disease involving the LAD Hypertension Hyperlipidemia Diabetes History of CVA/TIA PLAN: No change in medication regimen Final decision for timing of CABG after CT surgery and cardiology discussion on Sunday I am dictating on behalf of Dr Matteo Sellers's history/physical and assessment/plan. Objective - Vital Signs Vital signs: Vital Signs Temp 98.1 F 07/13/24 08:00 Pulse 57 L 07/13/24 08:00 Resp 18 07/13/24 08:00 BP 109/61 07/13/24 08:00 Pulse Ox 98 07/13/24 08:00 FiO2 Intake & Output 07/12/24 07/13/24 07/13/24 18:59 06:59 18:59 Intake Total 540 540 201 Balance 540 540 201 Weight 75.9 kg 76 kg Intake: Oral 540 540 201 Other: Voiding Method Toilet Toilet Toilet # Voids 1 2 # Bowel Movements 1 - Labs CBC & Chem 7: 07/12/24 07:20 07/12/24 07:20 Labs: Abnormal Lab Results - Last 24 Hours (Table) 07/12/24 07/12/24 07/13/24 Range/Units 16:21 20:08 06:10 POC Glucose (mg/dL) 247 H 245 H 167 H (70-110) mg/dL 07/13/24 Range/Units 11:53 POC Glucose (mg/dL) 199 H (70-110) mg/dL
[2024-07-13 17:11] LABS: Glucose,Whole Blood 196 mg/dL (70-110)
[2024-07-13 20:19] LABS: Glucose,Whole Blood 275 mg/dL (70-110)
[2024-07-13] MEDS: LEVOTHYROXINE 88 MCG TAB PO SCH (21:15)
--- NOTE | 2024-07-13 22:33 | PN ---
PROGRESS NOTE DATE OF SERVICE: 07/12/2024 CHIEF COMPLAINT: NSTEMI. HISTORY OF PRESENT ILLNESS: This gentleman is comfortable, doing well. He awaits his CABG this week. PHYSICAL EXAMINATION: CHEST: Clear. CARDIAC: Normal. ABDOMEN: Soft and nontender. IMPRESSION: 1. Non ST elevation myocardial infarction. 2. Atherosclerotic cardiovascular disease. 3. Chronic obstructive pulmonary disease. PLAN: CABG this week. MMODL / IJN: [id number] /
--- NOTE | 2024-07-13 22:33 | PN ---
PROGRESS NOTE DATE OF SERVICE: 07/13/2024 CHIEF COMPLAINT: NSTEMI. HISTORY OF PRESENT ILLNESS: This gentleman is comfortable and he is awaiting his open-heart surgery this week. He denies any chest pain or diaphoresis. PHYSICAL EXAMINATION: VITAL SIGNS: Normal. CHEST: Clear. CARDIAC: Normal. ABDOMEN: Soft, nontender. IMPRESSION: 1. Non ST elevation myocardial infarction. 2. Triple-vessel coronary artery disease. 3. Chronic obstructive pulmonary disease. PLAN: Surgery this week. MMODL / SOFIAN: [id number] /
[2024-07-14 05:56] LABS: Glucose,Whole Blood 169 mg/dL (70-110)
--- NOTE | 2024-07-14 11:30 | P.PN ---
Subjective Progress Note Date: 07/14/24 Principal diagnosis: Coronary artery disease, non-STEMI this admission, left facial numbness and left arm numbness, no stroke evident on CT at [facility]. History of CAD with previous STEMI in 2014 and 2 stents to the LAD at that time along with non-STEMI in 2015 with 1 stent to the LAD at that time, hypertension, hyperlipidemia, hypothyroid, diabetes mellitus, multiple TIAs, CVA in 2022 with subsequent left carotid endarterectomy, chronic current tobacco dependence Patient was seen and examined this morning laying in bed on the cardiac stepdown unit in no acute distress. Denies any chest pain or shortness of breath. Has been ambulatory without difficulty. Reommending surgery this Sunday, this is agreeable to patient, will plan for off-pump coronary artery bypass surgery 07/16/24. Remains in sinus rhythm to sinus bradycardia. No other new concerns. Objective - Vital Signs Vital signs: Vital Signs Temp 97.7 F 07/14/24 08:42 Pulse 52 L 07/14/24 11:21 Resp 16 07/14/24 11:21 BP 111/66 07/14/24 11:21 Pulse Ox 96 07/14/24 11:21 FiO2 Intake & Output 07/13/24 07/14/24 07/14/24 18:59 06:59 18:59 Intake Total 701 236 Balance 701 236 Weight 76.3 kg Intake: Oral 701 236 Other: Voiding Method Toilet Toilet Toilet # Voids 1 1 - Exam CONSTITUTIONAL: Appears comfortable, cooperative, no acute distress RESPIRATORY: Lungs sounds diminished bilaterally. Respirations even, nonlabored. Currently on room air with oxygen saturation 94%. Able to achieve 1500 mL on incentive spirometry. Strong cough. CARDIOVASCULAR: S1, S2 present. Regular rate and rhythm, sinus rhythm to sinus bradycardia on telemetry. Palpable peripheral pulses bilaterally. No edema present. No calf pain or tenderness noted GASTROINTESTINAL: Abdomen soft, nontender, nondistended. Active bowel sounds present 4 quadrants. Tolerating diet GENITOURINARY: Continues to void INTEGUMENTARY: Skin is warm and dry with evidence of good perfusion NEUROLOGIC: Cranial nerves II through XII intact MUSKULOSKELETAL: Able to move all extremities, strength equal bilaterally, gait normal PSYCHIATRIC: Alert and oriented to person place and time, appropriate affect, intact judgment and insight - Labs CBC & Chem 7: 07/12/24 07:20 07/12/24 07:20 Labs: Abnormal Lab Results - Last 24 Hours (Table) 07/13/24 07/13/24 07/13/24 Range/Units 11:53 17:09 20:16 POC Glucose (mg/dL) 199 H 196 H 275 H (70-110) mg/dL 07/14/24 Range/Units 05:55 POC Glucose (mg/dL) 169 H (70-110) mg/dL Microbiology - Last 24 Hours (Table) 07/12/24 16:30 Nasal Screen MRSA/MSSA - Final Nasopharyngeal Swab Assessment and Plan Assessment: Coronary artery disease with previous STEMI in 2014 and 2 stents to the LAD at that time along with non-STEMI in 2015 with 1 stent to the LAD at that time, non-STEMI this admission Chest pressure secondary to above Left facial numbness and left arm numbness, no stroke evident on CT at [facility] History of hypertension Hyperlipidemia, treated, cholesterol 141, LDL 66, triglyceride 242 Hypothyroid, TSH 0.382, FT4 1.48 Diabetes mellitus, uncontrolled hyperglycemia, preoperative hemoglobin A1c 9.8% Multiple TIAs CVA in 2022 with subsequent left carotid endarterectomy Chronic current tobacco dependence, 1 pack/day since 1969 Mild COPD, preoperative FEV1 67% of predicted Plan: Continue to maximize medical therapy with aspirin, statin, beta-katerina Encourage incentive spirometry use Increase activity as tolerated 5 m walk test completed, #1 3.6 seconds, #2 4.58 seconds, #3 4.53 seconds Our plan is for off-pump coronary artery bypass surgery, left internal mammary artery, endoscopic vein and left radial artery harvest, ligation of the left atrial appendage by Dr. Araya Tuesday, July 16, 2024 Smoking cessation counseling and education provided Patient needs better blood sugar control Medical management of other comorbidities per internal medicine, cardiology More recommendations to follow
[2024-07-14 11:42] LABS: Glucose,Whole Blood 244 mg/dL (70-110)
--- NOTE | 2024-07-14 12:04 | P.PN ---
Subjective Progress Note Date: 07/14/24 The patient is a 68-year-old male who presented to the hospital with acute onset of chest discomfort and diagnosed with non-STEMI. Cardiac catheterization revealed severe triple-vessel disease, where he will need to undergo coronary bypass surgery. The patient remains on a heparin drip and will do so until his upcoming surgery, likely planned within the next week. Patient interviewed and examined resting comfortably in bed. No current chest pain or chest pressure. No difficulty breathing. He has been up ambulating around his room without complications. Blood pressure 111/66, heart rate 52, pu lse ox 96% on room air. No repeat blood work today. GENERAL: Well-appearing, well-nourished and in no acute distress. NECK: Supple without JVD or thyromegaly. LUNGS: Breath sounds clear to auscultation bilaterally. Respiration equal and unlabored. No wheezes, rales or rhonchi. HEART: Regular rate and rhythm without murmurs, rubs or gallops. S1 and S2 heard. EXTREMITIES: Normal range of motion, no edema. No clubbing or cyanosis. Peripheral pulses intact and strong. TELEMETRY: Sinus rhythm overnight IMPRESSION: Non-ST elevated [place] status post cath noting severe triple-vessel coronary artery disease, diffuse disease involving the LAD Hypertension Hyperlipidemia Diabetes History of CVA/TIA PLAN: No change in medication regimen Patient is cleared to be scheduled for CABG which will be determined by CTS. Nurse practitioner note has been reviewed, I agree with documented findings and plan of care. Patient was seen and examined. Objective - Vital Signs Vital signs: Vital Signs Temp 97.7 F 07/14/24 08:42 Pulse 52 L 07/14/24 11:21 Resp 16 07/14/24 11:21 BP 111/66 07/14/24 11:21 Pulse Ox 96 07/14/24 11:21 FiO2 Intake & Output 07/13/24 07/14/24 07/14/24 18:59 06:59 18:59 Intake Total 701 236 Balance 701 236 Weight 76.3 kg Intake: Oral 701 236 Other: Voiding Method Toilet Toilet Toilet # Voids 1 1 - Labs CBC & Chem 7: 07/12/24 07:20 07/12/24 07:20 Labs: Abnormal Lab Results - Last 24 Hours (Table) 09/07/13/24 07/14/24 Range/Units 17:09 20:16 05:55 POC Glucose (mg/dL) 196 H 275 H 169 H (70-110) mg/dL 07/14/24 Range/Units 11:40 POC Glucose (mg/dL) 244 H (70-110) mg/dL Microbiology - Last 24 Hours (Table) 07/12/24 16:30 Nasal Screen MRSA/MSSA - Final Nasopharyngeal Swab
[2024-07-14 16:30] LABS: Glucose,Whole Blood 292 mg/dL (70-110)
--- NOTE | 2024-07-14 18:09 | P.PN ---
Subjective Progress Note Date: 07/14/24 68-year-old male presented from an outside hospital, with non-ST segment elevation myocardial infarction. The patient was having chest discomfort/chest pain. It apparently radiated to his bilateral shoulder areas. The patient does have a prior history of CAD, with previous stenting, 10 years prior. In addition, the patient has COPD, and ongoing tobacco use. Currently, I am asked to see the patient in room 384. He is on room air. No IV fluids. He had a cardiac catheterization done on July 10. It showed three-vessel coronary disease. The patient is a current everyday smoker. The patient does not know whether or not he is going to have his surgery while he is an inpatient, or, be sent home, and brought back. His medical history includes CVA, diabetes, hyperlipidemia, previous myocardial infarction, osteoarthritis, and hypothyroidism. As mentioned he is a current everyday smoker. The patient had stents to his LAD, in 2014, and 2015. The patient had a STEMI, in 2014. White count is 9.6, with a normal hemoglobin, hematocrit, platelet count. Sodium 137, potassium 5.2, chlorides 109, CO2 22, BUN 29, creatinine 1.10. Glucose was 142. CT scan of the chest shows minimal calcification within the aorta, and changes of COPD. Progress note dated July 13, 2024. 68-year-old male seen today in room 384. The patient had a non-ST segment elevation myocardial infarction, and was brought here for cardiac catheterization. It revealed severe three-vessel coronary disease. The patient is a current everyday smoker. Cardiology and cardiothoracic surgery planning went to do surgery on this patient. No decision has been made as yet. He does have a history of CVA, diabetes mellitus, hyperlipidemia, previous [place], osteoarthritis, and hypothyroidism. Current labs only include a glucose of 199. On today's evaluation of 07/14/2024, the patient is being seen for a follow-up. The patient is post non-ST segment elevation myocardial infarction and the patient was found to have severe triple-vessel coronary artery disease with diffuse disease involving the LAD. He is known to have hypertension hyperlipidemia diabetes mellitus and previous history of CVA. The patient is going to undergo coronary bypass surgery in a.m. His FEV1 is is in order of 67% of predicted. He is currently on room air oxygen with a pulse ox of 96%. CT scan of the chest was done on 07/12/2024 showed calcification of the aorta and there is no evidence of an aneurysm. Blood work was noted. No recent blood work from today. He remains on aspirin. He is on Coreg. He is on Levemir insulin and Farxiga and Synthroid. Free of any chest pain at this point in time. Echocardiogram that was done on 07/11/2024 showed a preserved LV function and mildly reduced atypical apical and septal kinesis secondary to an acute [place]. Noted the patient's troponin peaked at 17. Objective - Vital Signs Vital signs: Vital Signs Temp 97.7 F 07/14/24 08:42 Pulse 52 L 07/14/24 11:21 Resp 16 07/14/24 11:21 BP 111/66 07/14/24 11:21 Pulse Ox 96 07/14/24 11:21 FiO2 Intake & Output 07/13/24 07/14/24 07/14/24 18:59 06:59 18:59 Intake Total 701 236 Balance 701 236 Weight 76.3 kg Intake: Oral 701 236 Other: Voiding Method Toilet Toilet Toilet # Voids 1 1 - Exam No acute distress, oriented 3. Currently on room air. Saturation is 98 %. HEENT examination is grossly unremarkable. Mucous membranes are moist. No oral lesions. Neck supple. Full range of motion. No adenopathy thyromegaly or neck vein distention. Cardiovascular examination reveals regular rhythm rate. S1-S2 normal. No S3 or S4. No discernible murmur noted. Lungs reveal minimal scattered rhonchi. No wheezes or crackles. Breath sounds equal bilaterally. Abdomen soft bowel sounds are heard. No masses or tenderness. Extremities are intact. No cyanosis clubbing or edema. Skin is without rash or lesion. Neurologic examination is brief but nonfocal. - Labs CBC & Chem 7: 07/12/24 07:20 07/12/24 07:20 Labs: Abnormal Lab Results - Last 24 Hours (Table) 07/13/24 07/13/24 07/13/24 Range/Units 11:53 17:09 20:16 POC Glucose (mg/dL) 199 H 196 H 275 H (70-110) mg/dL 07/14/24 Range/Units 05:55 POC Glucose (mg/dL) 169 H (70-110) mg/dL Microbiology - Last 24 Hours (Table) 07/12/24 16:30 Nasal Screen MRSA/MSSA - Final Nasopharyngeal Swab Assessment and Plan Plan: Acute non-ST segment elevation myocardial infarction, S/P cardiac catheterization, July 10, showing severe three-vessel disease. COPD, with ongoing tobacco use. The patient COPD is currently inactive and stable History of ST segment elevation myocardial infarction, February 2015, with prior LAD stent placement, 2014 and 2015. Prior history of myocardial infarction. History of diabetes mellitus. History of hypertension. History of hyperlipidemia. History of CVA. Current everyday tobacco use. Plan: Continue same treatment Proceed with coronary bypass surgery in a.m. Will be involved in the postoperative care including management of the mechanical ventilator.
[2024-07-14 20:11] LABS: Glucose,Whole Blood 277 mg/dL (70-110)
[2024-07-15 06:11] LABS: Glucose,Whole Blood 161 mg/dL (70-110)
[2024-07-15 08:14] LABS: HCT 43.5 % (39.0-53.0); MCH 30.2 pg (25.0-35.0); MCHC 32.3 g/dL (31.0-37.0); MCV 93.5 fL (80.0-100.0); Platelet Count 364 k/uL (150-450); RBC 4.65 m/uL (4.30-5.90); RDW 13.4 % (11.5-15.5); WBC 10.2 k/uL (3.8-10.6)
[2024-07-15 08:19] LABS: INR 0.9 (<1.2); Partial Thromboplastin Time 24.3 sec (22.0-30.0); Prothrombin Time 9.8 sec (10.0-12.5)
[2024-07-15 08:38] LABS: ALT 14 U/L (4-49); AST 21 U/L (17-59); African American GFR (CKD) 59 (>60 ml/min/1.73 sqM); Alkaline Phosphatase 84 U/L (38-126); Anion Gap 12 mmol/L; Blood Urea Nitrogen 48 mg/dL (9-20); Calcium 9.5 mg/dL (8.4-10.2); Carbon Dioxide 19 mmol/L (22-30); Chloride 106 mmol/L (98-107); Glucose 175 mg/dL (74-99); Magnesium 2.7 mg/dL (1.6-2.3); Non-African American GFR(CKD) 51 (>60 ml/min/1.73 sqM); Potassium 5.4 mmol/L (3.5-5.1); Sodium 137 mmol/L (137-145); Total Bilirubin 0.6 mg/dL (0.2-1.3); Total Protein 6.7 g/dL (6.3-8.2)
--- NOTE | 2024-07-15 11:23 | P.PN ---
Subjective Progress Note Date: 07/15/24 Principal diagnosis: Coronary artery disease, non-STEMI this admission, left facial numbness and left arm numbness, no stroke evident on CT at [facility]. History of CAD with previous STEMI in 2014 and 2 stents to the LAD at that time along with non-STEMI in 2015 with 1 stent to the LAD at that time, hypertension, hyperlipidemia, hypothyroid, diabetes mellitus, multiple TIAs, CVA in 2022 with subsequent left carotid endarterectomy, chronic current tobacco dependence Patient was seen and examined this morning laying in bed on the cardiac stepdown unit in no acute distress. Denies any chest pain or shortness of breath. Has been ambulatory without difficulty. Plan is for open heart surgery tomorrow. Remains in sinus rhythm to sinus bradycardia. No other new concerns. Objective - Vital Signs Vital signs: Vital Signs Temp 98.6 F 07/15/24 07:47 Pulse 65 07/15/24 08:00 Resp 18 07/15/24 08:00 BP 111/58 07/15/24 07:47 Pulse Ox 95 07/15/24 07:47 FiO2 Intake & Output 07/14/24 07/15/24 07/15/24 18:59 06:59 18:59 Intake Total 236 Output Total 400 Balance 236 -400 Weight 75.3 kg Intake: Oral 236 Output: Urine 400 Other: Voiding Method Toilet Toilet Toilet # Voids 2 1 - Exam CONSTITUTIONAL: Appears comfortable, cooperative, no acute distress RESPIRATORY: Lungs sounds diminished bilaterally. Respirations even, nonlabored. Currently on room air with oxygen saturation 95%. Able to achieve 1500 mL on incentive spirometry. Strong cough. CARDIOVASCULAR: S1, S2 present. Regular rate and rhythm, sinus rhythm to sinus bradycardia on telemetry. Palpable peripheral pulses bilaterally. No edema present. No calf pain or tenderness noted GASTROINTESTINAL: Abdomen soft, nontender, nondistended. Active bowel sounds present 4 quadrants. Tolerating diet GENITOURINARY: Continues to void INTEGUMENTARY: Skin is warm and dry with evidence of good perfusion NEUROLOGIC: Cranial nerves II through XII intact MUSKULOSKELETAL: Able to move all extremities, strength equal bilaterally, gait normal PSYCHIATRIC: Alert and oriented to person place and time, appropriate affect, intact judgment and insight - Allied health notes Allied health notes reviewed: nursing - Labs CBC & Chem 7: 07/15/24 07:33 07/15/24 07:33 Labs: Abnormal Lab Results - Last 24 Hours (Table) 07/14/24 07/14/24 07/14/24 Range/Units 11:40 16:28 20:05 PT (10.0-12.5) sec Potassium (3.5-5.1) mmol/L Carbon Dioxide (22-30) mmol/L BUN (9-20) mg/dL Creatinine (0.66-1.25) mg/dL Glucose (74-99) mg/dL POC Glucose (mg/dL) 244 H 292 H 277 H (70-110) mg/dL Magnesium (1.6-2.3) mg/dL Crossmatch 07/15/24 07/15/24 07/15/24 Range/Units 06:09 07:33 07:33 PT 9.8 L (10.0-12.5) sec Potassium (3.5-5.1) mmol/L Carbon Dioxide (22-30) mmol/L BUN (9-20) mg/dL Creatinine (0.66-1.25) mg/dL Glucose (74-99) mg/dL POC Glucose (mg/dL) 161 H (70-110) mg/dL Magnesium (1.6-2.3) mg/dL Crossmatch See Detail 07/15/24 Range/Units 07:33 PT (10.0-12.5) sec Potassium 5.4 H (3.5-5.1) mmol/L Carbon Dioxide 19 L (22-30) mmol/L BUN 48 H (9-20) mg/dL Creatinine 1.42 H (0.66-1.25) mg/dL Glucose 175 H (74-99) mg/dL POC Glucose (mg/dL) (70-110) mg/dL Magnesium 2.7 H (1.6-2.3) mg/dL Crossmatch Microbiology - Last 24 Hours (Table) 07/12/24 16:30 Nasal Screen MRSA/MSSA - Final Nasopharyngeal Swab Assessment and Plan Assessment: Coronary artery disease with previous STEMI in 2014 and 2 stents to the LAD at that time along with non-STEMI in 2016 with 1 stent to the LAD at that time, non-STEMI this admission Chest pressure secondary to above Left facial numbness and left arm numbness, no stroke evident on CT at [facility] History of hypertension Hyperlipidemia, treated, cholesterol 141, LDL 66, triglyceride 242 Hypothyroid, TSH 0.382, FT4 1.48 Diabetes mellitus, uncontrolled hyperglycemia, preoperative hemoglobin A1c 9.8% Multiple TIAs CVA in 2022 with subsequent left carotid endarterectomy Chronic current tobacco dependence, 1 pack/day since 1969 Mild COPD, preoperative FEV1 67% of predicted Plan: Continue to maximize medical therapy with aspirin, statin, beta-katerina Encourage incentive spirometry use Increase activity as tolerated Our plan is for off-pump coronary artery bypass surgery, left internal mammary artery, endoscopic vein and left radial artery harvest, ligation of the left atrial appendage by Dr. Araya Tuesday, July 16, 2024 Smoking cessation counseling and education provided Patient needs better blood sugar control to be addressed by internal medicine Medical management of other comorbidities per internal medicine, cardiology More recommendations to follow
[2024-07-15 11:58] LABS: Glucose,Whole Blood 201 mg/dL (70-110)
--- NOTE | 2024-07-15 14:55 | P.PN ---
Subjective Progress Note Date: 07/15/24 68-year-old male presented from an outside hospital, with non-ST segment elevation myocardial infarction. The patient was having chest discomfort/chest pain. It apparently radiated to his bilateral shoulder areas. The patient does have a prior history of CAD, with previous stenting, 10 years prior. In addition, the patient has COPD, and ongoing tobacco use. Currently, I am asked to see the patient in room 384. He is on room air. No IV fluids. He had a cardiac catheterization done on July 10. It showed three-vessel coronary disease. The patient is a current everyday smoker. The patient does not know whether or not he is going to have his surgery while he is an inpatient, or, be sent home, and brought back. His medical history includes CVA, diabetes, hyperlipidemia, previous myocardial infarction, osteoarthritis, and hypothyroidism. As mentioned he is a current everyday smoker. The patient had stents to his LAD, in 2014, and 2015. The patient had a STEMI, in 2014. White count is 9.6, with a normal hemoglobin, hematocrit, platelet count. Sodium 137, potassium 5.2, chlorides 109, CO2 22, BUN 29, creatinine 1.10. Glucose was 142. CT scan of the chest shows minimal calcification within the aorta, and changes of COPD. Progress note dated July 13, 2024. 68-year-old male seen today in room 384. The patient had a non-ST segment elevation myocardial infarction, and was brought here for cardiac catheterization. It revealed severe three-vessel coronary disease. The patient is a current everyday smoker. Cardiology and cardiothoracic surgery planning went to do surgery on this patient. No decision has been made as yet. He does have a history of CVA, diabetes mellitus, hyperlipidemia, previous [place], osteoarthritis, and hypothyroidism. Current labs only include a glucose of 199. On today's evaluation of 07/14/2024, the patient is being seen for a follow-up. The patient is post non-ST segment elevation myocardial infarction and the patient was found to have severe triple-vessel coronary artery disease with diffuse disease involving the LAD. He is known to have hypertension hyperlipidemia diabetes mellitus and previous history of CVA. The patient is going to undergo coronary bypass surgery in a.m. His FEV1 is is in order of 67% of predicted. He is currently on room air oxygen with a pulse ox of 96%. CT scan of the chest was done on 07/12/2024 showed calcification of the aorta and there is no evidence of an aneurysm. Blood work was noted. No recent blood work from today. He remains on aspirin. He is on Coreg. He is on Levemir insulin and Farxiga and Synthroid. Free of any chest pain at this point in time. Echocardiogram that was done on 07/11/2024 showed a preserved LV function and mildly reduced atypical apical and septal kinesis secondary to an acute [place]. Noted the patient's troponin peaked at 17. On 07/15/2024, the patient is resting comfortably in bed.no respiratory difficulties. labs from today shows a white cell count of 10.2 with a hemoglobin 14. Normal coagulation profile. BUN is 48 with a creatinine of 1.4 to and a sodium levels at 137 with a potassium level of 5.4. The patient is using incentive spirometer. He remains on room air oxygen. Denies having any specific complaints for now. Is free of any chest pain. Objective - Vital Signs Vital signs: Vital Signs Temp 98.6 F 07/15/24 07:47 Pulse 65 07/15/24 08:00 Resp 18 07/15/24 08:00 BP 111/58 07/15/24 07:47 Pulse Ox 95 07/15/24 07:47 FiO2 Intake & Output 07/14/24 07/15/24 07/15/24 18:59 06:59 18:59 Intake Total 236 Output Total 400 Balance 236 -400 Weight 75.3 kg Intake: Oral 236 Output: Urine 400 Other: Voiding Method Toilet Toilet Toilet # Voids 2 1 - Exam No acute distress, oriented 3. Currently on room air. Saturation is 98 %. HEENT examination is grossly unremarkable. Mucous membranes are moist. No oral lesions. Neck supple. Full range of motion. No adenopathy thyromegaly or neck vein distention. Cardiovascular examination reveals regular rhythm rate. S1-S2 normal. No S3 or S4. No discernible murmur noted. Lungs reveal minimal scattered rhonchi. No wheezes or crackles. Breath sounds equal bilaterally. Abdomen soft bowel sounds are heard. No masses or tenderness. Extremities are intact. No cyanosis clubbing or edema. Skin is without rash or lesion. Neurologic examination is brief but nonfocal. - Labs CBC & Chem 7: 07/15/24 07:33 07/15/24 07:33 Labs: Abnormal Lab Results - Last 24 Hours (Table) 07/14/24 07/14/24 07/14/24 Range/Units 11:40 16:28 20:05 PT (10.0-12.5) sec Potassium (3.5-5.1) mmol/L Carbon Dioxide (22-30) mmol/L BUN (9-20) mg/dL Creatinine (0.66-1.25) mg/dL Glucose (74-99) mg/dL POC Glucose (mg/dL) 244 H 292 H 277 H (70-110) mg/dL Magnesium (1.6-2.3) mg/dL Crossmatch 07/15/24 07/15/24 07/15/24 Range/Units 06:09 07:33 07:33 PT 9.8 L (10.0-12.5) sec Potassium (3.5-5.1) mmol/L Carbon Dioxide (22-30) mmol/L BUN (9-20) mg/dL Creatinine (0.66-1.25) mg/dL Glucose (74-99) mg/dL POC Glucose (mg/dL) 161 H (70-110) mg/dL Magnesium (1.6-2.3) mg/dL Crossmatch See Detail 07/15/24 Range/Units 07:33 PT (10.0-12.5) sec Potassium 5.4 H (3.5-5.1) mmol/L Carbon Dioxide 19 L (22-30) mmol/L BUN 48 H (9-20) mg/dL Creatinine 1.42 H (0.66-1.25) mg/dL Glucose 175 H (74-99) mg/dL POC Glucose (mg/dL) (70-110) mg/dL Magnesium 2.7 H (1.6-2.3) mg/dL Crossmatch Microbiology - Last 24 Hours (Table) 07/12/24 16:30 Nasal Screen MRSA/MSSA - Final Nasopharyngeal Swab Assessment and Plan Plan: Acute non-ST segment elevation myocardial infarction, S/P cardiac catheterization, July 10, showing severe three-vessel disease. COPD, with ongoing tobacco use. The patient COPD is currently inactive and stable History of ST segment elevation myocardial infarction, February 2015, with prior LAD stent placement, 2015 and 2016. Prior history of myocardial infarction. History of diabetes mellitus. History of hypertension. History of hyperlipidemia. History of CVA. Current everyday tobacco use. Acute kidney injury, creatinine is at 1.4. Plan: Repeat electrolytes in the morning clinically and hemodynamically stable CT surgery is on the case Continue same treatment Proceed with coronary bypass surgery in a.m. Will be involved in the postoperative care including management of the mechanical ventilator.
--- NOTE | 2024-07-15 14:55 | P.PN ---
Subjective Progress Note Date: 07/15/24 The patient is a 68-year-old male who presented to the hospital with acute onset of chest discomfort and diagnosed with non-STEMI. Cardiac catheterization revealed severe triple-vessel disease, where he will need to undergo coronary bypass surgery. The patient remains on a heparin drip and will do so until his upcoming surgery, likely planned within the next week. Patient interviewed and examined resting comfortably in bed. No current chest pain or chest pressure. No difficulty breathing. He has been up ambulating around his room without complications. Blood pressure 111/58, heart rate 65, pu lse ox 96% on room air. Repeat blood work reveals WBC 10.2, hemoglobin 14. BUN 48 creatinine 1.42 and potassium 5.4. Patient is scheduled for CABG tomorrow morning. GENERAL: Well-appearing, well-nourished and in no acute distress. NECK: Supple without JVD or thyromegaly. LUNGS: Breath sounds clear to auscultation bilaterally. Respiration equal and unlabored. No wheezes, rales or rhonchi. HEART: Regular rate and rhythm without murmurs, rubs or gallops. S1 and S2 heard. EXTREMITIES: Normal range of motion, no edema. No clubbing or cyanosis. Peripheral pulses intact and strong. TELEMETRY: Sinus rhythm overnight IMPRESSION: Non-ST elevated MS status post cath noting severe triple-vessel coronary artery disease, diffuse disease involving the LAD Hypertension Hyperlipidemia Diabetes History of CVA/TIA PLAN: No change in medication regimen Patient is scheduled for CABG tomorrow morning. Nurse practitioner note has been reviewed, I agree with documented findings and plan of care. Patient was seen and examined. Objective - Vital Signs Vital signs: Vital Signs Temp 97.9 F 07/15/24 12:00 Pulse 56 L 07/15/24 12:00 Resp 18 07/15/24 12:00 BP 122/66 07/15/24 12:00 Pulse Ox 96 07/15/24 12:00 FiO2 Intake & Output 07/14/24 07/15/24 07/15/24 18:59 06:59 18:59 Intake Total 236 Output Total 400 Balance 236 -400 Weight 75.3 kg Intake: Oral 236 Output: Urine 400 Other: Voiding Method Toilet Toilet Toilet # Voids 2 1 - Labs CBC & Chem 7: 07/15/24 07:33 07/15/24 07:33 Labs: Abnormal Lab Results - Last 24 Hours (Table) 07/14/24 07/14/24 07/15/24 Range/Units 16:28 20:05 06:09 PT (10.0-12.5) sec Potassium (3.5-5.1) mmol/L Carbon Dioxide (22-30) mmol/L BUN (9-20) mg/dL Creatinine (0.66-1.25) mg/dL Glucose (74-99) mg/dL POC Glucose (mg/dL) 292 H 277 H 161 H (70-110) mg/dL Magnesium (1.6-2.3) mg/dL Crossmatch 07/15/24 07/15/24 07/15/24 Range/Units 07:33 07:33 07:33 PT 9.8 L (10.0-12.5) sec Potassium 5.4 H (3.5-5.1) mmol/L Carbon Dioxide 19 L (22-30) mmol/L BUN 48 H (9-20) mg/dL Creatinine 1.42 H (0.66-1.25) mg/dL Glucose 175 H (74-99) mg/dL POC Glucose (mg/dL) (70-110) mg/dL Magnesium 2.7 H (1.6-2.3) mg/dL Crossmatch See Detail 07/15/24 Range/Units 11:56 PT (10.0-12.5) sec Potassium (3.5-5.1) mmol/L Carbon Dioxide (22-30) mmol/L BUN (9-20) mg/dL Creatinine (0.66-1.25) mg/dL Glucose (74-99) mg/dL POC Glucose (mg/dL) 201 H (70-110) mg/dL Magnesium (1.6-2.3) mg/dL Crossmatch Microbiology - Last 24 Hours (Table) 07/12/24 16:30 Nasal Screen MRSA/MSSA - Final Nasopharyngeal Swab
[2024-07-15 16:41] LABS: Glucose,Whole Blood 314 mg/dL (70-110)
[2024-07-15 20:31] LABS: Glucose,Whole Blood 231 mg/dL (70-110)
[2024-07-16] MEDS: ATORVASTATIN 10 MG TAB PO ONE (04:28)
[2024-07-16] MEDS: ASPIRIN 325 MG TAB PO ONE (04:28)
[2024-07-16 04:34] LABS: Glucose,Whole Blood 187 mg/dL (70-110)
[2024-07-16] MEDS ORDERED: CARDIOPLEGIC SOLN (K+ 16 MEQ/L 1,000 ML with SOD BICARB SYR 8.4% (1 MEQ/ML) 20 ML, LIDO... PERFUSION NR (05:00)
[2024-07-16] MEDS ORDERED: INSULIN REGULAR 100 UNIT in SODIUM CHLORIDE 0.9% 100 ML IV SCH (05:00)
[2024-07-16] MEDS ORDERED: NOREPINEPHRINE 4 MG in SODIUM CHLORIDE 0.9% 250 ML IV SCH (05:00)
[2024-07-16] MEDS: IV FLUID CONTINUATION 1,000 ML IV ONE (06:25)
[2024-07-16] MEDS: LIDOCAINE 1% (10MG/ML) FOR IV START INTRADERMA STA (06:25)
[2024-07-16] MEDS: LACTATED RINGERS 1,000 ML IV SCH (06:25)
[2024-07-16] MEDS: METOPROLOL TARTRATE 12.5 MG TAB PO ONE (06:41)
[2024-07-16 06:46] LABS: Glucose,Whole Blood 206 mg/dL (70-110)
[2024-07-16 06:54] LABS: ALT 14 U/L (4-49); AST 21 U/L (17-59); African American GFR (CKD) 55 (>60 ml/min/1.73 sqM); Albumin 4.2 g/dL (3.5-5.0); Alkaline Phosphatase 93 U/L (38-126); Anion Gap 8 mmol/L; Blood Urea Nitrogen 53 mg/dL (9-20); Calcium 9.1 mg/dL (8.4-10.2); Carbon Dioxide 24 mmol/L (22-30); Chloride 105 mmol/L (98-107); Glucose 214 mg/dL (74-99); Non-African American GFR(CKD) 47 (>60 ml/min/1.73 sqM); Potassium 5.8 mmol/L (3.5-5.1); Sodium 137 mmol/L (137-145); Total Bilirubin 0.5 mg/dL (0.2-1.3)
[2024-07-16 07:36] LABS: ABG Base Excess -3.8 mmol/L; ABG Glucose Whole Blood 203 mg/dL (75-99); ABG HCO3 23 mmol/L (21-25); ABG Hematocrit 39 % (34.0-46.0); ABG Ionized Calcium 4.8 mg/dL (4.5-5.3); ABG Lactic Acid Whole Blood 0.9 mmol/L (0.5-1.6); ABG Oxygen Saturation 93.4 % (94-97); ABG PCO2 45 mmHg (35-45); ABG PH 7.31 (7.35-7.45); ABG PO2 78 mmHg (83-108); ABG Potassium Whole Blood 4.6 mmol/L (3.4-4.5); ABG Sodium Whole Blood 138 mmol/L (135-146); ABG TCO2 21 mmol/L (19-24); Allen Test Performed? Yes
[2024-07-16] MEDS ORDERED: SODIUM BICARB 8.4% 50 ML SYR (1 MEQ/ML) ONE (07:54)
[2024-07-16] MEDS ORDERED: fentaNYL (PF) 50 MCG/ML 50 ML VIAL ONE (07:54)
[2024-07-16] MEDS ORDERED: NITROGLYCERIN-D5W PMX 50 MG/250 ML BOTTLE IV ONE (07:54)
[2024-07-16] MEDS ORDERED: DOPamine DRIP 800 MG/250 ML BAG IV ONE (07:54)
[2024-07-16] MEDS ORDERED: ALBUMIN HUMAN 5% (25gm) 500 ML VIAL IVPB ONE (07:54)
[2024-07-16] MEDS ORDERED: INSULIN REGULAR 100 UNIT/ML VIAL (IV) ONE (07:54)
[2024-07-16] MEDS ORDERED: HEPARIN SODIUM,PORCINE 5,000 UNIT/ML 1 ML VIAL ONE (07:54)
[2024-07-16] MEDS ORDERED: PROPOFOL 10 MG/ML 20 ML VIAL IV ONE (07:54)
[2024-07-16] MEDS ORDERED: PHENYLEPHRINE-0.9% NACL SYG 1,000 MCG/10 ML SYRINGE ONE (07:54)
[2024-07-16] MEDS ORDERED: VECURONIUM 10 MG VIAL IV ONE (07:54)
[2024-07-16] MEDS ORDERED: GLYCOPYRROLATE 0.2 MG/ML 2 ML VIAL ONE (07:54)
[2024-07-16] MEDS ORDERED: HEPARIN SODIUM,PORCINE 10,000 UNIT/ML 1 ML VIAL ONE (07:54)
[2024-07-16] MEDS ORDERED: MIDAZOLAM HCL 10 MG/10 ML VIAL ONE (07:54)
[2024-07-16 08:02] LABS: Glucose,Whole Blood 157 mg/dL (70-110)
[2024-07-16] MEDS: SODIUM CHLORIDE 0.9% 50 ML with ceFAZolin 2,000 MG IV ONE (08:15)
[2024-07-16 08:30] LABS: ABG Glucose Whole Blood 121 mg/dL (75-99); ABG HCO3 23 mmol/L (21-25); ABG Hematocrit 38 % (34.0-46.0); ABG Ionized Calcium 4.8 mg/dL (4.5-5.3); ABG Lactic Acid Whole Blood 0.9 mmol/L (0.5-1.6); ABG Oxygen Saturation 99.2 % (94-97); ABG PCO2 45 mmHg (35-45); ABG PH 7.32 (7.35-7.45); ABG PO2 399 mmHg (83-108); ABG Potassium Whole Blood 4.6 mmol/L (3.4-4.5); ABG Sodium Whole Blood 140 mmol/L (135-146); ABG TCO2 21 mmol/L (19-24); Allen Test Performed? Yes
[2024-07-16] MEDS: ceFAZolin 1,000 MG in SODIUM CHLORIDE 0.9% 1,000 ML IRRIGATION ONE (09:05)
[2024-07-16] MEDS: SODIUM CHLORIDE 0.9% 500 ML 500 ML with HEPARIN SODIUM,PORCINE (1 ML) 5,000 UNIT IV ONE (09:05)
[2024-07-16] MEDS: PAPAVERINE 360 MG in SODIUM CHLORIDE 0.9% 90 ML IV ONE (09:05)
[2024-07-16 09:54] LABS: ABG Base Excess -1.1 mmol/L; ABG Glucose Whole Blood 175 mg/dL (75-99); ABG HCO3 25 mmol/L (21-25); ABG Hematocrit 38 % (34.0-46.0); ABG Ionized Calcium 4.6 mg/dL (4.5-5.3); ABG Lactic Acid Whole Blood 0.7 mmol/L (0.5-1.6); ABG Oxygen Saturation 98.4 % (94-97); ABG PCO2 46 mmHg (35-45); ABG PH 7.34 (7.35-7.45); ABG PO2 159 mmHg (83-108); ABG Potassium Whole Blood 4.7 mmol/L (3.4-4.5); ABG Sodium Whole Blood 140 mmol/L (135-146); ABG TCO2 23 mmol/L (19-24); Allen Test Performed? Yes
[2024-07-16 10:28] LABS: ABG Base Excess -1.7 mmol/L; ABG Glucose Whole Blood 145 mg/dL (75-99); ABG HCO3 24 mmol/L (21-25); ABG Hematocrit 36 % (34.0-46.0); ABG Ionized Calcium 4.4 mg/dL (4.5-5.3); ABG Lactic Acid Whole Blood 0.7 mmol/L (0.5-1.6); ABG Oxygen Saturation 98.9 % (94-97); ABG PCO2 43 mmHg (35-45); ABG PH 7.36 (7.35-7.45); ABG PO2 150 mmHg (83-108); ABG Potassium Whole Blood 4.4 mmol/L (3.4-4.5); ABG Sodium Whole Blood 141 mmol/L (135-146); ABG TCO2 22 mmol/L (19-24); Allen Test Performed? Yes
--- NOTE | 2024-07-16 11:08 | P.ANPRN ---
Procedure Note - Anesthesia - Invasive Line Right Central Line Time Out Performed: Yes (0740) Date of Procedure: 07/16/24 Time of Procedure: 07:41 Location of Patient: Phase I Preparation: Sterile Prep, Sterile Dressing Central Line Location: Internal Jugular (right IJ Cordis) Ultrasound Used: Yes Purpose - Visualization and Identification of Vasculature: Yes Needle Guage: 18g angio Image Stored and Saved: Yes Narrative: Invasive line placement per sterile protocol utilized. Anesthesia note Procedure: Right internal jugular central venous catheter insertion: 8.5-[place] Cordis Sterile protocol followed. Right neck prepped. Ultrasound used. Lidocaine 1% used. Using ultrasound local anesthetic was instilled site over right Internal Jugular vein. Angiocath was used to gain access via ultrasound. Once free flow non-pulsatile blood flow was confirmed, 12 inch extension tubing was then placed on Angiocath. Once central venous pressure was confirmed, J-wire was then placed through Angiocath. Angiocath was then withdrawn. Local was instilled at J-wire site. Small skin yazmin was then made with provided sterile scalpel. 8.5- [place] Cordis was then inserted over the wire while maintaining control of wire at all times. Uneventful insertion with dilation. Free flow nonpulsatile blood flow through Cordis. Hooked up to IV tubing. Secured with suture. Dressings applied. Drapes Removed. Attempts x1.
--- NOTE | 2024-07-16 11:10 | P.ANPRN ---
Procedure Note - Anesthesia - Invasive Line Right [place] Nika Time Out Performed: Yes (741) Date of Procedure: 07/16/24 Time of Procedure: 07:42 Location of Patient: Phase I Preparation: Sterile Prep, Sterile Dressing [place] Nika Line Location: Internal Jugular (right IJ) Ultrasound Used: No Purpose - Visualization and Identification of Vasculature: No Image Stored and Saved: No Narrative: Invasive line placement per sterile protocol utilized. Anesthesia note Procedure right [place]-Nika catheter placed through right internal jugular central venous catheter Sterile protocol maintained from previous procedure. [place]-Nika catheter sterilely placed in sheath and flushed prior to insertion. After advancing 15 cm [place]-Nika catheter was then slowly inserted with balloon up. Advanced through CVP, RV to PA waveform. [place]-Nika catheter wedged around 51 cm. Balloon down. Catheter withdrawn 5 cm. . No wedge. Proximal and distal sites locked on sheath. Attempts x1. Sterile drapes removed and dressings applied.
--- NOTE | 2024-07-16 11:12 | P.ANPRN ---
Procedure Note - Anesthesia - ROLLY Intraop Pre Bypass ROLLY Intraop - Anesthesia Indication: Coronary artery disease Date of Procedure: 07/16/24 Pre-operative Diagnosis: Coronary artery disease Post-operative Diagnosis: Same Surgeon: Selvin Araya Left Ventricle: Within normal limits Ejection Fraction: Normal Regional Wall Motion Abnormalities: None Left Ventricle Hypertrophy: No R. Ventricle Function: Normal Anatomy: Trileaflet Aortic Stenosis: None Aortic Regurgitation: Trace Mitral Stenosis: None Mitral Regurgitation: None Tricuspid Stenosis: None Tricuspid Regurgitation: None Pulmonic Stenosis: None Pulmonic Regurgitation: None R. Atrial Dilation: Yes R. Atrial PFO: Yes L. Atrial Dilation: Yes Aorta: Ascending 3.6 cm Aortic Dissection: No Aortic Calcification: None Plural Effusion: None
[2024-07-16] MEDS ORDERED: Potassium Replacement Protocol 1 EACH MISC MISCELLANE PRN (11:38)
[2024-07-16] MEDS ORDERED: DEXMEDETOMIDINE/0.9% NACL(PMX) 400 MCG in EMPTY BAG 1 BAG IV SCH (11:38)
[2024-07-16] MEDS ORDERED: DEXTROSE 50% SYRINGE 50 ML IVP PRN ×2 (11:38)
[2024-07-16] MEDS ORDERED: BENZOCAINE/MENTHOL LOZENG 1 EACH LOZENGE MUCOUS MEM PRN (11:38)
[2024-07-16] MEDS ORDERED: IPRATROPIUM-ALBUTEROL 3 ML NEB INHALATION PRN (11:38)
[2024-07-16] MEDS ORDERED: hydrALAZINE HCL 20 MG/ML 1 ML VIAL IVP PRN (11:38)
[2024-07-16] MEDS ORDERED: CALCIUM GLUCONATE IN NACL 2 GM in SALINE 1 100ML.BAG IVPB PRN (11:38)
[2024-07-16] MEDS ORDERED: Magnesium Replacement Protocol 1 EACH MISC MISCELLANE PRN (11:38)
--- NOTE | 2024-07-16 12:01 | P.OP ---
Date of Procedure: 07/16/24 Preoperative Diagnosis: Coronary artery disease, subendocardial infarction, history of stenting to the LAD x 3 Postoperative Diagnosis: Same Procedure(s) Performed: Off-pump CABG x 3 with sequential MCKEON to the mid and distal LAD, saphenous vein graft to posterolateral branch of circumflex, endovascular vein harvest, occlusion of the left atrial appendage with 35mm AtriCure clamp. Implants: 35 mm AtriCure clip. Anesthesia: GETA Surgeon: Selvin Araya Assessment Nurse Practitioner #1: Rj Velazquez Assessment Nurse Practitioner #2: Leann Marrufo Estimated Blood Loss (ml): 200 IV fluids (ml): 2,000 Urine output (ml): 400 Pathology: none sent Condition: stable Disposition: ICU Indications for Procedure: 68-year-old male with distant history of coronary stenting x 3 to the LAD, history of carotid endarterectomy. Patient continues to smoke and be noncompliant with medical follow-up or medication. A1c was 9.5. He presented with subendocardial infarction. Cardiac catheterization demonstrated severe three-vessel coronary artery disease with diffuse disease present throughout. Coronaries overall was small. The LAD was dominant wrapping around the apex to the inferior wall. It had diffuse proximal disease including in-stent restenosis. The diagonals were small and diffusely diseased. The circumflex lead to very small obtuse marginal branches followed by a large posterolateral branch. Surgical consultation was obtained. It was felt possible to graft the LAD toward the apex as well as the posterior lateral branch of the circumflex. Beyond this the targets were unclear. It was understood that partial revascularization was more likely than complete due to the severity and diffuseness of the coronary artery disease. Operative Findings: LAD was graftable in its midportion and toward the apex. Diagonals were very small and diffusely diseased. Distal right coronary vessels were also extremely small. Posterior lateral branch of the circumflex was a graftable vessel. Left radial artery was depended and so could not be used as a conduit. Good saphenous vein was obtained from the right leg. The MCKEON was an excellent conduit. Description of Procedure: Patient was brought to the operating room and placed supine on the operating table. General anesthesia was induced. Anterior torso and bilateral lower ex tremities were sterilely prepped and draped. Right greater saphenous vein was harvested using endoscopic harvest technique and was prepared on the back table. It was harvested from ankle to groin. The best segment was used. Simultaneous midline sternotomy was performed the left hemisternum retracted upwards and the left internal mammary artery harvested on a vascularized pedicle, left intact on its origin from the subclavian and divided distally. It was an excellent conduit. The left pleural space was drained with a 32 [place] chest tube. Standard sternal Retractor was placed. Pericardium was opened in the midline. The heart was exposed with pericardial sutures. The patient was systemically heparinized. ACT's were maintained greater than 250 during grafting. 35 mm AtriCure clip was applied to the base of the left atrial appendage. The MCKEON was tunneled into the pericardial space. It was felt to be of adequate length in order to graft both the mid and distal LAD. The distal vessel was prepared and then the mid vessel was prepared for [id number] anastomosis. Suction stabilization was used during distal anastomosis. [id number] anastomosis between the MCKEON and the mid LAD just beyond the takeoff of the second diagonal was performed first. The mid LAD was opened and blood flow controlled with a 2 mm flow-through. Anastomosis was constructed with running 8-0 Prolene suture. On completion of the anastomosis the flow through was removed effective probing the proximal distal portion of the anastomosis. Suture was tied with good result and hemostasis. Inflow was opened and pulsatile flow was noted out the end of the MCKEON. Bulldog clamp was applied distally on the MCKEON. FAN pedicle was tacked surrounding epicardium by the mid LAD anastomosis. Distal vessel was stabilized. It was opened and blood flow controlled with a 1.5 mm flow-through. End-to-side anastomosis between the MCKEON and the distal LAD was performed with running 8-0 Prolene suture. On completion the anastomosis the flow through was removed effectively probing the proximal distal portion of the anastomosis. Suture was tied with good result and hemostasis. The inflow was opened. The graft was noted to lay well. The romero filled well. FAN pedicle was tacked surrounding epicardium with 6-0 silk suture. Inferior lateral wall was now exposed and the RUSSELL was stabilized. Saphenous vein was appropriately prepared. The RUSSELL was opened fairly proximally and blood flow controlled with a 1.5 mm flow-through. End-to-side anastomosis between the saphenous vein and the RUSSELL was performed with running 7-0 Prolene suture. On completion of the anastomosis the flow through was removed effectively probing the proximal distal portion of the anastomosis. Suture was tied with good result and hemostasis. Good backbleeding was noted into the vein graft to the first valve. Heart was lowered in anatomic position. Vein graft was brought around the left side of the heart, beneath the MCKEON and up to the ascending aorta. It was cut to appropriate length. Bulldog clamp was placed proximally. Heartstring device was deployed in the mid ascending aorta to the left of midline in the proximal anastomosis constructed with running 5-0 Prolene suture. On completion of the proximal anastomosis the heartstring device was removed and the suture tied with good result and hemostasis. The vein graft was de-aired with needle holes in the inflow open. Graft was noted to lay well with more than adequate length and good hemostasis throughout. Heparin was reversed with protamine. Good hemostasis was obtained throughout. Mediastinum was drained with a 36 Macanese chest tube and irrigated with antibiotic solution. Sternum was closed with 8 sternal wires. Fascia was closed with 0 Ethibond. Subcutaneous and subcuticular layers were closed with layers of Vicryl suture. Dry sterile dressings were applied and the patient was transferred to ICU in stable condition.
[2024-07-16 12:15] LABS: Glucose,Whole Blood 127 mg/dL (70-110)
[2024-07-16] MEDS: IPRATROPIUM-ALBUTEROL 3 ML NEB INHALATION SCH ×2 (12:20→16:36)
[2024-07-16 12:30] LABS: Basophils # (A) 0.1 k/uL (0-0.2); Basophils % (A) 0 %; Eosinophils # (A) 0.3 k/uL (0-0.7); Eosinophils % (A) 2 %; HCT 34.6 % (39.0-53.0); HGB 11.8 gm/dL (13.0-17.5); Lymphocytes # (A) 1.4 k/uL (1.0-4.8); Lymphocytes % (A) 8 %; MCH 30.9 pg (25.0-35.0); MCHC 33.9 g/dL (31.0-37.0); MCV 91.2 fL (80.0-100.0); Mean Platelet Volume 8.7; Monocytes # (A) 0.9 k/uL (0-1.0); Monocytes % (A) 5 %; Neutrophils # (A) 14.8 k/uL (1.3-7.7); Neutrophils % (A) 85 %; Platelet Count 259 k/uL (150-450); RDW 13.7 % (11.5-15.5); WBC 17.4 k/uL (3.8-10.6)
[2024-07-16 12:39] LABS: ALT 11 U/L (4-49); AST 21 U/L (17-59); African American GFR (CKD) 68 (>60 ml/min/1.73 sqM); Albumin 3.4 g/dL (3.5-5.0); Alkaline Phosphatase 62 U/L (38-126); Anion Gap 7 mmol/L; Blood Urea Nitrogen 48 mg/dL (9-20); Carbon Dioxide 22 mmol/L (22-30); Chloride 110 mmol/L (98-107); Glucose 101 mg/dL (74-99); Magnesium 2.3 mg/dL (1.6-2.3); Non-African American GFR(CKD) 59 (>60 ml/min/1.73 sqM); Potassium 4.5 mmol/L (3.5-5.1); Sodium 139 mmol/L (137-145); Total Bilirubin 0.4 mg/dL (0.2-1.3); Total Protein 5.5 g/dL (6.3-8.2)
[2024-07-16] MEDS: NITROGLYCERIN-D5W PMX 50 MG in DEXTROSE/WATER 1 250ML.BAG IV SCH (12:39)
[2024-07-16] MEDS: SODIUM CHLORIDE 0.9% 1,000 ML IV SCH (12:40)
[2024-07-16 12:41] LABS: Partial Thromboplastin Time 25.5 sec (22.0-30.0); Prothrombin Time 10.8 sec (10.0-12.5)
[2024-07-16] MEDS: CLEVIDIPINE BUTYRATE 25 MG in EMPTY BAG 1 BAG IV SCH ×2 (12:41→22:24)
[2024-07-16] MEDS: INSULIN REGULAR 100 UNIT in SODIUM CHLORIDE 0.9% 100 ML IV SCH (12:41)
[2024-07-16 12:49] LABS: ABG Base Excess -1.5 mmol/L; ABG HCO3 24 mmol/L (21-25); ABG PCO2 42 mmHg (35-45); ABG PH 7.37 (7.35-7.45); ABG PO2 353 mmHg (83-108); ABG TCO2 25 mmol/L (19-24)
[2024-07-16 12:51] LABS: Allen Test Performed? no
--- NOTE | 2024-07-16 12:57 | XR ---
EXAMINATION TYPE: XR chest 1V portable DATE OF EXAM: 07/16/2024 COMPARISON: 05/18/2023 HISTORY: Postop TECHNIQUE: Single frontal view of the chest is obtained. FINDINGS: ET tube 0.2 0.5 cm above magaly. [place]-Nika catheter with tip overlying proximal outflow tr act. NG tube seen with the tip at the level gastric body. Mediastinal drain is seen and there is a le ft-sided chest tube. No sizable pneumothorax. Patchy bilateral areas of consolidation favor postopera tive atelectasis over pneumonia. Tiny left pleural effusion. Heart size stable. Median sternotomy mike nges. Osseous structures stable. Atrial appendage clip incidentally noted. IMPRESSION: 1. Postsurgical changes with no sizable pneumothorax. 2. Tiny bilateral pleural effusion with patchy areas of consolidation. Favor postoperative atelectasi s over infiltrate. Correlate clinically. [facility] Blanca Gaytan, , 07/16/2024 12:55 PM
[2024-07-16 13:06] LABS: Glucose,Whole Blood 114 mg/dL (70-110)
[2024-07-16] MEDS: DOPamine DRIP 800 MG in DEXTROSE/WATER 1 250ML.BAG IV SCH (13:10)
[2024-07-16 13:11] LABS: Ionized Calcium 4.4 mg/dL (4.5-5.3)
--- NOTE | 2024-07-16 13:16 | P.ANPRN ---
Procedure Note - Anesthesia - ROLLY Intraop Post Bypass ROLLY Intraop Post Bypass Procedure Performed: CABG offpump Left Ventricle: wnl Ejection Fraction: Normal Regional Wall Motion Abnormalities: None R. Ventricle Function: Normal Aortic Valve: Unchanged Mitral Valve: Unchanged Tricuspid: Unchanged Pulmonic: Unchanged Aortic Dissection: No
[2024-07-16 14:03] LABS: Glucose,Whole Blood 145 mg/dL (70-110)
[2024-07-16] MEDS: ACETAMINOPHEN IV (For NPO) 1,000 MG in EMPTY BAG 1 BAG IVPB SCH (14:29)
[2024-07-16 15:00] LABS: Glucose,Whole Blood 171 mg/dL (70-110)
[2024-07-16 15:31] LABS: ABG Base Excess -2.8 mmol/L; ABG HCO3 22 mmol/L (21-25); ABG Oxygen Saturation 99.2 % (94-97); ABG PCO2 38 mmHg (35-45); ABG PH 7.37 (7.35-7.45); ABG PO2 142 mmHg (83-108); ABG TCO2 23 mmol/L (19-24)
[2024-07-16 15:33] LABS: Allen Test Performed? no
[2024-07-16 16:08] LABS: Glucose,Whole Blood 170 mg/dL (70-110)
--- NOTE | 2024-07-16 16:35 | P.PN ---
Subjective Progress Note Date: 07/16/24 68-year-old male presented from an outside hospital, with non-ST segment elevation myocardial infarction. The patient was having chest discomfort/chest pain. It apparently radiated to his bilateral shoulder areas. The patient does have a prior history of CAD, with previous stenting, 10 years prior. In addition, the patient has COPD, and ongoing tobacco use. Currently, I am asked to see the patient in room 384. He is on room air. No IV fluids. He had a cardiac catheterization done on July 10. It showed three-vessel coronary disease. The patient is a current everyday smoker. The patient does not know whether or not he is going to have his surgery while he is an inpatient, or, be sent home, and brought back. His medical history includes CVA, diabetes, hyperlipidemia, previous myocardial infarction, osteoarthritis, and hypothyroidism. As mentioned he is a current everyday smoker. The patient had stents to his LAD, in 2014, and 2015. The patient had a STEMI, in 2014. White count is 9.6, with a normal hemoglobin, hematocrit, platelet count. Sodium 137, potassium 5.2, chlorides 109, CO2 22, BUN 29, creatinine 1.10. Glucose was 142. CT scan of the chest shows minimal calcification within the aorta, and changes of COPD. Progress note dated July 13, 2024. 68-year-old male seen today in room 384. The patient had a non-ST segment elevation myocardial infarction, and was brought here for cardiac catheterization. It revealed severe three-vessel coronary disease. The patient is a current everyday smoker. Cardiology and cardiothoracic surgery planning went to do surgery on this patient. No decision has been made as yet. He does have a history of CVA, diabetes mellitus, hyperlipidemia, previous NE, osteoarthritis, and hypothyroidism. Current labs only include a glucose of 199. On today's evaluation of 07/14/2024, the patient is being seen for a follow-up. The patient is post non-ST segment elevation myocardial infarction and the patient was found to have severe triple-vessel coronary artery disease with diffuse disease involving the LAD. He is known to have hypertension hyperlipidemia diabetes mellitus and previous history of CVA. The patient is going to undergo coronary bypass surgery in a.m. His FEV1 is is in order of 67% of predicted. He is currently on room air oxygen with a pulse ox of 96%. CT scan of the chest was done on 07/12/2024 showed calcification of the aorta and there is no evidence of an aneurysm. Blood work was noted. No recent blood work from today. He remains on aspirin. He is on Coreg. He is on Levemir insulin and Farxiga and Synthroid. Free of any chest pain at this point in time. Echocardiogram that was done on 07/11/2024 showed a preserved LV function and mildly reduced atypical apical and septal kinesis secondary to an acute NE. Noted the patient's troponin peaked at 17. On 07/15/2024, the patient is resting comfortably in bed.no respiratory difficulties. labs from today shows a white cell count of 10.2 with a hemoglobin 14. Normal coagulation profile. BUN is 48 with a creatinine of 1.4 to and a sodium levels at 137 with a potassium level of 5.4. The patient is using incentive spirometer. He remains on room air oxygen. Denies having any specific complaints for now. Is free of any chest pain. 07/16/2024, the patient is being seen after arrival to the intensive care unit. The patient was taken to the operating room this morning and the patient underwent off-pump coronary artery bypass surgery x 3 with MCKEON to mid distal LAD, SVG to posterolateral branch of circumflex. Postop, the patient was kept intubated on the mechanical ventilator. Arrived to the ICU on propofol running at 20 mcg/kg/min. He is on assist-control mode of mechanical ventilation at rate of 16, tidal volume of 500, FiO2 100% and PEEP of 5. Blood gas showed a pH of 7.37 with a pCO2 of 42 and pO2 was 150. Based on that, FiO2 was gradually weaned off. The patient has not mediastinal left pleural chest tube. Chest x- ray shows postsurgical changes without any pneumothorax. Tiny bilateral pleural effusion is seen versus atelectasis. Meanwhile, the patient had a cardiac output of 6.7 with an index of 3.6. PA pressures are 28/13. He is on insulin drip at 4 units an hour. He is on dopamine at 2 mcg/kg/min. Cardiac rhythm is sinus. The white cell count is 17.4, hemoglobin 11.8 and a platelet count of 252. BUN 48 with a creatinine of 1.25 and a sodium levels at 139 and a bicarb is at 22. Calm and comfortable. Objective - Vital Signs Vital signs: Vital Signs Temp 97.4 F L 07/16/24 06:09 Pulse 73 07/16/24 15:00 Resp 20 07/16/24 15:00 BP 147/79 07/16/24 06:09 Pulse Ox 98 07/16/24 15:00 FiO2 50 07/16/24 14:50 Intake & Output 07/15/24 07/16/24 07/16/24 18:59 06:59 18:59 Intake Total 340 442.506 Output Total 350 994 Balance -350 340 -551.494 Weight 75.2 kg Intake: IV 100 419 ACETAMINOPHEN IV (For NPO 100 ) 1,000 mg In Empty Bag 1 bag @ 400 mls/hr IVPB Q6HR H[facility]RI Rx#:[id number] CO/CI 80 Pressue bag 36 Sodium Chloride 0.9% 1, 150 000 ml @ 50 mls/hr IV . Q20H [facility]NERI Rx#:[id number] Intake, IV Titration 23.506 Amount Clevidipine Butyrate 25 0.767 mg In Empty Bag 1 bag @ 1 MG/HR 2 mls/hr IV .Q24H [facility]RI Rx#:[id number] Insulin Regular 100 unit 7.323 In Sodium Chloride 0.9% 100 ml @ Per Protocol IV .Q0M [facility]RI Rx#:[id number] propofoL 1,000 mg In 15.416 Empty Bag 1 bag @ Titrate IV .Q0M HENRI Rx#: [id number] Oral 240 Output: Chest Tube Drainage 104 Chest Tube Mediastinal 82 Left Chest Tube 22 Urine 350 590 Estimated Blood Loss 300 Other: Voiding Method Toilet Toilet Indwelling Catheter # Voids 1 ABP, PAP, CO, CI - Last Documented Arterial Blood Pressure 137/67 Pulmonary Artery Pressure 33/19 Cardiac Output 6.6 Cardiac Index 3.5 - Exam No acute distress, intubated on mechanical ventilator, calm and comfortable. Orotracheal and orogastric tube was in place and the patient has a right IJ Graham-Nika catheter. HEENT examination is grossly unremarkable. Mucous membranes are moist. No oral lesions. Neck supple. Full range of motion. No adenopathy thyromegaly or neck vein distention. Cardiovascular examination reveals regular rhythm rate. S1-S2 normal. No S3 or S4. No discernible murmur noted. Lungs reveal minimal scattered rhonchi. No wheezes or crackles. Breath sounds equal bilaterally. Patient has a mediastinal left pleural chest tube. No evidence of any air leak. Output is minimal at this point in time. Abdomen soft bowel sounds are heard. No masses or tenderness. Extremities are intact. No cyanosis clubbing or edema. Surgical wound site over the lower extremities are clean and intact. Skin is without rash or lesion. Neurologic examination is brief but nonfocal. No focal neurological deficit and the patient is currently sedated on propofol. - Labs CBC & Chem 7: 07/16/24 12:15 07/16/24 12:15 Labs: Abnormal Lab Results - Last 24 Hours (Table) 07/15/24 07/15/24 07/15/24 Range/Units 07:33 16:39 20:30 WBC (3.8-10.6) k/uL RBC (4.30-5.90) m/uL Hgb (13.0-17.5) gm/dL Hct (39.0-53.0) % Neutrophils # (1.3-7.7) k/uL ABG pH (7.35-7.45) ABG pCO2 (35-45) mmHg ABG pO2 (83-108) mmHg ABG Total CO2 (19-24) mmol/L ABG O2 Saturation (94-97) % ABG Potassium (3.4-4.5) mmol/L ABG Ionized Calcium (4.5-5.3) mg/dL ABG Glucose (75-99) mg/dL Hemoglobin (13.0-17.5) gm/dL Potassium (3.5-5.1) mmol/L Chloride (98-107) mmol/L BUN (9-20) mg/dL Creatinine (0.66-1.25) mg/dL Glucose (74-99) mg/dL POC Glucose (mg/dL) 314 H 231 H (70-110) mg/dL Calcium (8.4-10.2) mg/dL Ionized Calcium Dinah (4.5-5.3) mg/dL Total Protein (6.3-8.2) g/dL Albumin (3.5-5.0) g/dL Arterial Blood Potassium (3.4-4.5) mmol/L Arterial Blood Glucose (75-99) mg/dL Crossmatch See Detail 0907/16/24 07/16/24 Range/Units 04:33 06:25 06:29 WBC (3.8-10.6) k/uL RBC (4.30-5.90) m/uL Hgb (13.0-17.5) gm/dL Hct (39.0-53.0) % Neutrophils # (1.3-7.7) k/uL ABG pH (7.35-7.45) ABG pCO2 (35-45) mmHg ABG pO2 (83-108) mmHg ABG Total CO2 (19-24) mmol/L ABG O2 Saturation (94-97) % ABG Potassium (3.4-4.5) mmol/L ABG Ionized Calcium (4.5-5.3) mg/dL ABG Glucose (75-99) mg/dL Hemoglobin (13.0-17.5) gm/dL Potassium 5.8 H (3.5-5.1) mmol/L Chloride (98-107) mmol/L BUN 53 H (9-20) mg/dL Creatinine 1.50 H (0.66-1.25) mg/dL Glucose 214 H (74-99) mg/dL POC Glucose (mg/dL) 187 H 206 H (70-110) mg/dL Calcium (8.4-10.2) mg/dL Ionized Calcium Dinah (4.5-5.3) mg/dL Total Protein (6.3-8.2) g/dL Albumin (3.5-5.0) g/dL Arterial Blood Potassium (3.4-4.5) mmol/L Arterial Blood Glucose (75-99) mg/dL Crossmatch 07/16/24 07/16/24 07/16/24 Range/Units 07:50 08:00 08:34 WBC (3.8-10.6) k/uL RBC (4.30-5.90) m/uL Hgb (13.0-17.5) gm/dL Hct (39.0-53.0) % Neutrophils # (1.3-7.7) k/uL ABG pH 7.31 L 7.32 L (7.35-7.45) ABG pCO2 (35-45) mmHg ABG pO2 78 L 399 H (83-108) mmHg ABG Total CO2 (19-24) mmol/L ABG O2 Saturation 93.4 L 99.2 H (94-97) % ABG Potassium 4.6 H 4.6 H (3.4-4.5) mmol/L ABG Ionized Calcium (4.5-5.3) mg/dL ABG Glucose 203 H 121 H (75-99) mg/dL Hemoglobin 12.7 L 12.2 L (13.0-17.5) gm/dL Potassium (3.5-5.1) mmol/L Chloride (98-107) mmol/L BUN (9-20) mg/dL Creatinine (0.66-1.25) mg/dL Glucose (74-99) mg/dL POC Glucose (mg/dL) 157 H (70-110) mg/dL Calcium (8.4-10.2) mg/dL Ionized Calcium Dinah (4.5-5.3) mg/dL Total Protein (6.3-8.2) g/dL Albumin (3.5-5.0) g/dL Arterial Blood Potassium 4.6 H 4.6 H (3.4-4.5) mmol/L Arterial Blood Glucose 203 H 121 H (75-99) mg/dL Crossmatch 07/16/24 07/16/24 07/16/24 Range/Units 09:59 10:32 12:13 WBC (3.8-10.6) k/uL RBC (4.30-5.90) m/uL Hgb (13.0-17.5) gm/dL Hct (39.0-53.0) % Neutrophils # (1.3-7.7) k/uL ABG pH 7.34 L (7.35-7.45) ABG pCO2 46 H (35-45) mmHg ABG pO2 159 H 150 H (83-108) mmHg ABG Total CO2 (19-24) mmol/L ABG O2 Saturation 98.4 H 98.9 H (94-97) % ABG Potassium 4.7 H (3.4-4.5) mmol/L ABG Ionized Calcium 4.4 L (4.5-5.3) mg/dL ABG Glucose 175 H 145 H (75-99) mg/dL Hemoglobin 12.4 L 11.7 L (13.0-17.5) gm/dL Potassium (3.5-5.1) mmol/L Chloride (98-107) mmol/L BUN (9-20) mg/dL Creatinine (0.66-1.25) mg/dL Glucose (74-99) mg/dL POC Glucose (mg/dL) 127 H (70-110) mg/dL Calcium (8.4-10.2) mg/dL Ionized Calcium Dinah (4.5-5.3) mg/dL Total Protein (6.3-8.2) g/dL Albumin (3.5-5.0) g/dL Arterial Blood Potassium 4.7 H (3.4-4.5) mmol/L Arterial Blood Glucose 175 H 145 H (75-99) mg/dL Crossmatch 07/16/24 07/16/24 07/16/24 Range/Units 12:15 12:15 12:47 WBC 17.4 H (3.8-10.6) k/uL RBC 3.80 L (4.30-5.90) m/uL Hgb 11.8 L (13.0-17.5) gm/dL Hct 34.6 L (39.0-53.0) % Neutrophils # 14.8 H (1.3-7.7) k/uL ABG pH (7.35-7.45) ABG pCO2 (35-45) mmHg ABG pO2 353 H (83-108) mmHg ABG Total CO2 25 H (19-24) mmol/L ABG O2 Saturation 100.0 H (94-97) % ABG Potassium (3.4-4.5) mmol/L ABG Ionized Calcium (4.5-5.3) mg/dL ABG Glucose (75-99) mg/dL Hemoglobin 12.0 L (13.0-17.5) gm/dL Potassium (3.5-5.1) mmol/L Chloride 110 H (98-107) mmol/L BUN 48 H (9-20) mg/dL Creatinine (0.66-1.25) mg/dL Glucose 101 H (74-99) mg/dL POC Glucose (mg/dL) (70-110) mg/dL Calcium 8.0 L (8.4-10.2) mg/dL Ionized Calcium Dinah 4.4 L (4.5-5.3) mg/dL Total Protein 5.5 L (6.3-8.2) g/dL Albumin 3.4 L (3.5-5.0) g/dL Arterial Blood Potassium (3.4-4.5) mmol/L Arterial Blood Glucose (75-99) mg/dL Crossmatch 07/16/24 07/16/24 07/16/24 Range/Units 13:05 14:01 14:58 WBC (3.8-10.6) k/uL RBC (4.30-5.90) m/uL Hgb (13.0-17.5) gm/dL Hct (39.0-53.0) % Neutrophils # (1.3-7.7) k/uL ABG pH (7.35-7.45) ABG pCO2 (35-45) mmHg ABG pO2 (83-108) mmHg ABG Total CO2 (19-24) mmol/L ABG O2 Saturation (94-97) % ABG Potassium (3.4-4.5) mmol/L ABG Ionized Calcium (4.5-5.3) mg/dL ABG Glucose (75-99) mg/dL Hemoglobin (13.0-17.5) gm/dL Potassium (3.5-5.1) mmol/L Chloride (98-107) mmol/L BUN (9-20) mg/dL Creatinine (0.66-1.25) mg/dL Glucose (74-99) mg/dL POC Glucose (mg/dL) 114 H 145 H 171 H (70-110) mg/dL Calcium (8.4-10.2) mg/dL Ionized Calcium Dinah (4.5-5.3) mg/dL Total Protein (6.3-8.2) g/dL Albumin (3.5-5.0) g/dL Arterial Blood Potassium (3.4-4.5) mmol/L Arterial Blood Glucose (75-99) mg/dL Crossmatch 07/16/24 07/16/24 Range/Units 15:28 16:07 WBC (3.8-10.6) k/uL RBC (4.30-5.90) m/uL Hgb (13.0-17.5) gm/dL Hct (39.0-53.0) % Neutrophils # (1.3-7.7) k/uL ABG pH (7.35-7.45) ABG pCO2 (35-45) mmHg ABG pO2 142 H (83-108) mmHg ABG Total CO2 (19-24) mmol/L ABG O2 Saturation 99.2 H (94-97) % ABG Potassium (3.4-4.5) mmol/L ABG Ionized Calcium (4.5-5.3) mg/dL ABG Glucose (75-99) mg/dL Hemoglobin 12.2 L (13.0-17.5) gm/dL Potassium (3.5-5.1) mmol/L Chloride (98-107) mmol/L BUN (9-20) mg/dL Creatinine (0.66-1.25) mg/dL Glucose (74-99) mg/dL POC Glucose (mg/dL) 170 H (70-110) mg/dL Calcium (8.4-10.2) mg/dL Ionized Calcium Dinah (4.5-5.3) mg/dL Total Protein (6.3-8.2) g/dL Albumin (3.5-5.0) g/dL Arterial Blood Potassium (3.4-4.5) mmol/L Arterial Blood Glucose (75-99) mg/dL Crossmatch Assessment and Plan Plan: Acute non-ST segment elevation myocardial infarction, with severe triple-vessel disease and the patient is status post coronary bypass surgery with sequential MCKEON to LAD and SVG to circumflex. The patient is currently postop day #0. Hemodynamically stable currently on low-dose dopamine running at 2 mcg/kg/min. Adequate cardiac output and index. Adequate blood pressure. Adequate urine output. Postthoracotomy, remains intubated on the mechanical ventilator. Chest x-ray was noted. Blood gas were noted and necessary ventilator changes were done. Chest tubes are in place and output is minimal and there is no evidence of any pneumothorax. COPD, with ongoing tobacco use. The patient COPD is currently inactive and stable History of ST segment elevation myocardial infarction, February 2015, with prior LAD stent placement, 2014 and 2015. Prior history of myocardial infarction. History of diabetes mellitus. History of hypertension. History of hyperlipidemia. History of CVA. Current everyday tobacco use. Acute kidney injury, creatinine is improved compared to yesterday at 1.26 Plan: Continue vent support Wean down FiO2 as tolerated to maintain saturation above 90% Monitor hemodynamic parameters Keep insulin drip Continue dopamine at 2 mcg/kg/min Cardiac rhythm is sinus Chest x-ray was noted and there is no significant abnormalities Overall condition is stable. Will likely extubate the patient within next few hours. Will proceed with weaning of FiO2. Will gradually wean down sedation and check morning parameters, proceed with a spontaneous breathing trial with subsequent extubation. This is working progress. Will continue to follow. Will coordinate care with cardiothoracic surgery. This evaluation was done more than 30 minutes. Time with Patient: Greater than 30
[2024-07-16] MEDS: HEPARIN SODIUM,PORCINE 5,000 UNIT/ML 1 ML VIAL SQ SCH (16:55)
[2024-07-16 17:03] LABS: Glucose,Whole Blood 142 mg/dL (70-110)
[2024-07-16 17:13] LABS: Basophils % (A) 0 %; Eosinophils # (A) 0.1 k/uL (0-0.7); Eosinophils % (A) 1 %; HCT 35.8 % (39.0-53.0); HGB 11.8 gm/dL (13.0-17.5); Lymphocytes % (A) 7 %; MCH 30.7 pg (25.0-35.0); MCHC 32.9 g/dL (31.0-37.0); MCV 93.2 fL (80.0-100.0); Mean Platelet Volume 9.9; Monocytes # (A) 1.1 k/uL (0-1.0); Monocytes % (A) 7 %; Neutrophils # (A) 12.7 k/uL (1.3-7.7); Neutrophils % (A) 85 %; Platelet Count 315 k/uL (150-450); RBC 3.84 m/uL (4.30-5.90); RDW 13.3 % (11.5-15.5)
[2024-07-16] MEDS: ONDANSETRON 4 MG/2 ML VIAL IVP PRN (17:48)
[2024-07-16 18:11] LABS: Glucose,Whole Blood 124 mg/dL (70-110)
[2024-07-16 18:29] LABS: Basophils % (A) 0 %; Eosinophils % (A) 0 %; HCT 35.9 % (39.0-53.0); Lymphocytes # (A) 0.4 k/uL (1.0-4.8); Lymphocytes % (A) 3 %; MCH 30.9 pg (25.0-35.0); MCHC 33.4 g/dL (31.0-37.0); MCV 92.5 fL (80.0-100.0); Mean Platelet Volume 8.1; Monocytes # (A) 0.7 k/uL (0-1.0); Monocytes % (A) 6 %; Neutrophils # (A) 11.8 k/uL (1.3-7.7); Neutrophils % (A) 90 %; Platelet Count 277 k/uL (150-450); RBC 3.88 m/uL (4.30-5.90); RDW 13.2 % (11.5-15.5); WBC 13.1 k/uL (3.8-10.6)
[2024-07-16 19:01] LABS: Glucose,Whole Blood 109 mg/dL (70-110)
[2024-07-16 20:00] LABS: Glucose,Whole Blood 136 mg/dL (70-110)
[2024-07-16 21:02] LABS: Glucose,Whole Blood 140 mg/dL (70-110)
[2024-07-16] MEDS: SENNOSIDES-DOCUSATE SODIUM 1 EACH TAB PO SCH (21:13)
[2024-07-16 22:13] LABS: Glucose,Whole Blood 131 mg/dL (70-110)
[2024-07-16 23:05] LABS: Glucose,Whole Blood 114 mg/dL (70-110)
[2024-07-16 23:57] LABS: Glucose,Whole Blood 142 mg/dL (70-110)
[2024-07-17 01:11] LABS: Glucose,Whole Blood 130 mg/dL (70-110)
[2024-07-17 02:08] LABS: Glucose,Whole Blood 128 mg/dL (70-110)
[2024-07-17 03:09] LABS: Glucose,Whole Blood 115 mg/dL (70-110)
[2024-07-17 04:04] LABS: Glucose,Whole Blood 112 mg/dL (70-110)
[2024-07-17 04:16] LABS: Basophils % (A) 0 %; Eosinophils % (A) 0 %; HCT 35.4 % (39.0-53.0); HGB 11.6 gm/dL (13.0-17.5); Lymphocytes # (A) 0.8 k/uL (1.0-4.8); Lymphocytes % (A) 7 %; MCH 30.7 pg (25.0-35.0); MCHC 32.9 g/dL (31.0-37.0); MCV 93.3 fL (80.0-100.0); Monocytes # (A) 0.8 k/uL (0-1.0); Monocytes % (A) 7 %; Neutrophils # (A) 9.2 k/uL (1.3-7.7); Neutrophils % (A) 85 %; Platelet Count 258 k/uL (150-450); RBC 3.79 m/uL (4.30-5.90); RDW 13.4 % (11.5-15.5); WBC 10.9 k/uL (3.8-10.6)
[2024-07-17] MEDS: METOCLOPRAMIDE 5 MG/ML 2 ML VIAL IVP PRN (04:55)
[2024-07-17 05:01] LABS: Ionized Calcium 4.5 mg/dL (4.5-5.3)
[2024-07-17 05:10] LABS: Glucose,Whole Blood 137 mg/dL (70-110)
[2024-07-17 05:16] LABS: ALT 10 U/L (4-49); AST 29 U/L (17-59); African American GFR (CKD) 79 (>60 ml/min/1.73 sqM); Albumin 3.4 g/dL (3.5-5.0); Alkaline Phosphatase 76 U/L (38-126); Anion Gap 4 mmol/L; Blood Urea Nitrogen 37 mg/dL (9-20); Calcium 8.2 mg/dL (8.4-10.2); Carbon Dioxide 20 mmol/L (22-30); Chloride 112 mmol/L (98-107); Glucose 98 mg/dL (74-99); Magnesium 2.2 mg/dL (1.6-2.3); Non-African American GFR(CKD) 69 (>60 ml/min/1.73 sqM); Potassium 4.9 mmol/L (3.5-5.1); Sodium 136 mmol/L (137-145); Total Bilirubin 0.6 mg/dL (0.2-1.3); Total Protein 5.6 g/dL (6.3-8.2)
[2024-07-17 06:09] LABS: Glucose,Whole Blood 162 mg/dL (70-110)
[2024-07-17] MEDS: ALBUMIN HUMAN 5% 250 ML in EMPTY BAG 1 BAG IVPB PRN (06:20)
[2024-07-17 06:49] LABS: Glucose,Whole Blood 160 mg/dL (70-110)
--- NOTE | 2024-07-17 07:42 | XR ---
EXAMINATION TYPE: XR chest 1V portable DATE OF EXAM: 07/17/2024 COMPARISON: 07/16/2024 HISTORY: Postcardiac surgery TECHNIQUE: Single frontal view of the chest is obtained. FINDINGS: ET and NG tube have been removed. Median sternotomy changes and chest tube and mediastinal drains stable. [place]-Nika catheter stable. Bilateral consolidation and tiny effusion. Less than 5% le ft apical pneumothorax. Osseous structures are stable. Heart size stable. IMPRESSION: 1. Less than 5% left apical pneumothorax. 2. Bilateral atelectasis or infiltrate with tiny effusion. Mild venous congestion not excluded. [facility], , 07/17/2024 7:40 AM
--- NOTE | 2024-07-17 08:04 | P.PN ---
Subjective Progress Note Date: 07/17/24 PROGRESS NOTE The patient is a 68-year-old male with a known history of CAD who underwent coronary bypass grafting with MCKEON to the LAD SVG to the circumflex and occlusion of the left atrial appendage. He is extubated sitting up in the chair, feeling well, denying any significant dyspnea. He has chest wall tenderness. He has no dizziness or palpitations. He is in sinus mechanism. His urinary output is stable. He denies any nausea or vomiting. He has mild cough. Medications: Aspirin, Plavix 75 mg daily, Lipitor 40 mg daily, Coreg 3.125 mg twice a day, PHYSICAL EXAMINATION: Blood pressure 100/50 heart rate 80, [place] noted LUNGS: Mild decreased breath sounds at the bases HEART: Regular rate and rhythm, S1, S2. No S3. No systolic murmur, plus rub ABDOMEN: Soft, nontender, no organomegaly EXTREMETIES: No edema LAB: BUN 37, creatinine 1.1, potassium 4.9, hemoglobin 11.6 IMPRESSION: 1. Status post CABG, stable 2. Hypertension 3. Hyperlipidemia 4. History of diabetes PLAN: 1. Continue present therapy 2. Increase physical activity 3. If stable start LA inhibitor 4. Depending on his progress further recommendations will be made Objective - Vital Signs Vital signs: Vital Signs Temp 97.4 F L 07/16/24 06:09 Pulse 83 07/17/24 07:00 Resp 13 07/17/24 07:00 BP 105/68 07/17/24 07:00 Pulse Ox 93 L 07/17/24 07:00 FiO2 50 07/16/24 14:50 Intake & Output 07/16/24 07/17/24 07/17/24 18:59 06:59 18:59 Intake Total 581.207 0475.356 Output Total 1555 1642 Balance -903.440 402.356 Weight 76.6 kg Intake: IV 621 1127 ACETAMINOPHEN IV (For NPO 100 100 ) 1,000 mg In Empty Bag 1 bag @ 400 mls/hr IVPB Q6HR [facility] Rx#:[id number] CO/CI 140 260 Pressue bag 63 117 Sodium Chloride 0.9% 1, 165 650 000 ml @ 50 mls/hr IV . Q20H [facility] Rx#:[id number] ceFAZolin 2 gm In Sodium 100 Chloride 0.9% 50 ml @ 100 mls/hr IVPB Q8HR [facility] Rx# :[id number] Intake, IV Titration 30.560 167.356 Amount ACETAMINOPHEN IV (For NPO 100 ) 1,000 mg In Empty Bag 1 bag @ 400 mls/hr IVPB Q6HR [facility] Rx#:[id number] Clevidipine Butyrate 25 0.767 mg In Empty Bag 1 bag @ 1 MG/HR 2 mls/hr IV .Q24H [facility] Rx#:[id number] Insulin Regular 100 unit 14.377 17.356 In Sodium Chloride 0.9% 100 ml @ Per Protocol IV .Q0M [facility] Rx#:[id number] ceFAZolin 2 gm In Sodium 50 Chloride 0.9% 50 ml @ 100 mls/hr IVPB Q8HR [facility] Rx# :[id number] propofoL 1,000 mg In 15.416 Empty Bag 1 bag @ Titrate IV .Q0M [facility] Rx#: [id number] Oral 250 Albumin 500 Pressue bag 500 Output: Chest Tube Drainage 230 262 Chest Tube Mediastinal 186 214 Left Chest Tube 44 48 Urine 1025 1380 Estimated Blood Loss 300 Other: Voiding Method Indwelling Catheter Indwelling Catheter ABP, PAP, CO, CI - Last Documented Arterial Blood Pressure 100/44 Pulmonary Artery Pressure 24/4 Cardiac Output 5 Cardiac Index 2.7 - Labs CBC & Chem 7: 07/17/24 04:00 07/17/24 04:00 Labs: Abnormal Lab Results - Last 24 Hours (Table) 07/15/24 07/16/24 07/16/24 Range/Units 07:33 07:50 08:00 WBC (3.8-10.6) k/uL RBC (4.30-5.90) m/uL Hgb (13.0-17.5) gm/dL Hct (39.0-53.0) % Neutrophils # (1.3-7.7) k/uL Lymphocytes # (1.0-4.8) k/uL Monocytes # (0-1.0) k/uL ABG pH 7.31 L (7.35-7.45) ABG pCO2 (35-45) mmHg ABG pO2 78 L (83-108) mmHg ABG Total CO2 (19-24) mmol/L ABG O2 Saturation 93.4 L (94-97) % ABG Potassium 4.6 H (3.4-4.5) mmol/L ABG Ionized Calcium (4.5-5.3) mg/dL ABG Glucose 203 H (75-99) mg/dL Hemoglobin 12.7 L (13.0-17.5) gm/dL Sodium (137-145) mmol/L Chloride (98-107) mmol/L Carbon Dioxide (22-30) mmol/L BUN (9-20) mg/dL Glucose (74-99) mg/dL POC Glucose (mg/dL) 157 H (70-110) mg/dL Calcium (8.4-10.2) mg/dL Ionized Calcium Dinah (4.5-5.3) mg/dL Total Protein (6.3-8.2) g/dL Albumin (3.5-5.0) g/dL Arterial Blood Potassium 4.6 H (3.4-4.5) mmol/L Arterial Blood Glucose 203 H (75-99) mg/dL Crossmatch See Detail 07/16/24 07/16/24 07/16/24 Range/Units 08:34 09:59 10:32 WBC (3.8-10.6) k/uL RBC (4.30-5.90) m/uL Hgb (13.0-17.5) gm/dL Hct (39.0-53.0) % Neutrophils # (1.3-7.7) k/uL Lymphocytes # (1.0-4.8) k/uL Monocytes # (0-1.0) k/uL ABG pH 7.32 L 7.34 L (7.35-7.45) ABG pCO2 46 H (35-45) mmHg ABG pO2 399 H 159 H 150 H (83-108) mmHg ABG Total CO2 (19-24) mmol/L ABG O2 Saturation 99.2 H 98.4 H 98.9 H (94-97) % ABG Potassium 4.6 H 4.7 H (3.4-4.5) mmol/L ABG Ionized Calcium 4.4 L (4.5-5.3) mg/dL ABG Glucose 121 H 175 H 145 H (75-99) mg/dL Hemoglobin 12.2 L 12.4 L 11.7 L (13.0-17.5) gm/dL Sodium (137-145) mmol/L Chloride (98-107) mmol/L Carbon Dioxide (22-30) mmol/L BUN (9-20) mg/dL Glucose (74-99) mg/dL POC Glucose (mg/dL) (70-110) mg/dL Calcium (8.4-10.2) mg/dL Ionized Calcium Dinah (4.5-5.3) mg/dL Total Protein (6.3-8.2) g/dL Albumin (3.5-5.0) g/dL Arterial Blood Potassium 4.6 H 4.7 H (3.4-4.5) mmol/L Arterial Blood Glucose 121 H 175 H 145 H (75-99) mg/dL Crossmatch 07/16/24 07/16/24 07/16/24 Range/Units 12:13 12:15 12:15 WBC 17.4 H (3.8-10.6) k/uL RBC 3.80 L (4.30-5.90) m/uL Hgb 11.8 L (13.0-17.5) gm/dL Hct 34.6 L (39.0-53.0) % Neutrophils # 14.8 H (1.3-7.7) k/uL Lymphocytes # (1.0-4.8) k/uL Monocytes # (0-1.0) k/uL ABG pH (7.35-7.45) ABG pCO2 (35-45) mmHg ABG pO2 (83-108) mmHg ABG Total CO2 (19-24) mmol/L ABG O2 Saturation (94-97) % ABG Potassium (3.4-4.5) mmol/L ABG Ionized Calcium (4.5-5.3) mg/dL ABG Glucose (75-99) mg/dL Hemoglobin (13.0-17.5) gm/dL Sodium (137-145) mmol/L Chloride 110 H (98-107) mmol/L Carbon Dioxide (22-30) mmol/L BUN 48 H (9-20) mg/dL Glucose 101 H (74-99) mg/dL POC Glucose (mg/dL) 127 H (70-110) mg/dL Calcium 8.0 L (8.4-10.2) mg/dL Ionized Calcium Dinah 4.4 L (4.5-5.3) mg/dL Total Protein 5.5 L (6.3-8.2) g/dL Albumin 3.4 L (3.5-5.0) g/dL Arterial Blood Potassium (3.4-4.5) mmol/L Arterial Blood Glucose (75-99) mg/dL Crossmatch 07/16/24 07/16/24 07/16/24 Range/Units 12:47 13:05 14:01 WBC (3.8-10.6) k/uL RBC (4.30-5.90) m/uL Hgb (13.0-17.5) gm/dL Hct (39.0-53.0) % Neutrophils # (1.3-7.7) k/uL Lymphocytes # (1.0-4.8) k/uL Monocytes # (0-1.0) k/uL ABG pH (7.35-7.45) ABG pCO2 (35-45) mmHg ABG pO2 353 H (83-108) mmHg ABG Total CO2 25 H (19-24) mmol/L ABG O2 Saturation 100.0 H (94-97) % ABG Potassium (3.4-4.5) mmol/L ABG Ionized Calcium (4.5-5.3) mg/dL ABG Glucose (75-99) mg/dL Hemoglobin 12.0 L (13.0-17.5) gm/dL Sodium (137-145) mmol/L Chloride (98-107) mmol/L Carbon Dioxide (22-30) mmol/L BUN (9-20) mg/dL Glucose (74-99) mg/dL POC Glucose (mg/dL) 114 H 145 H (70-110) mg/dL Calcium (8.4-10.2) mg/dL Ionized Calcium Dinah (4.5-5.3) mg/dL Total Protein (6.3-8.2) g/dL Albumin (3.5-5.0) g/dL Arterial Blood Potassium (3.4-4.5) mmol/L Arterial Blood Glucose (75-99) mg/dL Crossmatch 07/16/24 07/16/24 07/16/24 Range/Units 14:58 15:00 15:28 WBC 15.0 H (3.8-10.6) k/uL RBC 3.84 L (4.30-5.90) m/uL Hgb 11.8 L (13.0-17.5) gm/dL Hct 35.8 L (39.0-53.0) % Neutrophils # 12.7 H (1.3-7.7) k/uL Lymphocytes # (1.0-4.8) k/uL Monocytes # 1.1 H (0-1.0) k/uL ABG pH (7.35-7.45) ABG pCO2 (35-45) mmHg ABG pO2 142 H (83-108) mmHg ABG Total CO2 (19-24) mmol/L ABG O2 Saturation 99.2 H (94-97) % ABG Potassium (3.4-4.5) mmol/L ABG Ionized Calcium (4.5-5.3) mg/dL ABG Glucose (75-99) mg/dL Hemoglobin 12.2 L (13.0-17.5) gm/dL Sodium (137-145) mmol/L Chloride (98-107) mmol/L Carbon Dioxide (22-30) mmol/L BUN (9-20) mg/dL Glucose (74-99) mg/dL POC Glucose (mg/dL) 171 H (70-110) mg/dL Calcium (8.4-10.2) mg/dL Ionized Calcium Dinah (4.5-5.3) mg/dL Total Protein (6.3-8.2) g/dL Albumin (3.5-5.0) g/dL Arterial Blood Potassium (3.4-4.5) mmol/L Arterial Blood Glucose (75-99) mg/dL Crossmatch 07/16/24 07/16/24 07/16/24 Range/Units 16:07 17:02 18:09 WBC (3.8-10.6) k/uL RBC (4.30-5.90) m/uL Hgb (13.0-17.5) gm/dL Hct (39.0-53.0) % Neutrophils # (1.3-7.7) k/uL Lymphocytes # (1.0-4.8) k/uL Monocytes # (0-1.0) k/uL ABG pH (7.35-7.45) ABG pCO2 (35-45) mmHg ABG pO2 (83-108) mmHg ABG Total CO2 (19-24) mmol/L ABG O2 Saturation (94-97) % ABG Potassium (3.4-4.5) mmol/L ABG Ionized Calcium (4.5-5.3) mg/dL ABG Glucose (75-99) mg/dL Hemoglobin (13.0-17.5) gm/dL Sodium (137-145) mmol/L Chloride (98-107) mmol/L Carbon Dioxide (22-30) mmol/L BUN (9-20) mg/dL Glucose (74-99) mg/dL POC Glucose (mg/dL) 170 H 142 H 124 H (70-110) mg/dL Calcium (8.4-10.2) mg/dL Ionized Calcium Dinah (4.5-5.3) mg/dL Total Protein (6.3-8.2) g/dL Albumin (3.5-5.0) g/dL Arterial Blood Potassium (3.4-4.5) mmol/L Arterial Blood Glucose (75-99) mg/dL Crossmatch 07/16/24 07/16/24 07/16/24 Range/Units 18:10 19:59 21:01 WBC 13.1 H (3.8-10.6) k/uL RBC 3.88 L (4.30-5.90) m/uL Hgb 12.0 L (13.0-17.5) gm/dL Hct 35.9 L (39.0-53.0) % Neutrophils # 11.8 H (1.3-7.7) k/uL Lymphocytes # 0.4 L (1.0-4.8) k/uL Monocytes # (0-1.0) k/uL ABG pH (7.35-7.45) ABG pCO2 (35-45) mmHg ABG pO2 (83-108) mmHg ABG Total CO2 (19-24) mmol/L ABG O2 Saturation (94-97) % ABG Potassium (3.4-4.5) mmol/L ABG Ionized Calcium (4.5-5.3) mg/dL ABG Glucose (75-99) mg/dL Hemoglobin (13.0-17.5) gm/dL Sodium (137-145) mmol/L Chloride (98-107) mmol/L Carbon Dioxide (22-30) mmol/L BUN (9-20) mg/dL Glucose (74-99) mg/dL POC Glucose (mg/dL) 136 H 140 H (70-110) mg/dL Calcium (8.4-10.2) mg/dL Ionized Calcium Dinah (4.5-5.3) mg/dL Total Protein (6.3-8.2) g/dL Albumin (3.5-5.0) g/dL Arterial Blood Potassium (3.4-4.5) mmol/L Arterial Blood Glucose (75-99) mg/dL Crossmatch 07/16/24 07/16/24 07/16/24 Range/Units 22:11 23:03 23:56 WBC (3.8-10.6) k/uL RBC (4.30-5.90) m/uL Hgb (13.0-17.5) gm/dL Hct (39.0-53.0) % Neutrophils # (1.3-7.7) k/uL Lymphocytes # (1.0-4.8) k/uL Monocytes # (0-1.0) k/uL ABG pH (7.35-7.45) ABG pCO2 (35-45) mmHg ABG pO2 (83-108) mmHg ABG Total CO2 (19-24) mmol/L ABG O2 Saturation (94-97) % ABG Potassium (3.4-4.5) mmol/L ABG Ionized Calcium (4.5-5.3) mg/dL ABG Glucose (75-99) mg/dL Hemoglobin (13.0-17.5) gm/dL Sodium (137-145) mmol/L Chloride (98-107) mmol/L Carbon Dioxide (22-30) mmol/L BUN (9-20) mg/dL Glucose (74-99) mg/dL POC Glucose (mg/dL) 131 H 114 H 142 H (70-110) mg/dL Calcium (8.4-10.2) mg/dL Ionized Calcium Dinah (4.5-5.3) mg/dL Total Protein (6.3-8.2) g/dL Albumin (3.5-5.0) g/dL Arterial Blood Potassium (3.4-4.5) mmol/L Arterial Blood Glucose (75-99) mg/dL Crossmatch 07/17/24 07/17/24 07/17/24 Range/Units 01:10 02:07 03:07 WBC (3.8-10.6) k/uL RBC (4.30-5.90) m/uL Hgb (13.0-17.5) gm/dL Hct (39.0-53.0) % Neutrophils # (1.3-7.7) k/uL Lymphocytes # (1.0-4.8) k/uL Monocytes # (0-1.0) k/uL ABG pH (7.35-7.45) ABG pCO2 (35-45) mmHg ABG pO2 (83-108) mmHg ABG Total CO2 (19-24) mmol/L ABG O2 Saturation (94-97) % ABG Potassium (3.4-4.5) mmol/L ABG Ionized Calcium (4.5-5.3) mg/dL ABG Glucose (75-99) mg/dL Hemoglobin (13.0-17.5) gm/dL Sodium (137-145) mmol/L Chloride (98-107) mmol/L Carbon Dioxide (22-30) mmol/L BUN (9-20) mg/dL Glucose (74-99) mg/dL POC Glucose (mg/dL) 130 H 128 H 115 H (70-110) mg/dL Calcium (8.4-10.2) mg/dL Ionized Calcium Dinah (4.5-5.3) mg/dL Total Protein (6.3-8.2) g/dL Albumin (3.5-5.0) g/dL Arterial Blood Potassium (3.4-4.5) mmol/L Arterial Blood Glucose (75-99) mg/dL Crossmatch 07/17/24 07/17/24 07/17/24 Range/Units 04:00 04:00 04:02 WBC 10.9 H (3.8-10.6) k/uL RBC 3.79 L (4.30-5.90) m/uL Hgb 11.6 L (13.0-17.5) gm/dL Hct 35.4 L (39.0-53.0) % Neutrophils # 9.2 H (1.3-7.7) k/uL Lymphocytes # 0.8 L (1.0-4.8) k/uL Monocytes # (0-1.0) k/uL ABG pH (7.35-7.45) ABG pCO2 (35-45) mmHg ABG pO2 (83-108) mmHg ABG Total CO2 (19-24) mmol/L ABG O2 Saturation (94-97) % ABG Potassium (3.4-4.5) mmol/L ABG Ionized Calcium (4.5-5.3) mg/dL ABG Glucose (75-99) mg/dL Hemoglobin (13.0-17.5) gm/dL Sodium 136 L (137-145) mmol/L Chloride 112 H (98-107) mmol/L Carbon Dioxide 20 L (22-30) mmol/L BUN 37 H (9-20) mg/dL Glucose (74-99) mg/dL POC Glucose (mg/dL) 112 H (70-110) mg/dL Calcium 8.2 L (8.4-10.2) mg/dL Ionized Calcium Dinah (4.5-5.3) mg/dL Total Protein 5.6 L (6.3-8.2) g/dL Albumin 3.4 L (3.5-5.0) g/dL Arterial Blood Potassium (3.4-4.5) mmol/L Arterial Blood Glucose (75-99) mg/dL Crossmatch 07/17/24 07/17/24 07/17/24 Range/Units 05:09 06:07 06:47 WBC (3.8-10.6) k/uL RBC (4.30-5.90) m/uL Hgb (13.0-17.5) gm/dL Hct (39.0-53.0) % Neutrophils # (1.3-7.7) k/uL Lymphocytes # (1.0-4.8) k/uL Monocytes # (0-1.0) k/uL ABG pH (7.35-7.45) ABG pCO2 (35-45) mmHg ABG pO2 (83-108) mmHg ABG Total CO2 (19-24) mmol/L ABG O2 Saturation (94-97) % ABG Potassium (3.4-4.5) mmol/L ABG Ionized Calcium (4.5-5.3) mg/dL ABG Glucose (75-99) mg/dL Hemoglobin (13.0-17.5) gm/dL Sodium (137-145) mmol/L Chloride (98-107) mmol/L Carbon Dioxide (22-30) mmol/L BUN (9-20) mg/dL Glucose (74-99) mg/dL POC Glucose (mg/dL) 137 H 162 H 160 H (70-110) mg/dL Calcium (8.4-10.2) mg/dL Ionized Calcium Dinah (4.5-5.3) mg/dL Total Protein (6.3-8.2) g/dL Albumin (3.5-5.0) g/dL Arterial Blood Potassium (3.4-4.5) mmol/L Arterial Blood Glucose (75-99) mg/dL Crossmatch
[2024-07-17] MEDS: carvediloL 3.125 MG TAB PO SCH (08:07)
[2024-07-17] MEDS: ATORVASTATIN 40 MG TAB PO SCH (08:08)
[2024-07-17] MEDS: CLOPIDOGREL 75 MG TAB PO SCH (08:08)
[2024-07-17] MEDS: PANTOPRAZOLE 40 MG/10 ML VIAL IVP SCH (08:08)
[2024-07-17] MEDS: ASPIRIN 325 MG TAB PO SCH (08:08)
[2024-07-17 08:17] LABS: Glucose,Whole Blood 155 mg/dL (70-110)
[2024-07-17] MEDS ORDERED: MAGNESIUM HYDROXIDE 2,400 MG/30 ML CUP PO PRN (09:00)
[2024-07-17] MEDS ORDERED: bisacodyL 10 MG SUPP RECTAL PRN (09:00)
--- NOTE | 2024-07-17 09:00 | P.PN ---
Subjective Progress Note Date: 07/17/24 Principal diagnosis: Coronary artery disease, non-STEMI this admission, left facial numbness and left arm numbness, no stroke evident on CT at [facility]. History of CAD with previous STEMI in 2014 and 2 stents to the LAD at that time along with non-STEMI in 2015 with 1 stent to the LAD at that time, hypertension, hyperlipidemia, hypothyroid, diabetes mellitus, multiple TIAs, CVA in 2022 with subsequent left carotid endarterectomy, chronic current tobacco dependence Off-pump coronary artery bypass grafting x 3 with sequential left internal mammary artery to the mid and distal left anterior descending artery, saphenous vein graft to posterolateral branch of circumflex, endovascular vein harvest, occlusion of the left atrial appendage with 35mm AtriCure clamp The patient was seen and examined this morning with Dr. Yee sitting up in recliner in the intensive care unit in no acute distress. He was successfully extubated yesterday at 15:45. Remains in sinus rhythm, hemodynamically stable on no inotropes or pressors. He was on IV nitro this morning which was shut off. Currently on 2 L nasal cannula with oxygen saturation in the mid 90s, able to achieve 1000 mL on his incentive spirometry. States pain is controlled on current medication regimen, denies shortness of breath, does complain of some nausea and he has been given antiemetics. Right internal jugular [place]/Cordis, right radial arterial line, mediastinal/left pleural chest tubes all remain. Chest x-ray, labs reviewed, chest x-ray does show trace left apical pneumothorax which is inconsequential. No other new concerns. Objective - Vital Signs Vital signs: Vital Signs Temp 97.4 F L 07/16/24 06:09 Pulse 83 07/17/24 07:00 Resp 13 07/17/24 07:00 BP 105/68 07/17/24 07:00 Pulse Ox 93 L 07/17/24 07:00 FiO2 50 07/16/24 14:50 Intake & Output 07/16/24 07/17/24 07/17/24 18:59 06:59 18:59 Intake Total 747.565 3252.356 113.949 Output Total 1555 1642 145 Balance -903.440 402.356 -31.051 Weight 76.6 kg Intake: IV 621 1127 109 ACETAMINOPHEN IV (For NPO 100 100 ) 1,000 mg In Empty Bag 1 bag @ 400 mls/hr IVPB Q6HR HENRI Rx#:[id number] CO/CI 140 260 Pressue bag 63 117 9 Sodium Chloride 0.9% 1, 165 650 50 000 ml @ 50 mls/hr IV . Q20H HENRI Rx#:[id number] ceFAZolin 2 gm In Sodium 100 50 Chloride 0.9% 50 ml @ 100 mls/hr IVPB Q8HR HENRI Rx# :[id number] Intake, IV Titration 30.560 167.356 4.949 Amount ACETAMINOPHEN IV (For NPO 100 ) 1,000 mg In Empty Bag 1 bag @ 400 mls/hr IVPB Q6HR HENRI Rx#:[id number] Clevidipine Butyrate 25 0.767 mg In Empty Bag 1 bag @ 1 MG/HR 2 mls/hr IV .Q24H HENRI Rx#:[id number] Insulin Regular 100 unit 14.377 17.356 4.949 In Sodium Chloride 0.9% 100 ml @ Per Protocol IV .Q0M HENRI Rx#:[id number] ceFAZolin 2 gm In Sodium 50 Chloride 0.9% 50 ml @ 100 mls/hr IVPB Q8HR HENRI Rx# :[id number] propofoL 1,000 mg In 15.416 Empty Bag 1 bag @ Titrate IV .Q0M HENRI Rx#: [id number] Oral 250 Albumin 500 Pressue bag 500 Output: Chest Tube Drainage 230 262 20 Chest Tube Mediastinal 186 214 10 Left Chest Tube 44 48 10 Urine 1025 1380 125 Estimated Blood Loss 300 Other: Voiding Method Indwelling Catheter Indwelling Catheter ABP, PAP, CO, CI - Last Documented Arterial Blood Pressure 100/44 Pulmonary Artery Pressure 24/4 Cardiac Output 5 Cardiac Index 2.7 - Exam CONSTITUTIONAL: Appears comfortable, cooperative, no acute distress RESPIRATORY: Lungs sounds diminished bilaterally. Respirations even, nonlabored. Currently on 2 L nasal cannula with oxygen saturation 94%. Able to achieve 1000 mL on incentive spirometry. Strong cough. CARDIOVASCULAR: S1, S2 present. Regular rate and rhythm, sinus rhythm on telemetry. Sternum stable. Palpable peripheral pulses bilaterally. No edema present. No calf pain or tenderness noted. Heart hugger in place with patient demonstrating appropriate use. Antiembolism stockings, SCDs present. GASTROINTESTINAL: Abdomen soft, nontender, nondistended. Active bowel sounds present 4 quadrants. Tolerating minimal clear liquids due to nausea. Denies flatus, positive belching GENITOURINARY: Downing present draining clear, yellow urine. Output overnight 80-150 mL per hour INTEGUMENTARY: Skin is warm and dry with evidence of good perfusion. Anterior chest incision well approximated and covered with dry intact dressing. Right lower extremity EVH site well approximated without redness or drainage. NEUROLOGIC: Cranial nerves II through XII intact MUSKULOSKELETAL: Able to move all extremities, strength equal bilaterally, gait normal PSYCHIATRIC: Alert and oriented to person place and time, appropriate affect, intact judgment and insight INVASIVE LINES AND TUBES: Mediastinal/left pleural chest tubes present and connected to wall suction, no air leaks present. Mediastinal tube with 140 mL serosanguineous drainage overnight, 400 mL since surgery. Left pleural chest tube with 20 mL serosanguineous drainage overnight, 90 mL since surgery. Right internal jugular [place]/Cordis, right radial arterial line present. Last CO/CI 5.8/3.1, PA 25/6, CVP 0. - Allied health notes Allied health notes reviewed: nursing - Labs CBC & Chem 7: 07/17/24 04:00 07/17/24 04:00 Labs: Abnormal Lab Results - Last 24 Hours (Table) 07/15/24 07/16/24 07/16/24 Range/Units 07:33 07:50 08:34 WBC (3.8-10.6) k/uL RBC (4.30-5.90) m/uL Hgb (13.0-17.5) gm/dL Hct (39.0-53.0) % Neutrophils # (1.3-7.7) k/uL Lymphocytes # (1.0-4.8) k/uL Monocytes # (0-1.0) k/uL ABG pH 7.31 L 7.32 L (7.35-7.45) ABG pCO2 (35-45) mmHg ABG pO2 78 L 399 H (83-108) mmHg ABG Total CO2 (19-24) mmol/L ABG O2 Saturation 93.4 L 99.2 H (94-97) % ABG Potassium 4.6 H 4.6 H (3.4-4.5) mmol/L ABG Ionized Calcium (4.5-5.3) mg/dL ABG Glucose 203 H 121 H (75-99) mg/dL Hemoglobin 12.7 L 12.2 L (13.0-17.5) gm/dL Sodium (137-145) mmol/L Chloride (98-107) mmol/L Carbon Dioxide (22-30) mmol/L BUN (9-20) mg/dL Glucose (74-99) mg/dL POC Glucose (mg/dL) (70-110) mg/dL Calcium (8.4-10.2) mg/dL Ionized Calcium Dinah (4.5-5.3) mg/dL Total Protein (6.3-8.2) g/dL Albumin (3.5-5.0) g/dL Arterial Blood Potassium 4.6 H 4.6 H (3.4-4.5) mmol/L Arterial Blood Glucose 203 H 121 H (75-99) mg/dL Crossmatch See Detail 07/16/24 07/16/24 07/16/24 Range/Units 09:59 10:32 12:13 WBC (3.8-10.6) k/uL RBC (4.30-5.90) m/uL Hgb (13.0-17.5) gm/dL Hct (39.0-53.0) % Neutrophils # (1.3-7.7) k/uL Lymphocytes # (1.0-4.8) k/uL Monocytes # (0-1.0) k/uL ABG pH 7.34 L (7.35-7.45) ABG pCO2 46 H (35-45) mmHg ABG pO2 159 H 150 H (83-108) mmHg ABG Total CO2 (19-24) mmol/L ABG O2 Saturation 98.4 H 98.9 H (94-97) % ABG Potassium 4.7 H (3.4-4.5) mmol/L ABG Ionized Calcium 4.4 L (4.5-5.3) mg/dL ABG Glucose 175 H 145 H (75-99) mg/dL Hemoglobin 12.4 L 11.7 L (13.0-17.5) gm/dL Sodium (137-145) mmol/L Chloride (98-107) mmol/L Carbon Dioxide (22-30) mmol/L BUN (9-20) mg/dL Glucose (74-99) mg/dL POC Glucose (mg/dL) 127 H (70-110) mg/dL Calcium (8.4-10.2) mg/dL Ionized Calcium Dinah (4.5-5.3) mg/dL Total Protein (6.3-8.2) g/dL Albumin (3.5-5.0) g/dL Arterial Blood Potassium 4.7 H (3.4-4.5) mmol/L Arterial Blood Glucose 175 H 145 H (75-99) mg/dL Crossmatch 07/16/24 07/16/24 07/16/24 Range/Units 12:15 12:15 12:47 WBC 17.4 H (3.8-10.6) k/uL RBC 3.80 L (4.30-5.90) m/uL Hgb 11.8 L (13.0-17.5) gm/dL Hct 34.6 L (39.0-53.0) % Neutrophils # 14.8 H (1.3-7.7) k/uL Lymphocytes # (1.0-4.8) k/uL Monocytes # (0-1.0) k/uL ABG pH (7.35-7.45) ABG pCO2 (35-45) mmHg ABG pO2 353 H (83-108) mmHg ABG Total CO2 25 H (19-24) mmol/L ABG O2 Saturation 100.0 H (94-97) % ABG Potassium (3.4-4.5) mmol/L ABG Ionized Calcium (4.5-5.3) mg/dL ABG Glucose (75-99) mg/dL Hemoglobin 12.0 L (13.0-17.5) gm/dL Sodium (137-145) mmol/L Chloride 110 H (98-107) mmol/L Carbon Dioxide (22-30) mmol/L BUN 48 H (9-20) mg/dL Glucose 101 H (74-99) mg/dL POC Glucose (mg/dL) (70-110) mg/dL Calcium 8.0 L (8.4-10.2) mg/dL Ionized Calcium Dinah 4.4 L (4.5-5.3) mg/dL Total Protein 5.5 L (6.3-8.2) g/dL Albumin 3.4 L (3.5-5.0) g/dL Arterial Blood Potassium (3.4-4.5) mmol/L Arterial Blood Glucose (75-99) mg/dL Crossmatch 07/16/24 07/16/24 07/16/24 Range/Units 13:05 14:01 14:58 WBC (3.8-10.6) k/uL RBC (4.30-5.90) m/uL Hgb (13.0-17.5) gm/dL Hct (39.0-53.0) % Neutrophils # (1.3-7.7) k/uL Lymphocytes # (1.0-4.8) k/uL Monocytes # (0-1.0) k/uL ABG pH (7.35-7.45) ABG pCO2 (35-45) mmHg ABG pO2 (83-108) mmHg ABG Total CO2 (19-24) mmol/L ABG O2 Saturation (94-97) % ABG Potassium (3.4-4.5) mmol/L ABG Ionized Calcium (4.5-5.3) mg/dL ABG Glucose (75-99) mg/dL Hemoglobin (13.0-17.5) gm/dL Sodium (137-145) mmol/L Chloride (98-107) mmol/L Carbon Dioxide (22-30) mmol/L BUN (9-20) mg/dL Glucose (74-99) mg/dL POC Glucose (mg/dL) 114 H 145 H 171 H (70-110) mg/dL Calcium (8.4-10.2) mg/dL Ionized Calcium Dinah (4.5-5.3) mg/dL Total Protein (6.3-8.2) g/dL Albumin (3.5-5.0) g/dL Arterial Blood Potassium (3.4-4.5) mmol/L Arterial Blood Glucose (75-99) mg/dL Crossmatch 07/16/24 07/16/24 07/16/24 Range/Units 15:00 15:28 16:07 WBC 15.0 H (3.8-10.6) k/uL RBC 3.84 L (4.30-5.90) m/uL Hgb 11.8 L (13.0-17.5) gm/dL Hct 35.8 L (39.0-53.0) % Neutrophils # 12.7 H (1.3-7.7) k/uL Lymphocytes # (1.0-4.8) k/uL Monocytes # 1.1 H (0-1.0) k/uL ABG pH (7.35-7.45) ABG pCO2 (35-45) mmHg ABG pO2 142 H (83-108) mmHg ABG Total CO2 (19-24) mmol/L ABG O2 Saturation 99.2 H (94-97) % ABG Potassium (3.4-4.5) mmol/L ABG Ionized Calcium (4.5-5.3) mg/dL ABG Glucose (75-99) mg/dL Hemoglobin 12.2 L (13.0-17.5) gm/dL Sodium (137-145) mmol/L Chloride (98-107) mmol/L Carbon Dioxide (22-30) mmol/L BUN (9-20) mg/dL Glucose (74-99) mg/dL POC Glucose (mg/dL) 170 H (70-110) mg/dL Calcium (8.4-10.2) mg/dL Ionized Calcium Dinah (4.5-5.3) mg/dL Total Protein (6.3-8.2) g/dL Albumin (3.5-5.0) g/dL Arterial Blood Potassium (3.4-4.5) mmol/L Arterial Blood Glucose (75-99) mg/dL Crossmatch 07/16/24 07/16/24 07/16/24 Range/Units 17:02 18:09 18:10 WBC 13.1 H (3.8-10.6) k/uL RBC 3.88 L (4.30-5.90) m/uL Hgb 12.0 L (13.0-17.5) gm/dL Hct 35.9 L (39.0-53.0) % Neutrophils # 11.8 H (1.3-7.7) k/uL Lymphocytes # 0.4 L (1.0-4.8) k/uL Monocytes # (0-1.0) k/uL ABG pH (7.35-7.45) ABG pCO2 (35-45) mmHg ABG pO2 (83-108) mmHg ABG Total CO2 (19-24) mmol/L ABG O2 Saturation (94-97) % ABG Potassium (3.4-4.5) mmol/L ABG Ionized Calcium (4.5-5.3) mg/dL ABG Glucose (75-99) mg/dL Hemoglobin (13.0-17.5) gm/dL Sodium (137-145) mmol/L Chloride (98-107) mmol/L Carbon Dioxide (22-30) mmol/L BUN (9-20) mg/dL Glucose (74-99) mg/dL POC Glucose (mg/dL) 142 H 124 H (70-110) mg/dL Calcium (8.4-10.2) mg/dL Ionized Calcium Dinah (4.5-5.3) mg/dL Total Protein (6.3-8.2) g/dL Albumin (3.5-5.0) g/dL Arterial Blood Potassium (3.4-4.5) mmol/L Arterial Blood Glucose (75-99) mg/dL Crossmatch 07/16/24 07/16/24 07/16/24 Range/Units 19:59 21:01 22:11 WBC (3.8-10.6) k/uL RBC (4.30-5.90) m/uL Hgb (13.0-17.5) gm/dL Hct (39.0-53.0) % Neutrophils # (1.3-7.7) k/uL Lymphocytes # (1.0-4.8) k/uL Monocytes # (0-1.0) k/uL ABG pH (7.35-7.45) ABG pCO2 (35-45) mmHg ABG pO2 (83-108) mmHg ABG Total CO2 (19-24) mmol/L ABG O2 Saturation (94-97) % ABG Potassium (3.4-4.5) mmol/L ABG Ionized Calcium (4.5-5.3) mg/dL ABG Glucose (75-99) mg/dL Hemoglobin (13.0-17.5) gm/dL Sodium (137-145) mmol/L Chloride (98-107) mmol/L Carbon Dioxide (22-30) mmol/L BUN (9-20) mg/dL Glucose (74-99) mg/dL POC Glucose (mg/dL) 136 H 140 H 131 H (70-110) mg/dL Calcium (8.4-10.2) mg/dL Ionized Calcium Dinah (4.5-5.3) mg/dL Total Protein (6.3-8.2) g/dL Albumin (3.5-5.0) g/dL Arterial Blood Potassium (3.4-4.5) mmol/L Arterial Blood Glucose (75-99) mg/dL Crossmatch 07/16/24 07/16/24 07/17/24 Range/Units 23:03 23:56 01:10 WBC (3.8-10.6) k/uL RBC (4.30-5.90) m/uL Hgb (13.0-17.5) gm/dL Hct (39.0-53.0) % Neutrophils # (1.3-7.7) k/uL Lymphocytes # (1.0-4.8) k/uL Monocytes # (0-1.0) k/uL ABG pH (7.35-7.45) ABG pCO2 (35-45) mmHg ABG pO2 (83-108) mmHg ABG Total CO2 (19-24) mmol/L ABG O2 Saturation (94-97) % ABG Potassium (3.4-4.5) mmol/L ABG Ionized Calcium (4.5-5.3) mg/dL ABG Glucose (75-99) mg/dL Hemoglobin (13.0-17.5) gm/dL Sodium (137-145) mmol/L Chloride (98-107) mmol/L Carbon Dioxide (22-30) mmol/L BUN (9-20) mg/dL Glucose (74-99) mg/dL POC Glucose (mg/dL) 114 H 142 H 130 H (70-110) mg/dL Calcium (8.4-10.2) mg/dL Ionized Calcium Dinah (4.5-5.3) mg/dL Total Protein (6.3-8.2) g/dL Albumin (3.5-5.0) g/dL Arterial Blood Potassium (3.4-4.5) mmol/L Arterial Blood Glucose (75-99) mg/dL Crossmatch 07/17/24 07/17/24 07/17/24 Range/Units 02:07 03:07 04:00 WBC 10.9 H (3.8-10.6) k/uL RBC 3.79 L (4.30-5.90) m/uL Hgb 11.6 L (13.0-17.5) gm/dL Hct 35.4 L (39.0-53.0) % Neutrophils # 9.2 H (1.3-7.7) k/uL Lymphocytes # 0.8 L (1.0-4.8) k/uL Monocytes # (0-1.0) k/uL ABG pH (7.35-7.45) ABG pCO2 (35-45) mmHg ABG pO2 (83-108) mmHg ABG Total CO2 (19-24) mmol/L ABG O2 Saturation (94-97) % ABG Potassium (3.4-4.5) mmol/L ABG Ionized Calcium (4.5-5.3) mg/dL ABG Glucose (75-99) mg/dL Hemoglobin (13.0-17.5) gm/dL Sodium (137-145) mmol/L Chloride (98-107) mmol/L Carbon Dioxide (22-30) mmol/L BUN (9-20) mg/dL Glucose (74-99) mg/dL POC Glucose (mg/dL) 128 H 115 H (70-110) mg/dL Calcium (8.4-10.2) mg/dL Ionized Calcium Dinah (4.5-5.3) mg/dL Total Protein (6.3-8.2) g/dL Albumin (3.5-5.0) g/dL Arterial Blood Potassium (3.4-4.5) mmol/L Arterial Blood Glucose (75-99) mg/dL Crossmatch 07/17/24 07/17/24 07/17/24 Range/Units 04:00 04:02 05:09 WBC (3.8-10.6) k/uL RBC (4.30-5.90) m/uL Hgb (13.0-17.5) gm/dL Hct (39.0-53.0) % Neutrophils # (1.3-7.7) k/uL Lymphocytes # (1.0-4.8) k/uL Monocytes # (0-1.0) k/uL ABG pH (7.35-7.45) ABG pCO2 (35-45) mmHg ABG pO2 (83-108) mmHg ABG Total CO2 (19-24) mmol/L ABG O2 Saturation (94-97) % ABG Potassium (3.4-4.5) mmol/L ABG Ionized Calcium (4.5-5.3) mg/dL ABG Glucose (75-99) mg/dL Hemoglobin (13.0-17.5) gm/dL Sodium 136 L (137-145) mmol/L Chloride 112 H (98-107) mmol/L Carbon Dioxide 20 L (22-30) mmol/L BUN 37 H (9-20) mg/dL Glucose (74-99) mg/dL POC Glucose (mg/dL) 112 H 137 H (70-110) mg/dL Calcium 8.2 L (8.4-10.2) mg/dL Ionized Calcium Dinah (4.5-5.3) mg/dL Total Protein 5.6 L (6.3-8.2) g/dL Albumin 3.4 L (3.5-5.0) g/dL Arterial Blood Potassium (3.4-4.5) mmol/L Arterial Blood Glucose (75-99) mg/dL Crossmatch 07/17/24 07/17/24 07/17/24 Range/Units 06:07 06:47 08:15 WBC (3.8-10.6) k/uL RBC (4.30-5.90) m/uL Hgb (13.0-17.5) gm/dL Hct (39.0-53.0) % Neutrophils # (1.3-7.7) k/uL Lymphocytes # (1.0-4.8) k/uL Monocytes # (0-1.0) k/uL ABG pH (7.35-7.45) ABG pCO2 (35-45) mmHg ABG pO2 (83-108) mmHg ABG Total CO2 (19-24) mmol/L ABG O2 Saturation (94-97) % ABG Potassium (3.4-4.5) mmol/L ABG Ionized Calcium (4.5-5.3) mg/dL ABG Glucose (75-99) mg/dL Hemoglobin (13.0-17.5) gm/dL Sodium (137-145) mmol/L Chloride (98-107) mmol/L Carbon Dioxide (22-30) mmol/L BUN (9-20) mg/dL Glucose (74-99) mg/dL POC Glucose (mg/dL) 162 H 160 H 155 H (70-110) mg/dL Calcium (8.4-10.2) mg/dL Ionized Calcium Dinah (4.5-5.3) mg/dL Total Protein (6.3-8.2) g/dL Albumin (3.5-5.0) g/dL Arterial Blood Potassium (3.4-4.5) mmol/L Arterial Blood Glucose (75-99) mg/dL Crossmatch - Imaging and Cardiology Chest x-ray: report reviewed, image reviewed Assessment and Plan Assessment: Coronary artery disease with previous STEMI in 2014 and 2 stents to the LAD at that time along with non-STEMI in 2015 with 1 stent to the LAD at that time, non-STEMI this admission, status post three-vessel off-pump CABG Chest pressure secondary to above Left facial numbness and left arm numbness, no stroke evident on CT at [facility] History of hypertension Hyperlipidemia, treated, cholesterol 141, LDL 66, triglyceride 242 Hypothyroid, TSH 0.382, FT4 1.48 Diabetes mellitus, uncontrolled hyperglycemia, preoperative hemoglobin A1c 9.8% Multiple TIAs CVA in 2022 with subsequent left carotid endarterectomy Chronic current tobacco dependence, 1 pack/day since 1969 Mild COPD, preoperative FEV1 67% of predicted Plan: Continue to maximize medical therapy with aspirin, statin, Plavix, beta-katerina. Will increase beta-katerina therapy as tolerated. Discontinue IV nitro. Will add afterload reduction when able Wean oxygen as tolerated. Encourage incentive spirometry use 10 times every hour while awake, bronchodilators per pulmonology Increase activity, ambulate as tolerated. PT/OT/cardiac rehab consulted Will monitor daily labs and x-rays. Electrolyte replacement per protocol GI/DVT prophylaxis Pain control per current medication regimen Insulin management per internal medicine. Patient is diabetic with uncontrolled hyperglycemia, preoperative hemoglobin A1c 9.8%. He should remain on continuous IV insulin for 48 hours then may transition to subcutaneous per protocol Discontinue [place], connect Cordis to continuous CVP monitoring Continue chest tubes for another 24 hours, monitor output Continue Downing catheter for another 24 hours, continue to monitor and record strict accurate intake and output Daily weights Smoking cessation counseling and education reinforced More recommendations to follow
[2024-07-17 09:24] LABS: Glucose,Whole Blood 152 mg/dL (70-110)
[2024-07-17 10:50] LABS: Glucose,Whole Blood 140 mg/dL (70-110)
[2024-07-17 12:02] LABS: Glucose,Whole Blood 135 mg/dL (70-110)
[2024-07-17 13:19] LABS: Glucose,Whole Blood 133 mg/dL (70-110)
--- NOTE | 2024-07-17 14:49 | PN ---
PROGRESS NOTE DATE OF SERVICE: 07/14/2024 CHIEF COMPLAINT: NSTEMI. HISTORY OF PRESENT ILLNESS: This gentleman is doing well. He has been comfortable. He has had no chest pain or shortness of breath. He is going for open-heart surgery tomorrow. PHYSICAL EXAMINATION: CARDIAC: Normal. CHEST: Clear. ABDOMEN: Soft, nontender. IMPRESSION: 1. Non-ST segment elevation myocardial infarction. 2. Chronic obstructive pulmonary disease. PLAN: CABG tomorrow. MMODL / IJN: [id number] /
--- NOTE | 2024-07-17 14:49 | PN ---
PROGRESS NOTE DATE OF SERVICE: 07/15/2024 CHIEF COMPLAINT: NSTEMI. HISTORY OF PRESENT ILLNESS: This gentleman is still awaits his open-heart surgery. It is hoped that it will be in the next day or 2. He has had no pain or shortness of breath. He has had no arrhythmias. PHYSICAL EXAMINATION: CHEST: Clear. CARDIAC: Normal. ABDOMEN: Soft, nontender. IMPRESSION: 1. Non-ST segment elevation myocardial infarction. 2. Coronary artery disease. PLAN: Surgery sometime this week. MMODL / IJN: [id number] /
--- NOTE | 2024-07-17 14:51 | PN ---
PROGRESS NOTE DATE OF SERVICE: 07/16/2024 CHIEF COMPLAINT: Acute NSTEMI. HISTORY OF PRESENT ILLNESS: This gentleman is in the operating room for CABG. IMPRESSION: 1. NSTEMI. 2. Coronary artery disease. 3. Chronic obstructive pulmonary disease. PLAN: Open-heart surgery today. KENDRICK / GAURANG: [id number] /
[2024-07-17] MEDS: ACETAMINOPHEN TAB 325 MG TAB PO PRN (14:55)
[2024-07-17 15:13] LABS: Glucose,Whole Blood 135 mg/dL (70-110)
--- NOTE | 2024-07-17 15:57 | P.PN ---
Subjective Progress Note Date: 07/17/24 68-year-old male presented from an outside hospital, with non-ST segment elevation myocardial infarction. The patient was having chest discomfort/chest pain. It apparently radiated to his bilateral shoulder areas. The patient does have a prior history of CAD, with previous stenting, 10 years prior. In addition, the patient has COPD, and ongoing tobacco use. Currently, I am asked to see the patient in room 384. He is on room air. No IV fluids. He had a cardiac catheterization done on July 10. It showed three-vessel coronary disease. The patient is a current everyday smoker. The patient does not know whether or not he is going to have his surgery while he is an inpatient, or, be sent home, and brought back. His medical history includes CVA, diabetes, hyperlipidemia, previous myocardial infarction, osteoarthritis, and hypothyroidism. As mentioned he is a current everyday smoker. The patient had stents to his LAD, in 2014, and 2015. The patient had a STEMI, in 2014. White count is 9.6, with a normal hemoglobin, hematocrit, platelet count. Sodium 137, potassium 5.2, chlorides 109, CO2 22, BUN 29, creatinine 1.10. Glucose was 142. CT scan of the chest shows minimal calcification within the aorta, and changes of COPD. Progress note dated July 13, 2024. 68-year-old male seen today in room 384. The patient had a non-ST segment elevation myocardial infarction, and was brought here for cardiac catheterization. It revealed severe three-vessel coronary disease. The patient is a current everyday smoker. Cardiology and cardiothoracic surgery planning went to do surgery on this patient. No decision has been made as yet. He does have a history of CVA, diabetes mellitus, hyperlipidemia, previous TN, osteoarthritis, and hypothyroidism. Current labs only include a glucose of 199. On today's evaluation of 07/14/2024, the patient is being seen for a follow-up. The patient is post non-ST segment elevation myocardial infarction and the patient was found to have severe triple-vessel coronary artery disease with diffuse disease involving the LAD. He is known to have hypertension hyperlipidemia diabetes mellitus and previous history of CVA. The patient is going to undergo coronary bypass surgery in a.m. His FEV1 is is in order of 67% of predicted. He is currently on room air oxygen with a pulse ox of 96%. CT scan of the chest was done on 07/12/2024 showed calcification of the aorta and there is no evidence of an aneurysm. Blood work was noted. No recent blood work from today. He remains on aspirin. He is on Coreg. He is on Levemir insulin and Farxiga and Synthroid. Free of any chest pain at this point in time. Echocardiogram that was done on 07/11/2024 showed a preserved LV function and mildly reduced atypical apical and septal kinesis secondary to an acute TN. Noted the patient's troponin peaked at 17. On 07/15/2024, the patient is resting comfortably in bed.no respiratory difficulties. labs from today shows a white cell count of 10.2 with a hemoglobin 14. Normal coagulation profile. BUN is 48 with a creatinine of 1.4 to and a sodium levels at 137 with a potassium level of 5.4. The patient is using incentive spirometer. He remains on room air oxygen. Denies having any specific complaints for now. Is free of any chest pain. 07/16/2024, the patient is being seen after arrival to the intensive care unit. The patient was taken to the operating room this morning and the patient underwent off-pump coronary artery bypass surgery x 3 with MCKEON to mid distal LAD, SVG to posterolateral branch of circumflex. Postop, the patient was kept intubated on the mechanical ventilator. Arrived to the ICU on propofol running at 20 mcg/kg/min. He is on assist-control mode of mechanical ventilation at rate of 16, tidal volume of 500, FiO2 100% and PEEP of 5. Blood gas showed a pH of 7.37 with a pCO2 of 42 and pO2 was 150. Based on that, FiO2 was gradually weaned off. The patient has not mediastinal left pleural chest tube. Chest x- ray shows postsurgical changes without any pneumothorax. Tiny bilateral pleural effusion is seen versus atelectasis. Meanwhile, the patient had a cardiac output of 6.7 with an index of 3.6. PA pressures are 28/13. He is on insulin drip at 4 units an hour. He is on dopamine at 2 mcg/kg/min. Cardiac rhythm is sinus. The white cell count is 17.4, hemoglobin 11.8 and a platelet count of 252. BUN 48 with a creatinine of 1.25 and a sodium levels at 139 and a bicarb is at 22. Calm and comfortable. Of 07/17/2024, the patient is being seen for a follow-up. Doing well. No s pecific complaints. The patient is postop day #1 and the patient was weaned off mechanical ventilator and the patient was extubated without any major difficulties., Currently on no pressors. Hemodynamically stable. Using incentive spirometer. The chest x-ray from today shows questionable left apical pneumothorax. Otherwise no other acute abnormalities. The patient's cardiac output is currently is at 5 with an index of 2.7 with a pulmonary artery pressures of 24/6. Adequate urine output. Cardiac rhythm is sinus. No other significant events overnight. Output from the chest tubes have been minimal at this point in time. Using incentive spirometer, pulling approximately 1000. Objective - Vital Signs Vital signs: Vital Signs Temp 97.4 F L 07/16/24 06:09 Pulse 83 07/17/24 07:00 Resp 13 07/17/24 07:00 BP 105/68 07/17/24 07:00 Pulse Ox 93 L 07/17/24 07:00 FiO2 50 07/16/24 14:50 Intake & Output 07/16/24 07/17/24 07/17/24 18:59 06:59 18:59 Intake Total 433.840 3422.356 113.949 Output Total 1555 1642 145 Balance -903.440 402.356 -31.051 Weight 76.6 kg Intake: IV 621 1127 109 ACETAMINOPHEN IV (For NPO 100 100 ) 1,000 mg In Empty Bag 1 bag @ 400 mls/hr IVPB Q6HR [facility] Rx#:[id number] CO/CI 140 260 Pressue bag 63 117 9 Sodium Chloride 0.9% 1, 165 650 50 000 ml @ 50 mls/hr IV . Q20H [facility] Rx#:[id number] ceFAZolin 2 gm In Sodium 100 50 Chloride 0.9% 50 ml @ 100 mls/hr IVPB Q8HR [facility] Rx# :[id number] Intake, IV Titration 30.560 167.356 4.949 Amount ACETAMINOPHEN IV (For NPO 100 ) 1,000 mg In Empty Bag 1 bag @ 400 mls/hr IVPB Q6HR [facility] Rx#:[id number] Clevidipine Butyrate 25 0.767 mg In Empty Bag 1 bag @ 1 MG/HR 2 mls/hr IV .Q24H [facility] Rx#:[id number] Insulin Regular 100 unit 14.377 17.356 4.949 In Sodium Chloride 0.9% 100 ml @ Per Protocol IV .Q0M [facility] Rx#:[id number] ceFAZolin 2 gm In Sodium 50 Chloride 0.9% 50 ml @ 100 mls/hr IVPB Q8HR [facility] Rx# :[id number] propofoL 1,000 mg In 15.416 Empty Bag 1 bag @ Titrate IV .Q0M [facility] Rx#: [id number] Oral 250 Albumin 500 Pressue bag 500 Output: Chest Tube Drainage 230 262 20 Chest Tube Mediastinal 186 214 10 Left Chest Tube 44 48 10 Urine 1025 1380 125 Estimated Blood Loss 300 Other: Voiding Method Indwelling Catheter Indwelling Catheter ABP, PAP, CO, CI - Last Documented Arterial Blood Pressure 100/44 Pulmonary Artery Pressure 24/4 Cardiac Output 5 Cardiac Index 2.7 - Exam CONSTITUTIONAL: Appears comfortable, cooperative, no acute distress RESPIRATORY: Lungs sounds diminished bilaterally. Respirations even, nonlabored. Currently on 2 L nasal cannula with oxygen saturation 94%. Able to achieve 1000 mL on incentive spirometry. Strong cough. CARDIOVASCULAR: S1, S2 present. Regular rate and rhythm, sinus rhythm on telemetry. Sternum stable. Palpable peripheral pulses bilaterally. No edema present. No calf pain or tenderness noted. Heart hugger in place with patient demonstrating appropriate use. Antiembolism stockings, SCDs present. GASTROINTESTINAL: Abdomen soft, nontender, nondistended. Active bowel sounds present 4 quadrants. Tolerating minimal clear liquids due to nausea. Denies flatus, positive belching GENITOURINARY: Downing present draining clear, yellow urine. Output overnight 80-150 mL per hour INTEGUMENTARY: Skin is warm and dry with evidence of good perfusion. Anterior chest incision well approximated and covered with dry intact dressing. Right lower extremity EVH site well approximated without redness or drainage. NEUROLOGIC: Cranial nerves II through XII intact MUSKULOSKELETAL: Able to move all extremities, strength equal bilaterally, gait normal PSYCHIATRIC: Alert and oriented to person place and time, appropriate affect, intact judgment and insight INVASIVE LINES AND TUBES: Mediastinal/left pleural chest tubes present and connected to wall suction, no air leaks present. Mediastinal tube with 140 mL serosanguineous drainage overnight, 400 mL since surgery. Left pleural chest tube with 20 mL serosanguineous drainage overnight, 90 mL since surgery. Right internal jugular [place], right radial arterial line present. Last CO/CI 5.8/3.1, PA 25/6, CVP 0. - Labs CBC & Chem 7: 07/17/24 04:00 07/17/24 04:00 Labs: Abnormal Lab Results - Last 24 Hours (Table) 07/15/24 07/16/24 07/16/24 Range/Units 07:33 07:50 08:34 WBC (3.8-10.6) k/uL RBC (4.30-5.90) m/uL Hgb (13.0-17.5) gm/dL Hct (39.0-53.0) % Neutrophils # (1.3-7.7) k/uL Lymphocytes # (1.0-4.8) k/uL Monocytes # (0-1.0) k/uL ABG pH 7.31 L 7.32 L (7.35-7.45) ABG pCO2 (35-45) mmHg ABG pO2 78 L 399 H (83-108) mmHg ABG Total CO2 (19-24) mmol/L ABG O2 Saturation 93.4 L 99.2 H (94-97) % ABG Potassium 4.6 H 4.6 H (3.4-4.5) mmol/L ABG Ionized Calcium (4.5-5.3) mg/dL ABG Glucose 203 H 121 H (75-99) mg/dL Hemoglobin 12.7 L 12.2 L (13.0-17.5) gm/dL Sodium (137-145) mmol/L Chloride (98-107) mmol/L Carbon Dioxide (22-30) mmol/L BUN (9-20) mg/dL Glucose (74-99) mg/dL POC Glucose (mg/dL) (70-110) mg/dL Calcium (8.4-10.2) mg/dL Ionized Calcium Dinah (4.5-5.3) mg/dL Total Protein (6.3-8.2) g/dL Albumin (3.5-5.0) g/dL Arterial Blood Potassium 4.6 H 4.6 H (3.4-4.5) mmol/L Arterial Blood Glucose 203 H 121 H (75-99) mg/dL Crossmatch See Detail 07/16/24 07/16/24 07/16/24 Range/Units 09:59 10:32 12:13 WBC (3.8-10.6) k/uL RBC (4.30-5.90) m/uL Hgb (13.0-17.5) gm/dL Hct (39.0-53.0) % Neutrophils # (1.3-7.7) k/uL Lymphocytes # (1.0-4.8) k/uL Monocytes # (0-1.0) k/uL ABG pH 7.34 L (7.35-7.45) ABG pCO2 46 H (35-45) mmHg ABG pO2 159 H 150 H (83-108) mmHg ABG Total CO2 (19-24) mmol/L ABG O2 Saturation 98.4 H 98.9 H (94-97) % ABG Potassium 4.7 H (3.4-4.5) mmol/L ABG Ionized Calcium 4.4 L (4.5-5.3) mg/dL ABG Glucose 175 H 145 H (75-99) mg/dL Hemoglobin 12.4 L 11.7 L (13.0-17.5) gm/dL Sodium (137-145) mmol/L Chloride (98-107) mmol/L Carbon Dioxide (22-30) mmol/L BUN (9-20) mg/dL Glucose (74-99) mg/dL POC Glucose (mg/dL) 127 H (70-110) mg/dL Calcium (8.4-10.2) mg/dL Ionized Calcium Dinah (4.5-5.3) mg/dL Total Protein (6.3-8.2) g/dL Albumin (3.5-5.0) g/dL Arterial Blood Potassium 4.7 H (3.4-4.5) mmol/L Arterial Blood Glucose 175 H 145 H (75-99) mg/dL Crossmatch 07/16/24 07/16/24 07/16/24 Range/Units 12:15 12:15 12:47 WBC 17.4 H (3.8-10.6) k/uL RBC 3.80 L (4.30-5.90) m/uL Hgb 11.8 L (13.0-17.5) gm/dL Hct 34.6 L (39.0-53.0) % Neutrophils # 14.8 H (1.3-7.7) k/uL Lymphocytes # (1.0-4.8) k/uL Monocytes # (0-1.0) k/uL ABG pH (7.35-7.45) ABG pCO2 (35-45) mmHg ABG pO2 353 H (83-108) mmHg ABG Total CO2 25 H (19-24) mmol/L ABG O2 Saturation 100.0 H (94-97) % ABG Potassium (3.4-4.5) mmol/L ABG Ionized Calcium (4.5-5.3) mg/dL ABG Glucose (75-99) mg/dL Hemoglobin 12.0 L (13.0-17.5) gm/dL Sodium (137-145) mmol/L Chloride 110 H (98-107) mmol/L Carbon Dioxide (22-30) mmol/L BUN 48 H (9-20) mg/dL Glucose 101 H (74-99) mg/dL POC Glucose (mg/dL) (70-110) mg/dL Calcium 8.0 L (8.4-10.2) mg/dL Ionized Calcium Dinah 4.4 L (4.5-5.3) mg/dL Total Protein 5.5 L (6.3-8.2) g/dL Albumin 3.4 L (3.5-5.0) g/dL Arterial Blood Potassium (3.4-4.5) mmol/L Arterial Blood Glucose (75-99) mg/dL Crossmatch 07/16/24 07/16/24 07/16/24 Range/Units 13:05 14:01 14:58 WBC (3.8-10.6) k/uL RBC (4.30-5.90) m/uL Hgb (13.0-17.5) gm/dL Hct (39.0-53.0) % Neutrophils # (1.3-7.7) k/uL Lymphocytes # (1.0-4.8) k/uL Monocytes # (0-1.0) k/uL ABG pH (7.35-7.45) ABG pCO2 (35-45) mmHg ABG pO2 (83-108) mmHg ABG Total CO2 (19-24) mmol/L ABG O2 Saturation (94-97) % ABG Potassium (3.4-4.5) mmol/L ABG Ionized Calcium (4.5-5.3) mg/dL ABG Glucose (75-99) mg/dL Hemoglobin (13.0-17.5) gm/dL Sodium (137-145) mmol/L Chloride (98-107) mmol/L Carbon Dioxide (22-30) mmol/L BUN (9-20) mg/dL Glucose (74-99) mg/dL POC Glucose (mg/dL) 114 H 145 H 171 H (70-110) mg/dL Calcium (8.4-10.2) mg/dL Ionized Calcium Dinah (4.5-5.3) mg/dL Total Protein (6.3-8.2) g/dL Albumin (3.5-5.0) g/dL Arterial Blood Potassium (3.4-4.5) mmol/L Arterial Blood Glucose (75-99) mg/dL Crossmatch 07/16/24 07/16/24 07/16/24 Range/Units 15:00 15:28 16:07 WBC 15.0 H (3.8-10.6) k/uL RBC 3.84 L (4.30-5.90) m/uL Hgb 11.8 L (13.0-17.5) gm/dL Hct 35.8 L (39.0-53.0) % Neutrophils # 12.7 H (1.3-7.7) k/uL Lymphocytes # (1.0-4.8) k/uL Monocytes # 1.1 H (0-1.0) k/uL ABG pH (7.35-7.45) ABG pCO2 (35-45) mmHg ABG pO2 142 H (83-108) mmHg ABG Total CO2 (19-24) mmol/L ABG O2 Saturation 99.2 H (94-97) % ABG Potassium (3.4-4.5) mmol/L ABG Ionized Calcium (4.5-5.3) mg/dL ABG Glucose (75-99) mg/dL Hemoglobin 12.2 L (13.0-17.5) gm/dL Sodium (137-145) mmol/L Chloride (98-107) mmol/L Carbon Dioxide (22-30) mmol/L BUN (9-20) mg/dL Glucose (74-99) mg/dL POC Glucose (mg/dL) 170 H (70-110) mg/dL Calcium (8.4-10.2) mg/dL Ionized Calcium Dinah (4.5-5.3) mg/dL Total Protein (6.3-8.2) g/dL Albumin (3.5-5.0) g/dL Arterial Blood Potassium (3.4-4.5) mmol/L Arterial Blood Glucose (75-99) mg/dL Crossmatch 07/16/24 07/16/24 07/16/24 Range/Units 17:02 18:09 18:10 WBC 13.1 H (3.8-10.6) k/uL RBC 3.88 L (4.30-5.90) m/uL Hgb 12.0 L (13.0-17.5) gm/dL Hct 35.9 L (39.0-53.0) % Neutrophils # 11.8 H (1.3-7.7) k/uL Lymphocytes # 0.4 L (1.0-4.8) k/uL Monocytes # (0-1.0) k/uL ABG pH (7.35-7.45) ABG pCO2 (35-45) mmHg ABG pO2 (83-108) mmHg ABG Total CO2 (19-24) mmol/L ABG O2 Saturation (94-97) % ABG Potassium (3.4-4.5) mmol/L ABG Ionized Calcium (4.5-5.3) mg/dL ABG Glucose (75-99) mg/dL Hemoglobin (13.0-17.5) gm/dL Sodium (137-145) mmol/L Chloride (98-107) mmol/L Carbon Dioxide (22-30) mmol/L BUN (9-20) mg/dL Glucose (74-99) mg/dL POC Glucose (mg/dL) 142 H 124 H (70-110) mg/dL Calcium (8.4-10.2) mg/dL Ionized Calcium Dinah (4.5-5.3) mg/dL Total Protein (6.3-8.2) g/dL Albumin (3.5-5.0) g/dL Arterial Blood Potassium (3.4-4.5) mmol/L Arterial Blood Glucose (75-99) mg/dL Crossmatch 07/16/24 07/16/24 07/16/24 Range/Units 19:59 21:01 22:11 WBC (3.8-10.6) k/uL RBC (4.30-5.90) m/uL Hgb (13.0-17.5) gm/dL Hct (39.0-53.0) % Neutrophils # (1.3-7.7) k/uL Lymphocytes # (1.0-4.8) k/uL Monocytes # (0-1.0) k/uL ABG pH (7.35-7.45) ABG pCO2 (35-45) mmHg ABG pO2 (83-108) mmHg ABG Total CO2 (19-24) mmol/L ABG O2 Saturation (94-97) % ABG Potassium (3.4-4.5) mmol/L ABG Ionized Calcium (4.5-5.3) mg/dL ABG Glucose (75-99) mg/dL Hemoglobin (13.0-17.5) gm/dL Sodium (137-145) mmol/L Chloride (98-107) mmol/L Carbon Dioxide (22-30) mmol/L BUN (9-20) mg/dL Glucose (74-99) mg/dL POC Glucose (mg/dL) 136 H 140 H 131 H (70-110) mg/dL Calcium (8.4-10.2) mg/dL Ionized Calcium Dinah (4.5-5.3) mg/dL Total Protein (6.3-8.2) g/dL Albumin (3.5-5.0) g/dL Arterial Blood Potassium (3.4-4.5) mmol/L Arterial Blood Glucose (75-99) mg/dL Crossmatch 07/16/24 07/16/24 07/17/24 Range/Units 23:03 23:56 01:10 WBC (3.8-10.6) k/uL RBC (4.30-5.90) m/uL Hgb (13.0-17.5) gm/dL Hct (39.0-53.0) % Neutrophils # (1.3-7.7) k/uL Lymphocytes # (1.0-4.8) k/uL Monocytes # (0-1.0) k/uL ABG pH (7.35-7.45) ABG pCO2 (35-45) mmHg ABG pO2 (83-108) mmHg ABG Total CO2 (19-24) mmol/L ABG O2 Saturation (94-97) % ABG Potassium (3.4-4.5) mmol/L ABG Ionized Calcium (4.5-5.3) mg/dL ABG Glucose (75-99) mg/dL Hemoglobin (13.0-17.5) gm/dL Sodium (137-145) mmol/L Chloride (98-107) mmol/L Carbon Dioxide (22-30) mmol/L BUN (9-20) mg/dL Glucose (74-99) mg/dL POC Glucose (mg/dL) 114 H 142 H 130 H (70-110) mg/dL Calcium (8.4-10.2) mg/dL Ionized Calcium Dinah (4.5-5.3) mg/dL Total Protein (6.3-8.2) g/dL Albumin (3.5-5.0) g/dL Arterial Blood Potassium (3.4-4.5) mmol/L Arterial Blood Glucose (75-99) mg/dL Crossmatch 07/17/24 07/17/24 07/17/24 Range/Units 02:07 03:07 04:00 WBC 10.9 H (3.8-10.6) k/uL RBC 3.79 L (4.30-5.90) m/uL Hgb 11.6 L (13.0-17.5) gm/dL Hct 35.4 L (39.0-53.0) % Neutrophils # 9.2 H (1.3-7.7) k/uL Lymphocytes # 0.8 L (1.0-4.8) k/uL Monocytes # (0-1.0) k/uL ABG pH (7.35-7.45) ABG pCO2 (35-45) mmHg ABG pO2 (83-108) mmHg ABG Total CO2 (19-24) mmol/L ABG O2 Saturation (94-97) % ABG Potassium (3.4-4.5) mmol/L ABG Ionized Calcium (4.5-5.3) mg/dL ABG Glucose (75-99) mg/dL Hemoglobin (13.0-17.5) gm/dL Sodium (137-145) mmol/L Chloride (98-107) mmol/L Carbon Dioxide (22-30) mmol/L BUN (9-20) mg/dL Glucose (74-99) mg/dL POC Glucose (mg/dL) 128 H 115 H (70-110) mg/dL Calcium (8.4-10.2) mg/dL Ionized Calcium Dinah (4.5-5.3) mg/dL Total Protein (6.3-8.2) g/dL Albumin (3.5-5.0) g/dL Arterial Blood Potassium (3.4-4.5) mmol/L Arterial Blood Glucose (75-99) mg/dL Crossmatch 07/17/24 07/17/24 07/17/24 Range/Units 04:00 04:02 05:09 WBC (3.8-10.6) k/uL RBC (4.30-5.90) m/uL Hgb (13.0-17.5) gm/dL Hct (39.0-53.0) % Neutrophils # (1.3-7.7) k/uL Lymphocytes # (1.0-4.8) k/uL Monocytes # (0-1.0) k/uL ABG pH (7.35-7.45) ABG pCO2 (35-45) mmHg ABG pO2 (83-108) mmHg ABG Total CO2 (19-24) mmol/L ABG O2 Saturation (94-97) % ABG Potassium (3.4-4.5) mmol/L ABG Ionized Calcium (4.5-5.3) mg/dL ABG Glucose (75-99) mg/dL Hemoglobin (13.0-17.5) gm/dL Sodium 136 L (137-145) mmol/L Chloride 112 H (98-107) mmol/L Carbon Dioxide 20 L (22-30) mmol/L BUN 37 H (9-20) mg/dL Glucose (74-99) mg/dL POC Glucose (mg/dL) 112 H 137 H (70-110) mg/dL Calcium 8.2 L (8.4-10.2) mg/dL Ionized Calcium Dinah (4.5-5.3) mg/dL Total Protein 5.6 L (6.3-8.2) g/dL Albumin 3.4 L (3.5-5.0) g/dL Arterial Blood Potassium (3.4-4.5) mmol/L Arterial Blood Glucose (75-99) mg/dL Crossmatch 07/17/24 07/17/24 07/17/24 Range/Units 06:07 06:47 08:15 WBC (3.8-10.6) k/uL RBC (4.30-5.90) m/uL Hgb (13.0-17.5) gm/dL Hct (39.0-53.0) % Neutrophils # (1.3-7.7) k/uL Lymphocytes # (1.0-4.8) k/uL Monocytes # (0-1.0) k/uL ABG pH (7.35-7.45) ABG pCO2 (35-45) mmHg ABG pO2 (83-108) mmHg ABG Total CO2 (19-24) mmol/L ABG O2 Saturation (94-97) % ABG Potassium (3.4-4.5) mmol/L ABG Ionized Calcium (4.5-5.3) mg/dL ABG Glucose (75-99) mg/dL Hemoglobin (13.0-17.5) gm/dL Sodium (137-145) mmol/L Chloride (98-107) mmol/L Carbon Dioxide (22-30) mmol/L BUN (9-20) mg/dL Glucose (74-99) mg/dL POC Glucose (mg/dL) 162 H 160 H 155 H (70-110) mg/dL Calcium (8.4-10.2) mg/dL Ionized Calcium Dinah (4.5-5.3) mg/dL Total Protein (6.3-8.2) g/dL Albumin (3.5-5.0) g/dL Arterial Blood Potassium (3.4-4.5) mmol/L Arterial Blood Glucose (75-99) mg/dL Crossmatch Assessment and Plan Plan: Acute non-ST segment elevation myocardial infarction, with severe triple-vessel disease and the patient is status post coronary bypass surgery with sequential MCKEON to LAD and SVG to circumflex. The patient is currently postop day #1, hemodynamically stable and the patient is on no pressors for now. Adequate urine output. Adequate blood pressure. Postthoracotomy, remains intubated on the mechanical ventilator. Chest x-ray was noted. Blood gas were noted and necessary ventilator changes were done. Chest tubes are in place and output is minimal questionable left apical pn eumothorax is noted, no inconsequential COPD, with ongoing tobacco use. The patient COPD is currently inactive and stable History of ST segment elevation myocardial infarction, February 2015, with prior LAD stent placement, 2014 and 2015. Prior history of myocardial infarction. History of diabetes mellitus. History of hypertension. History of hyperlipidemia. History of CVA. Current everyday tobacco use. Acute kidney injury, creatinine is improving compared to yesterday. Plan: Weaned off mechanical ventilator and the patient is extubated and the patient is currently on 2 L/min nasal cannula No inotropes and dopamine has been discontinued The [place] catheter can be removed today Monitor the chest tube output and keep the chest tubes in for another 24 hours Increase mobility as tolerated Start the patient on aspirin and Plavix in addition to beta-blockers. Repeat chest x-ray in the morning. Increase mobility. Will continue to follow.
[2024-07-17 16:37] LABS: Glucose,Whole Blood 122 mg/dL (70-110)
[2024-07-17 18:46] LABS: Glucose,Whole Blood 182 mg/dL (70-110)
[2024-07-17 19:38] LABS: Glucose,Whole Blood 147 mg/dL (70-110)
--- NOTE | 2024-07-17 20:34 | PN ---
PROGRESS NOTE DATE OF SERVICE: 07/17/2024 CHIEF COMPLAINT: Status post CABG. HISTORY OF PRESENT ILLNESS: This gentleman is doing well. He is sitting up in the chair, oriented and alert without any chest pain or shortness of breath. PHYSICAL EXAMINATION: GENERAL: Color is good. LUNGS: Breath sounds are heard bilaterally. Chest tubes are still in place. CARDIAC: Normal. IMPRESSIONS: Status post coronary artery bypass graft. PLAN: Continue to follow with Cardiology and Cardiac Surgery. He is doing well. MMODL / IJN: [id number] /
[2024-07-17 21:37] LABS: Glucose,Whole Blood 116 mg/dL (70-110)
[2024-07-17 22:10] LABS: Glucose,Whole Blood 110 mg/dL (70-110)
[2024-07-18 00:35] LABS: Glucose,Whole Blood 135 mg/dL (70-110)
[2024-07-18 02:42] LABS: Glucose,Whole Blood 112 mg/dL (70-110)
[2024-07-18 04:18] LABS: Glucose,Whole Blood 132 mg/dL (70-110)
[2024-07-18 06:09] LABS: Ionized Calcium 4.7 mg/dL (4.5-5.3)
[2024-07-18 06:12] LABS: Basophils % (A) 0 %; Eosinophils % (A) 0 %; HCT 31.7 % (39.0-53.0); HGB 10.6 gm/dL (13.0-17.5); Lymphocytes # (A) 0.8 k/uL (1.0-4.8); Lymphocytes % (A) 5 %; MCH 31.7 pg (25.0-35.0); MCHC 33.5 g/dL (31.0-37.0); MCV 94.6 fL (80.0-100.0); Mean Platelet Volume 9.3; Monocytes # (A) 1.2 k/uL (0-1.0); Monocytes % (A) 8 %; Neutrophils # (A) 12.6 k/uL (1.3-7.7); Neutrophils % (A) 86 %; Platelet Count 263 k/uL (150-450); RBC 3.35 m/uL (4.30-5.90); RDW 13.7 % (11.5-15.5); WBC 14.8 k/uL (3.8-10.6)
[2024-07-18 06:18] LABS: ALT 7 U/L (4-49); AST 29 U/L (17-59); African American GFR (CKD) 81 (>60 ml/min/1.73 sqM); Albumin 3.3 g/dL (3.5-5.0); Alkaline Phosphatase 80 U/L (38-126); Anion Gap 6 mmol/L; Blood Urea Nitrogen 25 mg/dL (9-20); Calcium 8.4 mg/dL (8.4-10.2); Carbon Dioxide 19 mmol/L (22-30); Chloride 111 mmol/L (98-107); Glucose 118 mg/dL (74-99); Non-African American GFR(CKD) 70 (>60 ml/min/1.73 sqM); Potassium 4.4 mmol/L (3.5-5.1); Sodium 136 mmol/L (137-145); Total Bilirubin 0.9 mg/dL (0.2-1.3); Total Protein 5.5 g/dL (6.3-8.2)
[2024-07-18 06:22] LABS: Glucose,Whole Blood 139 mg/dL (70-110)
[2024-07-18] MEDS: PANTOPRAZOLE 40 MG TABLET PO SCH (06:49)
--- NOTE | 2024-07-18 07:40 | P.PN ---
Subjective Progress Note Date: 07/18/24 PROGRESS NOTE The patient is a 68-year-old male with a known history of CAD who underwent coronary bypass grafting with MCKEON to the LAD SVG to the circumflex and occlusion of the left atrial appendage. He is extubated sitting up in the chair, feeling well, denying any significant dyspnea. He has chest wall tenderness. He has no dizziness or palpitations. He is in sinus mechanism. His urinary output is stable. He denies any nausea or vomiting. He has mild cough. July 18: The patient is feeling well this morning, he ambulated. He continues to be in sinus mechanism, he had chest soreness but no anginal pain. He denies any dizziness or palpitations. He denies any nausea or vomiting. His urinary output has been stable. He has no significant chest tube drainage. He is on no vasopressors. Medications: Aspirin, Plavix 75 mg daily, Lipitor 40 mg daily, Coreg 3.125 mg twice a day, PHYSICAL EXAMINATION: Blood pressure 113/50 heart rate 93 LUNGS: Mild decreased breath sounds at the bases HEART: Regular rate and rhythm, S1, S2. No S3. No systolic murmur, ABDOMEN: Soft, nontender, no organomegaly EXTREMETIES: No edema LAB: BUN 25, creatinine 1.08, potassium 4.4, hemoglobin 10.6 IMPRESSION: 1. Status post CABG, stable 2. Hypertension 3. Hyperlipidemia 4. History of diabetes PLAN: 1. Continue present therapy 2. Increase physical activity 3. Follow blood pressure and add LA inhibitor as tolerated 4. Depending on his progress further recommendations will be made Objective - Vital Signs Vital signs: Vital Signs Temp 98.4 F 07/18/24 04:00 Pulse 93 07/18/24 07:00 Resp 19 07/18/24 07:00 BP 98/71 07/18/24 07:00 Pulse Ox 96 07/18/24 07:00 FiO2 50 07/16/24 14:50 Intake & Output 07/17/24 07/18/24 07/18/24 18:59 06:59 18:59 Intake Total 957.637 450.846 36 Output Total 1300 1349 100 Balance -342.363 -898.154 -64 Weight 77.5 kg Intake: IV 552 432 36 Pressue bag 72 72 6 Sodium Chloride 0.9% 1, 430 360 30 000 ml @ 30 mls/hr IV . Q24H [facility] Rx#:[id number] ceFAZolin 2 gm In Sodium 50 Chloride 0.9% 50 ml @ 100 mls/hr IVPB Q8HR [facility] Rx# :[id number] Intake, IV Titration 65.637 18.846 Amount Insulin Regular 100 unit 37.362 18.846 In Sodium Chloride 0.9% 100 ml @ Per Protocol IV .Q0M [facility] Rx#:[id number] Nitroglycerin-D5w Pmx 50 28.275 mg In Dextrose/Water 1 250ml.bag @ 5 MCG/MIN 1.5 mls/hr IV .Q24H [facility] Rx#: [id number] Oral 340 Output: Chest Tube Drainage 150 274 0 Chest Tube Mediastinal 80 150 0 Left Chest Tube 70 124 0 Urine 1150 1075 100 Other: Voiding Method Indwelling Catheter Indwelling Catheter ABP, PAP, CO, CI - Last Documented Arterial Blood Pressure 132/52 Pulmonary Artery Pressure 18/5 Cardiac Output 5 Cardiac Index 2.7 - Labs CBC & Chem 7: 07/18/24 04:10 07/18/24 04:10 Labs: Abnormal Lab Results - Last 24 Hours (Table) 07/16/24 07/17/24 07/17/24 Range/Units 14:58 08:15 09:23 WBC (3.8-10.6) k/uL RBC (4.30-5.90) m/uL Hgb (13.0-17.5) gm/dL Hct (39.0-53.0) % Neutrophils # (1.3-7.7) k/uL Lymphocytes # (1.0-4.8) k/uL Monocytes # (0-1.0) k/uL Sodium (137-145) mmol/L Chloride (98-107) mmol/L Carbon Dioxide (22-30) mmol/L BUN (9-20) mg/dL Glucose (74-99) mg/dL POC Glucose (mg/dL) 155 H 152 H (70-110) mg/dL Total Protein (6.3-8.2) g/dL Albumin (3.5-5.0) g/dL CMV DNA Qual PCR DETECTED A (Not detected) Rhinovirus (PCR) DETECTED A (Not detected) SARS-CoV-2 (PCR) DETECTED A (Not detected) 0907/17/24 07/17/24 Range/Units 10:47 12:00 13:17 WBC (3.8-10.6) k/uL RBC (4.30-5.90) m/uL Hgb (13.0-17.5) gm/dL Hct (39.0-53.0) % Neutrophils # (1.3-7.7) k/uL Lymphocytes # (1.0-4.8) k/uL Monocytes # (0-1.0) k/uL Sodium (137-145) mmol/L Chloride (98-107) mmol/L Carbon Dioxide (22-30) mmol/L BUN (9-20) mg/dL Glucose (74-99) mg/dL POC Glucose (mg/dL) 140 H 135 H 133 H (70-110) mg/dL Total Protein (6.3-8.2) g/dL Albumin (3.5-5.0) g/dL CMV DNA Qual PCR (Not detected) Rhinovirus (PCR) (Not detected) SARS-CoV-2 (PCR) (Not detected) 07/17/24 07/17/24 07/17/24 Range/Units 14:51 16:35 18:44 WBC (3.8-10.6) k/uL RBC (4.30-5.90) m/uL Hgb (13.0-17.5) gm/dL Hct (39.0-53.0) % Neutrophils # (1.3-7.7) k/uL Lymphocytes # (1.0-4.8) k/uL Monocytes # (0-1.0) k/uL Sodium (137-145) mmol/L Chloride (98-107) mmol/L Carbon Dioxide (22-30) mmol/L BUN (9-20) mg/dL Glucose (74-99) mg/dL POC Glucose (mg/dL) 135 H 122 H 182 H (70-110) mg/dL Total Protein (6.3-8.2) g/dL Albumin (3.5-5.0) g/dL CMV DNA Qual PCR (Not detected) Rhinovirus (PCR) (Not detected) SARS-CoV-2 (PCR) (Not detected) 07/17/24 07/17/24 07/18/24 Range/Units 19:36 21:34 00:33 WBC (3.8-10.6) k/uL RBC (4.30-5.90) m/uL Hgb (13.0-17.5) gm/dL Hct (39.0-53.0) % Neutrophils # (1.3-7.7) k/uL Lymphocytes # (1.0-4.8) k/uL Monocytes # (0-1.0) k/uL Sodium (137-145) mmol/L Chloride (98-107) mmol/L Carbon Dioxide (22-30) mmol/L BUN (9-20) mg/dL Glucose (74-99) mg/dL POC Glucose (mg/dL) 147 H 116 H 135 H (70-110) mg/dL Total Protein (6.3-8.2) g/dL Albumin (3.5-5.0) g/dL CMV DNA Qual PCR (Not detected) Rhinovirus (PCR) (Not detected) SARS-CoV-2 (PCR) (Not detected) 07/18/24 07/18/24 07/18/24 Range/Units 02:40 04:10 04:10 WBC 14.8 H (3.8-10.6) k/uL RBC 3.35 L (4.30-5.90) m/uL Hgb 10.6 L (13.0-17.5) gm/dL Hct 31.7 L (39.0-53.0) % Neutrophils # 12.6 H (1.3-7.7) k/uL Lymphocytes # 0.8 L (1.0-4.8) k/uL Monocytes # 1.2 H (0-1.0) k/uL Sodium 136 L (137-145) mmol/L Chloride 111 H (98-107) mmol/L Carbon Dioxide 19 L (22-30) mmol/L BUN 25 H (9-20) mg/dL Glucose 118 H (74-99) mg/dL POC Glucose (mg/dL) 112 H (70-110) mg/dL Total Protein 5.5 L (6.3-8.2) g/dL Albumin 3.3 L (3.5-5.0) g/dL CMV DNA Qual PCR (Not detected) Rhinovirus (PCR) (Not detected) SARS-CoV-2 (PCR) (Not detected) 07/18/24 07/18/24 Range/Units 04:17 06:21 WBC (3.8-10.6) k/uL RBC (4.30-5.90) m/uL Hgb (13.0-17.5) gm/dL Hct (39.0-53.0) % Neutrophils # (1.3-7.7) k/uL Lymphocytes # (1.0-4.8) k/uL Monocytes # (0-1.0) k/uL Sodium (137-145) mmol/L Chloride (98-107) mmol/L Carbon Dioxide (22-30) mmol/L BUN (9-20) mg/dL Glucose (74-99) mg/dL POC Glucose (mg/dL) 132 H 139 H (70-110) mg/dL Total Protein (6.3-8.2) g/dL Albumin (3.5-5.0) g/dL CMV DNA Qual PCR (Not detected) Rhinovirus (PCR) (Not detected) SARS-CoV-2 (PCR) (Not detected)
[2024-07-18] MEDS: DEXTROSE 5% IN WATER 100 ML with AMIODARONE 150 MG IV PRN (07:53)
[2024-07-18] MEDS: AMIODARONE 360 MG in DEXTROSE 5% IN WATER 200 ML IV PRN (08:20)
[2024-07-18 08:23] LABS: Glucose,Whole Blood 248 mg/dL (70-110)
--- NOTE | 2024-07-18 08:54 | P.PN ---
Subjective Progress Note Date: 07/18/24 Principal diagnosis: Coronary artery disease, non-STEMI this admission, left facial numbness and left arm numbness, no stroke evident on CT at [facility]. History of CAD with previous STEMI in 2014 and 2 stents to the LAD at that time along with non-STEMI in 2015 with 1 stent to the LAD at that time, hypertension, hyperlipidemia, hypothyroid, diabetes mellitus, multiple TIAs, CVA in 2022 with subsequent left carotid endarterectomy, chronic current tobacco dependence Off-pump coronary artery bypass grafting x 3 with sequential left internal mammary artery to the mid and distal left anterior descending artery, saphenous vein graft to posterolateral branch of circumflex, endovascular vein harvest, occlusion of the left atrial appendage with 35mm AtriCure clamp Paroxysmal atrial fibrillation, known common occurrence after open heart surgery The patient was seen and examined this morning with Dr. Araya sitting up in recliner in the intensive care unit in no acute distress. Patient went into atrial fibrillation this morning, was started on IV amiodarone, already converted back and currently in sinus rhythm, hemodynamically stable on no inotropes or pressors. Currently on 2 L nasal cannula with oxygen saturation in the mid 90s, able to achieve 1000 mL on his incentive spirometry. States pain is controlled on current medication regimen, denies shortness of breath. Right internal jugular cordis, right radial arterial line, mediastinal/left pleural chest tubes all remain. Chest x-ray, labs reviewed. He did ambulate around the hallway yesterday without difficulty. No other new concerns. Objective - Vital Signs Vital signs: Vital Signs Temp 98.7 F 07/18/24 08:00 Pulse 94 07/18/24 08:27 Resp 26 H 07/18/24 08:00 BP 98/71 07/18/24 07:00 Pulse Ox 95 07/18/24 08:00 FiO2 50 07/16/24 14:50 Intake & Output 07/17/24 07/18/24 07/18/24 18:59 06:59 18:59 Intake Total 957.637 450.846 80.046 Output Total 1300 1349 180 Balance -342.363 -898.154 -99.954 Weight 77.5 kg Intake: IV 552 432 72 Pressue bag 72 72 12 Sodium Chloride 0.9% 1, 430 360 60 000 ml @ 30 mls/hr IV . Q24H [facility] Rx#:[id number] ceFAZolin 2 gm In Sodium 50 Chloride 0.9% 50 ml @ 100 mls/hr IVPB Q8HR [facility] Rx# :[id number] Intake, IV Titration 65.637 18.846 8.046 Amount Insulin Regular 100 unit 37.362 18.846 8.046 In Sodium Chloride 0.9% 100 ml @ Per Protocol IV .Q0M [facility] Rx#:[id number] Nitroglycerin-D5w Pmx 50 28.275 mg In Dextrose/Water 1 250ml.bag @ 5 MCG/MIN 1.5 mls/hr IV .Q24H [facility] Rx#: [id number] Oral 340 Output: Chest Tube Drainage 150 274 0 Chest Tube Mediastinal 80 150 0 Left Chest Tube 70 124 0 Urine 1150 1075 180 Other: Voiding Method Indwelling Catheter Indwelling Catheter Indwelling Catheter ABP, PAP, CO, CI - Last Documented Arterial Blood Pressure 102/46 Pulmonary Artery Pressure 18/5 Cardiac Output 5 Cardiac Index 2.7 - Exam CONSTITUTIONAL: Appears comfortable, cooperative, no acute distress RESPIRATORY: Lungs sounds diminished bilaterally. Respirations even, nonlabored. Currently on 2 L nasal cannula with oxygen saturation 95%. Able to achieve 1000 mL on incentive spirometry. Strong cough. CARDIOVASCULAR: S1, S2 present. Regular rate and rhythm, sinus rhythm on telemetry. Sternum stable. Palpable peripheral pulses bilaterally. No edema present. No calf pain or tenderness noted. Heart hugger in place with patient demonstrating appropriate use. Antiembolism stockings, SCDs present. GASTROINTESTINAL: Abdomen soft, nontender, nondistended. Active bowel sounds present 4 quadrants. Tolerating clear liquids. Denies flatus, positive belching GENITOURINARY: Downing present draining clear, yellow urine. Output overnight 75-100 mL per hour, 2225 mL in the last 24 hours INTEGUMENTARY: Skin is warm and dry with evidence of good perfusion. Anterior chest incision well approximated and covered with dry intact dressing. Right lower extremity EVH site well approximated without redness or drainage. NEUROLOGIC: Cranial nerves II through XII intact MUSKULOSKELETAL: Able to move all extremities, strength equal bilaterally, gait normal PSYCHIATRIC: Alert and oriented to person place and time, appropriate affect, intact judgment and insight INVASIVE LINES AND TUBES: Mediastinal/left pleural chest tubes present and connected to wall suction, no air leaks present. Mediastinal tube with 80 mL serosanguineous drainage overnight, 260 mL in the last 24 hours. Left pleural chest tube with 115 mL serosanguineous drainage overnight, 290 mL in the last 24 hours. Right internal jugular cordis, right radial arterial line present - Allied health notes Allied health notes reviewed: nursing - Labs CBC & Chem 7: 07/18/24 04:10 07/18/24 04:10 Labs: Abnormal Lab Results - Last 24 Hours (Table) 07/16/24 07/17/24 07/17/24 Range/Units 14:58 09:23 10:47 WBC (3.8-10.6) k/uL RBC (4.30-5.90) m/uL Hgb (13.0-17.5) gm/dL Hct (39.0-53.0) % Neutrophils # (1.3-7.7) k/uL Lymphocytes # (1.0-4.8) k/uL Monocytes # (0-1.0) k/uL Sodium (137-145) mmol/L Chloride (98-107) mmol/L Carbon Dioxide (22-30) mmol/L BUN (9-20) mg/dL Glucose (74-99) mg/dL POC Glucose (mg/dL) 152 H 140 H (70-110) mg/dL Total Protein (6.3-8.2) g/dL Albumin (3.5-5.0) g/dL CMV DNA Qual PCR DETECTED A (Not detected) Rhinovirus (PCR) DETECTED A (Not detected) SARS-CoV-2 (PCR) DETECTED A (Not detected) 07/17/24 07/17/24 07/17/24 Range/Units 12:00 13:17 14:51 WBC (3.8-10.6) k/uL RBC (4.30-5.90) m/uL Hgb (13.0-17.5) gm/dL Hct (39.0-53.0) % Neutrophils # (1.3-7.7) k/uL Lymphocytes # (1.0-4.8) k/uL Monocytes # (0-1.0) k/uL Sodium (137-145) mmol/L Chloride (98-107) mmol/L Carbon Dioxide (22-30) mmol/L BUN (9-20) mg/dL Glucose (74-99) mg/dL POC Glucose (mg/dL) 135 H 133 H 135 H (70-110) mg/dL Total Protein (6.3-8.2) g/dL Albumin (3.5-5.0) g/dL CMV DNA Qual PCR (Not detected) Rhinovirus (PCR) (Not detected) SARS-CoV-2 (PCR) (Not detected) 07/17/24 07/17/24 07/17/24 Range/Units 16:35 18:44 19:36 WBC (3.8-10.6) k/uL RBC (4.30-5.90) m/uL Hgb (13.0-17.5) gm/dL Hct (39.0-53.0) % Neutrophils # (1.3-7.7) k/uL Lymphocytes # (1.0-4.8) k/uL Monocytes # (0-1.0) k/uL Sodium (137-145) mmol/L Chloride (98-107) mmol/L Carbon Dioxide (22-30) mmol/L BUN (9-20) mg/dL Glucose (74-99) mg/dL POC Glucose (mg/dL) 122 H 182 H 147 H (70-110) mg/dL Total Protein (6.3-8.2) g/dL Albumin (3.5-5.0) g/dL CMV DNA Qual PCR (Not detected) Rhinovirus (PCR) (Not detected) SARS-CoV-2 (PCR) (Not detected) 07/17/24 07/18/24 07/18/24 Range/Units 21:34 00:33 02:40 WBC (3.8-10.6) k/uL RBC (4.30-5.90) m/uL Hgb (13.0-17.5) gm/dL Hct (39.0-53.0) % Neutrophils # (1.3-7.7) k/uL Lymphocytes # (1.0-4.8) k/uL Monocytes # (0-1.0) k/uL Sodium (137-145) mmol/L Chloride (98-107) mmol/L Carbon Dioxide (22-30) mmol/L BUN (9-20) mg/dL Glucose (74-99) mg/dL POC Glucose (mg/dL) 116 H 135 H 112 H (70-110) mg/dL Total Protein (6.3-8.2) g/dL Albumin (3.5-5.0) g/dL CMV DNA Qual PCR (Not detected) Rhinovirus (PCR) (Not detected) SARS-CoV-2 (PCR) (Not detected) 07/18/24 07/18/24 07/18/24 Range/Units 04:10 04:10 04:17 WBC 14.8 H (3.8-10.6) k/uL RBC 3.35 L (4.30-5.90) m/uL Hgb 10.6 L (13.0-17.5) gm/dL Hct 31.7 L (39.0-53.0) % Neutrophils # 12.6 H (1.3-7.7) k/uL Lymphocytes # 0.8 L (1.0-4.8) k/uL Monocytes # 1.2 H (0-1.0) k/uL Sodium 136 L (137-145) mmol/L Chloride 111 H (98-107) mmol/L Carbon Dioxide 19 L (22-30) mmol/L BUN 25 H (9-20) mg/dL Glucose 118 H (74-99) mg/dL POC Glucose (mg/dL) 132 H (70-110) mg/dL Total Protein 5.5 L (6.3-8.2) g/dL Albumin 3.3 L (3.5-5.0) g/dL CMV DNA Qual PCR (Not detected) Rhinovirus (PCR) (Not detected) SARS-CoV-2 (PCR) (Not detected) 07/18/24 07/18/24 Range/Units 06:21 08:15 WBC (3.8-10.6) k/uL RBC (4.30-5.90) m/uL Hgb (13.0-17.5) gm/dL Hct (39.0-53.0) % Neutrophils # (1.3-7.7) k/uL Lymphocytes # (1.0-4.8) k/uL Monocytes # (0-1.0) k/uL Sodium (137-145) mmol/L Chloride (98-107) mmol/L Carbon Dioxide (22-30) mmol/L BUN (9-20) mg/dL Glucose (74-99) mg/dL POC Glucose (mg/dL) 139 H 248 H (70-110) mg/dL Total Protein (6.3-8.2) g/dL Albumin (3.5-5.0) g/dL CMV DNA Qual PCR (Not detected) Rhinovirus (PCR) (Not detected) SARS-CoV-2 (PCR) (Not detected) - Imaging and Cardiology Chest x-ray: image reviewed Assessment and Plan Assessment: Coronary artery disease with previous STEMI in 2014 and 2 stents to the LAD at that time along with non-STEMI in 2016 with 1 stent to the LAD at that time, non-STEMI this admission, status post three-vessel off-pump CABG Chest pressure secondary to above Left facial numbness and left arm numbness, no stroke evident on CT at [facility] Paroxysmal atrial fibrillation, currently sinus History of hypertension Hyperlipidemia, treated, cholesterol 141, LDL 66, triglyceride 242 Hypothyroid, TSH 0.382, FT4 1.48 Diabetes mellitus, uncontrolled hyperglycemia, preoperative hemoglobin A1c 9.8% Multiple TIAs CVA in 2022 with subsequent left carotid endarterectomy Chronic current tobacco dependence, 1 pack/day since 1969 Mild COPD, preoperative FEV1 67% of predicted Plan: Continue to maximize medical therapy with aspirin, statin, Plavix, beta-katerina. Will increase beta-katerina therapy as tolerated Continue amiodarone per protocol, will transition to oral. No anticoagulation necessary at this point Wean oxygen as tolerated. Encourage incentive spirometry use 10 times every hour while awake, bronchodilators per pulmonology Increase activity, ambulate as tolerated. PT/OT/cardiac rehab consulted Will monitor daily labs and x-rays. Electrolyte replacement per protocol GI/DVT prophylaxis Pain control per current medication regimen Insulin management per internal medicine. Patient is diabetic with uncontrolled hyperglycemia, preoperative hemoglobin A1c 9.8% Discontinue Cordis, A-line Will discontinue chest tubes Discontinue Downing catheter, may bladder scan and straight cath for greater than 300 mL residual Continue to monitor and record strict accurate intake and output Daily weights Smoking cessation counseling and education reinforced More recommendations to follow
[2024-07-18 09:12] LABS: Glucose,Whole Blood 215 mg/dL (70-110)
--- NOTE | 2024-07-18 09:54 | XR ---
EXAMINATION TYPE: XR chest 1V portable DATE OF EXAM: 07/16/2024 COMPARISON: 07/17/2024 HISTORY: Postop TECHNIQUE: Single frontal view of the chest is obtained. FINDINGS: Median sternotomy changes and chest tube and mediastinal drains stable. [place]-Nika catheter stable. Bilateral consolidation and tiny effusion. Less than 5% left apical pneumothorax. Osseous st ructures are stable. Heart size stable. [place]-Nika catheter has been removed. IMPRESSION: 1. Stable 5% left apical pneumothorax. 2. Bilateral consolidation and small effusion stable. [facility], , 07/18/2024 7:47 AM
[2024-07-18] MEDS: metFORMIN 500 MG TAB PO SCH (11:11)
[2024-07-18] MEDS: INSULIN ASPART (NovoLOG) 100 UNIT/ML VIAL SQ SCH (11:18)
[2024-07-18 11:26] LABS: Glucose,Whole Blood 175 mg/dL (70-110)
--- NOTE | 2024-07-18 12:24 | P.PN ---
Subjective Progress Note Date: 07/18/24 68-year-old male presented from an outside hospital, with non-ST segment elevation myocardial infarction. The patient was having chest discomfort/chest pain. It apparently radiated to his bilateral shoulder areas. The patient does have a prior history of CAD, with previous stenting, 10 years prior. In addition, the patient has COPD, and ongoing tobacco use. Currently, I am asked to see the patient in room 384. He is on room air. No IV fluids. He had a cardiac catheterization done on July 10. It showed three-vessel coronary disease. The patient is a current everyday smoker. The patient does not know whether or not he is going to have his surgery while he is an inpatient, or, be sent home, and brought back. His medical history includes CVA, diabetes, hyperlipidemia, previous myocardial infarction, osteoarthritis, and hypothyroidism. As mentioned he is a current everyday smoker. The patient had stents to his LAD, in 2014, and 2015. The patient had a STEMI, in 2014. The patient was taken to the operating room this morning and the patient underwent off-pump coronary artery bypass surgery x 3 with MCKEON to mid distal LAD, SVG to posterolateral branch of circumflex. Postop, the patient was kept intubated on the mechanical ventilator. The patient is postop day #2 and the patient was weaned off mechanical ventilator and the patient was extubated yesterday without any major difficulties., Currently on no pressors. Hemodynamically stable. Objective - Vital Signs Vital signs: Vital Signs Temp 98.7 F 07/18/24 08:00 Pulse 93 07/18/24 09:00 Resp 25 H 07/18/24 09:00 BP 98/71 07/18/24 07:00 Pulse Ox 91 L 07/18/24 09:00 FiO2 50 07/16/24 14:50 Intake & Output 07/17/24 07/18/24 07/18/24 18:59 06:59 18:59 Intake Total 957.637 450.846 121.059 Output Total 1300 1349 265 Balance -342.363 -898.154 -143.941 Weight 77.5 kg Intake: IV 552 432 108 Pressue bag 72 72 18 Sodium Chloride 0.9% 1, 430 360 90 000 ml @ 30 mls/hr IV . Q24H [facility] Rx#:[id number] ceFAZolin 2 gm In Sodium 50 Chloride 0.9% 50 ml @ 100 mls/hr IVPB Q8HR [facility] Rx# :[id number] Intake, IV Titration 65.637 18.846 13.059 Amount Insulin Regular 100 unit 37.362 18.846 13.059 In Sodium Chloride 0.9% 100 ml @ Per Protocol IV .Q0M [facility] Rx#:[id number] Nitroglycerin-D5w Pmx 50 28.275 mg In Dextrose/Water 1 250ml.bag @ 5 MCG/MIN 1.5 mls/hr IV .Q24H [facility] Rx#: [id number] Oral 340 Output: Chest Tube Drainage 150 274 0 Chest Tube Mediastinal 80 150 0 Left Chest Tube 70 124 0 Urine 1150 1075 265 Other: Voiding Method Indwelling Catheter Indwelling Catheter Indwelling Catheter ABP, PAP, CO, CI - Last Documented Arterial Blood Pressure 122/51 Pulmonary Artery Pressure 18/5 Cardiac Output 5 Cardiac Index 2.7 - Exam CONSTITUTIONAL: Appears comfortable, cooperative, no acute distress RESPIRATORY: Lungs sounds diminished bilaterally. Respirations even, nonla bored. Currently on 2 L nasal cannula with oxygen saturation 94%. Able to achieve 1000 mL on incentive spirometry. Strong cough. CARDIOVASCULAR: S1, S2 present. Regular rate and rhythm, sinus rhythm on telemetry. Sternum stable. Palpable peripheral pulses bilaterally. No edema present. No calf pain or tenderness noted. Heart hugger in place with patient demonstrating appropriate use. Antiembolism stockings, SCDs present. GASTROINTESTINAL: Abdomen soft, nontender, nondistended. Active bowel sounds present 4 quadrants. Tolerating minimal clear liquids due to nausea. Denies flatus, positive belching GENITOURINARY: Downing present draining clear, yellow urine. Output overnight 80-150 mL per hour INTEGUMENTARY: Skin is warm and dry with evidence of good perfusion. Anterior chest incision well approximated and covered with dry intact dressing. Right lower extremity EVH site well approximated without redness or drainage. NEUROLOGIC: Cranial nerves II through XII intact MUSKULOSKELETAL: Able to move all extremities, strength equal bilaterally, gait normal - Labs CBC & Chem 7: 07/18/24 04:10 07/18/24 04:10 Labs: Abnormal Lab Results - Last 24 Hours (Table) 07/16/24 07/17/24 07/17/24 Range/Units 14:58 10:47 12:00 WBC (3.8-10.6) k/uL RBC (4.30-5.90) m/uL Hgb (13.0-17.5) gm/dL Hct (39.0-53.0) % Neutrophils # (1.3-7.7) k/uL Lymphocytes # (1.0-4.8) k/uL Monocytes # (0-1.0) k/uL Sodium (137-145) mmol/L Chloride (98-107) mmol/L Carbon Dioxide (22-30) mmol/L BUN (9-20) mg/dL Glucose (74-99) mg/dL POC Glucose (mg/dL) 140 H 135 H (70-110) mg/dL Total Protein (6.3-8.2) g/dL Albumin (3.5-5.0) g/dL CMV DNA Qual PCR DETECTED A (Not detected) Rhinovirus (PCR) DETECTED A (Not detected) SARS-CoV-2 (PCR) DETECTED A (Not detected) 07/17/24 07/17/24 07/17/24 Range/Units 13:17 14:51 16:35 WBC (3.8-10.6) k/uL RBC (4.30-5.90) m/uL Hgb (13.0-17.5) gm/dL Hct (39.0-53.0) % Neutrophils # (1.3-7.7) k/uL Lymphocytes # (1.0-4.8) k/uL Monocytes # (0-1.0) k/uL Sodium (137-145) mmol/L Chloride (98-107) mmol/L Carbon Dioxide (22-30) mmol/L BUN (9-20) mg/dL Glucose (74-99) mg/dL POC Glucose (mg/dL) 133 H 135 H 122 H (70-110) mg/dL Total Protein (6.3-8.2) g/dL Albumin (3.5-5.0) g/dL CMV DNA Qual PCR (Not detected) Rhinovirus (PCR) (Not detected) SARS-CoV-2 (PCR) (Not detected) 07/17/24 07/17/24 07/17/24 Range/Units 18:44 19:36 21:34 WBC (3.8-10.6) k/uL RBC (4.30-5.90) m/uL Hgb (13.0-17.5) gm/dL Hct (39.0-53.0) % Neutrophils # (1.3-7.7) k/uL Lymphocytes # (1.0-4.8) k/uL Monocytes # (0-1.0) k/uL Sodium (137-145) mmol/L Chloride (98-107) mmol/L Carbon Dioxide (22-30) mmol/L BUN (9-20) mg/dL Glucose (74-99) mg/dL POC Glucose (mg/dL) 182 H 147 H 116 H (70-110) mg/dL Total Protein (6.3-8.2) g/dL Albumin (3.5-5.0) g/dL CMV DNA Qual PCR (Not detected) Rhinovirus (PCR) (Not detected) SARS-CoV-2 (PCR) (Not detected) 07/18/24 07/18/24 07/18/24 Range/Units 00:33 02:40 04:10 WBC 14.8 H (3.8-10.6) k/uL RBC 3.35 L (4.30-5.90) m/uL Hgb 10.6 L (13.0-17.5) gm/dL Hct 31.7 L (39.0-53.0) % Neutrophils # 12.6 H (1.3-7.7) k/uL Lymphocytes # 0.8 L (1.0-4.8) k/uL Monocytes # 1.2 H (0-1.0) k/uL Sodium (137-145) mmol/L Chloride (98-107) mmol/L Carbon Dioxide (22-30) mmol/L BUN (9-20) mg/dL Glucose (74-99) mg/dL POC Glucose (mg/dL) 135 H 112 H (70-110) mg/dL Total Protein (6.3-8.2) g/dL Albumin (3.5-5.0) g/dL CMV DNA Qual PCR (Not detected) Rhinovirus (PCR) (Not detected) SARS-CoV-2 (PCR) (Not detected) 07/18/24 07/18/24 07/18/24 Range/Units 04:10 04:17 06:21 WBC (3.8-10.6) k/uL RBC (4.30-5.90) m/uL Hgb (13.0-17.5) gm/dL Hct (39.0-53.0) % Neutrophils # (1.3-7.7) k/uL Lymphocytes # (1.0-4.8) k/uL Monocytes # (0-1.0) k/uL Sodium 136 L (137-145) mmol/L Chloride 111 H (98-107) mmol/L Carbon Dioxide 19 L (22-30) mmol/L BUN 25 H (9-20) mg/dL Glucose 118 H (74-99) mg/dL POC Glucose (mg/dL) 132 H 139 H (70-110) mg/dL Total Protein 5.5 L (6.3-8.2) g/dL Albumin 3.3 L (3.5-5.0) g/dL CMV DNA Qual PCR (Not detected) Rhinovirus (PCR) (Not detected) SARS-CoV-2 (PCR) (Not detected) 07/18/24 07/18/24 Range/Units 08:15 09:11 WBC (3.8-10.6) k/uL RBC (4.30-5.90) m/uL Hgb (13.0-17.5) gm/dL Hct (39.0-53.0) % Neutrophils # (1.3-7.7) k/uL Lymphocytes # (1.0-4.8) k/uL Monocytes # (0-1.0) k/uL Sodium (137-145) mmol/L Chloride (98-107) mmol/L Carbon Dioxide (22-30) mmol/L BUN (9-20) mg/dL Glucose (74-99) mg/dL POC Glucose (mg/dL) 248 H 215 H (70-110) mg/dL Total Protein (6.3-8.2) g/dL Albumin (3.5-5.0) g/dL CMV DNA Qual PCR (Not detected) Rhinovirus (PCR) (Not detected) SARS-CoV-2 (PCR) (Not detected) Assessment and Plan Assessment: --Acute non-ST segment elevation myocardial infarction, with severe triple- vessel disease and the patient is status post coronary bypass surgery with sequential MCKEON to LAD and SVG to circumflex. The patient is currently postop day #1, hemodynamically stable and the patient is on no pressors for now. Adequate urine output. Adequate blood pressure. --Postthoracotomy, remains intubated on the mechanical ventilator. Chest x-ray was noted. Blood gas were noted and necessary ventilator changes were done. Chest tubes are in place and output is minimal questionable left apical pneumothorax is noted, no inconsequential; patient successfully extubated yesterday without any complications --COPD, with ongoing tobacco use. The patient COPD is currently inactive and stable --History of ST segment elevation myocardial infarction, February 2015, with prior LAD stent placement, 2014 and 2015. -- History of diabetes mellitus; metformin 1000 mg twice daily; monitor Accu- Cheks before every meal and at bedtime with insulin sliding scale. -- History of hypertension; Coreg 3.125 mg p.o. twice daily. -- History of hyperlipidemia; Lipitor 40 mg daily. -- History of CVA; patient remains on aspirin, Plavix and Lipitor. --Current everyday tobacco use; patient counseled on need for smoking cessation. --Acute kidney injury, creatinine is improving compared to yesterday.
--- NOTE | 2024-07-18 13:46 | P.PN ---
Subjective Progress Note Date: 07/18/24 68-year-old male presented from an outside hospital, with non-ST segment elevation myocardial infarction. The patient was having chest discomfort/chest pain. It apparently radiated to his bilateral shoulder areas. The patient does have a prior history of CAD, with previous stenting, 10 years prior. In addition, the patient has COPD, and ongoing tobacco use. Currently, I am asked to see the patient in room 384. He is on room air. No IV fluids. He had a cardiac catheterization done on July 10. It showed three-vessel coronary disease. The patient is a current everyday smoker. The patient does not know whether or not he is going to have his surgery while he is an inpatient, or, be sent home, and brought back. His medical history includes CVA, diabetes, hyperlipidemia, previous myocardial infarction, osteoarthritis, and hypothyroidism. As mentioned he is a current everyday smoker. The patient had stents to his LAD, in 2014, and 2015. The patient had a STEMI, in 2014. White count is 9.6, with a normal hemoglobin, hematocrit, platelet count. Sodium 137, potassium 5.2, chlorides 109, CO2 22, BUN 29, creatinine 1.10. Glucose was 142. CT scan of the chest shows minimal calcification within the aorta, and changes of COPD. Progress note dated July 13, 2024. 68-year-old male seen today in room 384. The patient had a non-ST segment elevation myocardial infarction, and was brought here for cardiac catheterization. It revealed severe three-vessel coronary disease. The patient is a current everyday smoker. Cardiology and cardiothoracic surgery planning went to do surgery on this patient. No decision has been made as yet. He does have a history of CVA, diabetes mellitus, hyperlipidemia, previous OH, osteoarthritis, and hypothyroidism. Current labs only include a glucose of 199. On today's evaluation of 07/14/2024, the patient is being seen for a follow-up. The patient is post non-ST segment elevation myocardial infarction and the patient was found to have severe triple-vessel coronary artery disease with diffuse disease involving the LAD. He is known to have hypertension hyperlipidemia diabetes mellitus and previous history of CVA. The patient is going to undergo coronary bypass surgery in a.m. His FEV1 is is in order of 67% of predicted. He is currently on room air oxygen with a pulse ox of 96%. CT scan of the chest was done on 07/12/2024 showed calcification of the aorta and there is no evidence of an aneurysm. Blood work was noted. No recent blood work from today. He remains on aspirin. He is on Coreg. He is on Levemir insulin and Farxiga and Synthroid. Free of any chest pain at this point in time. Echocardiogram that was done on 07/11/2024 showed a preserved LV function and mildly reduced atypical apical and septal kinesis secondary to an acute OH. Noted the patient's troponin peaked at 17. On 07/15/2024, the patient is resting comfortably in bed.no respiratory difficulties. labs from today shows a white cell count of 10.2 with a hemoglobin 14. Normal coagulation profile. BUN is 48 with a creatinine of 1.4 to and a sodium levels at 137 with a potassium level of 5.4. The patient is using incentive spirometer. He remains on room air oxygen. Denies having any specific complaints for now. Is free of any chest pain. 07/16/2024, the patient is being seen after arrival to the intensive care unit. The patient was taken to the operating room this morning and the patient underwent off-pump coronary artery bypass surgery x 3 with MCKEON to mid distal LAD, SVG to posterolateral branch of circumflex. Postop, the patient was kept intubated on the mechanical ventilator. Arrived to the ICU on propofol running at 20 mcg/kg/min. He is on assist-control mode of mechanical ventilation at rate of 16, tidal volume of 500, FiO2 100% and PEEP of 5. Blood gas showed a pH of 7.37 with a pCO2 of 42 and pO2 was 150. Based on that, FiO2 was gradually weaned off. The patient has not mediastinal left pleural chest tube. Chest x- ray shows postsurgical changes without any pneumothorax. Tiny bilateral pleural effusion is seen versus atelectasis. Meanwhile, the patient had a cardiac output of 6.7 with an index of 3.6. PA pressures are 28/13. He is on insulin drip at 4 units an hour. He is on dopamine at 2 mcg/kg/min. Cardiac rhythm is sinus. The white cell count is 17.4, hemoglobin 11.8 and a platelet count of 252. BUN 48 with a creatinine of 1.25 and a sodium levels at 139 and a bicarb is at 22. Calm and comfortable. Of 07/17/2024, the patient is being seen for a follow-up. Doing well. No s pecific complaints. The patient is postop day #1 and the patient was weaned off mechanical ventilator and the patient was extubated without any major difficulties., Currently on no pressors. Hemodynamically stable. Using incentive spirometer. The chest x-ray from today shows questionable left apical pneumothorax. Otherwise no other acute abnormalities. The patient's cardiac output is currently is at 5 with an index of 2.7 with a pulmonary artery pressures of 24/6. Adequate urine output. Cardiac rhythm is sinus. No other significant events overnight. Output from the chest tubes have been minimal at this point in time. Using incentive spirometer, pulling approximately 1000. On 07/18/2024, patient is being seen for a follow-up. The patient is currently on 2 L of oxygen by nasal cannula. Resting comfortably in bed. Chest tubes have been removed earlier this morning and the patient's breathing is improved significantly since. He did encounter atrial fibrillation and he was given amiodarone and the patient is currently back in normal sinus rhythm and amiodarone is running at 0.5 mg/min. Adequate urine output. The labs from today was noted. Hemoglobin is at 10.6 with a platelet count of 263. Electrolytes show a potassium level of 4.4, bicarb of 19, BUN 25 with a crea tinine of 1.08. LFTs are all within normal limits. The patient is currently resting comfortably in bed. Ambulating. No other significant events overnight. The patient is still on insulin drip but will be transition to long-acting insulin for now. Doing extremely well on the incentive spirometer. Objective - Vital Signs Vital signs: Vital Signs Temp 98.7 F 07/18/24 08:00 Pulse 93 07/18/24 09:00 Resp 25 H 07/18/24 09:00 BP 98/71 07/18/24 07:00 Pulse Ox 91 L 07/18/24 09:00 FiO2 50 07/16/24 14:50 Intake & Output 07/17/24 07/18/24 07/18/24 18:59 06:59 18:59 Intake Total 957.637 450.846 121.059 Output Total 1300 1349 265 Balance -342.363 -898.154 -143.941 Weight 77.5 kg Intake: IV 552 432 108 Pressue bag 72 72 18 Sodium Chloride 0.9% 1, 430 360 90 000 ml @ 30 mls/hr IV . Q24H [facility] Rx#:[id number] ceFAZolin 2 gm In Sodium 50 Chloride 0.9% 50 ml @ 100 mls/hr IVPB Q8HR [facility] Rx# :[id number] Intake, IV Titration 65.637 18.846 13.059 Amount Insulin Regular 100 unit 37.362 18.846 13.059 In Sodium Chloride 0.9% 100 ml @ Per Protocol IV .Q0M [facility] Rx#:[id number] Nitroglycerin-D5w Pmx 50 28.275 mg In Dextrose/Water 1 250ml.bag @ 5 MCG/MIN 1.5 mls/hr IV .Q24H [facility] Rx#: [id number] Oral 340 Output: Chest Tube Drainage 150 274 0 Chest Tube Mediastinal 80 150 0 Left Chest Tube 70 124 0 Urine 1150 1075 265 Other: Voiding Method Indwelling Catheter Indwelling Catheter Indwelling Catheter ABP, PAP, CO, CI - Last Documented Arterial Blood Pressure 122/51 Pulmonary Artery Pressure 18/5 Cardiac Output 5 Cardiac Index 2.7 - Exam CONSTITUTIONAL: Appears comfortable, cooperative, no acute distress RESPIRATORY: Lungs sounds diminished bilaterally. Respirations even, nonlabored. Currently on 2 L nasal cannula with oxygen saturation 95%. Able to achieve 1000 mL on incentive spirometry. Strong cough. CARDIOVASCULAR: S1, S2 present. Regular rate and rhythm, sinus rhythm on telemetry. Sternum stable. Palpable peripheral pulses bilaterally. No edema present. No calf pain or tenderness noted. Heart hugger in place with patient demonstrating appropriate use. Antiembolism stockings, SCDs present. GASTROINTESTINAL: Abdomen soft, nontender, nondistended. Active bowel sounds present 4 quadrants. Tolerating clear liquids. Denies flatus, positive belching GENITOURINARY: Downing present draining clear, yellow urine. Output overnight 75-100 mL per hour, 2225 mL in the last 24 hours INTEGUMENTARY: Skin is warm and dry with evidence of good perfusion. Anterior chest incision well approximated and covered with dry intact dressing. Right lower extremity EVH site well approximated without redness or drainage. NEUROLOGIC: Cranial nerves II through XII intact MUSKULOSKELETAL: Able to move all extremities, strength equal bilaterally, gait normal PSYCHIATRIC: Alert and oriented to person place and time, appropriate affect, intact judgment and insight INVASIVE LINES AND TUBES: Mediastinal/left pleural chest tubes present and connected to wall suction, no air leaks present. Mediastinal tube with 80 mL serosanguineous drainage overnight, 260 mL in the last 24 hours. Left pleural chest tube with 115 mL serosanguineous drainage overnight, 290 mL in the last 24 hours. Right internal jugular cordis, right radial arterial line present - Labs CBC & Chem 7: 07/18/24 04:10 07/18/24 04:10 Labs: Abnormal Lab Results - Last 24 Hours (Table) 07/16/24 07/17/24 07/17/24 Range/Units 14:58 10:47 12:00 WBC (3.8-10.6) k/uL RBC (4.30-5.90) m/uL Hgb (13.0-17.5) gm/dL Hct (39.0-53.0) % Neutrophils # (1.3-7.7) k/uL Lymphocytes # (1.0-4.8) k/uL Monocytes # (0-1.0) k/uL Sodium (137-145) mmol/L Chloride (98-107) mmol/L Carbon Dioxide (22-30) mmol/L BUN (9-20) mg/dL Glucose (74-99) mg/dL POC Glucose (mg/dL) 140 H 135 H (70-110) mg/dL Total Protein (6.3-8.2) g/dL Albumin (3.5-5.0) g/dL CMV DNA Qual PCR DETECTED A (Not detected) Rhinovirus (PCR) DETECTED A (Not detected) SARS-CoV-2 (PCR) DETECTED A (Not detected) 07/17/24 07/17/24 07/17/24 Range/Units 13:17 14:51 16:35 WBC (3.8-10.6) k/uL RBC (4.30-5.90) m/uL Hgb (13.0-17.5) gm/dL Hct (39.0-53.0) % Neutrophils # (1.3-7.7) k/uL Lymphocytes # (1.0-4.8) k/uL Monocytes # (0-1.0) k/uL Sodium (137-145) mmol/L Chloride (98-107) mmol/L Carbon Dioxide (22-30) mmol/L BUN (9-20) mg/dL Glucose (74-99) mg/dL POC Glucose (mg/dL) 133 H 135 H 122 H (70-110) mg/dL Total Protein (6.3-8.2) g/dL Albumin (3.5-5.0) g/dL CMV DNA Qual PCR (Not detected) Rhinovirus (PCR) (Not detected) SARS-CoV-2 (PCR) (Not detected) 07/17/24 07/17/24 07/17/24 Range/Units 18:44 19:36 21:34 WBC (3.8-10.6) k/uL RBC (4.30-5.90) m/uL Hgb (13.0-17.5) gm/dL Hct (39.0-53.0) % Neutrophils # (1.3-7.7) k/uL Lymphocytes # (1.0-4.8) k/uL Monocytes # (0-1.0) k/uL Sodium (137-145) mmol/L Chloride (98-107) mmol/L Carbon Dioxide (22-30) mmol/L BUN (9-20) mg/dL Glucose (74-99) mg/dL POC Glucose (mg/dL) 182 H 147 H 116 H (70-110) mg/dL Total Protein (6.3-8.2) g/dL Albumin (3.5-5.0) g/dL CMV DNA Qual PCR (Not detected) Rhinovirus (PCR) (Not detected) SARS-CoV-2 (PCR) (Not detected) 07/18/24 07/18/24 07/18/24 Range/Units 00:33 02:40 04:10 WBC 14.8 H (3.8-10.6) k/uL RBC 3.35 L (4.30-5.90) m/uL Hgb 10.6 L (13.0-17.5) gm/dL Hct 31.7 L (39.0-53.0) % Neutrophils # 12.6 H (1.3-7.7) k/uL Lymphocytes # 0.8 L (1.0-4.8) k/uL Monocytes # 1.2 H (0-1.0) k/uL Sodium (137-145) mmol/L Chloride (98-107) mmol/L Carbon Dioxide (22-30) mmol/L BUN (9-20) mg/dL Glucose (74-99) mg/dL POC Glucose (mg/dL) 135 H 112 H (70-110) mg/dL Total Protein (6.3-8.2) g/dL Albumin (3.5-5.0) g/dL CMV DNA Qual PCR (Not detected) Rhinovirus (PCR) (Not detected) SARS-CoV-2 (PCR) (Not detected) 07/18/24 07/18/24 07/18/24 Range/Units 04:10 04:17 06:21 WBC (3.8-10.6) k/uL RBC (4.30-5.90) m/uL Hgb (13.0-17.5) gm/dL Hct (39.0-53.0) % Neutrophils # (1.3-7.7) k/uL Lymphocytes # (1.0-4.8) k/uL Monocytes # (0-1.0) k/uL Sodium 136 L (137-145) mmol/L Chloride 111 H (98-107) mmol/L Carbon Dioxide 19 L (22-30) mmol/L BUN 25 H (9-20) mg/dL Glucose 118 H (74-99) mg/dL POC Glucose (mg/dL) 132 H 139 H (70-110) mg/dL Total Protein 5.5 L (6.3-8.2) g/dL Albumin 3.3 L (3.5-5.0) g/dL CMV DNA Qual PCR (Not detected) Rhinovirus (PCR) (Not detected) SARS-CoV-2 (PCR) (Not detected) 07/18/24 07/18/24 Range/Units 08:15 09:11 WBC (3.8-10.6) k/uL RBC (4.30-5.90) m/uL Hgb (13.0-17.5) gm/dL Hct (39.0-53.0) % Neutrophils # (1.3-7.7) k/uL Lymphocytes # (1.0-4.8) k/uL Monocytes # (0-1.0) k/uL Sodium (137-145) mmol/L Chloride (98-107) mmol/L Carbon Dioxide (22-30) mmol/L BUN (9-20) mg/dL Glucose (74-99) mg/dL POC Glucose (mg/dL) 248 H 215 H (70-110) mg/dL Total Protein (6.3-8.2) g/dL Albumin (3.5-5.0) g/dL CMV DNA Qual PCR (Not detected) Rhinovirus (PCR) (Not detected) SARS-CoV-2 (PCR) (Not detected) Assessment and Plan Plan: Acute non-ST segment elevation myocardial infarction, with severe triple-vessel disease and the patient is status post coronary bypass surgery with sequential MCKEON to LAD and SVG to circumflex. The patient is currently postop day # 2, hemodynamically stable and the patient is on no pressors for now. Adequate urine output. Adequate blood pressure. Postthoracotomy, remains intubated on the mechanical ventilator. Chest x-ray was noted. Blood gas were noted and necessary ventilator changes were done. Chest tubes are in place and output is minimal questionable left apical pneumothorax is noted, no inconsequential, and output from the chest have been minimal and the patient will have the chest tubes removed today. COPD, with ongoing tobacco use. The patient COPD is currently inactive and stable History of ST segment elevation myocardial infarction, February 2015, with prior LAD stent placement, 2014 and 2015. Prior history of myocardial infarction. History of diabetes mellitus. History of hypertension. History of hyperlipidemia. History of CVA. Current everyday tobacco use. Acute kidney injury, creatinine is improving compared to yesterday. Plan: Patient is currently on room air oxygen All of the chest tubes are to be removed The patient was placed on Levemir insulin 16 units daily in combination with metformin and Farxiga No inotropes and dopamine has been discontinued Follow-up chest x-ray was noted Increase mobility as tolerated Start the patient on aspirin and Plavix in addition to beta-blockers. . Increase mobility. Will continue to follow.
[2024-07-18] MEDS: AMIODARONE 450 MG in DEXTROSE 5% IN WATER 250 ML IV PRN (14:51)
[2024-07-18 16:28] LABS: Glucose,Whole Blood 299 mg/dL (70-110)
[2024-07-18 21:06] LABS: Glucose,Whole Blood 246 mg/dL (70-110)
[2024-07-18] MEDS: DAPAGLIFLOZIN PROPANEDIOL 10 MG TABLET PO SCH (21:26)
[2024-07-18] MEDS: INSULIN DETEMIR (LEVEMIR) 100 UNIT/ML SYR SQ SCH (21:26)
[2024-07-18] MEDS: AMIODARONE 200 MG TAB PO SCH (21:27)
[2024-07-19 06:32] LABS: Basophils % (A) 0 %; Eosinophils # (A) 0.3 k/uL (0-0.7); Eosinophils % (A) 2 %; HCT 35.5 % (39.0-53.0); HGB 11.8 gm/dL (13.0-17.5); Lymphocytes # (A) 1.1 k/uL (1.0-4.8); Lymphocytes % (A) 8 %; MCHC 33.2 g/dL (31.0-37.0); MCV 93.6 fL (80.0-100.0); Mean Platelet Volume 9.5; Monocytes % (A) 7 %; Neutrophils # (A) 12.3 k/uL (1.3-7.7); Neutrophils % (A) 83 %; Platelet Count 304 k/uL (150-450); RBC 3.79 m/uL (4.30-5.90); RDW 13.8 % (11.5-15.5); WBC 14.8 k/uL (3.8-10.6)
--- NOTE | 2024-07-19 06:42 | XR ---
EXAMINATION TYPE: XR chest 2V DATE OF EXAM: 07/19/2024 COMPARISON: 05/18/2023 HISTORY: Postcardiac surgery TECHNIQUE: Frontal and lateral views of the chest are obtained. FINDINGS: There are median sternotomy wires. There is a small left pleural effusion and mild left lower lobe infiltrate likely atelectasis. The pulmonary vasculature is not congested. There is no pneumothorax. The osseous structures are intact. IMPRESSION: 1. Postsurgical changes as described above. 2. Left lower lobe opacity consistent with small effusion and mild atelectasis. Pneumonic infiltrate not entirely excluded and follow-up to resolution is recommended. [facility], , 07/19/2024 6:39 AM
[2024-07-19 06:50] LABS: Glucose,Whole Blood 140 mg/dL (70-110)
[2024-07-19 07:37] LABS: ALT 8 U/L (4-49); African American GFR (CKD) 83 (>60 ml/min/1.73 sqM); Albumin 3.5 g/dL (3.5-5.0); Anion Gap 8 mmol/L; Blood Urea Nitrogen 28 mg/dL (9-20); Calcium 8.5 mg/dL (8.4-10.2); Carbon Dioxide 20 mmol/L (22-30); Chloride 109 mmol/L (98-107); Glucose 137 mg/dL (74-99); Non-African American GFR(CKD) 72 (>60 ml/min/1.73 sqM); Sodium 137 mmol/L (137-145); Total Protein 6.2 g/dL (6.3-8.2)
[2024-07-19 07:38] LABS: AST 31 U/L (17-59); Alkaline Phosphatase 70 U/L (38-126); Potassium 4.6 mmol/L (3.5-5.1)
--- NOTE | 2024-07-19 11:48 | P.PN ---
Subjective Progress Note Date: 07/19/24 Principal diagnosis: Coronary artery disease, non-STEMI this admission, left facial numbness and left arm numbness, no stroke evident on CT at [facility]. History of CAD with previous STEMI in 2014 and 2 stents to the LAD at that time along with non-STEMI in 2015 with 1 stent to the LAD at that time, hypertension, hyperlipidemia, hypothyroid, diabetes mellitus, multiple TIAs, CVA in 2022 with subsequent left carotid endarterectomy, chronic current tobacco dependence POD #3 off-pump coronary artery bypass grafting x 3 with sequential left internal mammary artery to the mid and distal left anterior descending artery, saphenous vein graft to posterolateral branch of circumflex, endovascular vein harvest, occlusion of the left atrial appendage with 35mm AtriCure clamp Paroxysmal atrial fibrillation, known common occurrence after open heart surgery The patient was seen and examined in follow-up today July 19, 2024 at his bedside in the intensive care unit. He is currently sitting up to the bedside chair, is awake, alert, oriented x 3 and is in no acute apparent distress. He denies any complaints of pain or shortness of breath at this time. His chest tubes were removed yesterday without incident, as well has his Downing catheter. He denies any difficulty voiding and his urine output in the last 8 hours has been 800 mL. Oxygen saturations are 93% on room air and he is achieving 1000 mL on his incentive spirometry with encouragement. Bedside telemetry is showing atrial fibrillation heart rate 90 bpm, he had received 1 dose of amiodarone 150 mg IV piggyback over 10 minutes and has since converted to normal sinus rhythm heart rate in the 80s. He continues on oral amiodarone 400 mg p.o. twice daily and his amiodarone drip has been discontinued per protocol. The patient has been up ambulating in the intensive care unit hallway with standby assistance nursing and therapy staff and tolerating well. Laboratory and chest x-ray results were reviewed. Objective - Vital Signs Vital signs: Vital Signs Temp 98.1 F 07/19/24 08:00 Pulse 73 07/19/24 10:30 Resp 25 H 07/19/24 10:30 BP 112/67 07/19/24 10:30 Pulse Ox 96 07/19/24 10:30 FiO2 50 07/16/24 14:50 Intake & Output 09/07/19/24 07/19/24 18:59 06:59 18:59 Intake Total 867.059 240 260 Output Total 865 1000 0 Balance 2.059 -760 260 Weight 77.2 kg Intake: IV 154 20 Invasive Line 9 10 Pressue bag 24 Sodium Chloride 0.9% 1, 120 20 000 ml @ 30 mls/hr IV . Q24H [facility]ENRI Rx#:[id number] Intake, IV Titration 13.059 Amount Insulin Regular 100 unit 13.059 In Sodium Chloride 0.9% 100 ml @ Per Protocol IV .Q0M HENRI Rx#:[id number] Oral 700 240 240 Output: Chest Tube Drainage 0 Chest Tube Mediastinal 0 Left Chest Tube 0 Urine 865 1000 0 Other: Voiding Method Indwelling Catheter Indwelling Catheter # Voids 1 1 ABP, PAP, CO, CI - Last Documented Arterial Blood Pressure 109/48 Pulmonary Artery Pressure 18/5 Cardiac Output 5 Cardiac Index 2.7 - Exam CONSTITUTIONAL: Appears comfortable, cooperative, no acute distress RESPIRATORY: Lungs sounds diminished bilaterally. Respirations symmetrical, nonlabored. Currently on room air with oxygen saturation 93%. Able to achieve 1000 mL on incentive spirometry. Strong cough. CARDIOVASCULAR: S1, S2 present. Irregular rate and rhythm, atrial fibrillation on telemetry, heart rate 90. Sternum stable. Palpable peripheral pulses b ilaterally. No edema present. No calf pain or tenderness noted. Heart hugger in place with patient demonstrating appropriate use. Antiembolism stockings, SCDs present. GASTROINTESTINAL: Abdomen soft, nontender, nondistended. Active bowel sounds present 4 quadrants. Tolerating clear liquids. Denies flatus, positive belching GENITOURINARY: Continues to void. Urine output 800 mL in the last 8 hours. INTEGUMENTARY: Skin is warm and dry, with no evidence of clubbing or cyanosis. Midline sternal chest incision well approximated and covered with dry intact dressing. Left lower extremity EVH site well approximated without redness or drainage. NEUROLOGIC: Cranial nerves II through XII intact. MUSKULOSKELETAL: Able to move all extremities, strength equal bilaterally, gait normal. PSYCHIATRIC: Alert and oriented to person place and time, appropriate affect, intact judgment and insight. - Allied health notes Allied health notes reviewed: nursing - Labs CBC & Chem 7: 07/19/24 05:49 07/19/24 05:49 Labs: Abnormal Lab Results - Last 24 Hours (Table) 07/18/24 07/18/24 07/19/24 Range/Units 16:25 21:03 05:49 WBC 14.8 H (3.8-10.6) k/uL RBC 3.79 L (4.30-5.90) m/uL Hgb 11.8 L (13.0-17.5) gm/dL Hct 35.5 L (39.0-53.0) % Neutrophils # 12.3 H (1.3-7.7) k/uL Chloride (98-107) mmol/L Carbon Dioxide (22-30) mmol/L BUN (9-20) mg/dL Glucose (74-99) mg/dL POC Glucose (mg/dL) 299 H 246 H (70-110) mg/dL Total Protein (6.3-8.2) g/dL 07/19/24 07/19/24 Range/Units 05:49 06:49 WBC (3.8-10.6) k/uL RBC (4.30-5.90) m/uL Hgb (13.0-17.5) gm/dL Hct (39.0-53.0) % Neutrophils # (1.3-7.7) k/uL Chloride 109 H (98-107) mmol/L Carbon Dioxide 20 L (22-30) mmol/L BUN 28 H (9-20) mg/dL Glucose 137 H (74-99) mg/dL POC Glucose (mg/dL) 140 H (70-110) mg/dL Total Protein 6.2 L (6.3-8.2) g/dL Microbiology - Last 24 Hours (Table) 07/16/24 14:58 Gram Stain - Preliminary Bronchoalviolar Lavage - Right Bronchial Washings Culture - Preliminary Gram Neg Bacilli - Imaging and Cardiology Chest x-ray: report reviewed, image reviewed Assessment and Plan Assessment: Coronary artery disease with previous STEMI in 2014 and 2 stents to the LAD at that time along with non-STEMI in 2016 with 1 stent to the LAD at that time, non-STEMI this admission, status post three-vessel off-pump CABG Chest pressure secondary to above Left facial numbness and left arm numbness, no stroke evident on CT at [facility] Paroxysmal atrial fibrillation, currently sinus rhythm History of hypertension Hyperlipidemia, treated, cholesterol 141, LDL 66, triglyceride 242 Hypothyroid, TSH 0.382, FT4 1.48 Diabetes mellitus, uncontrolled hyperglycemia, preoperative hemoglobin A1c 9.8% Multiple TIAs CVA in 2022 with subsequent left carotid endarterectomy Chronic current tobacco dependence, 1 pack/day since 1969 Mild COPD, preoperative FEV1 67% of predicted Plan: Continue to maximize medical therapy with aspirin, statin, Plavix, and beta- katerina. Will increase beta-katerina therapy as tolerated. Continue amiodarone per protocol, amiodarone 400 mg p.o. twice daily initiated this a.m. No anticoagulation necessary at this point. Wean oxygen as tolerated. Encourage incentive spirometry use 10 times every h our while awake, bronchodilators per pulmonology. Increase activity, ambulate as tolerated. PT/OT/cardiac rehab following. Will monitor daily labs and chest x-rays. Electrolyte replacement per protocol. GI/DVT prophylaxis. Pain control per current medication regimen. Insulin management per internal medicine. Patient is diabetic with uncontrolled hyperglycemia, preoperative hemoglobin A1c 9.8%. Shower daily. May bladder scan and straight cath for greater than 300 mL residual. Continue to monitor and record strict accurate intake and output Daily weights Smoking cessation counseling and education reinforced. Transfer orders to the third floor cardiac stepdown unit have been placed, transfer when bed available. Discharge planning is in place, anticipate discharge home within the next 48 hours. More recommendations to follow based on patient's clinical course. Time with Patient: Greater than 30
[2024-07-19 12:01] LABS: Glucose,Whole Blood 255 mg/dL (70-110)
[2024-07-19] MEDS: ALBUMIN HUMAN 25% 50 ML in EMPTY BAG 1 BAG IVPB ONE (13:35)
[2024-07-19] MEDS: ALBUMIN HUMAN 5% 500 ML in EMPTY BAG 1 BAG IVPB ONE ×6 (13:36)
[2024-07-19] MEDS: CALCIUM CHLORIDE 100 MG/ML 10 ML SYRINGE IVP ONE (13:37)
[2024-07-19] MEDS: CLEVIDIPINE BUTYRATE 25 MG in EMPTY BAG 1 BAG IV SCH (13:37)
[2024-07-19] MEDS: DILTIAZEM 125 MG in SODIUM CHLORIDE 0.9% 100 ML IV SCH (13:37)
[2024-07-19] MEDS: CHLORHEXIDINE GLUCONATE 15 ML CUP MUCOUS MEM ONE (13:37)
[2024-07-19] MEDS: HEPARIN SODIUM,PORCINE (1 ML) 5,000 UNIT in SODIUM CHLORIDE 0.9% 500 ML 500 ML IV ONE (13:37)
[2024-07-19] MEDS: ceFAZolin 1,000 MG in SODIUM CHLORIDE 0.9% IRRIGATIO 1,000 ML IRRIGATION ONE (13:37)
[2024-07-19] MEDS: HEPARIN SODIUM 1,000 UN/ML (10ML VL) IV ONE (13:37)
[2024-07-19] MEDS: MD COMMUNICATION TO PHARMACY 1 EACH MISC PO ONE ×2 (13:38)
--- NOTE | 2024-07-19 13:38 | P.PN ---
Subjective Progress Note Date: 07/19/24 68-year-old male presented from an outside hospital, with non-ST segment elevation myocardial infarction. The patient was having chest discomfort/chest pain. It apparently radiated to his bilateral shoulder areas. The patient does have a prior history of CAD, with previous stenting, 10 years prior. In addition, the patient has COPD, and ongoing tobacco use. Currently, I am asked to see the patient in room 384. He is on room air. No IV fluids. He had a cardiac catheterization done on July 10. It showed three-vessel coronary disease. The patient is a current everyday smoker. The patient does not know whether or not he is going to have his surgery while he is an inpatient, or, be sent home, and brought back. His medical history includes CVA, diabetes, hyperlipidemia, previous myocardial infarction, osteoarthritis, and hypothyroidism. As mentioned he is a current everyday smoker. The patient had stents to his LAD, in 2014, and 2015. The patient had a STEMI, in 2014. White count is 9.6, with a normal hemoglobin, hematocrit, platelet count. Sodium 137, potassium 5.2, chlorides 109, CO2 22, BUN 29, creatinine 1.10. Glucose was 142. CT scan of the chest shows minimal calcification within the aorta, and changes of COPD. Progress note dated July 13, 2024. 68-year-old male seen today in room 384. The patient had a non-ST segment elevation myocardial infarction, and was brought here for cardiac catheterization. It revealed severe three-vessel coronary disease. The patient is a current everyday smoker. Cardiology and cardiothoracic surgery planning went to do surgery on this patient. No decision has been made as yet. He does have a history of CVA, diabetes mellitus, hyperlipidemia, previous WI, osteoarthritis, and hypothyroidism. Current labs only include a glucose of 199. On today's evaluation of 07/14/2024, the patient is being seen for a follow-up. The patient is post non-ST segment elevation myocardial infarction and the patient was found to have severe triple-vessel coronary artery disease with diffuse disease involving the LAD. He is known to have hypertension hyperlipidemia diabetes mellitus and previous history of CVA. The patient is going to undergo coronary bypass surgery in a.m. His FEV1 is is in order of 67% of predicted. He is currently on room air oxygen with a pulse ox of 96%. CT scan of the chest was done on 07/12/2024 showed calcification of the aorta and there is no evidence of an aneurysm. Blood work was noted. No recent blood work from today. He remains on aspirin. He is on Coreg. He is on Levemir insulin and Farxiga and Synthroid. Free of any chest pain at this point in time. Echocardiogram that was done on 07/11/2024 showed a preserved LV function and mildly reduced atypical apical and septal kinesis secondary to an acute WI. Noted the patient's troponin peaked at 17. On 07/15/2024, the patient is resting comfortably in bed.no respiratory difficulties. labs from today shows a white cell count of 10.2 with a hemoglobin 14. Normal coagulation profile. BUN is 48 with a creatinine of 1.4 to and a sodium levels at 137 with a potassium level of 5.4. The patient is using incentive spirometer. He remains on room air oxygen. Denies having any specific complaints for now. Is free of any chest pain. 07/16/2024, the patient is being seen after arrival to the intensive care unit. The patient was taken to the operating room this morning and the patient underwent off-pump coronary artery bypass surgery x 3 with MCKEON to mid distal LAD, SVG to posterolateral branch of circumflex. Postop, the patient was kept intubated on the mechanical ventilator. Arrived to the ICU on propofol running at 20 mcg/kg/min. He is on assist-control mode of mechanical ventilation at rate of 16, tidal volume of 500, FiO2 100% and PEEP of 5. Blood gas showed a pH of 7.37 with a pCO2 of 42 and pO2 was 150. Based on that, FiO2 was gradually weaned off. The patient has not mediastinal left pleural chest tube. Chest x- ray shows postsurgical changes without any pneumothorax. Tiny bilateral pleural effusion is seen versus atelectasis. Meanwhile, the patient had a cardiac output of 6.7 with an index of 3.6. PA pressures are 28/13. He is on insulin drip at 4 units an hour. He is on dopamine at 2 mcg/kg/min. Cardiac rhythm is sinus. The white cell count is 17.4, hemoglobin 11.8 and a platelet count of 252. BUN 48 with a creatinine of 1.25 and a sodium levels at 139 and a bicarb is at 22. Calm and comfortable. Of 07/17/2024, the patient is being seen for a follow-up. Doing well. No s pecific complaints. The patient is postop day #1 and the patient was weaned off mechanical ventilator and the patient was extubated without any major difficulties., Currently on no pressors. Hemodynamically stable. Using incentive spirometer. The chest x-ray from today shows questionable left apical pneumothorax. Otherwise no other acute abnormalities. The patient's cardiac output is currently is at 5 with an index of 2.7 with a pulmonary artery pressures of 24/6. Adequate urine output. Cardiac rhythm is sinus. No other significant events overnight. Output from the chest tubes have been minimal at this point in time. Using incentive spirometer, pulling approximately 1000. On 07/18/2024, patient is being seen for a follow-up. The patient is currently on 2 L of oxygen by nasal cannula. Resting comfortably in bed. Chest tubes have been removed earlier this morning and the patient's breathing is improved significantly since. He did encounter atrial fibrillation and he was given amiodarone and the patient is currently back in normal sinus rhythm and amiodarone is running at 0.5 mg/min. Adequate urine output. The labs from today was noted. Hemoglobin is at 10.6 with a platelet count of 263. Electrolytes show a potassium level of 4.4, bicarb of 19, BUN 25 with a crea tinine of 1.08. LFTs are all within normal limits. The patient is currently resting comfortably in bed. Ambulating. No other significant events overnight. The patient is still on insulin drip but will be transition to long-acting insulin for now. Doing extremely well on the incentive spirometer. On today's evaluation of 07/19/2024, the patient is being seen for a follow-up. Patient is doing well. No specific complaints. Currently is on 2 L of oxygen via nasal cannula. He is having episodes of atrial fibrillation and the patient is being given amiodarone and amiodarone is running at 0.5 mg/min. This is being managed by cardiology and cardiothoracic surgery. Otherwise, he remains h emodynamically stable. He is currently on no anticoagulants and this needs to be addressed by the cardiology team. No major respiratory difficulties. He remains on Coreg 3.125 mg p.o. twice a day. The patient is also on amiodarone 400 g p.o. daily twice daily and the patient is on aspirin and Plavix and Synthroid. He is also on Levemir insulin 16 units daily + sliding scale coverage. Chest x-ray shows no acute abnormalities. He is showing essentially postsurgical changes with some atelectatic changes lung bases and of the chest tubes have been removed. Maybe some small effusion left lung base. The white cell count of 14.8, hemoglobin 11.8 with a platelet count of 304. BUN 28 creati nine is 1.07 and sodium levels at 137. He is communicating. No altered mentation. Ambulating in the hallway. Overall condition is stable. Using incentive spirometer. Objective - Vital Signs Vital signs: Vital Signs Temp 97.9 F 07/19/24 04:00 Pulse 78 07/19/24 07:00 Resp 19 07/19/24 07:00 BP 126/78 07/19/24 07:00 Pulse Ox 93 L 07/19/24 07:00 FiO2 50 07/16/24 14:50 Intake & Output 07/18/24 07/19/24 07/19/24 18:59 06:59 18:59 Intake Total 867.059 240 240 Output Total 865 1000 0 Balance 2.059 -760 240 Weight 77.2 kg Intake: IV 154 Invasive Line 9 10 Pressue bag 24 Sodium Chloride 0.9% 1, 120 000 ml @ 30 mls/hr IV . Q24H [facility] Rx#:[id number] Intake, IV Titration 13.059 Amount Insulin Regular 100 unit 13.059 In Sodium Chloride 0.9% 100 ml @ Per Protocol IV .Q0M [facility]ENRI Rx#:[id number] Oral 700 240 240 Output: Chest Tube Drainage 0 Chest Tube Mediastinal 0 Left Chest Tube 0 Urine 865 1000 0 Other: Voiding Method Indwelling Catheter Indwelling Catheter # Voids 1 ABP, PAP, CO, CI - Last Documented Arterial Blood Pressure 109/48 Pulmonary Artery Pressure 18/5 Cardiac Output 5 Cardiac Index 2.7 - Exam CONSTITUTIONAL: Appears comfortable, cooperative, no acute distress RESPIRATORY: Lungs sounds diminished bilaterally. Respirations even, nonlabored. Currently on 2 L nasal cannula with oxygen saturation 95%. Able to achieve 1000 mL on incentive spirometry. Strong cough. CARDIOVASCULAR: S1, S2 present. Regular rate and rhythm, sinus rhythm on telemetry. Sternum stable. Palpable peripheral pulses bilaterally. No edema present. No calf pain or tenderness noted. Heart hugger in place with patient demonstrating appropriate use. Antiembolism stockings, SCDs present. GASTROINTESTINAL: Abdomen soft, nontender, nondistended. Active bowel sounds present 4 quadrants. Tolerating clear liquids. Denies flatus, positive belching GENITOURINARY: Downing present draining clear, yellow urine. INTEGUMENTARY: Skin is warm and dry with evidence of good perfusion. Anterior chest incision well approximated and covered with dry intact dressing. Right lower extremity EVH site well approximated without redness or drainage. NEUROLOGIC: Cranial nerves II through XII intact MUSKULOSKELETAL: Able to move all extremities, strength equal bilaterally, gait normal PSYCHIATRIC: Alert and oriented to person place and time, appropriate affect, intact judgment and insight - Labs CBC & Chem 7: 07/19/24 05:49 07/19/24 05:49 Labs: Abnormal Lab Results - Last 24 Hours (Table) 07/18/24 07/18/24 07/18/24 Range/Units 08:15 09:11 11:15 WBC (3.8-10.6) k/uL RBC (4.30-5.90) m/uL Hgb (13.0-17.5) gm/dL Hct (39.0-53.0) % Neutrophils # (1.3-7.7) k/uL Chloride (98-107) mmol/L Carbon Dioxide (22-30) mmol/L BUN (9-20) mg/dL Glucose (74-99) mg/dL POC Glucose (mg/dL) 248 H 215 H 175 H (70-110) mg/dL Total Protein (6.3-8.2) g/dL 07/18/24 07/18/24 07/19/24 Range/Units 16:25 21:03 05:49 WBC 14.8 H (3.8-10.6) k/uL RBC 3.79 L (4.30-5.90) m/uL Hgb 11.8 L (13.0-17.5) gm/dL Hct 35.5 L (39.0-53.0) % Neutrophils # 12.3 H (1.3-7.7) k/uL Chloride (98-107) mmol/L Carbon Dioxide (22-30) mmol/L BUN (9-20) mg/dL Glucose (74-99) mg/dL POC Glucose (mg/dL) 299 H 246 H (70-110) mg/dL Total Protein (6.3-8.2) g/dL 07/19/24 07/19/24 Range/Units 05:49 06:49 WBC (3.8-10.6) k/uL RBC (4.30-5.90) m/uL Hgb (13.0-17.5) gm/dL Hct (39.0-53.0) % Neutrophils # (1.3-7.7) k/uL Chloride 109 H (98-107) mmol/L Carbon Dioxide 20 L (22-30) mmol/L BUN 28 H (9-20) mg/dL Glucose 137 H (74-99) mg/dL POC Glucose (mg/dL) 140 H (70-110) mg/dL Total Protein 6.2 L (6.3-8.2) g/dL Microbiology - Last 24 Hours (Table) 07/16/24 14:58 Gram Stain - Preliminary Bronchoalviolar Lavage - Right Bronchial Washings Culture - Preliminary Assessment and Plan Plan: Acute non-ST segment elevation myocardial infarction, with severe triple-vessel disease and the patient is status post coronary bypass surgery with sequential MCKEON to LAD and SVG to circumflex. The patient is currently postop day # 3, hemodynamically stable and the patient is on no pressors for now. Adequate urine output. Adequate blood pressure. Postthoracotomy, patient is currently on 2 L of oxygen by nasal cannula, ext ubated, all of the chest rhythm removed. Atrial fibrillation, paroxysmal, currently on oral amiodarone and Coreg. No anticoagulants yet. COPD, with ongoing tobacco use. The patient COPD is currently inactive and stable History of ST segment elevation myocardial infarction, February 2015, with prior LAD stent placement, 2014 and 2015. Prior history of myocardial infarction. History of diabetes mellitus. History of hypertension. History of hyperlipidemia. History of CVA. Current everyday tobacco use. Acute kidney injury, creatinine is improving compared to yesterday. Plan: Patient is currently on r 2 L of oxygen by nasal cannula All of the chest tubes were removed The patient was placed on Levemir insulin 16 units daily in combination with metformin and Farxiga Continue aspirin and Plavix Suggest anticoagulation by cardiology Coreg and amiodarone orally for rate controld Follow-up chest x-ray was noted Increase mobility as tolerated Increase mobility. Will continue to follow.
--- NOTE | 2024-07-19 13:38 | P.PN ---
Subjective Progress Note Date: 07/19/24 PROGRESS NOTE The patient is a 68-year-old male with a known history of CAD who underwent coronary bypass grafting with MCKEON to the LAD SVG to the circumflex and occlusion of the left atrial appendage. He is extubated sitting up in the chair, feeling well, denying any significant dyspnea. He has chest wall tenderness. He has no dizziness or palpitations. He is in sinus mechanism. His urinary output is stable. He denies any nausea or vomiting. He has mild cough. July 18: The patient is feeling well this morning, he ambulated. He continues to be in sinus mechanism, he had chest soreness but no anginal pain. He denies any dizziness or palpitations. He denies any nausea or vomiting. His urinary output has been stable. He has no significant chest tube drainage. He is on no vasopressors. July 19: The patient is feeling well this morning, he has been ambulating without difficulties. He had episodes of paroxysmal atrial fibrillation, received IV amiodarone and he is back in sinus mechanism at this time. He denies any significant chest pain. He has no nausea or vomiting. Medications: Aspirin, Plavix 75 mg daily, Lipitor 40 mg daily, Coreg 3.125 mg twice a day, amiodarone 400 mg twice a day, Farxiga 10 mg daily, metformin 1 g twice a day PHYSICAL EXAMINATION: Blood pressure 112/60 heart rate 70 LUNGS: Mild decreased breath sounds at the bases HEART: Regular rate and rhythm, S1, S2. No S3. No systolic murmur, ABDOMEN: Soft, nontender, no organomegaly EXTREMETIES: No edema LAB: BUN 28, creatinine 1.07, potassium 4.6, hemoglobin 11.8 IMPRESSION: 1. Status post CABG, stable 2. Hypertension 3. Hyperlipidemia 4. History of diabetes 5. Paroxysmal atrial fibrillation PLAN: 1. Continue present therapy 2. Increase physical activity 3. Follow blood pressure and add LA inhibitor as tolerated 4. Depending on his progress further recommendations will be made 5. If he has further episodes of atrial fibrillation that are persistent, he may require anticoagulation Objective - Vital Signs Vital signs: Vital Signs Temp 98.1 F 07/19/24 08:00 Pulse 71 07/19/24 13:16 Resp 16 07/19/24 13:16 BP 112/67 07/19/24 10:30 Pulse Ox 96 07/19/24 10:30 FiO2 50 07/16/24 14:50 Intake & Output 07/18/24 07/19/24 07/19/24 18:59 06:59 18:59 Intake Total 867.059 240 260 Output Total 865 1000 0 Balance 2.059 -760 260 Weight 77.2 kg Intake: IV 154 20 Invasive Line 9 10 Pressue bag 24 Sodium Chloride 0.9% 1, 120 20 000 ml @ 30 mls/hr IV . Q24H [facility] Rx#:[id number] Intake, IV Titration 13.059 Amount Insulin Regular 100 unit 13.059 In Sodium Chloride 0.9% 100 ml @ Per Protocol IV .Q0M [facility] Rx#:[id number] Oral 700 240 240 Output: Chest Tube Drainage 0 Chest Tube Mediastinal 0 Left Chest Tube 0 Urine 865 1000 0 Other: Voiding Method Indwelling Catheter Indwelling Catheter # Voids 1 1 ABP, PAP, CO, CI - Last Documented Arterial Blood Pressure 109/48 Pulmonary Artery Pressure 18/5 Cardiac Output 5 Cardiac Index 2.7 - Labs CBC & Chem 7: 07/19/24 05:49 07/19/24 05:49 Labs: Abnormal Lab Results - Last 24 Hours (Table) 07/18/24 07/18/24 07/19/24 Range/Units 16:25 21:03 05:49 WBC 14.8 H (3.8-10.6) k/uL RBC 3.79 L (4.30-5.90) m/uL Hgb 11.8 L (13.0-17.5) gm/dL Hct 35.5 L (39.0-53.0) % Neutrophils # 12.3 H (1.3-7.7) k/uL Chloride (98-107) mmol/L Carbon Dioxide (22-30) mmol/L BUN (9-20) mg/dL Glucose (74-99) mg/dL POC Glucose (mg/dL) 299 H 246 H (70-110) mg/dL Total Protein (6.3-8.2) g/dL 07/19/24 07/19/24 07/19/24 Range/Units 05:49 06:49 12:00 WBC (3.8-10.6) k/uL RBC (4.30-5.90) m/uL Hgb (13.0-17.5) gm/dL Hct (39.0-53.0) % Neutrophils # (1.3-7.7) k/uL Chloride 109 H (98-107) mmol/L Carbon Dioxide 20 L (22-30) mmol/L BUN 28 H (9-20) mg/dL Glucose 137 H (74-99) mg/dL POC Glucose (mg/dL) 140 H 255 H (70-110) mg/dL Total Protein 6.2 L (6.3-8.2) g/dL Microbiology - Last 24 Hours (Table) 07/16/24 14:58 Gram Stain - Preliminary Bronchoalviolar Lavage - Right Bronchial Washings Culture - Preliminary Stenotrophomonas maltophilia
[2024-07-19] MEDS: NITROGLYCERIN-D5W PMX 50 MG in DEXTROSE/WATER 1 250ML.BAG IV SCH (13:39)
[2024-07-19] MEDS: NITROGLYCERIN-D5W PMX 25 MG/250 ML BTL IV ONE (13:39)
[2024-07-19] MEDS: MANNITOL 25% 12.5 GM/50 ML VIAL IV ONE ×2 (13:39)
[2024-07-19] MEDS: PAPAVERINE 360 MG in SODIUM CHLORIDE 0.9% 90 ML IV ONE (13:39)
[2024-07-19] MEDS: MAGNESIUM SULFATE 16.24 MEQ in EMPTY SYRINGE 1 SYR IV ONE (13:39)
[2024-07-19] MEDS: PHENYLEPHRINE 40 MG in SODIUM CHLORIDE 0.9% 250 ML IV ONE (13:40)
[2024-07-19] MEDS: PROTAMINE SULFATE 10 MG/ML 25 ML VIAL IV ONE (13:40)
[2024-07-19] MEDS: PHENYLEPHRINE 10 MG/ML VIAL IV ONE (13:40)
[2024-07-19] MEDS: PROTAMINE SULFATE 250 MG in EMPTY BAG 1 BAG IV ONE (13:40)
[2024-07-19] MEDS: TRANEXAMIC ACID 2,000 MG in SODIUM CHLORIDE 0.9% 80 ML IV ONE (13:41)
[2024-07-19] MEDS: SODIUM BICARB 8.4% 50 ML SYR (1 MEQ/ML) IV ONE (13:41)
--- NOTE | 2024-07-19 15:32 | P.PN ---
Subjective Progress Note Date: 07/19/24 68-year-old male presented from an outside hospital, with non-ST segment elevation myocardial infarction. The patient was having chest discomfort/chest pain. It apparently radiated to his bilateral shoulder areas. The patient does have a prior history of CAD, with previous stenting, 10 years prior. In addition, the patient has COPD, and ongoing tobacco use. Currently, I am asked to see the patient in room 384. He is on room air. No IV fluids. He had a cardiac catheterization done on July 10. It showed three-vessel coronary disease. The patient is a current everyday smoker. The patient does not know whether or not he is going to have his surgery while he is an inpatient, or, be sent home, and brought back. His medical history includes CVA, diabetes, hyperlipidemia, previous myocardial infarction, osteoarthritis, and hypothyroidism. As mentioned he is a current everyday smoker. The patient had stents to his LAD, in 2014, and 2015. The patient had a STEMI, in 2014. The patient was taken to the operating room this morning and the patient underwent off-pump coronary artery bypass surgery x 3 with MCKEON to mid distal LAD, SVG to posterolateral branch of circumflex. Postop, the patient was kept intubated on the mechanical ventilator. The patient is postop day #2 and the patient was weaned off mechanical ventilator and the patient was extubated yesterday without any major difficulties., Currently on no pressors. Hemodynamically stable. 07/19/2024 --the patient is seen and evaluated in room at bedside. Patient is doing well. No specific complaints. Currently is on 2 L of oxygen via nasal cannula. Continues to have episodes of atrial fibrillation and remains on IV amiodarone infusion.. Otherwise, he remains hemodynamically stable. He is currently on no anticoagulants and this needs to be addressed by the cardiology team. No major respiratory difficulties. He remains on Coreg 3.125 mg p.o. twice a day. The patient is also on amiodarone 400 g p.o. daily twice daily and the patient is on aspirin and Plavix and Synthroid. He is also on Levemir insulin 16 units daily + sliding scale coverage. --Chest x-ray shows no acute abnormalities. He is showing essentially postsurgical changes with some atelectatic changes lung bases and of the chest tubes have been removed. Maybe some small effusion left lung base. Lab review shows white cell count of 14.8, hemoglobin 11.8 with a platelet count of 304. BUN 28 creatinine is 1.07 and sodium levels at 137. Objective - Vital Signs Vital signs: Vital Signs Temp 98.1 F 07/19/24 08:00 Pulse 81 07/19/24 08:38 Resp 23 07/19/24 08:00 BP 126/75 07/19/24 08:00 Pulse Ox 92 L 07/19/24 08:29 FiO2 50 07/16/24 14:50 Intake & Output 07/18/24 07/19/24 07/19/24 18:59 06:59 18:59 Intake Total 867.059 240 240 Output Total 865 1000 0 Balance 2.059 -760 240 Weight 77.2 kg Intake: IV 154 Invasive Line 9 10 Pressue bag 24 Sodium Chloride 0.9% 1, 120 000 ml @ 30 mls/hr IV . Q24H [facility] Rx#:[id number] Intake, IV Titration 13.059 Amount Insulin Regular 100 unit 13.059 In Sodium Chloride 0.9% 100 ml @ Per Protocol IV .Q0M [facility] Rx#:[id number] Oral 700 240 240 Output: Chest Tube Drainage 0 Chest Tube Mediastinal 0 Left Chest Tube 0 Urine 865 1000 0 Other: Voiding Method Indwelling Catheter Indwelling Catheter # Voids 1 ABP, PAP, CO, CI - Last Documented Arterial Blood Pressure 109/48 Pulmonary Artery Pressure 18/5 Cardiac Output 5 Cardiac Index 2.7 - Exam CONSTITUTIONAL: Appears comfortable, cooperative, no acute distress RESPIRATORY: Lungs sounds diminished bilaterally. Respirations even, nonlabored. Currently on 2 L nasal cannula with oxygen saturation 94%. Able to achieve 1000 mL on incentive spirometry. Strong cough. CARDIOVASCULAR: S1, S2 present. Regular rate and rhythm, sinus rhythm on telemetry. Sternum stable. Palpable peripheral pulses bilaterally. No edema present. No calf pain or tenderness noted. Heart hugger in place with patient demonstrating appropriate use. Antiembolism stockings, SCDs present. GASTROINTESTINAL: Abdomen soft, nontender, nondistended. Active bowel sounds present 4 quadrants. Tolerating minimal clear liquids due to nausea. Denies flatus, positive belching GENITOURINARY: Downing present draining clear, yellow urine. Output overnight 80-150 mL per hour INTEGUMENTARY: Skin is warm and dry with evidence of good perfusion. Anterior chest incision well approximated and covered with dry intact dressing. Right lower extremity EVH site well approximated without redness or drainage. NEUROLOGIC: Cranial nerves II through XII intact MUSKULOSKELETAL: Able to move all extremities, strength equal bilaterally, gait normal - Labs CBC & Chem 7: 07/19/24 05:49 07/19/24 05:49 Labs: Abnormal Lab Results - Last 24 Hours (Table) 07/18/24 07/18/24 07/18/24 Range/Units 11:15 16:25 21:03 WBC (3.8-10.6) k/uL RBC (4.30-5.90) m/uL Hgb (13.0-17.5) gm/dL Hct (39.0-53.0) % Neutrophils # (1.3-7.7) k/uL Chloride (98-107) mmol/L Carbon Dioxide (22-30) mmol/L BUN (9-20) mg/dL Glucose (74-99) mg/dL POC Glucose (mg/dL) 175 H 299 H 246 H (70-110) mg/dL Total Protein (6.3-8.2) g/dL 07/19/24 07/19/24 07/19/24 Range/Units 05:49 05:49 06:49 WBC 14.8 H (3.8-10.6) k/uL RBC 3.79 L (4.30-5.90) m/uL Hgb 11.8 L (13.0-17.5) gm/dL Hct 35.5 L (39.0-53.0) % Neutrophils # 12.3 H (1.3-7.7) k/uL Chloride 109 H (98-107) mmol/L Carbon Dioxide 20 L (22-30) mmol/L BUN 28 H (9-20) mg/dL Glucose 137 H (74-99) mg/dL POC Glucose (mg/dL) 140 H (70-110) mg/dL Total Protein 6.2 L (6.3-8.2) g/dL Microbiology - Last 24 Hours (Table) 07/16/24 14:58 Gram Stain - Preliminary Bronchoalviolar Lavage - Right Bronchial Washings Culture - Preliminary Assessment and Plan Assessment: --Acute non-ST segment elevation myocardial infarction, with severe triple- vessel disease and the patient is status post coronary bypass surgery with sequential MCKEON to LAD and SVG to circumflex. The patient is currently postop day #1, hemodynamically stable and the patient is on no pressors for now. Adequate urine output. Adequate blood pressure. --Postthoracotomy, remains intubated on the mechanical ventilator. Chest x-ray was noted. Blood gas were noted and necessary ventilator changes were done. Chest tubes are in place and output is minimal questionable left apical pneumothorax is noted, no inconsequential; patient successfully extubated yesterday without any complications --COPD, with ongoing tobacco use. The patient COPD is currently inactive and stable --History of ST segment elevation myocardial infarction, February 2015, with prior LAD stent placement, 2014 and 2015. -- History of diabetes mellitus; metformin 1000 mg twice daily; monitor Accu- Cheks before every meal and at bedtime with insulin sliding scale. -- History of hypertension; Coreg 3.125 mg p.o. twice daily. -- History of hyperlipidemia; Lipitor 40 mg daily. -- History of CVA; patient remains on aspirin, Plavix and Lipitor. --Current everyday tobacco use; patient counseled on need for smoking cessation. --Acute kidney injury, creatinine is improving compared to yesterday.
[2024-07-19 16:41] LABS: Glucose,Whole Blood 216 mg/dL (70-110)
[2024-07-19 20:41] LABS: Glucose,Whole Blood 193 mg/dL (70-110)
[2024-07-20 06:08] LABS: Glucose,Whole Blood 114 mg/dL (70-110)
--- NOTE | 2024-07-20 06:48 | XR ---
EXAMINATION TYPE: XR chest 2V DATE OF EXAM: 07/20/2024 COMPARISON: 07/19/2024 HISTORY: Postcardiac surgery TECHNIQUE: Frontal and lateral views of the chest are obtained. FINDINGS: There is no change in the left small lung base opacity obscuring the costophrenic angle and the diaph ragm likely a combination of small pleural fluid and atelectasis. The heart and pulmonary vasculature are normal. There is no pneumothorax. The osseous structures are intact IMPRESSION: Mild acute cardiopulmonary disease with no interval change. [facility], , 07/20/2024 6:46 AM
[2024-07-20 07:39] LABS: Basophils % (A) 0 %; Eosinophils # (A) 0.3 k/uL (0-0.7); Eosinophils % (A) 3 %; HGB 10.9 gm/dL (13.0-17.5); Lymphocytes # (A) 1.1 k/uL (1.0-4.8); Lymphocytes % (A) 10 %; MCH 30.5 pg (25.0-35.0); MCHC 32.1 g/dL (31.0-37.0); MCV 95.3 fL (80.0-100.0); Mean Platelet Volume 8.3; Monocytes # (A) 0.7 k/uL (0-1.0); Monocytes % (A) 7 %; Neutrophils # (A) 8.7 k/uL (1.3-7.7); Neutrophils % (A) 79 %; Platelet Count 335 k/uL (150-450); RBC 3.57 m/uL (4.30-5.90); RDW 13.4 % (11.5-15.5); WBC 11.1 k/uL (3.8-10.6)
[2024-07-20 07:45] LABS: ALT 6 U/L (4-49); AST 23 U/L (17-59); African American GFR (CKD) 70 (>60 ml/min/1.73 sqM); Albumin 3.1 g/dL (3.5-5.0); Alkaline Phosphatase 76 U/L (38-126); Anion Gap 6 mmol/L; Blood Urea Nitrogen 30 mg/dL (9-20); Calcium 8.4 mg/dL (8.4-10.2); Carbon Dioxide 24 mmol/L (22-30); Chloride 106 mmol/L (98-107); Glucose 120 mg/dL (74-99); Non-African American GFR(CKD) 61 (>60 ml/min/1.73 sqM); Potassium 4.2 mmol/L (3.5-5.1); Sodium 136 mmol/L (137-145); Total Bilirubin 0.8 mg/dL (0.2-1.3); Total Protein 5.7 g/dL (6.3-8.2)
--- NOTE | 2024-07-20 09:08 | P.PN ---
Subjective Progress Note Date: 07/20/24 Principal diagnosis: Coronary artery disease, non-STEMI this admission, left facial numbness and left arm numbness, no stroke evident on CT at [facility]. History of CAD with previous STEMI in 2014 and 2 stents to the LAD at that time along with non-STEMI in 2015 with 1 stent to the LAD at that time, hypertension, hyperlipidemia, hypothyroid, diabetes mellitus, multiple TIAs, CVA in 2022 with subsequent left carotid endarterectomy, chronic current tobacco dependence POD #4 off-pump coronary artery bypass grafting x 3 with sequential left internal mammary artery to the mid and distal left anterior descending artery, saphenous vein graft to posterolateral branch of circumflex, endovascular vein harvest, occlusion of the left atrial appendage with 35mm AtriCure clamp Paroxysmal atrial fibrillation, known common occurrence after open heart surgery The patient was seen and examined in follow-up today July 20, 2024 at his bedside on the third floor cardiac stepdown unit. He is currently sitting up to the bedside chair, is awake, alert, oriented x 3 and is in no acute apparent distress. The patient ambulated a full [place] [facility] of the 3 S. unit this morning w ith standby assistance from nursing staff and tolerated well. He denies any complaints of pain or shortness of breath at this time. Oxygen saturations are 92% on room air and he is achieving 1000 mL on his incentive spirometry with encouragement. Remote telemetry is showing normal sinus rhythm heart rate 77 bpm, no further reports of atrial fibrillation. He continues on oral amiodarone 400 mg p.o. twice daily. Discharge planning is in place. First postoperative shower was tolerated well yesterday. Laboratory and chest x-ray results were reviewed. Objective - Vital Signs Vital signs: Vital Signs Temp 97.8 F 07/20/24 03:15 Pulse 96 07/20/24 08:31 Resp 18 07/20/24 03:15 BP 130/73 07/20/24 03:15 Pulse Ox 92 L 07/20/24 08:20 FiO2 50 07/16/24 14:50 Intake & Output 07/19/24 07/20/24 07/20/24 18:59 06:59 18:59 Intake Total 530 10 246 Output Total 200 825 Balance 330 -815 246 Weight 76.6 kg Intake: IV 50 10 10 Invasive Line 9 10 10 Sodium Chloride 0.9% 1, 50 000 ml @ 30 mls/hr IV . Q24H [facility] Rx#:[id number] Oral 480 236 Output: Urine 200 825 Other: Voiding Method Toilet Urinal # Voids 1 1 ABP, PAP, CO, CI - Last Documented Arterial Blood Pressure 109/48 Pulmonary Artery Pressure 18/5 Cardiac Output 5 Cardiac Index 2.7 - Exam CONSTITUTIONAL: Appears comfortable, cooperative, no acute distress RESPIRATORY: Lungs sounds diminished bilaterally. Respirations symmetrical, nonlabored. Currently on room air with oxygen saturation 92%. Able to achieve 1000 mL on incentive spirometry. Strong cough. CARDIOVASCULAR: S1, S2 present. Irregular rate and rhythm, normal sinus rhythm on telemetry, heart rate 77. Sternum stable. Palpable peripheral pulses bilaterally. No edema present. No calf pain or tenderness noted. Heart hugger in place with patient demonstrating appropriate use. Antiembolism stockings, SCDs present. GASTROINTESTINAL: Abdomen soft, nontender, nondistended. Active bowel sounds present 4 quadrants. Tolerating clear liquids. Passing flatus, bowel movement this a.m. GENITOURINARY: Continues to void. Urine output 450 mL in the last 8 hours. INTEGUMENTARY: Skin is warm and dry, with no evidence of clubbing or cyanosis. Midline sternal chest incision well approximated and covered with dry intact dressing. Left lower extremity EVH site well approximated without redness or drainage. NEUROLOGIC: No focal deficits. MUSKULOSKELETAL: Able to move all extremities, strength equal bilaterally, gait normal. PSYCHIATRIC: Alert and oriented to person place and time, appropriate affect, intact judgment and insight. - Allied health notes Allied health notes reviewed: nursing - Labs CBC & Chem 7: 07/20/24 06:49 07/20/24 06:49 Labs: Abnormal Lab Results - Last 24 Hours (Table) 07/19/24 07/19/24 07/19/24 Range/Units 12:00 16:34 20:40 WBC (3.8-10.6) k/uL RBC (4.30-5.90) m/uL Hgb (13.0-17.5) gm/dL Hct (39.0-53.0) % Neutrophils # (1.3-7.7) k/uL Sodium (137-145) mmol/L BUN (9-20) mg/dL Glucose (74-99) mg/dL POC Glucose (mg/dL) 255 H 216 H 193 H (70-110) mg/dL Total Protein (6.3-8.2) g/dL Albumin (3.5-5.0) g/dL 07/20/24 07/20/24 07/20/24 Range/Units 06:07 06:49 06:49 WBC 11.1 H (3.8-10.6) k/uL RBC 3.57 L (4.30-5.90) m/uL Hgb 10.9 L (13.0-17.5) gm/dL Hct 34.0 L (39.0-53.0) % Neutrophils # 8.7 H (1.3-7.7) k/uL Sodium 136 L (137-145) mmol/L BUN 30 H (9-20) mg/dL Glucose 120 H (74-99) mg/dL POC Glucose (mg/dL) 114 H (70-110) mg/dL Total Protein 5.7 L (6.3-8.2) g/dL Albumin 3.1 L (3.5-5.0) g/dL Microbiology - Last 24 Hours (Table) 07/16/24 14:58 Gram Stain - Preliminary Bronchoalviolar Lavage - Right Bronchial Washings Culture - Preliminary Stenotrophomonas maltophilia - Imaging and Cardiology Chest x-ray: report reviewed, image reviewed Assessment and Plan Assessment: Coronary artery disease with previous STEMI in 2014 and 2 stents to the LAD at that time along with non-STEMI in 2016 with 1 stent to the LAD at that time, non-STEMI this admission, status post three-vessel off-pump CABG Chest pressure secondary to above Left facial numbness and left arm numbness, no stroke evident on CT at [facility] Paroxysmal atrial fibrillation, currently sinus rhythm History of hypertension Hyperlipidemia, treated, cholesterol 141, LDL 66, triglyceride 242 Hypothyroid, TSH 0.382, FT4 1.48 Diabetes mellitus, uncontrolled hyperglycemia, preoperative hemoglobin A1c 9.8% Multiple TIAs CVA in 2022 with subsequent left carotid endarterectomy Chronic current tobacco dependence, 1 pack/day since 1969 Mild COPD, preoperative FEV1 67% of predicted Plan: Continue to maximize medical therapy with aspirin, statin, Plavix, and beta- katerina. Will increase beta-katerina therapy as tolerated. Currently on Coreg 3.125 mg p.o. twice daily. Continue amiodarone 400 mg p.o. twice daily initiated this a.m. No anticoagulation necessary at this point. Currently in normal sinus rhythm. Encourage incentive spirometry use 10 times every hour while awake, bronchodilators per pulmonology. Increase activity, ambulate as tolerated. PT/OT/cardiac rehab following. Will monitor daily labs and chest x-rays. Electrolyte replacement per protocol. Recheck TSH level tomorrow July 21, 2024. GI/DVT prophylaxis. Pain control per current medication regimen. Insulin management per internal medicine. Patient is diabetic with uncontrolled hyperglycemia, preoperative hemoglobin A1c 9.8%. Shower daily. May bladder scan and straight cath for greater than 300 mL residual. Continue to monitor and record strict accurate intake and output Daily weights Smoking cessation counseling and education reinforced. Discharge planning is in place, anticipate discharge home within the next 24-48 hours. More recommendations to follow based on patient's clinical course. Time with Patient: Greater than 30
[2024-07-20 11:14] LABS: Glucose,Whole Blood 199 mg/dL (70-110)
--- NOTE | 2024-07-20 11:19 | P.PN ---
Subjective Progress Note Date: 07/20/24 68-year-old male presented from an outside hospital, with non-ST segment elevation myocardial infarction. The patient was having chest discomfort/chest pain. It apparently radiated to his bilateral shoulder areas. The patient does have a prior history of CAD, with previous stenting, 10 years prior. In addition, the patient has COPD, and ongoing tobacco use. Currently, I am asked to see the patient in room 384. He is on room air. No IV fluids. He had a cardiac catheterization done on July 10. It showed three-vessel coronary disease. The patient is a current everyday smoker. The patient does not know whether or not he is going to have his surgery while he is an inpatient, or, be sent home, and brought back. His medical history includes CVA, diabetes, hyperlipidemia, previous myocardial infarction, osteoarthritis, and hypothyroidism. As mentioned he is a current everyday smoker. The patient had stents to his LAD, in 2014, and 2015. The patient had a STEMI, in 2014. The patient was taken to the operating room this morning and the patient underwent off-pump coronary artery bypass surgery x 3 with MCKEON to mid distal LAD, SVG to posterolateral branch of circumflex. Postop, the patient was kept intubated on the mechanical ventilator. The patient is postop day #2 and the patient was weaned off mechanical ventilator and the patient was extubated yesterday without any major difficulties., Currently on no pressors. Hemodynamically stable. 07/19/2024 --the patient is seen and evaluated in room at bedside. Patient is doing well. No specific complaints. Currently is on 2 L of oxygen via nasal cannula. Continues to have episodes of atrial fibrillation and remains on IV amiodarone infusion.. Otherwise, he remains hemodynamically stable. He is currently on no anticoagulants and this needs to be addressed by the cardiology team. No major respiratory difficulties. He remains on Coreg 3.125 mg p.o. twice a day. The patient is also on amiodarone 400 g p.o. daily twice daily and the patient is on aspirin and Plavix and Synthroid. He is also on Levemir insulin 16 units daily + sliding scale coverage. --Chest x-ray shows no acute abnormalities. He is showing essentially postsurgical changes with some atelectatic changes lung bases and of the chest tubes have been removed. Maybe some small effusion left lung base. Lab review shows white cell count of 14.8, hemoglobin 11.8 with a platelet count of 304. BUN 28 creatinine is 1.07 and sodium levels at 137. 07/20/2024 Patient has been transferred to selective care unit; In bedside chair; reports no complaint of chest pain or shortness of breath Vital signs are reviewed and stable with temperature of 97.8, pulse 76, respiration 18 and blood pressure 130/73 Labs are stable with WBC of 11.1, hemoglobin of 10.9 and platelet count of 335, sodium 136, potassium 4.2, BUNs/creatinine of 30/1.22 and blood glucose of 120 -Patient is admitted with STEMI and is status post three-vessel off-pump CABG; remains on aspirin, statins, Plavix and beta-blockers; patient initiated on amiodarone 400 mg twice daily; patient is in normal sinus rhythm at this time and anticoagulation therapy is not recommended Objective - Vital Signs Vital signs: Vital Signs Temp 97.8 F 07/20/24 03:15 Pulse 75 07/20/24 03:15 Resp 18 07/20/24 03:15 BP 130/73 07/20/24 03:15 Pulse Ox 96 07/20/24 03:15 FiO2 50 07/16/24 14:50 Intake & Output 07/19/24 07/20/24 07/20/24 18:59 06:59 18:59 Intake Total 530 10 Output Total 200 825 Balance 330 -815 Weight 76.6 kg Intake: IV 50 10 Invasive Line 9 10 Sodium Chloride 0.9% 1, 50 000 ml @ 30 mls/hr IV . Q24H [facility] Rx#:[id number] Oral 480 Output: Urine 200 825 Other: Voiding Method Toilet Urinal # Voids 1 1 ABP, PAP, CO, CI - Last Documented Arterial Blood Pressure 109/48 Pulmonary Artery Pressure 18/5 Cardiac Output 5 Cardiac Index 2.7 - Exam CONSTITUTIONAL: Appears comfortable, cooperative, no acute distress RESPIRATORY: Lungs sounds diminished bilaterally. Respirations even, nonlabored. Currently on 2 L nasal cannula with oxygen saturation 94%. Able to achieve 1000 mL on incentive spirometry. Strong cough. CARDIOVASCULAR: S1, S2 present. Regular rate and rhythm, sinus rhythm on telemetry. Sternum stable. Palpable peripheral pulses bilaterally. No edema present. No calf pain or tenderness noted. Heart hugger in place with patient demonstrating appropriate use. Antiembolism stockings, SCDs present. GASTROINTESTINAL: Abdomen soft, nontender, nondistended. Active bowel sounds present 4 quadrants. Tolerating minimal clear liquids due to nausea. Denies flatus, positive belching GENITOURINARY: Downing present draining clear, yellow urine. Output overnight 80-150 mL per hour INTEGUMENTARY: Skin is warm and dry with evidence of good perfusion. Anterior chest incision well approximated and covered with dry intact dressing. Right lower extremity EVH site well approximated without redness or drainage. NEUROLOGIC: Cranial nerves II through XII intact MUSKULOSKELETAL: Able to move all extremities, strength equal bilaterally, gait normal - Labs CBC & Chem 7: 07/20/24 06:49 07/20/24 06:49 Labs: Abnormal Lab Results - Last 24 Hours (Table) 07/19/24 07/19/24 07/19/24 Range/Units 05:49 12:00 16:34 WBC (3.8-10.6) k/uL RBC (4.30-5.90) m/uL Hgb (13.0-17.5) gm/dL Hct (39.0-53.0) % Neutrophils # (1.3-7.7) k/uL Chloride 109 H (98-107) mmol/L Carbon Dioxide 20 L (22-30) mmol/L BUN 28 H (9-20) mg/dL Glucose 137 H (74-99) mg/dL POC Glucose (mg/dL) 255 H 216 H (70-110) mg/dL Total Protein 6.2 L (6.3-8.2) g/dL 07/19/24 07/20/24 07/20/24 Range/Units 20:40 06:07 06:49 WBC 11.1 H (3.8-10.6) k/uL RBC 3.57 L (4.30-5.90) m/uL Hgb 10.9 L (13.0-17.5) gm/dL Hct 34.0 L (39.0-53.0) % Neutrophils # 8.7 H (1.3-7.7) k/uL Chloride (98-107) mmol/L Carbon Dioxide (22-30) mmol/L BUN (9-20) mg/dL Glucose (74-99) mg/dL POC Glucose (mg/dL) 193 H 114 H (70-110) mg/dL Total Protein (6.3-8.2) g/dL Microbiology - Last 24 Hours (Table) 07/16/24 14:58 Gram Stain - Preliminary Bronchoalviolar Lavage - Right Bronchial Washings Culture - Preliminary Stenotrophomonas maltophilia Assessment and Plan Assessment: --Acute non-ST segment elevation myocardial infarction, with severe triple- vessel disease and the patient is status post coronary bypass surgery with sequential MCKEON to LAD and SVG to circumflex. The patient is currently postop day #1, hemodynamically stable and the patient is on no pressors for now. Adequate urine output. Adequate blood pressure. --Postthoracotomy, remains intubated on the mechanical ventilator. Chest x-ray was noted. Blood gas were noted and necessary ventilator changes were done. Chest tubes are in place and output is minimal questionable left apical pneumothorax is noted, no inconsequential; patient successfully extubated yesterday without any complications --COPD, with ongoing tobacco use. The patient COPD is currently inactive and stable --History of ST segment elevation myocardial infarction, February 2015, with prior LAD stent placement, 2014 and 2015. -- History of diabetes mellitus; metformin 1000 mg twice daily; monitor Accu- Cheks before every meal and at bedtime with insulin sliding scale. -- History of hypertension; Coreg 3.125 mg p.o. twice daily. -- History of hyperlipidemia; Lipitor 40 mg daily. -- History of CVA; patient remains on aspirin, Plavix and Lipitor. --Current everyday tobacco use; patient counseled on need for smoking cessation. --Acute kidney injury, creatinine is improving compared to yesterday.
--- NOTE | 2024-07-20 12:20 | P.PN ---
Subjective HISTORY OF PRESENT ILLNESS: The patient is a 68-year-old male with a known history of CAD who underwent coronary bypass grafting with MCKEON to the LAD SVG to the circumflex and occlusion of the left atrial appendage. He is extubated sitting up in the chair, feeling well, denying any significant dyspnea. He has chest wall tenderness. He has no dizziness or palpitations. He is in sinus mechanism. His urinary output is stable. He denies any nausea or vomiting. He has mild cough. July 18: The patient is feeling well this morning, he ambulated. He continues to be in sinus mechanism, he had chest soreness but no anginal pain. He denies any dizziness or palpitations. He denies any nausea or vomiting. His urinary output has been stable. He has no significant chest tube drainage. He is on no vasopressors. July 19: The patient is feeling well this morning, he has been ambulating without difficulties. He had episodes of paroxysmal atrial fibrillation, received IV amiodarone and he is back in sinus mechanism at this time. He denies any significant chest pain. He has no nausea or vomiting. 07/20/2024 Patient examined this morning. Patient is sitting up in the chair. Patient currently denies chest pain or pressure. He denies shortness of breath. He reports decreased appetite this morning. Telemetry reveals sinus mechanism. Patient's vital signs are stable. Patient is anticipating discharge home tomorrow. PHYSICAL EXAM: VITAL SIGNS: Reviewed. GENERAL: Well-developed in no acute distress. NECK: Supple. No JVD or thyromegaly LUNGS: Respirations even and unlabored. Lungs essentially clear to auscultation bilaterally. HEART: Regular rate and rhythm. S1 and S2 heard. EXTREMITIES: Normal range of motion. No clubbing or cyanosis. Peripheral pulses intact. No lower extremity edema ASSESSMENT: Non-STEMI status post cardiac catheterization severe triple-vessel coronary artery disease with diffuse disease involving the LAD Status post off pump CABG, x 3 vessels Coronary artery disease with previous PCI to proximal LAD in 2015 and proximal LAD in 2016 Paroxysmal atrial fibrillation, postoperative, maintaining sinus mechanism Hypertension Hyperlipidemia Diabetes History of CVA/TIA Nicotine dependence PLAN: Continue postoperative management per CT surgery Increase activity as tolerated Encourage use of incentive spirometer Continue current cardiac medications Possible addition of LA inhibitor pending patient's blood pressures Continue telemetry monitoring Possible discharge home tomorrow Patient to follow-up postdischarge with Dr. Jung Nurse practitioner note has been reviewed by physician. Signing provider agrees with the documented findings, assessment, and plan of care documented by DRAFTING LAYOUT MAN as a scribe. Objective - Vital Signs Vital signs: Vital Signs Temp 97.8 F 07/20/24 12:00 Pulse 80 07/20/24 12:00 Resp 18 07/20/24 12:00 BP 143/74 07/20/24 12:00 Pulse Ox 95 07/20/24 12:00 FiO2 50 07/16/24 14:50 Intake & Output 07/19/24 07/20/24 07/20/24 18:59 06:59 18:59 Intake Total 530 10 246 Output Total 200 825 Balance 330 -815 246 Weight 76.6 kg Intake: IV 50 10 10 Invasive Line 9 10 10 Sodium Chloride 0.9% 1, 50 000 ml @ 30 mls/hr IV . Q24H [facility] Rx#:[id number] Oral 480 236 Output: Urine 200 825 Other: Voiding Method Toilet Urinal # Voids 1 1 ABP, PAP, CO, CI - Last Documented Arterial Blood Pressure 109/48 Pulmonary Artery Pressure 18/5 Cardiac Output 5 Cardiac Index 2.7 - Labs CBC & Chem 7: 07/20/24 06:49 07/20/24 06:49 Labs: Abnormal Lab Results - Last 24 Hours (Table) 07/19/24 07/19/24 07/20/24 Range/Units 16:34 20:40 06:07 WBC (3.8-10.6) k/uL RBC (4.30-5.90) m/uL Hgb (13.0-17.5) gm/dL Hct (39.0-53.0) % Neutrophils # (1.3-7.7) k/uL Sodium (137-145) mmol/L BUN (9-20) mg/dL Glucose (74-99) mg/dL POC Glucose (mg/dL) 216 H 193 H 114 H (70-110) mg/dL Total Protein (6.3-8.2) g/dL Albumin (3.5-5.0) g/dL 07/20/24 07/20/24 07/20/24 Range/Units 06:49 06:49 11:14 WBC 11.1 H (3.8-10.6) k/uL RBC 3.57 L (4.30-5.90) m/uL Hgb 10.9 L (13.0-17.5) gm/dL Hct 34.0 L (39.0-53.0) % Neutrophils # 8.7 H (1.3-7.7) k/uL Sodium 136 L (137-145) mmol/L BUN 30 H (9-20) mg/dL Glucose 120 H (74-99) mg/dL POC Glucose (mg/dL) 199 H (70-110) mg/dL Total Protein 5.7 L (6.3-8.2) g/dL Albumin 3.1 L (3.5-5.0) g/dL Microbiology - Last 24 Hours (Table) 07/16/24 14:58 Gram Stain - Final Bronchoalviolar Lavage - Right Bronchial Washings Culture - Final Stenotrophomonas maltophilia
--- NOTE | 2024-07-20 13:32 | P.PN ---
Subjective Progress Note Date: 07/20/24 68-year-old male presented from an outside hospital, with non-ST segment elevation myocardial infarction. The patient was having chest discomfort/chest pain. It apparently radiated to his bilateral shoulder areas. The patient does have a prior history of CAD, with previous stenting, 10 years prior. In addition, the patient has COPD, and ongoing tobacco use. Currently, I am asked to see the patient in room 384. He is on room air. No IV fluids. He had a cardiac catheterization done on July 10. It showed three-vessel coronary disease. The patient is a current everyday smoker. The patient does not know whether or not he is going to have his surgery while he is an inpatient, or, be sent home, and brought back. His medical history includes CVA, diabetes, hyperlipidemia, previous myocardial infarction, osteoarthritis, and hypothyroidism. As mentioned he is a current everyday smoker. The patient had stents to his LAD, in 2014, and 2015. The patient had a STEMI, in 2014. White count is 9.6, with a normal hemoglobin, hematocrit, platelet count. Sodium 137, potassium 5.2, chlorides 109, CO2 22, BUN 29, creatinine 1.10. Glucose was 142. CT scan of the chest shows minimal calcification within the aorta, and changes of COPD. Progress note dated July 13, 2024. 68-year-old male seen today in room 384. The patient had a non-ST segment elevation myocardial infarction, and was brought here for cardiac catheterization. It revealed severe three-vessel coronary disease. The patient is a current everyday smoker. Cardiology and cardiothoracic surgery planning went to do surgery on this patient. No decision has been made as yet. He does have a history of CVA, diabetes mellitus, hyperlipidemia, previous DE, osteoarthritis, and hypothyroidism. Current labs only include a glucose of 199. On today's evaluation of 07/14/2024, the patient is being seen for a follow-up. The patient is post non-ST segment elevation myocardial infarction and the patient was found to have severe triple-vessel coronary artery disease with diffuse disease involving the LAD. He is known to have hypertension hyperlipidemia diabetes mellitus and previous history of CVA. The patient is going to undergo coronary bypass surgery in a.m. His FEV1 is is in order of 67% of predicted. He is currently on room air oxygen with a pulse ox of 96%. CT scan of the chest was done on 07/12/2024 showed calcification of the aorta and there is no evidence of an aneurysm. Blood work was noted. No recent blood work from today. He remains on aspirin. He is on Coreg. He is on Levemir insulin and Farxiga and Synthroid. Free of any chest pain at this point in time. Echocardiogram that was done on 07/11/2024 showed a preserved LV function and mildly reduced atypical apical and septal kinesis secondary to an acute DE. Noted the patient's troponin peaked at 17. On 07/15/2024, the patient is resting comfortably in bed.no respiratory difficulties. labs from today shows a white cell count of 10.2 with a hemoglobin 14. Normal coagulation profile. BUN is 48 with a creatinine of 1.4 to and a sodium levels at 137 with a potassium level of 5.4. The patient is using incentive spirometer. He remains on room air oxygen. Denies having any specific complaints for now. Is free of any chest pain. 07/16/2024, the patient is being seen after arrival to the intensive care unit. The patient was taken to the operating room this morning and the patient underwent off-pump coronary artery bypass surgery x 3 with MCKEON to mid distal LAD, SVG to posterolateral branch of circumflex. Postop, the patient was kept intubated on the mechanical ventilator. Arrived to the ICU on propofol running at 20 mcg/kg/min. He is on assist-control mode of mechanical ventilation at rate of 16, tidal volume of 500, FiO2 100% and PEEP of 5. Blood gas showed a pH of 7.37 with a pCO2 of 42 and pO2 was 150. Based on that, FiO2 was gradually weaned off. The patient has not mediastinal left pleural chest tube. Chest x- ray shows postsurgical changes without any pneumothorax. Tiny bilateral pleural effusion is seen versus atelectasis. Meanwhile, the patient had a cardiac output of 6.7 with an index of 3.6. PA pressures are 28/13. He is on insulin drip at 4 units an hour. He is on dopamine at 2 mcg/kg/min. Cardiac rhythm is sinus. The white cell count is 17.4, hemoglobin 11.8 and a platelet count of 252. BUN 48 with a creatinine of 1.25 and a sodium levels at 139 and a bicarb is at 22. Calm and comfortable. Of 07/17/2024, the patient is being seen for a follow-up. Doing well. No s pecific complaints. The patient is postop day #1 and the patient was weaned off mechanical ventilator and the patient was extubated without any major difficulties., Currently on no pressors. Hemodynamically stable. Using incentive spirometer. The chest x-ray from today shows questionable left apical pneumothorax. Otherwise no other acute abnormalities. The patient's cardiac output is currently is at 5 with an index of 2.7 with a pulmonary artery pressures of 24/6. Adequate urine output. Cardiac rhythm is sinus. No other significant events overnight. Output from the chest tubes have been minimal at this point in time. Using incentive spirometer, pulling approximately 1000. On 07/18/2024, patient is being seen for a follow-up. The patient is currently on 2 L of oxygen by nasal cannula. Resting comfortably in bed. Chest tubes have been removed earlier this morning and the patient's breathing is improved significantly since. He did encounter atrial fibrillation and he was given amiodarone and the patient is currently back in normal sinus rhythm and amiodarone is running at 0.5 mg/min. Adequate urine output. The labs from today was noted. Hemoglobin is at 10.6 with a platelet count of 263. Electrolytes show a potassium level of 4.4, bicarb of 19, BUN 25 with a crea tinine of 1.08. LFTs are all within normal limits. The patient is currently resting comfortably in bed. Ambulating. No other significant events overnight. The patient is still on insulin drip but will be transition to long-acting insulin for now. Doing extremely well on the incentive spirometer. On today's evaluation of 07/19/2024, the patient is being seen for a follow-up. Patient is doing well. No specific complaints. Currently is on 2 L of oxygen via nasal cannula. He is having episodes of atrial fibrillation and the patient is being given amiodarone and amiodarone is running at 0.5 mg/min. This is being managed by cardiology and cardiothoracic surgery. Otherwise, he remains h emodynamically stable. He is currently on no anticoagulants and this needs to be addressed by the cardiology team. No major respiratory difficulties. He remains on Coreg 3.125 mg p.o. twice a day. The patient is also on amiodarone 400 g p.o. daily twice daily and the patient is on aspirin and Plavix and Synthroid. He is also on Levemir insulin 16 units daily + sliding scale coverage. Chest x-ray shows no acute abnormalities. He is showing essentially postsurgical changes with some atelectatic changes lung bases and of the chest tubes have been removed. Maybe some small effusion left lung base. The white cell count of 14.8, hemoglobin 11.8 with a platelet count of 304. BUN 28 creati nine is 1.07 and sodium levels at 137. He is communicating. No altered mentation. Ambulating in the hallway. Overall condition is stable. Using incentive spirometer. On 07/20/2024, the patient is being seen for a follow-up. The patient is doing well. No specific complaints the patient is currently a postop day #4. The patient was moved out of the intensive care unit and the patient is currently on a telemetry unit. No significant chest pain or shortness of breath. Chest x- ray from today shows no significant abnormalities and there is some atelectatic changes small left-sided pleural effusion. Otherwise no other acute cardiopulmonary process. The patient has a WBC count of 11, hemoglobin 10.9 and platelet count of 335. BUN 30 with a creatinine 1.2 and a sodium levels at 136. The patient is currently on room air oxygen. In terms of medication, he is maintained on aspirin and Plavix. The patient is also on Coreg 3.125 mg p.o. twice a day. Amiodarone 4 mg p.o. twice a day. He remains on Farxiga and Levemir insulin 16 units daily and Synthroid. He remains on Coreg 3.125 mg p.o. twice a day. IV fluids are currently at KVO. Using incentive spirometer. Denies having any specific complaints. No altered mentation. Objective - Vital Signs Vital signs: Vital Signs Temp 98 F 07/20/24 08:00 Pulse 96 07/20/24 08:31 Resp 18 07/20/24 08:00 BP 105/64 07/20/24 08:00 Pulse Ox 92 L 07/20/24 08:20 FiO2 50 07/16/24 14:50 Intake & Output 07/19/24 07/20/24 07/20/24 18:59 06:59 18:59 Intake Total 530 10 246 Output Total 200 825 Balance 330 -815 246 Weight 76.6 kg Intake: IV 50 10 10 Invasive Line 9 10 10 Sodium Chloride 0.9% 1, 50 000 ml @ 30 mls/hr IV . Q24H [facility] Rx#:[id number] Oral 480 236 Output: Urine 200 825 Other: Voiding Method Toilet Urinal # Voids 1 1 ABP, PAP, CO, CI - Last Documented Arterial Blood Pressure 109/48 Pulmonary Artery Pressure 18/5 Cardiac Output 5 Cardiac Index 2.7 - Exam CONSTITUTIONAL: Appears comfortable, cooperative, no acute distress RESPIRATORY: Lungs sounds diminished bilaterally. Respirations even, nonlabored. Currently on 2 L nasal cannula with oxygen saturation 95%. CARDIOVASCULAR: S1, S2 present. Regular rate and rhythm, sinus rhythm on telemetry. Sternum stable. Palpable peripheral pulses bilaterally. No edema present. No calf pain or tenderness noted. Heart hugger in place with patient demonstrating appropriate use. Antiembolism stockings, SCDs present. GASTROINTESTINAL: Abdomen soft, nontender, nondistended. Active bowel sounds present 4 quadrants. Tolerating clear liquids. Denies flatus, positive belching GENITOURINARY: Downing present draining clear, yellow urine. INTEGUMENTARY: Skin is warm and dry with evidence of good perfusion. Anterior chest incision well approximated and covered with dry intact dressing. Right l ower extremity EVH site well approximated without redness or drainage. NEUROLOGIC: Cranial nerves II through XII intact MUSKULOSKELETAL: Able to move all extremities, strength equal bilaterally, gait normal PSYCHIATRIC: Alert and oriented to person place and time, appropriate affect, intact judgment and insight - Labs CBC & Chem 7: 07/20/24 06:49 07/20/24 06:49 Labs: Abnormal Lab Results - Last 24 Hours (Table) 07/19/24 07/19/24 07/19/24 Range/Units 12:00 16:34 20:40 WBC (3.8-10.6) k/uL RBC (4.30-5.90) m/uL Hgb (13.0-17.5) gm/dL Hct (39.0-53.0) % Neutrophils # (1.3-7.7) k/uL Sodium (137-145) mmol/L BUN (9-20) mg/dL Glucose (74-99) mg/dL POC Glucose (mg/dL) 255 H 216 H 193 H (70-110) mg/dL Total Protein (6.3-8.2) g/dL Albumin (3.5-5.0) g/dL 07/20/24 07/20/24 07/20/24 Range/Units 06:07 06:49 06:49 WBC 11.1 H (3.8-10.6) k/uL RBC 3.57 L (4.30-5.90) m/uL Hgb 10.9 L (13.0-17.5) gm/dL Hct 34.0 L (39.0-53.0) % Neutrophils # 8.7 H (1.3-7.7) k/uL Sodium 136 L (137-145) mmol/L BUN 30 H (9-20) mg/dL Glucose 120 H (74-99) mg/dL POC Glucose (mg/dL) 114 H (70-110) mg/dL Total Protein 5.7 L (6.3-8.2) g/dL Albumin 3.1 L (3.5-5.0) g/dL Microbiology - Last 24 Hours (Table) 07/16/24 14:58 Gram Stain - Preliminary Bronchoalviolar Lavage - Right Bronchial Washings Culture - Preliminary Stenotrophomonas maltophilia Assessment and Plan Plan: Acute non-ST segment elevation myocardial infarction, with severe triple-vessel disease and the patient is status post coronary bypass surgery with sequential MCKEON to LAD and SVG to circumflex. The patient is currently postop day # 4, hemodynamically stable and the patient is on no pressors for now. Adequate urine output. Adequate blood pressure. Postthoracotomy, patient is currently on room air oxygen by nasal cannula, extubated, all of the chest rhythm removed. Atrial fibrillation, paroxysmal, currently on oral amiodarone and Coreg. The current cardiac rhythm is sinus COPD, with ongoing tobacco use. The patient COPD is currently inactive and stable History of ST segment elevation myocardial infarction, February 2015, with prior LAD stent placement, 2014 and 2015. Prior history of myocardial infarction. History of diabetes mellitus. History of hypertension. History of hyperlipidemia. History of CVA. Current everyday tobacco use. Acute kidney injury, creatinine is improving compared to yesterday. Plan: Patient is currently on room air oxygen All of the chest tubes were removed The patient was placed on Levemir insulin 16 units daily in combination with metformin and Farxiga Continue aspirin and Plavix Coreg and amiodarone orally for rate controld Follow-up chest x-ray was noted Increase mobility as tolerated Increase mobility. Will continue to follow.
[2024-07-20 16:26] LABS: Glucose,Whole Blood 139 mg/dL (70-110)
[2024-07-20 19:58] LABS: Glucose,Whole Blood 162 mg/dL (70-110)
[2024-07-21 06:08] LABS: Glucose,Whole Blood 120 mg/dL (70-110)
[2024-07-21 07:18] LABS: HGB 11.6 gm/dL (13.0-17.5); MCH 30.6 pg (25.0-35.0); MCHC 32.3 g/dL (31.0-37.0); MCV 94.6 fL (80.0-100.0); Mean Platelet Volume 8.2; Platelet Count 437 k/uL (150-450); RBC 3.81 m/uL (4.30-5.90); RDW 13.5 % (11.5-15.5); WBC 12.4 k/uL (3.8-10.6)
[2024-07-21 07:34] LABS: African American GFR (CKD) 72 (>60 ml/min/1.73 sqM); Anion Gap 9 mmol/L; Blood Urea Nitrogen 26 mg/dL (9-20); Calcium 8.9 mg/dL (8.4-10.2); Carbon Dioxide 24 mmol/L (22-30); Chloride 105 mmol/L (98-107); Glucose 121 mg/dL (74-99); Magnesium 2.2 mg/dL (1.6-2.3); Non-African American GFR(CKD) 63 (>60 ml/min/1.73 sqM); Potassium 4.5 mmol/L (3.5-5.1); Sodium 138 mmol/L (137-145)
--- NOTE | 2024-07-21 08:22 | XR ---
EXAMINATION TYPE: XR chest 1V portable DATE OF EXAM: 07/21/2024 6:42 AM CLINICAL INDICATION: Male, 68 years old with history of Postop CABG; H COMPARISON: Chest radiograph from one day prior. TECHNIQUE: XR chest 1V portable Frontal view of the chest. FINDINGS: Lungs/Pleura: Blunting of left costophrenic angle. There is no evidence of right pleural effusion, fo ortiz consolidation, or pneumothorax. Pulmonary vascularity: Unremarkable. Heart/mediastinum: Cardiomediastinal silhouette is unremarkable. Left atrial appendage occlusion rommel ce is present. Musculoskeletal: No acute osseous pathology. Midline sternotomy wires are noted. Other findings: None Lines/Tubes: IMPRESSION: No evidence for postop complication. Small left pleural effusion. [facility] Blanca Gaytan, , 07/21/2024 8:19 AM
[2024-07-21] MEDS ORDERED: ALBUTEROL HFA INHALER INHALATION PRN (08:29)
[2024-07-21] MEDS: ALBUTEROL HFA INHALER INHALATION SCH (08:36)
[2024-07-21] MEDS: CEPHALEXIN 500 MG CAP PO SCH (09:41)
[2024-07-21 11:28] LABS: Glucose,Whole Blood 194 mg/dL (70-110)
--- NOTE | 2024-07-21 12:17 | P.PN ---
Subjective Progress Note Date: 07/21/24 HISTORY OF PRESENT ILLNESS: The patient is a 68-year-old male with a known history of CAD who underwent coronary bypass grafting with MCKEON to the LAD SVG to the circumflex and occlusion of the left atrial appendage. He is extubated sitting up in the chair, feeling well, denying any significant dyspnea. He has chest wall tenderness. He has no dizziness or palpitations. He is in sinus mechanism. Hi s urinary output is stable. He denies any nausea or vomiting. He has mild cough. July 18: The patient is feeling well this morning, he ambulated. He continues to be in sinus mechanism, he had chest soreness but no anginal pain. He denies any dizziness or palpitations. He denies any nausea or vomiting. His urinary output has been stable. He has no significant chest tube drainage. He is on no vasopressors. July 19: The patient is feeling well this morning, he has been ambulating without difficulties. He had episodes of paroxysmal atrial fibrillation, received IV amiodarone and he is back in sinus mechanism at this time. He denies any significant chest pain. He has no nausea or vomiting. 07/20/2024 Patient examined this morning. Patient is sitting up in the chair. Patient currently denies chest pain or pressure. He denies shortness of breath. He reports decreased appetite this morning. Telemetry reveals sinus mechanism. Patient's vital signs are stable. Patient is anticipating discharge home tomorrow. 07/21/24 POD 5 status post CABG x 3. He is doing well other than complaining of right arm swelling from IV infiltration. He was started on Keflex for this. Chest x- ray shows small left pleural effusion. Blood pressure controlled. Hemoglobin 11.6, creatinine 1.19, potassium 4.5. He states he is being discharged home with home health today. PHYSICAL EXAM: VITAL SIGNS: Reviewed. GENERAL: Well-developed in no acute distress. NECK: Supple. No JVD LUNGS: Respirations even and unlabored. Lungs essentially clear to auscultation bilaterally. HEART: Regular rate and rhythm. S1 and S2 heard. Chest incision healing well with no redness or drainage. Heart regular. EXTREMITIES: Normal range of motion. No clubbing or cyanosis. Peripheral pulses intact. No lower extremity edema. Right forearm mild swelling and tenderness. ASSESSMENT: Non-STEMI status post cardiac catheterization severe triple-vessel coronary artery disease with diffuse disease involving the LAD Status post off pump CABG, x 3 vessels Coronary artery disease with previous PCI to proximal LAD in 2015 and proximal LAD in 2016 Paroxysmal atrial fibrillation, postoperative, maintaining sinus mechanism Hypertension Hyperlipidemia Diabetes History of CVA/TIA Nicotine dependence PLAN: Continue postoperative management per CT surgery. Increase activity as tolerated. Encourage use of incentive spirometer. Continue current cardiac medications, possible addition of LA inhibitor pending patient's blood pressures. Continue telemetry monitoring. OK to discharge home from cardiology. Patient to follow-up postdischarge with Dr. Jung Nurse practitioner note has been reviewed by physician. Signing provider agrees with the documented findings, assessment, and plan of care documented by DIAMOND SANDER as a scribe. Objective - Vital Signs Vital signs: Vital Signs Temp 97.9 F 07/21/24 04:00 Pulse 80 07/21/24 07:49 Resp 16 07/21/24 04:00 BP 142/70 07/21/24 04:00 Pulse Ox 93 L 07/21/24 04:00 FiO2 50 07/16/24 14:50 Intake & Output 07/20/24 07/21/24 07/21/24 18:59 06:59 18:59 Intake Total 736 560 Output Total 300 800 Balance 436 -240 Weight 75.8 kg Intake: IV 20 20 Invasive Line 9 20 20 Oral 716 540 Output: Urine 300 800 Other: Voiding Method Urinal ABP, PAP, CO, CI - Last Documented Arterial Blood Pressure 109/48 Pulmonary Artery Pressure 18/5 Cardiac Output 5 Cardiac Index 2.7 - Labs CBC & Chem 7: 07/21/24 06:52 07/21/24 06:52 Labs: Abnormal Lab Results - Last 24 Hours (Table) 07/20/24 07/20/24 07/20/24 Range/Units 11:14 16:24 19:57 WBC (3.8-10.6) k/uL RBC (4.30-5.90) m/uL Hgb (13.0-17.5) gm/dL Hct (39.0-53.0) % BUN (9-20) mg/dL Glucose (74-99) mg/dL POC Glucose (mg/dL) 199 H 139 H 162 H (70-110) mg/dL 07/21/24 07/21/24 07/21/24 Range/Units 06:06 06:52 06:52 WBC 12.4 H (3.8-10.6) k/uL RBC 3.81 L (4.30-5.90) m/uL Hgb 11.6 L (13.0-17.5) gm/dL Hct 36.0 L (39.0-53.0) % BUN 26 H (9-20) mg/dL Glucose 121 H (74-99) mg/dL POC Glucose (mg/dL) 120 H (70-110) mg/dL Microbiology - Last 24 Hours (Table) 07/16/24 14:58 Gram Stain - Final Bronchoalviolar Lavage - Right Bronchial Washings Culture - Final Stenotrophomonas maltophilia
[2024-07-21 15:20] VITALS: TEMP 97.3
--- NOTE | 2024-07-21 15:29 | P.PN ---
Subjective Progress Note Date: 07/21/24 Principal diagnosis: Coronary artery disease, non-STEMI this admission, left facial numbness and left arm numbness, no stroke evident on CT at [facility]. History of CAD with previous STEMI in 2014 and 2 stents to the LAD at that time along with non-STEMI in 2015 with 1 stent to the LAD at that time, hypertension, hyperlipidemia, hypothyroid, diabetes mellitus, multiple TIAs, CVA in 2022 with subsequent left carotid endarterectomy, chronic current tobacco dependence POD #5 off-pump coronary artery bypass grafting x 3 with sequential left internal mammary artery to the mid and distal left anterior descending artery, saphenous vein graft to posterolateral branch of circumflex, endovascular vein harvest, occlusion of the left atrial appendage with 35mm AtriCure clamp Paroxysmal atrial fibrillation, known common occurrence after open heart surgery The patient was seen and examined in follow-up today July 21, 2024 at his bedside on the third floor cardiac stepdown unit. He is currently sitting up to the bedside chair, is awake, alert, oriented x 3 and is in no acute apparent distress. The patient denies any complaints of shortness of breath at this ti me, although is complaining of some pain to his right arm to an old IV site which has some erythema. Oxygen saturations are 93% on room air and he is achieving 1500 mL on his incentive spirometry with encouragement. Remote telemetry is showing normal sinus rhythm heart rate 73 bpm. He continues to ambulate in the cardiac stepdown unit hallway with standby assistance nursing and therapy staff and tolerating well. Discharge planning is in place. Chest x-ray and laboratory results reviewed. Objective - Vital Signs Vital signs: Vital Signs Temp 97.9 F 07/21/24 04:00 Pulse 80 07/21/24 07:49 Resp 16 07/21/24 04:00 BP 142/70 07/21/24 04:00 Pulse Ox 93 L 07/21/24 04:00 FiO2 50 07/16/24 14:50 Intake & Output 07/20/24 07/21/24 07/21/24 18:59 06:59 18:59 Intake Total 736 560 Output Total 300 800 Balance 436 -240 Weight 75.8 kg Intake: IV 20 20 Invasive Line 9 20 20 Oral 716 540 Output: Urine 300 800 Other: Voiding Method Urinal ABP, PAP, CO, CI - Last Documented Arterial Blood Pressure 109/48 Pulmonary Artery Pressure 18/5 Cardiac Output 5 Cardiac Index 2.7 - Exam CONSTITUTIONAL: Appears comfortable, cooperative, no acute distress RESPIRATORY: Lungs sounds diminished bilaterally. Respirations symmetrical, nonlabored. Currently on room air with oxygen saturation 93%. Able to achieve 1500 mL on incentive spirometry. Strong cough. CARDIOVASCULAR: S1, S2 present. Irregular rate and rhythm, normal sinus rhythm on telemetry, heart rate 73. Sternum stable. Palpable peripheral pulses bilaterally. No edema present. No calf pain or tenderness noted. Heart hugger in place with patient demonstrating appropriate use. Antiembolism stockings, SCDs present. GASTROINTESTINAL: Abdomen soft, nontender, nondistended. Active bowel sounds present 4 quadrants. Tolerating clear liquids. Passing flatus, bowel movement this a.m. GENITOURINARY: Continues to void. Urine output 500 mL in the last 8 hours. INTEGUMENTARY: Skin is warm and dry, with no evidence of clubbing or cyanosis. Midline sternal chest incision well approximated and covered with dry intact dressing. Left lower extremity EVH site well approximated without redness or drainage. NEUROLOGIC: No focal deficits. MUSKULOSKELETAL: Able to move all extremities, strength equal bilaterally, gait normal. PSYCHIATRIC: Alert and oriented to person place and time, appropriate affect, intact judgment and insight. - Allied health notes Allied health notes reviewed: nursing - Labs CBC & Chem 7: 07/21/24 06:52 07/21/24 06:52 Labs: Abnormal Lab Results - Last 24 Hours (Table) 07/20/24 07/20/24 07/20/24 Range/Units 11:14 16:24 19:57 WBC (3.8-10.6) k/uL RBC (4.30-5.90) m/uL Hgb (13.0-17.5) gm/dL Hct (39.0-53.0) % BUN (9-20) mg/dL Glucose (74-99) mg/dL POC Glucose (mg/dL) 199 H 139 H 162 H (70-110) mg/dL 07/21/24 07/21/24 07/21/24 Range/Units 06:06 06:52 06:52 WBC 12.4 H (3.8-10.6) k/uL RBC 3.81 L (4.30-5.90) m/uL Hgb 11.6 L (13.0-17.5) gm/dL Hct 36.0 L (39.0-53.0) % BUN 26 H (9-20) mg/dL Glucose 121 H (74-99) mg/dL POC Glucose (mg/dL) 120 H (70-110) mg/dL Microbiology - Last 24 Hours (Table) 07/16/24 14:58 Gram Stain - Final Bronchoalviolar Lavage - Right Bronchial Washings Culture - Final Stenotrophomonas maltophilia - Imaging and Cardiology Chest x-ray: report reviewed, image reviewed Assessment and Plan Assessment: Coronary artery disease with previous STEMI in 2014 and 2 stents to the LAD at that time along with non-STEMI in 2016 with 1 stent to the LAD at that time, non-STEMI this admission, status post three-vessel off-pump CABG Chest pressure secondary to above Left facial numbness and left arm numbness, no stroke evident on CT at [facility] Paroxysmal atrial fibrillation, currently sinus rhythm History of hypertension Hyperlipidemia, treated, cholesterol 141, LDL 66, triglyceride 242 Hypothyroid, TSH 0.382, FT4 1.48 Diabetes mellitus, uncontrolled hyperglycemia, preoperative hemoglobin A1c 9.8% Multiple TIAs CVA in 2022 with subsequent left carotid endarterectomy Chronic current tobacco dependence, 1 pack/day since 1969 Mild COPD, preoperative FEV1 67% of predicted Plan: Continue to maximize medical therapy with aspirin, statin, Plavix, and beta- katernia. Will increase beta-katerina therapy as tolerated. Currently on Coreg 3.125 mg p.o. twice daily. Continue amiodarone 400 mg p.o. twice daily initiated this a.m. No anticoagulation necessary at this point. Currently in normal sinus rhythm. Encourage incentive spirometry use 10 times every hour while awake, bronchodila tors per pulmonology. Increase activity, ambulate as tolerated. PT/OT/cardiac rehab following. Will monitor daily labs and chest x-rays. Electrolyte replacement per protocol. GI/DVT prophylaxis. Pain control per current medication regimen. Insulin management per internal medicine. Patient is diabetic with uncontrolled hyperglycemia, preoperative hemoglobin A1c 9.8%. Shower daily. May bladder scan and straight cath for greater than 300 mL residual. Continue to monitor and record strict accurate intake and output Daily weights Smoking cessation counseling and education reinforced. Discharge planning is in place, anticipate discharge home within the next 24 hours. More recommendations to follow based on patient's clinical course. Time with Patient: Greater than 30
--- NOTE | 2024-07-21 16:10 | P.DS ---
Providers Date of admission: 07/10/24 14:35 Expected date of discharge: 07/21/24 Attending physician: Selvin Araya Consults: 07/10/24 14:33 Consult Physician Urgent Consulting Provider: Gold Hamm Consult Reason/Comments: NSTEMI Do you want consulting provider notified?: Yes 07/10/24 17:57 Consult Physician Routine Consulting Provider: Pina Yee Consult Reason/Comments: Eval. for CABG Do you want consulting provider notified?: Yes 07/12/24 07:31 Consult Physician Routine Consulting Provider: Dany Cruz Consult Reason/Comments: preop CABG Do you want consulting provider notified?: Yes 07/15/24 11:34 Consult to Anesthesia Routine Consulting Provider: Anesthesia,Services Consult Reason/Comments: Cardiac Surgery Pre-Op 07/16/24 11:38 Consult Physician Routine Consulting Provider: Gio Colon Consult Reason/Comments: med mgmt Do you want consulting provider notified?: Already Contacted Primary care physician: Gio Colon [facility] Course: FINAL DIAGNOSIS: Coronary artery disease with previous STEMI in 2014 and 2 stents to the LAD at that time along with non-STEMI in 2015 with 1 stent to the LAD at that time, non-STEMI this admission, status post three-vessel off-pump CABG Chest pressure secondary to above Left facial numbness and left arm numbness, no stroke evident on CT at [facility] Paroxysmal atrial fibrillation, currently sinus rhythm History of hypertension Hyperlipidemia, treated, cholesterol 141, LDL 66, triglyceride 242 Hypothyroid, TSH 0.382, FT4 1.48 Diabetes mellitus, uncontrolled hyperglycemia, preoperative hemoglobin A1c 9.8% Multiple TIAs CVA in 2022 with subsequent left carotid endarterectomy Chronic current tobacco dependence, 1 pack/day since 1969 Mild COPD, preoperative FEV1 67% of predicted PRINCIPAL PROCEDURE: 1. Off-pump CABG x 3 with sequential MCKEON to the mid and distal LAD, saphenous vein graft to posterolateral branch of circumflex 2. Endovascular vein harvest, left leg 3. Occlusion of the left atrial appendage with 35mm AtriCure clamp 4. Intraoperative transesophageal echocardiogram completed by anesthesia. HISTORY OF PRESENT ILLNESS: This is a 68-year-old gentleman who follows outpatient with Dr. Colon for primary care and Dr. Jung for cardiology. This gentleman presented to [facility] primarily for left-sided facial numbness along with left arm numbness. Code stroke was called, a CT of the head and CTA demonstrated no bleed and no evidence of stroke. In addition at that time he also complaints of chest heaviness. Troponin was elevated and the patient was subsequently transported to [facility] for cardiology evaluation. EKG demonstrated Q waves in the anterolateral septal and inferior leads. Bedside transthoracic 2D echocardiogram was completed in the ER per Dr. Jung's documentation and demonstrated an EF 45%, anteroseptal and anterior apical hypokinesia. Troponins elevated from 11.4 up to 17.8 and he was taken to the Photographic Double which revealed severe triple-vessel coronary artery disease with diffuse disease involving LAD. Due to these findings consultation was placed to cardiothoracic surgery for revascularization recommendations. Dr. Araya met with the patient, treatment options were discussed including myocardial vascularization surgery. Risks and benefits of surgery including the STS risk or were discussed and knowing and understanding the risks the patient wished to proceed with the surgical option. HOSPITAL COURSE: The patient was brought to the preoperative area 07/16/24, prepared in the usual fashion, and subsequently taken to the operating room where Dr. Araya performed an off-pump coronary artery bypass graft x3 with sequential MCKEON to the mid and distal LAD, saphenous vein graft to posterol ateral branch of circumflex. Upon completion of surgery the patient was transferred to the cardiovascular intensive care unit where he was recovered and monitored hemodynamically. He was extubated, all lines, tubes, and drips were discontinued when appropriate, and transfer orders were placed for 3 S. cardiac stepdown unit, for further monitoring and rehabilitation. His oxygen was titrated down, he continued to work with physical and occupational therapy, he was tolerating oral diet, his pain was controlled, and he was ready to be discharged to home with [facility] on postoperative day #5. He received written and verbal instruction regarding his medications, activity restrictions, signs and symptoms requiring physician notification, and follow-up appointments. Patient Condition at Discharge: Serious Plan - Discharge Summary New Discharge Prescriptions: New Amiodarone [Cordarone] 400 mg PO BID #39 tab carvediloL [Coreg] 3.125 mg PO BID-W/MEALS #60 tab Levothyroxine Sodium [Synthroid] 176 mcg PO HS #60 tab Acetaminophen Tab [Tylenol] 650 mg PO Q4HR PRN tab PRN Reason: Fever And/ Or Pain Cephalexin [Keflex] 500 mg PO BID #13 cap Clopidogrel [Plavix] 75 mg PO DAILY #30 tab Pantoprazole [Protonix] 40 mg PO AC-BRKFST #30 tab Continue Dapagliflozin Propanediol [Farxiga] 10 mg PO HS Insulin Glargine,Hum.rec.anlog [Lantus Solostar Pen] 16 units SQ HS Aspirin EC [Ecotrin] 325 mg PO HS Semaglutide [Ozempic] 0.25 mg SQ SA metFORMIN HCL 1,000 mg PO BID Atorvastatin [Lipitor] 80 mg PO HS #30 tab Discontinued Levothyroxine Sodium [Synthroid] 200 mcg PO HS lisinopriL [Zestril] 40 mg PO HS carvediloL [Coreg] 6.25 mg PO HS Discharge Medication List Aspirin EC [Ecotrin] 325 mg PO HS 01/27/23 [History] Dapagliflozin Propanediol [Farxiga] 10 mg PO HS 01/27/23 [History] Semaglutide [Ozempic] 0.25 mg SQ SA 01/27/23 [History] Insulin Glargine,Hum.rec.anlog [Lantus Solostar Pen] 16 units SQ HS 07/10/24 [History] metFORMIN HCL 1,000 mg PO BID 07/10/24 [History] Acetaminophen Tab [Tylenol] 650 mg PO Q4HR PRN tab 07/21/24 [Rx] Amiodarone [Cordarone] 400 mg PO BID #39 tab 07/21/24 [Rx] Atorvastatin [Lipitor] 80 mg PO HS #30 tab 07/21/24 [Rx] Cephalexin [Keflex] 500 mg PO BID #13 cap 07/21/24 [Rx] Clopidogrel [Plavix] 75 mg PO DAILY #30 tab 07/21/24 [Rx] Levothyroxine Sodium [Synthroid] 176 mcg PO HS #60 tab 07/21/24 [Rx] Pantoprazole [Protonix] 40 mg PO AC-BRKFST #30 tab 07/21/24 [Rx] carvediloL [Coreg] 3.125 mg PO BID-W/MEALS #60 tab 07/21/24 [Rx] Follow up Appointment(s)/Referral(s): Ashwin Jung MD [Medical Doctor] - 08/01/24 3:00 pm Gio Colon MD [Primary Care Provider] - 07/24/24 6:50 pm Carla Ruelas NPC [Nurse Practitioner] - 07/31/24 1:30 pm (Please follow-up with Carla at [address] [facility] [place] [address] [facility], [address], ) Rehab Alisha ,Cardiac [NON-STAFF] - 4 Weeks (You will receive a phone call in approximately 4-6 weeks for evaluation for cardiac rehab) [facility] [NON-STAFF] - 1-2 Days (You should be seen by RN the day after discharge, then 2-3 times per week until you start cardiac rehab ) Selvin Araya MD [STAFF PHYSICIAN] - 08/14/24 2:15 pm Dany Cruz DO [Doctor of Osteopathic Medicine] - 08/13/24 8:30 am Ambulatory/Diagnostic Orders: Complete Blood Count w/diff [LAB.AMB] Time Frame: 07/24/24, Facility: [facility], Location: [facility] Comprehensive Metabolic Panel [LAB.AMB] Time Frame: 07/24/24, Facility: [facility], Location: [facility] Activity/Diet/Wound Care/Special Instructions: DISCHARGE INSTRUCTIONS: 1. No driving for 4 weeks, or until physician gives their ok. 2. The patient should sleep in their own bed, no medical bed needed. 3. Stairs are not an issue. If the bedroom is upstairs, it is advised that the patient go up at night and down in the morning for the first week. Go slowly, using handrail and take 1 step at a time. 4. LACIE hose are to be worn for 30 days post surgery or until physician discontinues. 5. Heart hugger is to be worn 100% of the time until physician discontinues.(except when showering) 6. No lifting, pushing, or pulling more than 10 pounds for 12 weeks. The physician will advise of any restriction changes. 7. The patient is expected to continue the prescribed walking program. 8. Continue pain control per as needed orders. 9. Continue with incentive spirometry and splinting/heart hugger until otherwise directed by the physician. 10. Must shower daily using liquid antibacterial soap 11. Routine sternal incision care. No powders, lotions, ointments on incisions. No dressings are necessary on incisions unless they are draining. Dermabond tape is to remain on sternal incision until surgeon follow-up. 12. Please call surgeon/ASSISTANT BANQUET MANAGER for temp greater than 101 F or purulent drainage from incisions. 13. You should weigh yourself daily, record and bring log with you to follow up appointments. 14. All prescriptions given by surgeon for 30 days. Refills need to be filled through glass vial filler/primary care physician. 15. A Red armband has been placed on the patient. It should be worn for 30 days post discharge from surgery and will be removed by the cardiac surgeons. If an ER visit is necessary, please make sure the number on the Red armband is called before going to ER. 16. You have been referred to and are expected to begin Cardiac Rehab in approximately 4-6 weeks. 17. Quitting smoking is the most important step you can take to improve your health. For additional information and assistance to quit smoking, please call the [place] tobacco quit line (6-493-UVIF-NOW/ ) or online: [email or web address] 18. Check your blood sugars before meals and at bedtime, make a record of your blood sugars and please bring them to the your follow-up appointment with Dr. Colon. If your blood sugars are consistently over [address] Colon's office for further instructions. HOME HEALTH SERVICES TO PROVIDE: RN SKILLED HOME CARE SERVICES FOR POST-OP SURGICAL PATIENTS WITH THE FOLLOWING: Coronary Artery Bypass Surgery (CABG), Mitral Valve Replacement/Repair ( MVR), Aortic Valve Replacement/Repair (AVR) RN TO CONTINUE EDUCATION FROM ``ROAD TO A HEALTH HEART PATIENT EDUCATION MANUAL (GIVEN TO PATIENT IN THE HOSPITAL) MEDICATION RECONCILIATION WITH EDUCATION NEEDED ON FIRST HOME VISIT EMPHASIZE IMPORTANCE OF WEARING BREAST SUPPORT/HEART HUGGER ENCOURAGE USE OF INCENTIVE SPIROMETER 10 X EVERY HOUR WHILE AWAKE ENCOURAGE UTILIZATION OF LOWER EXTREMITY COMPRESSION STOCKINGS/LACIE HOSE and ELEVATE LEGS ABOVE LEVEL OF HEART WHILE AT REST. ENCOURAGE AMBULATION 3-5x/day INCREASING TOLERATES, WHILE AVOIDING EXTREMES IN TEMPERATURE FREQUENCY: RN TO OPEN THE PATIENT WITHIN 24 HOURS OF DISCHARGE FROM THE HOSPITAL WITH TELEHEALTH INSTALLED AT SOC, RN TO VISIT 2-3 X A WEEK FOR 4 WEEKS ESTAB LISHED BY PATIENT NEEDS. LABORATORY: CBC, CMP TO BE DRAWN ON THE THIRD DAY HOME, (RAN STAT) FAX RESULTS TO [phone]. TELEHEALTH PARAMETERS: WEIGHT: NOTIFY MD OF WEIGHT GAIN OF 2 LBS IN 24 HOURS OR 5 LBS IN ONE WEEK HR: NOTIFY MD OF HR <55 BPM OR HR>100 BPM BP: NOTIFY MD IF BP <90/55 OR BP>140/100 O2 SAT: NOTIFY MD IF PO2<93% ON ROOM AIR SEND TELEHEALTH REPORT TO EVENT SET UP SPECIALIST AND CARDIOVASCULAR SURGEON THE FIRST WEEK OF CARE AND THEN BI-WEEKLY. PLEASE ADDITIONALLY COMMUNICATE ANY ABNORMALS AND NEW FINDINGS TO THE SURGEONS OFFICE. Discharge Disposition: HOME WITH HOME HEALTH SERVICES
[2024-07-21 16:16] LABS: Glucose,Whole Blood 247 mg/dL (70-110)
[2024-07-21 17:36] VITALS: BP 134/76; PULSE 90; RESP 18
--- NOTE | 2024-07-21 17:57 | P.PN ---
Subjective Progress Note Date: 07/21/24 Principal diagnosis: Acute non-ST segment elevation myocardial infarction, with severe triple-vessel disease and the patient is status post coronary bypass surgery with sequential MCKEON to LAD and SVG to circumflex. 68-year-old male presented from an outside hospital, with non-ST segment elevation myocardial infarction. The patient was having chest discomfort/chest pain. It apparently radiated to his bilateral shoulder areas. The patient does have a prior history of CAD, with previous stenting, 10 years prior. In addition, the patient has COPD, and ongoing tobacco use. Currently, I am asked to see the patient in room 384. He is on room air. No IV fluids. He had a cardiac catheterization done on July 10. It showed three-vessel coronary disease. The patient is a current everyday smoker. The patient does not know whether or not he is going to have his surgery while he is an inpatient, or, be sent home, and brought back. His medical history includes CVA, diabetes, hyperlipidemia, previous myocardial infarction, osteoarthritis, and hypothyroidism. As mentioned he is a current everyday smoker. The patient had stents to his LAD, in 2014, and 2015. The patient had a STEMI, in 2014. White count is 9.6, with a normal hemoglobin, hematocrit, platelet count. Sodium 137, potassium 5.2, chlorides 109, CO2 22, BUN 29, creatinine 1.10. Glucose was 142. CT scan of the chest shows minimal calcification within the aorta, and changes of COPD. Progress note dated July 13, 2024. 68-year-old male seen today in room 384. The patient had a non-ST segment elevation myocardial infarction, and was brought here for cardiac catheterization. It revealed severe three-vessel coronary disease. The patient is a current everyday smoker. Cardiology and cardiothoracic surgery planning went to do surgery on this patient. No decision has been made as yet. He does have a history of CVA, diabetes mellitus, hyperlipidemia, previous WA, osteoarthritis, and hypothyroidism. Current labs only include a glucose of 199. On today's evaluation of 07/14/2024, the patient is being seen for a follow-up. The patient is post non-ST segment elevation myocardial infarction and the patient was found to have severe triple-vessel coronary artery disease with d iffuse disease involving the LAD. He is known to have hypertension hyperlipidemia diabetes mellitus and previous history of CVA. The patient is going to undergo coronary bypass surgery in a.m. His FEV1 is is in order of 67% of predicted. He is currently on room air oxygen with a pulse ox of 96%. CT scan of the chest was done on 07/12/2024 showed calcification of the aorta and there is no evidence of an aneurysm. Blood work was noted. No recent blood work from today. He remains on aspirin. He is on Coreg. He is on Levemir insulin and Farxiga and Synthroid. Free of any chest pain at this point in time. Echocardiogram that was done on 07/11/2024 showed a preserved LV function and mildly reduced atypical apical and septal kinesis secondary to an acute WA. Noted the patient's troponin peaked at 17. On 07/15/2024, the patient is resting comfortably in bed.no respiratory difficulties. labs from today shows a white cell count of 10.2 with a hemoglobin 14. Normal coagulation profile. BUN is 48 with a creatinine of 1.4 to and a sodium levels at 137 with a potassium level of 5.4. The patient is using incentive spirometer. He remains on room air oxygen. Denies having any specific complaints for now. Is free of any chest pain. 07/16/2024, the patient is being seen after arrival to the intensive care unit. The patient was taken to the operating room this morning and the patient underwent off-pump coronary artery bypass surgery x 3 with MCKEON to mid distal LAD, SVG to posterolateral branch of circumflex. Postop, the patient was kept intubated on the mechanical ventilator. Arrived to the ICU on propofol running at 20 mcg/kg/min. He is on assist-control mode of mechanical ventilation at rate of 16, tidal volume of 500, FiO2 100% and PEEP of 5. Blood gas showed a pH of 7.37 with a pCO2 of 42 and pO2 was 150. Based on that, FiO2 was gradually weaned off. The patient has not mediastinal left pleural chest tube. Chest x- ray shows postsurgical changes without any pneumothorax. Tiny bilateral pleural effusion is seen versus atelectasis. Meanwhile, the patient had a cardiac output of 6.7 with an index of 3.6. PA pressures are 28/13. He is on insulin drip at 4 units an hour. He is on dopamine at 2 mcg/kg/min. Cardiac rhythm is sinus. The white cell count is 17.4, hemoglobin 11.8 and a platelet count of 252. BUN 48 with a creatinine of 1.25 and a sodium levels at 139 and a bicarb is at 22. Calm and comfortable. Of 07/17/2024, the patient is being seen for a follow-up. Doing well. No specific complaints. The patient is postop day #1 and the patient was weaned off mechanical ventilator and the patient was extubated without any major difficulties., Currently on no pressors. Hemodynamically stable. Using incentive spirometer. The chest x-ray from today shows questionable left apical pneumothorax. Otherwise no other acute abnormalities. The patient's cardiac output is currently is at 5 with an index of 2.7 with a pulmonary artery p ressures of 24/6. Adequate urine output. Cardiac rhythm is sinus. No other significant events overnight. Output from the chest tubes have been minimal at this point in time. Using incentive spirometer, pulling approximately 1000. On 07/18/2024, patient is being seen for a follow-up. The patient is currently on 2 L of oxygen by nasal cannula. Resting comfortably in bed. Chest tubes have been removed earlier this morning and the patient's breathing is improved significantly since. He did encounter atrial fibrillation and he was given amiodarone and the patient is currently back in normal sinus rhythm and amiodarone is running at 0.5 mg/min. Adequate urine output. The labs from today was noted. Hemoglobin is at 10.6 with a platelet count of 263. Electrolytes show a potassium level of 4.4, bicarb of 19, BUN 25 with a creatinine of 1.08. LFTs are all within normal limits. The patient is currently resting comfortably in bed. Ambulating. No other significant events overnight. The patient is still on insulin drip but will be transition to long- acting insulin for now. Doing extremely well on the incentive spirometer. On today's evaluation of 07/19/2024, the patient is being seen for a follow-up. Patient is doing well. No specific complaints. Currently is on 2 L of oxygen via nasal cannula. He is having episodes of atrial fibrillation and the patient is being given amiodarone and amiodarone is running at 0.5 mg/min. This is being managed by cardiology and cardiothoracic surgery. Otherwise, he remains hemodynamically stable. He is currently on no anticoagulants and this needs to be addressed by the cardiology team. No major respiratory difficulties. He re jolie on Coreg 3.125 mg p.o. twice a day. The patient is also on amiodarone 400 g p.o. daily twice daily and the patient is on aspirin and Plavix and Synthroid. He is also on Levemir insulin 16 units daily + sliding scale coverage. Chest x-ray shows no acute abnormalities. He is showing essentially postsurgical changes with some atelectatic changes lung bases and of the chest tubes have been removed. Maybe some small effusion left lung base. The white cell count of 14.8, hemoglobin 11.8 with a platelet count of 304. BUN 28 creatinine is 1.07 and sodium levels at 137. He is communicating. No altered mentation. Ambulating in the hallway. Overall condition is stable. Using incentive spirometer. On 07/20/2024, the patient is being seen for a follow-up. The patient is doing well. No specific complaints the patient is currently a postop day #4. The patient was moved out of the intensive care unit and the patient is currently on a telemetry unit. No significant chest pain or shortness of breath. Chest x- ray from today shows no significant abnormalities and there is some atelectatic changes small left-sided pleural effusion. Otherwise no other acute cardiopulmonary process. The patient has a WBC count of 11, hemoglobin 10.9 and platelet count of 335. BUN 30 with a creatinine 1.2 and a sodium levels at 136. The patient is currently on room air oxygen. In terms of medication, he is maintained on aspirin and Plavix. The patient is also on Coreg 3.125 mg p.o. twice a day. Amiodarone 4 mg p.o. twice a day. He remains on Farxiga and Levemir insulin 16 units daily and Synthroid. He remains on Coreg 3.125 mg p.o. twice a day. IV fluids are currently at KVO. Using incentive spirometer. Denies having any specific complaints. No altered mentation. Patient was seen and examined today on 07/11/24, patient is doing great, he is postoperative day #5, has no active pulmonary symptoms and no active cardiac symptoms, patient is doing extremely well, and is being considered for discharge home today. Chest x-ray from today was reviewed, no evidence of any postop complications there is a small tiny left pleural effusion Objective - Vital Signs Vital signs: Vital Signs Temp 97.3 F L 07/21/24 12:00 Pulse 90 07/21/24 16:00 Resp 18 07/21/24 16:00 BP 134/76 07/21/24 16:00 Pulse Ox 96 07/21/24 16:00 FiO2 50 07/16/24 14:50 Intake & Output 07/20/24 07/21/24 07/21/24 18:59 06:59 18:59 Intake Total 736 560 240 Output Total 300 800 Balance 436 -240 240 Weight 75.8 kg Intake: IV 20 20 Invasive Line 9 20 20 Oral 716 540 240 Output: Urine 300 800 Other: Voiding Method Urinal Urinal # Voids 2 ABP, PAP, CO, CI - Last Documented Arterial Blood Pressure 109/48 Pulmonary Artery Pressure 18/5 Cardiac Output 5 Cardiac Index 2.7 - Exam CONSTITUTIONAL: Appears comfortable, cooperative, no acute distress, on room air. RESPIRATORY: Lungs sounds diminished bilaterally. No rhonchi no wheezes CARDIOVASCULAR: S1, S2 present. Regular rate and rhythm, sinus rhythm on telemetry. Sternum stable. Palpable peripheral pulses bilaterally. No edema present. GASTROINTESTINAL: Abdomen soft, nontender, nondistended. Active bowel sounds present 4 quadrants. Tolerating clear liquids. Denies flatus, positive belching INTEGUMENTARY: Skin is warm and dry with evidence of good perfusion. Anterior chest incision well approximated and covered with dry intact dressing. Right lower extremity EVH site well approximated without redness or drainage. NEUROLOGIC: Cranial nerves II through XII intact MUSKULOSKELETAL: No deformities and no limitation range of motion PSYCHIATRIC: Normal mood normal affect normal mental status examination - Labs CBC & Chem 7: 07/21/24 06:52 07/21/24 06:52 Labs: Abnormal Lab Results - Last 24 Hours (Table) 07/20/24 07/21/24 07/21/24 Range/Units 19:57 06:06 06:52 WBC 12.4 H (3.8-10.6) k/uL RBC 3.81 L (4.30-5.90) m/uL Hgb 11.6 L (13.0-17.5) gm/dL Hct 36.0 L (39.0-53.0) % BUN (9-20) mg/dL Glucose (74-99) mg/dL POC Glucose (mg/dL) 162 H 120 H (70-110) mg/dL 07/21/24 07/21/24 07/21/24 Range/Units 06:52 11:27 16:14 WBC (3.8-10.6) k/uL RBC (4.30-5.90) m/uL Hgb (13.0-17.5) gm/dL Hct (39.0-53.0) % BUN 26 H (9-20) mg/dL Glucose 121 H (74-99) mg/dL POC Glucose (mg/dL) 194 H 247 H (70-110) mg/dL Assessment and Plan Assessment: Impression: Acute non-ST segment elevation myocardial infarction, with severe triple-vessel disease and the patient is status post coronary bypass surgery with sequential MCKEON to LAD and SVG to circumflex. postoperative day #5 Atrial fibrillation, paroxysmal, currently on oral amiodarone and Coreg. COPD, with ongoing tobacco use. The patient COPD is currently inactive and stable History of ST segment elevation myocardial infarction, February 2015, with prior LAD stent placement, 2014 and 2015. Prior history of myocardial infarction. History of diabetes mellitus. History of hypertension. History of hyperlipidemia. History of CVA. Current everyday tobacco use. Recommendation: Continue incentive spirometry Continue present supportive care measures Continue medical therapy including statin aspirin beta-blockers and amiodarone. Agree with discharge planning, follow-up on outpatient basis. Time with Patient: Less than 30
--- NOTE | 2024-07-24 21:19 | PN ---
PROGRESS NOTE DATE OF SERVICE: 07/21/2024 CHIEF COMPLAINT: Status post NSTEMI. HISTORY OF PRESENT ILLNESS: This gentleman is doing well. He may be going home soon. He is not having a great deal of sternotomy pain and he has not had any shortness of breath, fever, chills, etc. PHYSICAL EXAMINATION: CHEST: Clear. Breath sounds are diminished due to COPD. Incision is clean. CARDIAC: Normal. ABDOMEN: Soft, nontender. IMPRESSION: Status post coronary artery bypass graft. PLAN: Probably home soon pending Surgery's plans. MMODL / IJN: [id number] /
== END 2024-07-21 17:15 | disposition home health service (06) | DRG 233 ==
LOC: EC 13:53 → 3SCARD 14:35 → 3NCARDOBS 07-11 01:50 → 3SCARD 07-11 01:51 → 2SICU 07-16 06:14 → 3SCARD 07-19 14:51
PROVIDERS: ADMIT Thoracic Surgery (Cardiothoracic Vascular Surgery); ATTEND Thoracic Surgery (Cardiothoracic Vascular Surgery)
PROC: 4A023N7 Measurement of Cardiac Sampling and Pressure, Left Heart, Percutaneous Approach (ICD-10-PCS; 2024-07-10)
PROC: B2111ZZ Fluoroscopy of Multiple Coronary Arteries using Low Osmolar Contrast (ICD-10-PCS; 2024-07-10)
PROC: 4A133J1 Monitoring of Arterial Pulse, Peripheral, Percutaneous Approach (ICD-10-PCS; principal; 2024-07-16 08:00)
PROC: 02100Z9 Bypass Coronary Artery, One Artery from Left Internal Mammary, Open Approach (ICD-10-PCS; principal; 2024-07-16 08:00)
PROC: 02L70CK Occlusion of Left Atrial Appendage with Extraluminal Device, Open Approach (ICD-10-PCS; principal; 2024-07-16 08:00)
PROC: 021109W Bypass Coronary Artery, Two Arteries from Aorta with Autologous Venous Tissue, Open Approach (ICD-10-PCS; principal; 2024-07-16 08:00)
PROC: 06BP4ZZ Excision of Right Saphenous Vein, Percutaneous Endoscopic Approach (ICD-10-PCS; principal; 2024-07-16 08:00)
PROC: 5A1221Z Performance of Cardiac Output, Continuous (ICD-10-PCS; principal; 2024-07-16 08:00)
PROC: 4A133B1 Monitoring of Arterial Pressure, Peripheral, Percutaneous Approach (ICD-10-PCS; principal; 2024-07-16 08:00)
PROC: 02HV33Z Insertion of Infusion Device into Superior Vena Cava, Percutaneous Approach (ICD-10-PCS; 2024-07-16 08:00)
PROC: 03HY32Z Insertion of Monitoring Device into Upper Artery, Percutaneous Approach (ICD-10-PCS; 2024-07-16 08:00)
PROC: B548ZZA Ultrasonography of Superior Vena Cava, Guidance (ICD-10-PCS; 2024-07-16 08:00)
PROC: B5181ZA Fluoroscopy of Superior Vena Cava using Low Osmolar Contrast, Guidance (ICD-10-PCS; 2024-07-16 08:00)
PROC: B24BZZ4 Ultrasonography of Heart with Aorta, Transesophageal (ICD-10-PCS; 2024-07-16 08:00)
DX: T82.855A Stenosis of coronary artery stent, initial encounter (principal); I21.4 Non-ST elevation (NSTEMI) myocardial infarction; N17.9 Acute kidney failure, unspecified; R00.1 Bradycardia, unspecified; Z95.5 Presence of coronary angioplasty implant and graft; I25.10 Atherosclerotic heart disease of native coronary artery without angina pectoris; R20.0 Anesthesia of skin; J44.9 Chronic obstructive pulmonary disease, unspecified; I10 Essential (primary) hypertension; E78.5 Hyperlipidemia, unspecified; Z86.73 Personal history of transient ischemic attack (TIA), and cerebral infarction without residual deficits; F17.210 Nicotine dependence, cigarettes, uncomplicated; E11.9 Type 2 diabetes mellitus without complications; E03.9 Hypothyroidism, unspecified; I25.2 Old myocardial infarction; M19.90 Unspecified osteoarthritis, unspecified site; E11.65 Type 2 diabetes mellitus with hyperglycemia; Z79.890 Hormone replacement therapy; Z79.84 Long term (current) use of oral hypoglycemic drugs; I48.0 Paroxysmal atrial fibrillation; I70.0 Atherosclerosis of aorta; Z79.02 Long term (current) use of antithrombotics/antiplatelets; Z79.4 Long term (current) use of insulin; Z79.82 Long term (current) use of aspirin; Z79.899 Other long term (current) drug therapy; Z91.199 Patient's noncompliance with other medical treatment and regimen due to unspecified reason
CPT/HCPCS: 36415; 71045; 71046; 71250; 80048; 80053; 80061; 80074; 82330; 82805; 83036; 83735; 84439; 84443; 84484; 85025; 85027; 85610; 85730; 86644; 86645; 86850; 86900; 86901; 86920; 87070; 87075; 87077; 87186; 87205; 87496; 87498; 87502; 87529; 87634; 87635; 87798; 93005; 93306; 93458; 93922; 93970; 94002; 94150; 94640; 94760; 96372; 96374; 96375; 99291